=== PATIENT | male | born 1950 | race Caucasian/White ===

== ENCOUNTER → 2017-02-01 | Outpatient (CLI) | payer MEDICARE ==
[~2017-02-01] MED LIST: ASPI81TA85 PO; BACITAB3 PO; DESIOIN3 TOP; FISH1000 PO; GLUC1000 PO; GLUC500T PO; INSUDET SC; INSUH10VL SC; LIPI20TA PO; LISI-542 PO; OS-CTAB PO; PROT1TAB2 PO; REGL10TA6 PO; SUCR1TA PO; TYLE325T5 PO; VITA-130 PO; VITA100T60 PO; [UNRECOGNIZED DRUG - CODE] GT; [UNRECOGNIZED DRUG - CODE] PO; proventil NEB
[2017-02-01 13:06] LABS: ALBUMIN 4.1 GM/DL (3.2-5.2); ALBUMIN/GLOBULIN RATIO 1.21 (1.00-1.93); BILIRUBIN,TOTAL 1.2 MG/DL (0.2-1.0); CALCIUM LEVEL 10.2 MG/DL (8.8-10.2); CREATININE FOR GFR 1.46 MG/DL (0.70-1.30); GLOMERULAR FILTRATION RATE 51.1 (>49); TOTAL PROTEIN 7.5 GM/DL (6.4-8.2)
[2017-02-01 13:23] LABS: POTASSIUM SERUM 6.3 MEQ/L (3.5-5.1)
== END ==
LOC: M SMT 08:24
PROVIDERS: ATTEND Family Medicine
DX: E11.40 Type 2 diabetes mellitus with diabetic neuropathy, unspecified (principal); I10 Essential (primary) hypertension; I63.311 Cerebral infarction due to thrombosis of right middle cerebral artery

== ENCOUNTER → 2017-02-02 | Outpatient (CLI) | payer MEDICARE ==
[~2017-02-02] MED LIST changes: +AMLO10TA2
[2017-02-02 13:46] LABS: CALCIUM LEVEL 9.8 MG/DL (8.8-10.2); CREATININE FOR GFR 1.47 MG/DL (0.70-1.30); GLOMERULAR FILTRATION RATE 50.7 (>49)
[2017-02-02 13:51] LABS: POTASSIUM SERUM 5.8 MEQ/L (3.5-5.1)
== END ==
LOC: M SMT 08:11
PROVIDERS: ATTEND Family Medicine
DX: G72.3 Periodic paralysis (principal)

== ENCOUNTER 2017-02-05 20:50 | Emergency (ER) | payer MEDICARE ==
[~2017-02-05] VITALS: Ht 182.9 cm; Wt 96.2 kg
[~2017-02-05 20:50] MED LIST changes: -AMLO10TA2
[2017-02-05] MEDS ORDERED: AMLO10TA2 (20:58)
[2017-02-05 21:44] LABS: CALCIUM LEVEL 9.7 MG/DL (8.8-10.2); CREATININE FOR GFR 1.34 MG/DL (0.70-1.30); GLOMERULAR FILTRATION RATE 56.4 (>49); POTASSIUM SERUM 4.4 MEQ/L (3.5-5.1)
[2017-02-05] MEDS ORDERED: NS 500 ML IV ONE (22:30)
[2017-02-05 23:11] VITALS: BP 135/70
--- NOTE | 2017-02-06 07:22 | ECGEPIP ---
Stationary ECG Study [facility] - ED Test Date: 2017-02-05 Pat Name: CHELE HOLLINS Department: Room: - Gender: M Coding File Clerk: john : 1950 Requested By: FLAKITA ENGEL Order Number: [id number] Reading MD: Samantha Mcintyre Measurements Intervals [place] Rate: 87 P: 61 [place]: 152 QRS: 13 QRSD: 97 T: 57 QT: 344 QTc: 415 Interpretive Statements SINUS RHYTHM NONSPECIFIC T-WAVE ABNORMALITY DECREASED RATE 11/10/14 Electronically Signed On 02-06-2017 7:22:26 EDT by Samantha Mcintyre
== END 2017-02-05 23:13 | disposition home or self-care (01) ==
LOC: M ED 21:57
DX: E86.0 Dehydration (principal); N17.8 Other acute kidney failure; E87.5 Hyperkalemia

== ENCOUNTER → 2017-02-05 | Outpatient (CLI) | payer MEDICARE ==
[2017-02-05 18:20] LABS: BASO % 0.7 % (0.0-1.0); EOS # 0.2 K/mm3 (0.0-0.50); EOS % 2.1 % (0.0-3.0); LARGE UNSTAINED CELL # 0.2 K/mm3 (0.0-0.4); LARGE UNSTAINED CELL % 3.1 % (0.0-4.0); LYMPH # 2.1 K/mm3 (1.5-4.5); LYMPH % 25.5 % (24.0-44.0); MEAN CORPUSCULAR HEMOGLOBIN 33.3 pg (27.0-33.0); MEAN CORPUSCULAR HGB CONC 33.7 g/dl (32.0-36.5); MEAN CORPUSCULAR VOLUME 98.9 fl (80.0-96.0); MONO # 0.5 K/mm3 (0.0-0.8); MONO % 6.6 % (0.0-5.0); NEUTROPHILS # 4.5 K/mm3 (1.8-7.7); NEUTROPHILS % 62.1 % (36.0-66.0); PLATELET COUNT, AUTOMATED 185 k/mm3 (150-450); RED CELL DISTRIBUTION WIDTH 13.2 % (11.5-14.5); WHITE BLOOD COUNT 7.3 K/mm3 (4.0-10.0)
[2017-02-05 18:39] LABS: CALCIUM LEVEL 11.1 MG/DL (8.8-10.2); CREATININE FOR GFR 1.56 MG/DL (0.70-1.30); GLOMERULAR FILTRATION RATE 47.4 (>49)
[2017-02-05 19:04] LABS: POTASSIUM SERUM 6.4 MEQ/L (3.5-5.1)
== END ==
LOC: M SMT 14:31
PROVIDERS: ATTEND Family Medicine
DX: N17.8 Other acute kidney failure (principal); E87.5 Hyperkalemia

== ENCOUNTER → 2017-02-18 | Outpatient (CLI) | payer MEDICARE ==
[~2017-02-18] MED LIST changes: +AMLO10TA2
[2017-02-18 14:11] LABS: BLOOD UREA NITROGEN 18 MG/DL (7-18); CREATININE FOR GFR 1.09 MG/DL (0.70-1.30); GLOMERULAR FILTRATION RATE > 60.0 (>49); GLUCOSE, FASTING 127 MG/DL (80-110); POTASSIUM SERUM 5.5 MEQ/L (3.5-5.1); SODIUM LEVEL 140 MEQ/L (136-145)
[2017-02-18 14:12] LABS: ANION GAP 4 MEQ/L (8-16); CARBON DIOXIDE LEVEL 28 MEQ/L (21-32); CHLORIDE LEVEL 108 MEQ/L (98-107)
== END ==
LOC: M SMT 09:49
PROVIDERS: ATTEND Family Medicine
DX: E87.5 Hyperkalemia (principal); N17.8 Other acute kidney failure

== ENCOUNTER → 2017-02-24 | Outpatient (CLI) | payer MEDICARE ==
[2017-02-24 13:46] LABS: CORTISOL AM 9.9 UG/DL (4.3-22.4)
== END ==
LOC: M SMT 08:27
PROVIDERS: ATTEND Family Medicine
DX: E87.5 Hyperkalemia (principal)

== ENCOUNTER → 2017-04-02 | Outpatient (CLI) | payer MEDICARE ==
[~2017-04-02] MED LIST changes: +BACITAB PO; -BACITAB3 PO; -VITA-130 PO; +VITA500T PO
== END ==
LOC: M SMT 10:54
PROVIDERS: ATTEND Urology
DX: C61 Malignant neoplasm of prostate (principal)

== ENCOUNTER → 2017-05-20 | Outpatient (CLI) | payer MEDICARE ==
[2017-05-20 13:43] LABS: BASO % 0.9 % (0.0-1.0); EOS # 0.3 K/mm3 (0.0-0.50); EOS % 5.1 % (0.0-3.0); LARGE UNSTAINED CELL # 0.2 K/mm3 (0.0-0.4); LYMPH # 1.7 K/mm3 (1.5-4.5); LYMPH % 29.3 % (24.0-44.0); MEAN CORPUSCULAR HEMOGLOBIN 33.9 pg (27.0-33.0); MEAN CORPUSCULAR HGB CONC 35.1 g/dl (32.0-36.5); MEAN CORPUSCULAR VOLUME 96.5 fl (80.0-96.0); MONO # 0.5 K/mm3 (0.0-0.8); MONO % 7.8 % (0.0-5.0); NEUTROPHILS # 3.1 K/mm3 (1.8-7.7); NEUTROPHILS % 52.8 % (36.0-66.0); PLATELET COUNT, AUTOMATED 201 k/mm3 (150-450); RED CELL DISTRIBUTION WIDTH 12.9 % (11.5-14.5); WHITE BLOOD COUNT 5.8 K/mm3 (4.0-10.0)
[2017-05-20 14:36] LABS: ALBUMIN 4.2 GM/DL (3.2-5.2); ALBUMIN/GLOBULIN RATIO 1.27 (1.00-1.93); ALKALINE PHOSPHATASE 137 U/L (45-117); ALT/SGPT 38 U/L (12-78); ANION GAP 8 MEQ/L (8-16); AST/SGOT 15 U/L (15-37); BILIRUBIN,TOTAL 0.6 MG/DL (0.2-1.0); BLOOD UREA NITROGEN 17 MG/DL (7-18); CALCIUM LEVEL 9.8 MG/DL (8.8-10.2); CARBON DIOXIDE LEVEL 26 MEQ/L (21-32); CHLORIDE LEVEL 105 MEQ/L (98-107); CHOLESTEROL LEVEL 120 MG/DL (<200); CREATININE FOR GFR 1.14 MG/DL (0.70-1.30); GLOMERULAR FILTRATION RATE > 60.0 (>49); GLUCOSE, FASTING 125 MG/DL (80-110); SODIUM LEVEL 139 MEQ/L (136-145); TOTAL PROTEIN 7.5 GM/DL (6.4-8.2); TRIGLYCERIDES LEVEL 75 MG/DL (<150)
[2017-05-20 14:41] LABS: POTASSIUM SERUM 5.3 MEQ/L (3.5-5.1)
== END ==
LOC: M SMT 11:03
PROVIDERS: ATTEND Family Medicine
DX: E11.40 Type 2 diabetes mellitus with diabetic neuropathy, unspecified (principal); I10 Essential (primary) hypertension

== ENCOUNTER → 2017-05-24 | Outpatient (CLI) | payer MEDICARE | LOC: M SMT 15:36 | PROVIDERS: ATTEND Family Medicine | DX: R74.8 Abnormal levels of other serum enzymes (principal) ==

== ENCOUNTER 2019-06-14 20:29 | Emergency (ER) | payer MEDICARE ==
[~2019-06-14] VITALS: Ht 180.3 cm; Wt 104.5 kg
[~2019-06-14 20:29] MED LIST changes: -AMLO10TA2; +AMLO10TA5
[2019-06-14] MEDS ORDERED: DERMABOND TOPICAL SKIN ADHESIVE TOP ONE (21:45)
[2019-06-14 22:34] VITALS: BP 150/78
== END 2019-06-14 22:33 | disposition home or self-care (01) ==
LOC: M ED 20:29
DX: S61.011A Laceration without foreign body of right thumb without damage to nail, initial encounter (principal); W26.8XXA Contact with other sharp object(s), not elsewhere classified, initial encounter; Y92.009 Unspecified place in unspecified non-institutional (private) residence as the place of occurrence of the external cause; E11.9 Type 2 diabetes mellitus without complications; I10 Essential (primary) hypertension; Z79.84 Long term (current) use of oral hypoglycemic drugs; Z88.8 Allergy status to other drugs, medicaments and biological substances

== ENCOUNTER 2020-08-04 10:21 | Inpatient (IN) | payer MEDICARE ==
[~2020-08-04] VITALS: Ht 177.8 cm; Wt 99.5 kg
[2020-08-04] VITALS (8 sets, daily range): BP systolic 114–231; BP diastolic 80–102
[~2020-08-04 10:21] MED LIST changes: -AMLO10TA5; +AMLO1TAB25; -ASPI81TA85 PO; +ASPI81TA86 PO; +VITA-243 PO; -VITA500T PO
[2020-08-04] MEDS ORDERED: vitamin d PO (10:29)
[2020-08-04] MEDS ORDERED: GNP250TA9 PO (10:29)
[2020-08-04] MEDS ORDERED: STROCRY11 XX (10:34)
[2020-08-04] MEDS ORDERED: PROBCAP17 PO (10:34)
[2020-08-04] MEDS ORDERED: [UNRECOGNIZED DRUG - OTHER] PO (10:34)
[2020-08-04] MEDS ORDERED: [UNRECOGNIZED DRUG - OTHER] PO (10:34)
[2020-08-04 11:30] LABS: VENOUS BASE EXCESS -13.9 (-2.0-2.0); VENOUS HCO3 12.1 MEQ/L (23.0-27.0); VENOUS O2 SATURATION 81.6 % (60.0-80.0); VENOUS PARTIAL PRESSURE CO2 30.5 mmHg (38.0-50.0); VENOUS PARTIAL PRESSURE O2 50.2 mmHg (30.0-50.0); VENOUS PH 7.217 UNITS (7.330-7.430); VENOUS STANDARD HCO3 14.1 MEQ/L; VENOUS TOTAL CO2 13.1 MEQ/L (24.0-28.0)
[2020-08-04] MEDS ORDERED: NS 1,000 ML IV ONE ×2 (11:30→12:30)
[2020-08-04] MEDS ORDERED: HumuLIN R (REGULAR) INSULIN (NovoLIN R) **100U/ML** PER UNIT IV ONE (11:30)
--- NOTE | 2020-08-04 11:30 | REP ---
INDICATION: elev glucose COMPARISON: 11/13/2014 TECHNIQUE: Portable AP view of the chest FINDINGS: The mediastinum and cardiac silhouette are stable and within normal limits for portable technique. The lung singer demonstrate chronic changes without acute consolidation, effusion, or pneumothorax. Skeletal structures are intact. IMPRESSION: No acute cardiopulmonary process appreciated. <Electronically signed by Elbert Reddy > 08/04/20 1124
[2020-08-04 11:31] LABS: BASO # 0.1 10^3/uL (0.0-0.2); BASO % 0.5 % (0.0-1.0); EOS % 0.2 % (0.0-3.0); HEMATOCRIT 59.6 % (42.0-52.0); HEMOGLOBIN 18.6 g/dl (13.5-17.5); LYMPH # 1.1 10^3/uL (1.5-5.0); LYMPH % 10.3 % (24.0-44.0); MEAN CORPUSCULAR HEMOGLOBIN 30.7 pg (27.0-33.0); MEAN CORPUSCULAR HGB CONC 31.2 g/dl (32.0-36.5); MEAN CORPUSCULAR VOLUME 98.3 fl (80.0-96.0); MONO # 0.5 10^3/uL (0.0-0.8); MONO % 4.6 % (0.0-5.0); NEUTROPHILS # 9.2 10^3/uL (1.5-8.5); PLATELET COUNT, AUTOMATED 238 10^3/uL (150-450); RED BLOOD COUNT 6.06 10^6/uL (4.30-6.10); WHITE BLOOD COUNT 10.9 10^3/uL (4.0-10.0)
[2020-08-04 11:50] LABS: OSMOLALITY SERUM 371 MOSM/KG (280-301)
[2020-08-04 11:58] LABS: ALBUMIN 3.9 GM/DL (3.2-5.2); ALT/SGPT 49 U/L (12-78); BILIRUBIN,DIRECT 0.3 MG/DL (0.0-0.2); BILIRUBIN,TOTAL 0.7 MG/DL (0.2-1.0); LIPASE 344 U/L (73-393); TOTAL PROTEIN 8.6 GM/DL (6.4-8.2)
[2020-08-04] MEDS ORDERED: INSULIN REGULAR IN 0.9 % NACL 100 UNIT in IV 1 EA IV SCH ×6 (11:58→14:58)
[2020-08-04 11:59] LABS: ACETONE/KETONE > 46.00 MG/DL (<2.81)
[2020-08-04] MEDS ORDERED: INSULIN IV RATE CHANGE DOCUMENTATION ML/HR XX SCH ×3 (12:00→15:00)
[2020-08-04 12:02] LABS: HEMOGLOBIN A1c 10.9 %
[2020-08-04 12:14] LABS: BLOOD UREA NITROGEN 45 MG/DL (7-18); CALCIUM LEVEL 11.1 MG/DL (8.8-10.2); CARBON DIOXIDE LEVEL 16 MEQ/L (21-32); CHLORIDE LEVEL 110 MEQ/L (98-107); CK-MB VALUE MASS 3.9 NG/ML (<3.6); CPK CREATINE PHOSPHOKINASE 218 U/L (39-308); CREATININE FOR GFR 2.32 MG/DL (0.70-1.30); GLOMERULAR FILTRATION RATE 29.7 (>42); MAGNESIUM LEVEL 2.7 MG/DL (1.8-2.4); MB/CK RELATIVE INDEX 1.79 (< OR =4); POTASSIUM SERUM 5.9 MEQ/L (3.5-5.1); SODIUM LEVEL 142 MEQ/L (136-145); TROPONIN I < 0.02 NG/ML (< 0.10)
[2020-08-04 12:15] LABS: GLUCOSE, FASTING 671 MG/DL (70-100)
[2020-08-04] MEDS ORDERED: [UNRECOGNIZED DRUG - OTHER] PO (12:17)
[2020-08-04] MEDS ORDERED: [UNRECOGNIZED DRUG - OTHER] PO (12:17)
[2020-08-04] MEDS ORDERED: SM S160C PO (12:17)
[2020-08-04] MEDS ORDERED: VITA-199 PO (12:17)
[2020-08-04 13:23] LABS: PHOSPHORUS LEVEL 5.4 MG/DL (2.5-4.9)
[2020-08-04] MEDS ORDERED: HumuLIN R (REGULAR) INSULIN (NovoLIN R) **100U/ML** PER UNIT IV STA (13:47)
--- NOTE | 2020-08-04 14:12 | HPEPDOC ---
[facility] Medical History & Physical Date of Admission Aug 04, 2020 Date of Service: Aug 04, 2020 History and Physical CHIEF COMPLAINT: Weakness HISTORY OF PRESENT ILLNESS: 69-year-old male past medical history of jqt-qjkxqdi-yiybjbxkc diabetes, hypertension, presents to the ED because of worsening weakness that has been d eveloping over the past 2 weeks. Patient tells me that he was diagnosed with diabetes 4 years ago and has been managing it with his ketones diet. He has been having increased urinary frequency and increased thirst over the past few weeks however he has not been drinking much and continues to urinate frequently. Patient tells me that he last saw his primary care doctor 2 years ago and does not take any medications and tries to manage his medical problems with diet alone. Patient does not exercise. Patient denies any nausea or vomiting or abdominal pain PAST MEDICAL HISTORY: Glk-sfqnzpr-zxhtqdkje diabetes Hypertension PAST SURGICAL HISTORY: Tonsillectomy Appendectomy SOCIAL HISTORY: Drinks alcohol socially 1-2 times per week Denies tobacco use Denies illicit drug use FAMILY HISTORY: Mother has a history of diabetes and hypertension He is unaware of any major medical problems his father had ALLERGIES: Please see below. REVIEW OF SYSTEMS: 10 point review of systems complete all negative otherwise stated in HPI Constitutional: No sweating or weight loss Eyes: No eye pain or acute blurred vision HENT: No complaints of headache or sore throat Cadiovascular: No Chest pain or palpitations Pulm: No SOB or cough Gastrointestinal: No N/V, no abdominal pain. Genitourinary: No dysuria or hematuria. He does have polyuria per HPI Musculoskeletal: No back pain or joint pain Skin: No rash or jaundice Neurological: weakness per HPI. HOME MEDICATIONS: Please see below. PHYSICAL EXAMINATION: Constitutional: Awake and alert, in no apparent distress. Obese ENT: Sclera are clear. Mucosa is moist. Respiratory: Lungs CTA bilaterally. No respiratory distress. No use of accessory muscles. Cardiovascular: RRR S1 and S2 are normal, no murmur Gastrointestinal: Abdomen is soft, non distended, non tender, BS present. Musculoskeletal: No LE edema. No joint deformities. RUE 5/5, LUE 5/5, BLE 5/5 Neurologic: No focal neurological deficit. Mental Status: A&O x3, normal affect Skin: Warm, dry, venous stasis changes on lower extremities LABORATORY DATA: See below. IMAGING: Chest x-ray: No acute cardiopulmonary changes MICROBIOLOGY: Please see below. ASSESSMENT/PLAN 69-year-old male past medical history of diabetes and hypertension admitted for management of hyperglycemia. Initially with increased anion gap which quickly corrected after subcutaneous insulin and did not require insulin drip. # Diabetic ketoacidosis: Admit to ICU for insulin drip. DKA protocol. IVFs. BMP q2h. A1C 10.9. Diabetic education. q1h accucheck while on insulin drip. K correction per protocol. BMPq2h. # Uncontrolled HTN: not on any home medications. Start on HCTZ, amlodipine. Hydralazine IV PRN SBP>180 # BATSHEVA vs CKD: IVFs. Trend BMP. # Acute pancreatitis: started around 730pm once the patient was admitted and was up in ICU having acute abdominal pain. Initially upon intake patient was abd ominal pain free in the ICU. Relieved with 0.5mg IV dilaudid. Stat CT abdomen. VRAD verbal read showing acute pancreatitis and findings suggestive of gastritis. Findings also consistent with gastritis. Fatty liver. I wonder if he drinks more ETOH than he tells me, I will place him on the CIWA protocol with PRN Ativan. ETOH might have triggered his pancreatitis. Lipid panel ordered. Already NPO and getting IVFs. Pain control, added IV morphine PRN. # DVT prophylaxis: Heparin Critical care time spent in care of this patient 40 A Yousef Hospitalist Vital Signs Vital Signs Date Time Temp Pulse Resp B/P (MAP) Pulse Ox O2 Delivery O2 Flow Rate FiO2 08/04/20 13:30 165/97 (119) 08/04/20 13:22 97 18 99 Room Air 08/04/20 10:22 96.8 Laboratory Data Labs 24H Laboratory Tests 2 08/04/20 10:43: Immature Granulocyte % (Auto) 0.4, Neutrophils (%) (Auto) 84.0H, Lymphocytes (%) (Auto) 10.3L, Monocytes (%) (Auto) 4.6, Eosinophils (%) (Auto) 0.2, Basophils (%) (Auto) 0.5, Neutrophils # (Auto) 9.2H, Lymphocytes # (Auto) 1.1L, Monocytes # (Auto) 0.5, Eosinophils # (Auto) 0.0, Basophils # (Auto) 0.1, Nucleated Red Blood Cells % (auto) 0.0, Osmolality 371H, Total Bilirubin 0.7, Direct Bilirubin 0.3H, Aspartate Amino Transf (AST/SGOT) 22, Alanine Aminotransferase (ALT/SGPT) 49, Alkaline Phosphatase 203H, Total Protein 8.6H, Albumin 3.9, Albumin/Globulin Ratio 0.8, Lipase 344, B-Hydroxybutyrate > 46.00H 08/04/20 10:54: Anion Gap 16, Glomerular Filtration Rate 29.7L, Calcium Level 11.1H, Phosphorus Level 5.4H, Magnesium Level 2.7H, Total Creatine Kinase 218, Creatine Kinase MB 3.9H, Creatine Kinase MB Relative Index 1.79, Troponin I < 0.02 08/04/20 10:56: Blood Gas Bicarbonate Standard 14.1, Venous Blood pH 7.217L, Venous Blood Partial Pressure CO2 30.5L, Venous Blood Partial Pressure O2 50.2H, Venous Blood Total Carbon Dioxide 13.1L, Venous Blood HCO3 12.1L, Venous Blood Oxygen Saturation 81.6H, Venous Blood Base Excess -13.9L, Estimated Mean Plasma Glucose 266H, Hemoglobin A1c 10.9 08/04/20 11:49: Urine Color YELLOW, Urine Appearance CLEAR, Urine pH 5.0, Urine Specific [place] 1.028, Urine Protein NEGATIVE, Urine Glucose (UA) 3+H, Urine Ketones 2+H, Urine Blood NEGATIVE, Urine Nitrite NEGATIVE, Urine Bilirubin NEGATIVE, Urine Urobilinogen 0.2, Urine Leukocyte Esterase NEGATIVE, Urine WBC (Auto) 1, Urine RBC (Auto) 2, Urine Hyaline Casts (Auto) 0, Urine Bacteria (Auto) NEGATIVE, Urin e Squamous Epithelial Cells 0, Urine Sperm (Auto) , Coronavirus (COVID-19)(PCR) NEGATIVE 08/04/20 13:43: Bedside Glucose ([facility], [facility] Panel) 514*H CBC/BMP Laboratory Tests 08/04/20 10:43 08/04/20 10:54 Home Medications Scheduled Ascorbic Acid (Vitamin C) 500 Mg Tab, 500 MG PO DAILY Cholecalciferol (Vitamin D3) (Vitamin D3) 250 Mcg Tablet, 250 MCG PO DAILY Lactobacillus Combo No.11 (Probiotic) 1 Each Cap.sprink, 1 CAP PO DAILY Magnesium Oxide (Magnesium) 250 Mg Tablet, 250 MG PO DAILY [place] ([place]) 160 Mg Capsule, 160 MG PO DAILY [Arginex] , 1 TAB PO DAILY [Strontium Citrate] 250 MG CAP, 750 MG PO DAILY Allergies Coded Allergies: metoprolol (Verified Allergy, Intermediate, INJECTION LEADS TO RASH, 06/14/19) INJECTION LEADS TO RASH A-FIB/CHADSVASC A-FIB History Current/History of A-Fib/PAF?: No SRIKANTHSELLOYD [place] MD Aug 04, 2020 14:12
[2020-08-04 14:38] LABS: CALCIUM LEVEL 9.9 MG/DL (8.8-10.2); CREATININE FOR GFR 1.98 MG/DL (0.70-1.30); GLOMERULAR FILTRATION RATE 35.7 (>42); POTASSIUM SERUM 4.7 MEQ/L (3.5-5.1)
[2020-08-04] MEDS: NS 1,000 ML IV SCH ×2 (15:30→20:30)
[2020-08-04 16:27] LABS: CALCIUM LEVEL 10.3 MG/DL (8.8-10.2); CREATININE FOR GFR 1.98 MG/DL (0.70-1.30); GLOMERULAR FILTRATION RATE 35.7 (>42); PHOSPHORUS LEVEL 2.9 MG/DL (2.5-4.9); POTASSIUM SERUM 4.6 MEQ/L (3.5-5.1)
[2020-08-04] MEDS: INSULIN REGULAR IN 0.9 % NACL 100 UNIT in IV 1 EA IV SCH ×2 (16:30)
[2020-08-04] MEDS ORDERED: LABETALOL 100MG/20ML VIAL IV STA (16:54)
[2020-08-04] MEDS: INSULIN IV RATE CHANGE DOCUMENTATION ML/HR XX SCH ×4 (17:04→21:06)
[2020-08-04] MEDS: PANTOPRAZOLE 40MG VIAL (C9113 PER 1) IV SCH (17:21)
[2020-08-04] MEDS: LEVEMIR (INSULIN DETEMIR) 1 UNITS/0.01ML SC SCH (17:21)
[2020-08-04 17:42] LABS: CALCIUM LEVEL 10.2 MG/DL (8.8-10.2); CREATININE FOR GFR 1.95 MG/DL (0.70-1.30); GLOMERULAR FILTRATION RATE 36.3 (>42); PHOSPHORUS LEVEL 2.4 MG/DL (2.5-4.9); POTASSIUM SERUM 4.4 MEQ/L (3.5-5.1)
[2020-08-04] MEDS ORDERED: hydroCHLOROthiazide 25 MG TAB PO ONE (19:00)
[2020-08-04] MEDS ORDERED: amLODIPine 5 MG TAB PO ONE (19:00)
--- NOTE | 2020-08-04 19:03 | ECGEPIP ---
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
[2020-08-04] MEDS ORDERED: RAMELTEON 8 MG TAB (ROZEREM) PO ONE (19:45)
[2020-08-04] MEDS ORDERED: MORPHINE 2 MG/ML 1ML VIAL (J2270) IV ONE (20:15)
[2020-08-04] MEDS ORDERED: MORPHINE 2 MG/ML 1ML VIAL (J2270) As Ordered ONE (20:15)
[2020-08-04] MEDS ORDERED: MORPHINE 2 MG/ML 1ML VIAL (J2270) IV PRN ×2 (20:30→23:15)
[2020-08-04] MEDS ORDERED: D5/0.9%NACL 1000ML IV ONE (20:30)
[2020-08-04] MEDS ORDERED: HYDROMORPHONE HCL 0.5 MG/ 0.5 ML SYRINGE (J1170 PER 1) IV ONE (20:30)
[2020-08-04] MEDS ORDERED: PANTOPRAZOLE 40MG VIAL (C9113 PER 1) IV ONE (20:45)
[2020-08-04] MEDS ORDERED: THIAMINE 100 MG TAB PO SCH (21:00)
[2020-08-04 21:19] LABS: ALBUMIN 3.3 GM/DL (3.2-5.2); BILIRUBIN,TOTAL 0.7 MG/DL (0.2-1.0); CALCIUM LEVEL 10.2 MG/DL (8.8-10.2); CREATININE FOR GFR 1.85 MG/DL (0.70-1.30); GLOMERULAR FILTRATION RATE 38.6 (>42); MAGNESIUM LEVEL 2.3 MG/DL (1.8-2.4); POTASSIUM SERUM 3.4 MEQ/L (3.5-5.1); TOTAL PROTEIN 7.4 GM/DL (6.4-8.2)
--- NOTE | 2020-08-04 21:36 | REPVR ---
PROCEDURE INFORMATION: Exam: CT Abdomen And Pelvis Without Contrast Exam date and time: 08/04/2020 9:01 PM Age: 69 years old Clinical indication: Abdominal pain; Generalized; Additional info: Acute onset abdominal pain TECHNIQUE: Imaging protocol: Computed tomography of the abdomen and pelvis without contrast. Radiation optimization: All CT scans at this facility use at least one of these dose optimization techniques: automated exposure control; mA and/or kV adjustment per patient size (includes targeted exams where dose is matched to clinical indication); or iterative reconstruction. COMPARISON: CT ABD PELVIS W/O CONTRAST 10/14/2014 8:56 AM (The report from this study was not available for review at the time of this interpretation.) FINDINGS: Lungs: There is mild dependent atelectasis in both lower lobes. Heart: No cardiomegaly or pericardial effusion is noted. There are coronary artery calcifications and mitral annular calcifications. Mediastinal space: There is a small sliding hiatal hernia. There is fluid in the esophagus, which can be seen with gastroesophageal reflux. Diaphragm: Intact. Liver: The liver measures less than 40 Hounsfield units and the attenuation of the liver measures more than 10 Hounsfield units lower compared to the attenuation of the spleen, which is compatible with fatty liver infiltration. Gallbladder and bile ducts: The gallbladder is distended. No calcified gallstones are seen. No gallbladder wall thickening, pericholecystic fluid, or pericholecystic inflammatory changes are identified. No dilation of the bile ducts is noted. No calcified stones are seen in the common bile duct. Pancreas: There is inflammatory fat stranding and a small amount of free fluid around the pancreas, which is compatible with acute pancreatitis. No pseudocyst is identified. No pancreatic mass is seen. No dilation of the main pancreatic duct is noted. Spleen: Unremarkable. No splenomegaly is noted. Adrenal glands: Normal. No adrenal mass is noted. Kidneys and ureters: The kidneys are unremarkable. No renal lesion is identified. No calculi are seen in the kidneys or ureters. There is no hydronephrosis or hydroureter. Stomach and bowel: There is inflammatory fat stranding around the gastric antrum and duodenum. There is colonic diverticulosis without evidence for diverticulitis. There is no evidence for a bowel obstruction, colitis, pneumatosis intestinalis, intussusception, volvulus, or perforated viscus. There is a moderate amount of formed stool in the colon. Appendix: The appendix has been removed. Intraperitoneal space: No free air or abscess. Retroperitoneal space: No retroperitoneal mass or abscess. Vasculature: The abdominal aorta is normal in caliber. There are moderate atherosclerotic calcifications. Lymph nodes: No enlarged lymph nodes. Urinary bladder: The distended urinary bladder is normal in appearance. No stones or masses are seen in the bladder. Reproductive: The prostate gland is enlarged and contains calcifications. The seminal vesicles are unremarkable. Bones/joints: There is no fracture or dislocation. No suspicious osteolytic or osteoblastic lesion. There are degenerative changes involving the lower thoracic spine and lumbar spine. There is severe osteoarthritis of the left hip joint. Soft tissues: There are small bilateral fat containing indirect inguinal hernias. There is mild right gynecomastia. IMPRESSION: 1. Acute pancreatitis. No pancreatic pseudocyst or abscess identified. 2. Inflammatory fat stranding around the gastric antrum and duodenum, which may represent antral gastritis and duodenitis. 3. Colonic diverticulosis without evidence for diverticulitis. 4. Fatty liver. 5. Enlarged prostate. 6. Small bilateral fat containing indirect inguinal hernias. Electronically signed by: Jose Mccurdy On 08/04/2020 21:36:51 PM
[2020-08-04] MEDS: KCL 20MEQ IN D5/0.45NS 1000ML 1,000 ML IV SCH (21:48)
[2020-08-04 22:14] LABS: CHOLESTEROL RISK RATIO 3.804 (<5)
[2020-08-04] MEDS: HEPARIN SOD (PORCINE) 5000UNITS/ML 1ML VIAL/SYRINGE SC SCH (22:34)
[2020-08-04] MEDS: LORazepam 2 MG TAB PO PRN (22:42)
[2020-08-04 23:31] LABS: CREATININE FOR GFR 1.93 MG/DL (0.70-1.30); GLOMERULAR FILTRATION RATE 36.7 (>42); PHOSPHORUS LEVEL 2.1 MG/DL (2.5-4.9); POTASSIUM SERUM 3.6 MEQ/L (3.5-5.1)
[2020-08-05] VITALS (31 sets, daily range): BP systolic 119–187; BP diastolic 74–108
[2020-08-05] MEDS: LORazepam 2 MG TAB PO PRN (00:01)
[2020-08-05] MEDS ORDERED: HYDROMORPHONE HCL 0.5 MG/ 0.5 ML SYRINGE (J1170 PER 1) IV PRN ×2 (00:15)
[2020-08-05] MEDS ORDERED: LORazepam 2 MG/ML VIAL As Ordered ONE ×4 (00:26→20:49)
[2020-08-05] MEDS: LORazepam 2 MG/ML VIAL IV PRN ×4 (00:27→20:50)
[2020-08-05] MEDS: INSULIN IV RATE CHANGE DOCUMENTATION ML/HR XX SCH ×12 (01:07→23:30)
[2020-08-05] MEDS: KCL 20MEQ IN D5/0.45NS 1000ML 1,000 ML IV SCH ×2 (02:56→07:17)
[2020-08-05] MEDS: INSULIN REGULAR IN 0.9 % NACL 100 UNIT in IV 1 EA IV SCH ×2 (03:18)
[2020-08-05 03:50] LABS: CREATININE FOR GFR 2.1 MG/DL (0.70-1.30); GLOMERULAR FILTRATION RATE 33.3 (>42); POTASSIUM SERUM 4.4 MEQ/L (3.5-5.1)
[2020-08-05] MEDS: LEVEMIR (INSULIN DETEMIR) 1 UNITS/0.01ML SC SCH ×2 (04:10→17:16)
[2020-08-05 05:13] LABS: HEMATOCRIT 60.3 % (42.0-52.0); HEMOGLOBIN 19.2 g/dl (13.5-17.5); MEAN CORPUSCULAR HEMOGLOBIN 31.3 pg (27.0-33.0); MEAN CORPUSCULAR HGB CONC 31.8 g/dl (32.0-36.5); MEAN CORPUSCULAR VOLUME 98.2 fl (80.0-96.0); PLATELET COUNT, AUTOMATED 164 10^3/uL (150-450); RED BLOOD COUNT 6.14 10^6/uL (4.30-6.10); WHITE BLOOD COUNT 12.2 10^3/uL (4.0-10.0)
[2020-08-05 05:39] LABS: ACETONE/KETONE 2.45 MG/DL (<2.81); CALCIUM LEVEL 9.6 MG/DL (8.8-10.2); CREATININE FOR GFR 2.2 MG/DL (0.70-1.30); GLOMERULAR FILTRATION RATE 31.6 (>42); MAGNESIUM LEVEL 2.2 MG/DL (1.8-2.4); PHOSPHORUS LEVEL 1.9 MG/DL (2.5-4.9); POTASSIUM SERUM 4.1 MEQ/L (3.5-5.1)
[2020-08-05] MEDS ORDERED: OXAZEPAM 10 MG CAP PO SCH (06:00)
[2020-08-05] MEDS: HEPARIN SOD (PORCINE) 5000UNITS/ML 1ML VIAL/SYRINGE SC SCH ×3 (07:17→21:07)
[2020-08-05] MEDS ORDERED: FOLIC ACID 1 MG TAB PO SCH (09:00)
[2020-08-05] MEDS ORDERED: hydroCHLOROthiazide 12.5 MG CAPSULE PO SCH (09:00)
[2020-08-05] MEDS ORDERED: MULTIVITAMINS/MINERALS THERAP 1 TAB PO SCH (09:00)
[2020-08-05] MEDS ORDERED: amLODIPine 5 MG TAB PO SCH (09:00)
[2020-08-05 09:06] LABS: ABG BASE EXCESS -8.6 (-2.0-2.0); ABG HCO3 15.4 MEQ/L (22.0-26.0); ABG O2 SATURATION 94.6 % (95.0-99.0); ABG PARTIAL PRESSURE CO2 30.1 mmHg (35.0-45.0); ABG PARTIAL PRESSURE O2 72.6 mmHg (75.0-100.0); ABG STANDARD HCO3 17.8 MEQ/L (22.0-26.0); ABG TOTAL CO2 16.3 MEQ/L (23.0-31.0); ABG pH (ARTERIAL) 7.327 UNITS (7.350-7.450)
[2020-08-05] MEDS: THIAMINE 200MG/2ML VIAL (J3411 PER 100MG) IM SCH (09:06)
[2020-08-05] MEDS: PANTOPRAZOLE 40MG VIAL (C9113 PER 1) IV SCH (09:06)
[2020-08-05] MEDS: hydrALAZINE 20MG/ML 1ML VIAL (J0360 PER 20MG) IV SCH ×4 (09:07→23:25)
[2020-08-05 09:26] LABS: SODIUM,RANDOM URINE < 10 MEQ/L
[2020-08-05] MEDS ORDERED: SODIUM CHLORIDE 0.9% 1000ML IV ONE (11:15)
[2020-08-05] MEDS: FOLIC ACID 1 MG in NS 50 ML IV SCH (11:21)
[2020-08-05 12:18] LABS: CALCIUM LEVEL 10.5 MG/DL (8.8-10.2); CREATININE FOR GFR 1.93 MG/DL (0.70-1.30); GLOMERULAR FILTRATION RATE 36.7 (>42); POTASSIUM SERUM 5.7 MEQ/L (3.5-5.1)
[2020-08-05] MEDS: D5W/0.45% SODIUM CHLORIDE 1,000 ML IV SCH (12:55)
[2020-08-05 14:10] LABS: OSMOLALITY URINE 741 MOSM/KG (500-800)
[2020-08-05] MEDS ORDERED: NS 500 ML IV ONE ×2 (14:15→16:00)
--- NOTE | 2020-08-05 15:17 | IPNPDOC ---
Date Seen The patient was seen on 08/05/20. Progress Note SUBJECTIVE: Mr. Martinez was examined at bedside in the ICU this morning. He appears encephalopathic and was obtunded, moaning and writhing in bed. Pt shows pain response. Verbal hx and ROS was not able to be obtained for this reason. Nurse at bedside reports no vomiting or diarrhea. No issues reported from overnight. OBJECTIVE: VITALS: See Below GENERAL: Pt is moaning and writhing in bed. Pt does not appear to be in respiratory distress. Obtunded but arousable to pain. HEENT: Normocephalic atraumatic, EOMI, mucus membranes moist CV: S1S2 were present, RRR. No murmurs, rubs or gallops present. no peripheral edema, JVD not elevated LUNGS: Clear to auscultation in all lung singer. ABDOMEN: Guarding with palpation in RUQ and epigastrum. Normoactive bowel sounds in all 4 quadrants. No masses, no orgamegaly EXTREMITIES: Bilateral UE/LE are cool to touch. No edema noted at this time. Pul ses 3+ in all extremities PSYCH: unable to assess NEURO: unable to assess SKIN: lower extremities appear somewhat mottled ASSESSMENT/PLAN: Mr. Martinez is a 69 y/o with a PMH of non-insulin dependent di abetes mellitus, HTN, right-sided CVA and heavy alcohol use presenting with weakness, urinary frequency and thirst. As per H&P on admission, pt does not take any medications for his diabetes or HTN. Pt was found to have hyperglycemia, metabolic acidosis w/ increased anion gap, high lipase, BATSHEVA and high lactic acid concerning for DKA, pancreatitis, renal failure and alcohol withdrawal. Pt was admitted to ICU. # Acute pancreatitis secondary to heavy alcohol use vs gallstone disease - Family notes patient drinks almost 6-pack/day - Lipase 7981 U/L, WBC 12.2 - CT abdomen showed inflammatory fat stranding concerning for acute pancreatitis. No pancreatic pseudocyst or abscess identified. No gallbladder distention or stones noted. Normal sized bile duct - Continue Maintenance fluids D5/ 1/2NS 75cc /hr - Continue hydromorphone HCl 0.5 mg IV PRN for pain, although caution as patient is obtunded - Lipid panel normal # DKA secondary to uncontrolled/noncompliance DM vs. acute pancreatitis - HbA1c 10.9%. Patient is not on any antidiabetic medications at home - Fasting Glucose 208. POC glucose 260 - Lactic acid improved to 1.2. B-Hydroxybutyrate + on admission - Hyperkalemia 5.7, stopped potassium in fluid, will check BMPs Q6H - Insulin drip decreased to 1, Patient has been bridged with Levemir but due to pancreatitis he is not able to eat. Therefore, we will keep the insulin drip on at this time. Continue with D5/ 1/2 NS. - Continue Levemir 10U BID for now - q1h FSBS while on insulin drip - IV fluid boluses added 1000 +500 NS # Hyperchloremic Metabolic acidosis 2/2 DKA - AB.327/30.1/72.6 - Cholride elevated at 131 - Likely to improve with improvement in fluid status # Oliguric renal failure: Patient has had decreased UOP in past 24 hrs - 1.5 IV Bolus NS given today, 500 cc in 4 hours (6 pm) - Maintenance fluids D5/ 1/2NS: 75cc p/hr with intermittent boluses NS - Creatinine improving with most recent reading 1.93 mg/dL. Unable to determine baseline at this time - UA with cast analysis pending, concern for acute tubular necrosis - Renal Ultrasound pending - Will calculate FENa when urine lytes result # Hypernatremia: Na up to 155, likely 2/2 dehydration - Pt appears euvolemic - Urine osmolality 741 - D5 w/ 0.5% sodium chloride 75 mL/hr - Free water deficit calculated at 6.5L - Will continue with fluid boluses as needed, monitor UOP # Encephalopathy secondary to alcohol withdrawal vs. pancreatitis - Continue CIWA protocol + Lorazepam 2mg IV Q3HP PRN - IV Folic acid and thiamine IM 100 mg, MVI - Ammonia level normal # HTN - IV hydralazine 10 mg Q6H with hold parameters DISPO: pending clinical improvement DVT PROPHYLAXIS: Heparin Sodium 5,000 units Q8H VS, I&O, 24H, Fishbone Vital Signs/I&O Vital Signs Date Time Temp Pulse Resp B/P (MAP) Pulse Ox O2 Delivery O2 Flow Rate FiO2 08/05/20 14:01 126 144/88 (106) 94 Nasal Cannula 4.0 08/05/20 12:00 97.6 28 I&O- Last 24 Hours up to 6 AM 08/05/20 06:00 Intake Total 4781 ml Output Total 505 ml Balance 4276 ml Laboratory Data 24H LABS Laboratory Tests 2 08/04/20 15:01: Lab Scanned Report LAB OTHER 08/04/20 15:31: Bedside Glucose (Misc Panel) 458H 08/04/20 15:36: Anion Gap 17H, Glomerular Filtration Rate 35.7L, Osmolality 361H, Calcium Level 10.3H, Phosphorus Level 2.9# 08/04/20 16:50: Bedside Glucose (Misc Panel) 331H 08/04/20 17:00: Anion Gap 16, Glomerular Filtration Rate 36.3L, Osmolality 359H, Calcium Level 10.2, Phosphorus Level 2.4L 08/04/20 17:09: POC Glucose (Misc Panel) 340H, POC Sodium (Misc Panel) 156H, POC Potassium (Misc Panel) 3.7, POC Chloride (Misc Panel) 125H, POC Total CO2 (Misc Panel) 17.0L, POC Blood Urea Nitrogen (Misc Panel 36H, POC Ionized Calcium (Misc Panel) 5.6H, POC Creatinine (Misc Panel) 1.5H, POC Hematocrit (Misc Panel) 53.0H 08/04/20 18:13: Bedside Glucose (Misc Panel) 308H 08/04/20 19:04: Bedside Glucose (Misc Panel) 235H 08/04/20 20:01: Bedside Glucose (Misc Panel) 153H 08/04/20 20:43: Anion Gap 10, Glomerular Filtration Rate 38.6L, Calcium Level 10.2, Magnesium Level 2.3, Total Bilirubin 0.7, Aspartate Amino Transf (AST/SGOT) 19, Alanine Aminotransferase (ALT/SGPT) 36, Alkaline Phosphatase 155H, Total Protein 7.4, Albumin 3.3, Albumin/Globulin Ratio 0.8, Triglycerides Level 159H, Total Cholesterol 175, LDL Cholesterol 97, Non-HDL Cholesterol (LDL + VLDL) 129, Total HDL Cholesterol 46, Cholesterol/HDL Ratio 3.804, Lipase 81010L 08/04/20 20:48: Bedside Glucose (Misc Panel) 180H 08/04/20 21:57: Bedside Glucose (Misc Panel) 189H 08/04/20 23:04: Anion Gap 9, Glomerular Filtration Rate 36.7L, Calcium Level 10.0, Phosphorus Level 2.1L 08/04/20 23:05: Osmolality 342H 08/04/20 23:11: Bedside Glucose (Misc Panel) 195H 08/05/20 00:04: Bedside Glucose (Misc Panel) 185H 08/05/20 01:04: Bedside Glucose (Misc Panel) 213H 08/05/20 01:58: Bedside Glucose (Misc Panel) 209H 08/05/20 03:07: Anion Gap 8, Glomerular Filtration Rate 33.3L, Lactic Acid Level 2.6*H, Calcium Level 10.0, Phosphorus Level 2.0L 08/05/20 03:11: Bedside Glucose (Misc Panel) 222H 08/05/20 04:04: Bedside Glucose (Misc Panel) 151H 08/05/20 04:41: Nucleated Red Blood Cells % (auto) 0.0, Anion Gap 6L, Glomerular Filtration Rate 31.6L, Osmolality 345H, Calcium Level 9.6, Phosphorus Level 1.9L, Magnesium Level 2.2, Amylase Level 430H, Lipase 7981H, B-Hydroxybutyrate 2.45 08/05/20 04:53: Bedside Glucose (Misc Panel) 227H 08/05/20 06:05: Bedside Glucose (Misc Panel) 290H 08/05/20 07:18: Bedside Glucose (Misc Panel) 237H 08/05/20 07:34: Lactic Acid Followup at 4 Hours 1.2 08/05/20 08:05: Bedside Glucose (Misc Panel) 225H 08/05/20 08:57: Blood Gas Bicarbonate Standard 17.8L, Arterial Blood pH 7.327L, Arterial Blood Partial Pressure CO2 30.1L, Arterial Blood Partial Pressure O2 72.6L, Arterial Blood Total CO2 16.3L, Arterial Blood HCO3 15.4L, Arterial Blood Base Excess - 8.6L, Arterial Blood Oxygen Saturation 94.6L 08/05/20 08:59: Bedside Glucose (Misc Panel) 233H 08/05/20 09:01: Urine Random Osmolality 741, Urine Random Sodium < 10 08/05/20 09:23: Ammonia 28 08/05/20 10:09: Bedside Glucose (Misc Panel) 260H 08/05/20 11:17: Anion Gap 6L, Glomerular Filtration Rate 36.7L, Calcium Level 10.5H CBC/BMP Laboratory Tests 08/04/20 15:36 08/04/20 17:00 08/04/20 20:43 08/04/20 23:04 08/05/20 03:07 08/05/20 04:41 08/05/20 11:17 Microbiology Microbiology 08/04/20 Blood Culture, Received Pending 08/04/20 Blood Culture - Preliminary, Resulted No growth after 24 hours . All specim... GME ATTESTATION GME ATTESTATION My faculty preceptor for this patient encounter was physically present during the encounter and was fully available. All aspects of the patient interview, examination, medical decision making process, and medical care plan development were reviewed and approved by the faculty preceptor. The faculty preceptor is aware and concurs with the plan as stated in the body of this note and will attest to such by his/her cosignature. ATTENDING NOTE Patient was seen and examined by me personally with the students and the residents. Agree with the above assessment and plan. JT RODRIGUEZ MD Aug 05, 2020 15:17 FRANCISCA BRANDON MD Aug 09, 2020 11:10
[2020-08-05] MEDS: MULTIVITAMIN ADULT IV SCH (17:16)
[2020-08-05] MEDS: D5W IV SCH (17:16)
[2020-08-05] MEDS: SODIUM CHLORIDE IV SCH (17:16)
[2020-08-05 18:01] LABS: CALCIUM LEVEL 9.5 MG/DL (8.8-10.2); CREATININE FOR GFR 1.74 MG/DL (0.70-1.30); GLOMERULAR FILTRATION RATE 41.4 (>42); MAGNESIUM LEVEL 1.9 MG/DL (1.8-2.4); POTASSIUM SERUM 4.5 MEQ/L (3.5-5.1)
[2020-08-05] MEDS: LABETALOL 100MG/20ML VIAL IV SCH (18:28)
[2020-08-05] MEDS ORDERED: LR 1,000 ML IV ONE (18:45)
--- NOTE | 2020-08-05 19:41 | ECGEPIP ---
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
[2020-08-05] MEDS ORDERED: LEVEMIR (INSULIN DETEMIR) 1 UNITS/0.01ML SC ONE (21:00)
[2020-08-05 21:08] LABS: ABG BASE EXCESS -8.8 (-2.0-2.0); ABG HCO3 12.6 MEQ/L (22.0-26.0); ABG O2 SATURATION 98.6 % (95.0-99.0); ABG PARTIAL PRESSURE CO2 20.8 mmHg (35.0-45.0); ABG STANDARD HCO3 17.7 MEQ/L (22.0-26.0); ABG TOTAL CO2 13.2 MEQ/L (23.0-31.0)
--- NOTE | 2020-08-05 21:34 | REPVR ---
PROCEDURE INFORMATION: Exam: US Retroperitoneal; Complete; Kidneys and Bladder Exam date and time: 08/05/2020 9:14 PM Age: 69 years old Clinical indication: Abnormal findings; Abnormal lab test; Abnormal function test of other organs/systems; Additional info: Shivam TECHNIQUE: Imaging protocol: Real-time ultrasound of the retroperitoneum with image documentation. Complete exam focused on the kidneys and bladder. COMPARISON: CT ABD PELVIS W/O CONTRAST 08/04/2020 8:54 PM FINDINGS: Right kidney: 12 cm in length. No stones. No hydronephrosis. Left kidney: 12.4 cm in length. No stones. No hydronephrosis. Urinary bladder: Decompressed. Anne catheter in place. IMPRESSION: No acute sonographic findings. Electronically signed by: Chalo Daniels On 08/05/2020 21:34:30 PM
[2020-08-05 21:36] LABS: APPEARANCE, URINE CLOUDY (CLEAR); BACTERIA, URINE AUTO 1+ (NEGATIVE); BILIRUBIN, URINE AUTO NEGATIVE (NEGATIVE); BLOOD, URINE BLOOD 3+ (NEGATIVE); COLOR, URINE YELLOW (YELLOW); GLUCOSE, URINE (UA) AUTO NEGATIVE (NEGATIVE); KETONE, URINE AUTO NEGATIVE (NEGATIVE); LEUKOCYTE ESTERASE, URINE AUTO NEGATIVE (NEGATIVE); MUCUS, URINE SMALL (NEGATIVE); NITRITE, URINE AUTO NEGATIVE (NEGATIVE); PROTEIN, URINE AUTO 1+ mg/dL (NEGATIVE); RBC, URINE AUTO 75 /HPF (0-3); SPECIFIC GRAVITY URINE AUTO 1.018 (1.002-1.035); SQUAMOUS EPITHELIAL CELL UR AU 0 /HPF (0-6); UROBILINOGEN, URINE AUTO 0.2 mg/dL (0.0-2.0); WBC, URINE AUTO 3 /HPF (0-3)
[2020-08-05 23:33] LABS: CALCIUM LEVEL 9.6 MG/DL (8.8-10.2); CREATININE FOR GFR 1.78 MG/DL (0.70-1.30); GLOMERULAR FILTRATION RATE 40.3 (>42); POTASSIUM SERUM 4.4 MEQ/L (3.5-5.1)
[2020-08-06] VITALS (59 sets, daily range): BP systolic 78–143; BP diastolic 44–96
[2020-08-06] MEDS: INSULIN IV RATE CHANGE DOCUMENTATION ML/HR XX SCH ×3 (00:53→02:42)
[2020-08-06] MEDS: D5W/0.45% SODIUM CHLORIDE 1,000 ML IV SCH ×2 (02:05→13:25)
[2020-08-06] MEDS ORDERED: LR 1,000 ML IV ONE (02:15)
[2020-08-06] MEDS ORDERED: LORazepam 2 MG/ML VIAL As Ordered ONE (02:31)
[2020-08-06] MEDS: LORazepam 2 MG/ML VIAL IV PRN (02:34)
[2020-08-06] MEDS: INSULIN REGULAR IN 0.9 % NACL 100 UNIT in IV 1 EA IV SCH ×4 (02:36→09:05)
[2020-08-06] MEDS: LABETALOL 100MG/20ML VIAL IV SCH ×2 (02:43→10:00)
[2020-08-06 02:44] LABS: ABG BASE EXCESS -11.5 (-2.0-2.0); ABG HCO3 12.4 MEQ/L (22.0-26.0); ABG O2 SATURATION 96.4 % (95.0-99.0); ABG PARTIAL PRESSURE CO2 25.6 mmHg (35.0-45.0); ABG PARTIAL PRESSURE O2 84.2 mmHg (75.0-100.0); ABG STANDARD HCO3 15.9 MEQ/L (22.0-26.0); ABG TOTAL CO2 13.2 MEQ/L (23.0-31.0); ABG pH (ARTERIAL) 7.303 UNITS (7.350-7.450)
[2020-08-06 05:00] LABS: HEMATOCRIT 61.8 % (42.0-52.0); HEMOGLOBIN 18.8 g/dl (13.5-17.5); MEAN CORPUSCULAR HGB CONC 30.4 g/dl (32.0-36.5); PLATELET COUNT, AUTOMATED 111 10^3/uL (150-450); RED BLOOD COUNT 6.06 10^6/uL (4.30-6.10); WHITE BLOOD COUNT 16.2 10^3/uL (4.0-10.0)
[2020-08-06] MEDS: HEPARIN SOD (PORCINE) 5000UNITS/ML 1ML VIAL/SYRINGE SC SCH ×3 (05:42→21:33)
[2020-08-06] MEDS: hydrALAZINE 20MG/ML 1ML VIAL (J0360 PER 20MG) IV SCH (05:42)
--- NOTE | 2020-08-06 06:27 | REPVR ---
PROCEDURE INFORMATION: Exam: XR Chest, 1 View Exam date and time: 08/06/2020 4:59 AM Age: 69 years old Clinical indication: Wheezing; Additional info: Adventitious lung sounds TECHNIQUE: Imaging protocol: XR of the chest Views: 1 view. COMPARISON: MD Chest, 1 view 08/04/2020 11:19 AM FINDINGS: Lungs: Bilateral perihilar opacities likely reflect vessel crowding with poor inspiration. Pleural space: Unremarkable. No pleural effusion. No pneumothorax. Heart/Mediastinum: Unremarkable. No cardiomegaly. Bones/joints: Multilevel degenerative disease of the thoracic spine. Degenerative changes in the bilateral shoulders. IMPRESSION: Bilateral perihilar opacities likely reflect vessel crowding with poor inspiration. Electronically signed by: López Delarosa On 08/06/2020 06:27:46 AM
[2020-08-06 06:59] LABS: CALCIUM LEVEL 9.6 MG/DL (8.8-10.2); CREATININE FOR GFR 2.28 MG/DL (0.70-1.30); GLOMERULAR FILTRATION RATE 30.3 (>42); MAGNESIUM LEVEL 2.1 MG/DL (1.8-2.4); POTASSIUM SERUM 5.1 MEQ/L (3.5-5.1)
[2020-08-06 08:03] LABS: ALBUMIN 2.2 GM/DL (3.2-5.2); BILIRUBIN,DIRECT 0.5 MG/DL (0.0-0.2); BILIRUBIN,TOTAL 1.1 MG/DL (0.2-1.0); TOTAL PROTEIN 6.1 GM/DL (6.4-8.2)
[2020-08-06 08:39] LABS: ABG BASE EXCESS -10.9 (-2.0-2.0); ABG HCO3 14.9 MEQ/L (22.0-26.0); ABG O2 SATURATION 94.7 % (95.0-99.0); ABG PARTIAL PRESSURE CO2 34.4 mmHg (35.0-45.0); ABG PARTIAL PRESSURE O2 74.3 mmHg (75.0-100.0); ABG STANDARD HCO3 16.2 MEQ/L (22.0-26.0); ABG TOTAL CO2 15.9 MEQ/L (23.0-31.0); ABG pH (ARTERIAL) 7.254 UNITS (7.350-7.450)
[2020-08-06] MEDS ORDERED: MVI -ADULT INJECTION 10ML VIAL IV SCH (09:00)
[2020-08-06] MEDS ORDERED: LEVEMIR (INSULIN DETEMIR) 1 UNITS/0.01ML SC SCH (09:00)
[2020-08-06] MEDS ORDERED: propofoL 1,000 MG in IV 1 EA IV SCH (09:00)
[2020-08-06] MEDS ORDERED: PROPOFOL 1,000 MG/100 ML VIAL As Ordered ONE (09:18)
[2020-08-06] MEDS ORDERED: MIDAZOLAM INJ 2MG/2ML VIAL (J2250 PER 1MG) As Ordered ONE ×2 (09:19→10:05)
[2020-08-06 09:23] LABS: C REACTIVE PROTEIN QUANTITATIV 22.3 MG/DL (0.00-0.30)
[2020-08-06] MEDS ORDERED: NS 500 ML IV ONE ×4 (09:45→13:45)
[2020-08-06] MEDS ORDERED: MIDAZOLAM INJ 2MG/2ML VIAL (J2250 PER 1MG) IV ONE ×2 (10:00→11:00)
--- NOTE | 2020-08-06 10:06 | REP ---
INDICATION: ETT placement COMPARISON: 08/04/2020, 08/06/2020 TECHNIQUE: Portable AP view of the chest FINDINGS: Endotracheal tube approximately 5 cm above the yaa. Nasogastric tube courses below the left hemidiaphragm. Right perihilar and left lower lobe infiltrates/atelectasis with possible small left pleural effusion represent new findings as compared to prior examination. No pneumothorax. Skeletal structures intact. IMPRESSION: Multifocal infiltrate/atelectasis and possible small left pleural effusion now identified. <Electronically signed by Elbert Reddy > 08/06/20 1002
--- NOTE | 2020-08-06 11:01 | REP ---
INDICATION: CL placement. COMPARISON: Exam same day 9:50 a.m.. TECHNIQUE: SINGLE PORTABLE AP VIEW OF THE CHEST WAS PERFORMED. FINDINGS: There is placement of a right central venous catheter. The tip is in the superior vena cava. There is no pneumothorax. Endotracheal tube nasogastric tube are grossly unchanged. Visualized lung singer, heart mediastinum are unchanged. IMPRESSION: Placement of right central venous catheter with tip in superior vena cava. No pneumothorax. <Electronically signed by Meliton Rodriguez > 08/06/20 0930
[2020-08-06] MEDS ORDERED: ALBUTEROL SULFATE 2.5 MG/0.5 ML INH NEB SOLN NEB PRN (11:15)
[2020-08-06] MEDS: PANTOPRAZOLE 40MG VIAL (C9113 PER 1) IV SCH (11:48)
[2020-08-06] MEDS: THIAMINE 200MG/2ML VIAL (J3411 PER 100MG) IM SCH (11:48)
[2020-08-06] MEDS ORDERED: GLUCOSE 4GM CHEW TABLET PO PRN (12:00)
[2020-08-06] MEDS: HumaLOG INSULIN (NovoLOG) PER UNIT SC SCH ×2 (12:00→18:07)
[2020-08-06] MEDS ORDERED: GLUCAGON INJ 1MG VIAL SC PRN (12:00)
[2020-08-06] MEDS ORDERED: DEXTROSE 50% 50 ML SYRINGE IV PRN (12:00)
[2020-08-06] MEDS ORDERED: THIAMINE 200MG/2ML VIAL (J3411 PER 100MG) IM ONE (12:30)
[2020-08-06 12:44] LABS: ABG PARTIAL PRESSURE CO2 22.8 mmHg (35.0-45.0); ABG PARTIAL PRESSURE O2 62.7 mmHg (75.0-100.0)
[2020-08-06 12:45] LABS: HEMOGLOBIN 17.9 g/dl (13.5-17.5); PLATELET COUNT, AUTOMATED 109 10^3/uL (150-450); WHITE BLOOD COUNT 14.6 10^3/uL (4.0-10.0)
[2020-08-06 12:45] LABS: ABG O2 SATURATION 93.8 % (95.0-99.0); ABG TOTAL CO2 12.7 MEQ/L (23.0-31.0)
[2020-08-06 12:58] LABS: INR 1.06; PARTIAL THROMBOPLASTIN TIME 25.3 SECONDS (24.2-38.5)
--- NOTE | 2020-08-06 13:16 | REPVR ---
PROCEDURE INFORMATION: Exam: CT Head Without Contrast Exam date and time: 08/06/2020 12:55 PM Age: 69 years old Clinical indication: Other: Encephalopathy TECHNIQUE: Imaging protocol: Computed tomography of the head without contrast. Radiation optimization: All CT scans at this facility use at least one of these dose optimization techniques: automated exposure control; mA and/or kV adjustment per patient size (includes targeted exams where dose is matched to clinical indication); or iterative reconstruction. COMPARISON: CT Head without contrast 10/29/2014 3:42 PM FINDINGS: Brain: There is no acute intracranial hemorrhage or mass effect. Mild to moderate diffuse volume loss is within the range of normal for patient age. There are small vessel ischemic changes within the periventricular and subcortical white matter, but the normal sheridan/white matter delineation is maintained. There is right frontoparietal and right occipital encephalomalacia. Cerebral ventricles: No ventriculomegaly. Bones/joints: Unremarkable. No acute fracture. Paranasal sinuses: Visualized sinuses are unremarkable. No fluid levels. Mastoid air cells: Visualized mastoid air cells are well aerated. Soft tissues: Unremarkable. IMPRESSION: No acute intracranial hemorrhage or edema. Electronically signed by: Deborah Serna On 08/06/2020 13:16:00 PM
[2020-08-06 13:22] LABS: ATYPICAL LYMPH 3 % (0-5); CALCIUM LEVEL 9.2 MG/DL (8.8-10.2); CREATININE FOR GFR 3.09 MG/DL (0.70-1.30); GLOMERULAR FILTRATION RATE 21.3 (>42); LYMPHOCYTES 7 % (16-44); METAMYELOCYTES 5 % (0-0); MONOCYTES 4 % (0-5); NEUTROPHILS 38 % (28-66); POTASSIUM SERUM 5.2 MEQ/L (3.5-5.1)
[2020-08-06 13:27] LABS: PLATELET ESTIMATE NORMAL (NORMAL)
--- NOTE | 2020-08-06 13:33 | REP ---
INDICATION: hx pancreatitis + encephalopathy COMPARISON: 08/04/2020 TECHNIQUE: Axial noncontrast images from the lung bases to the pubic symphysis with coronal and sagittal reformations. This CT examination was performed using the following dose reduction techniques: Automated exposure control, adjustment of mA and/or kv according to the patient's size, and use of iterative reconstruction technique. FINDINGS: Lung bases demonstrate moderate left lower lobe consolidation with air bronchograms along with right lower lobe atelectasis and small pleural effusions (left greater than right). Peripancreatic inflammatory stranding extending into the surrounding anterior pararenal space and bilateral pericolic gutters into the pelvis is consistent with acute pancreatitis and appears slightly more pronounced than prior examination. No drainable collection or abscess and no obvious pseudocyst is identified. The liver demonstrates diffuse fatty infiltration and geographic areas of heterogeneity which are nonspecific but raise the possibility of underlying acute on chronic inflammatory change and hepatocellular disease. Gallbladder is moderately distended. Spleen is unremarkable. Bilateral adrenal glands and kidneys are relatively stable and without hydronephrosis. The enteric system is without obstruction or acute inflammatory process. Colonic and sigmoid diverticula noted without acute diverticulitis. A nasogastric tube is identified extending into the stomach. Pelvis demonstrates Anne catheter in collapsed bladder and prostatomegaly along with small fat containing inguinal hernias. Atherosclerotic changes to the aorta noted without aneurysm. Musculoskeletal structures demonstrate age-related changes. IMPRESSION: 1. Lung bases demonstrate new areas of consolidation/atelectasis and small pleural effusions. 2. Peripancreatic inflammatory changes extending into the bilateral pericolic gutters and pelvis increased from prior examination, but without drainable collection/abscess or pseudocyst. 3. Heterogeneous suspected edematous changes to the liver suggests underlying acute on chronic inflammatory change without focal hepatic lesion identified. 4. Further nonacute findings as described above. <Electronically signed by Elbert Reddy > 08/06/20 [id number]
--- NOTE | 2020-08-06 13:35 | ROOPDOC ---
[facility] Report Of Operation Report of Operation Subclavian Central Line Procedure Note INDICATION: Poor peripheral access PROCEDURE WELFARE INVESTIGATOR: Dr. Lesa Pino DO PGY-2 ATTENDING PHYSICIAN: Dr. Nabor Chavez DO [facility] In Attendance: Y Ultrasound Used: N CONSENT: Consent was obtained from patient's Carolina Martinez prior to the procedure. Indications, risks, and benefits were explained at length. PROCEDURE SUMMARY: The [facility] Central Line Insertion Practices form was completed by an independent observer starting with the first handwash prior to starting sterile technique. A time out was performed. My hands were washed immediately prior to the procedure. I wore a surgical cap, mask with protective eyewear, sterile gown and sterile gloves throughout the procedure. The patient was placed in Trendelenburg position. The right chest region was prepped using chlorhexidine scrub and draped in sterile fashion using a full drape. Anesthesia was achieved with 1% lidocaine. The introducer needle was inserted approximately two centimeters lateral to and 1 cm inferior to the normal curvature of the patient's clavicle. Venous blood was withdrawn. The syringe was removed and a guidewire was advanced into the introducer needle. A small incision was made at the skin surface with a scalpel and the introducer needle was exchanged for a dilator over the guidewire. After appropriate dilation was obtained, the dilator was exchanged over the wire for a triple lumen central venous catheter. The wire was removed and the catheter was sutured in place at 18 cm. A sterile sorbaview shield was placed over the catheter at the insertion site. The patient tolerated the procedure without any hemodynamic compromise. At time of procedure completion, all ports aspirated and flushed properly. Post-procedure chest x-ray is pending at this time. Estimated blood loss is 5 mL. LESA PINO D.O. Aug 06, 2020 13:35
[2020-08-06] MEDS: FOLIC ACID 1 MG in NS 50 ML IV SCH (13:38)
[2020-08-06] MEDS: CEFEPIME HCL 2 GM in D5W MINI-BAG PLUS 50 ML IV SCH (13:55)
--- NOTE | 2020-08-06 14:28 | CR ---
CRITICAL CARE CONSULTATION NOTE DATE OF CONSULTATION: 08/06/2020 SUBJECTIVE: I was called to the intensive care unit to evaluate this 69-year-old male with respiratory failure; admitted on 08/04 with weakness progressing over the past 2 weeks associated with polyuria and polydipsia. Initial diagnostic studies suggested acute pancreatitis, elevated blood sugar and elevated beta hydroxybutyrate as well as elevated lactate. He was hydrated, glucose was controlled but his level of consciousness has progressively declined. OBJECTIVE: GENERAL: On my arrival he is tachypneic and obtunded, withdraws from pain. VITAL SIGNS: Temperature 98.6, pulse rate 104, respirations 38, blood pressure 123/87. HEENT: Pupils respond to light. There are copious oral secretions. NECK: Supple without meningismus. Jugular veins are flat. HEART: Sounds regular without appreciable murmur. Monitor showing sinus tachycardia. LUNGS: Breath sounds scattered rhonchi throughout. ABDOMEN: Soft but with some guarding. There is blood stool. No organomegaly. EXTREMITIES: Cold, pulses are diminished. DIAGNOSTIC STUDIES: Sodium 158, potassium 3.8, chloride 131, bicarb 18, BUN 39, creatinine 1.93, glucose 195. Calcium 10, albumin 2.3, lipase 20,754. White cell count 16.2, hemoglobin 18.8, hematocrit 61.8, platelet count 111,000. Arterial blood gases show pH 7.25, pCO2 34, pO2 73. Chest and abdominal imaging was reviewed. ASSESSMENT: The primary problem requiring immediate critical attention is acute respiratory failure. The patient is not protecting his airway and has copious secretions. Will place an endotracheal tube; begin mechanical ventilation, sedation and check and arterial blood gas. Metabolic acidosis: Will recheck serum lactate. I suspect this is the etiology. Pancreatitis: The patient has been hydrated and will continue with hydration. Lower GI bleed: I am suspicious of bowel necrosis. If stability allows repeat abdominal CT scan may be helpful. Fluid volume: Will check CVP, I suspect the patient is volume contracted. Acute kidney injury secondary to hypovolemia. DVT prophylaxis: Will be addressed with subcutaneous Heparin. Glycemic control: Will be addressed at this point with finger stick blood sugars and coverage. The insulin drip will be stopped. Ulcer prophylaxis: Being addressed with Protonix. I have reviewed the case with the attending service and with the ICU staff. The patients condition is very critical. Prognosis is poor. 162 minutes was spent in the provision of bedside critical care and coordination exclusive of any procedure time. MTDD
--- NOTE | 2020-08-06 14:32 | ROOPDOC ---
[facility] Report Of Operation Report of Operation Endotracheal Intubation Procedure Note INDICATION: metabolic encephalopathy PROCEDURE BEAM WORKER: Jt Pollard MD ATTENDING PHYSICIAN: Nabor Chavez DO In Attendance (Y/N) Y CONSENT: Consent was not obtained from the patient prior to the procedure as it was an emergent procedure. PROCEDURE SUMMARY: A time out was performed. My hands were washed immediately prior to the procedure. I wore a surgical cap, mask with protective eyewear throughout the procedure. The patient was placed on a teletypesetter monitor including continuous pulse oximetry. Cricoid pressure was maintained until the time of cuff balloon inflation. Using a glidoscope and a size 8.0 endotracheal tube with stylet, the patient was intubated on the second attempt. The stylet was removed and cuff balloon was inflated. Appropriate endotracheal tube position was confirmed by direct visualization of vocal cord passage, fogging of the tube, CO2 colometric indicator and symmetric breath sounds. The tube was secured at 24 cm at the lips. Post intubation chest x-ray confirmed placement of the tube at 5cm above the yaa. GME ATTESTATION GME ATTESTATION My faculty preceptor for this patient encounter was physically present during the encounter and was fully available. All aspects of the patient interview, examination, medical decision making process, and medical care plan development were reviewed and approved by the faculty preceptor. The faculty preceptor is aware and concurs with the plan as stated in the body of this note and will attest to such by his/her cosignature. JT POLLARD MD Aug 06, 2020 14:32
[2020-08-06] MEDS: metroNIDAZOLE 500 MG in IV 1 EA IV SCH ×2 (14:42→21:16)
--- NOTE | 2020-08-06 15:12 | IPNPDOC ---
Date Seen The patient was seen on 08/06/20. Progress Note SUBJECTIVE: Mr. Martinez was examined at bedside in the ICU this morning. Overnight he was found to have increased oxygen requirement and is now on vapotherm 40L with 100% FiO2. The patient was found to be quite tachypneic and was given one dose of Ativan overnight for agitation. He is more obtunded this morning. The decision was made to intubate him in light of his worsened metabolic encephalopathy and obtundation. OBJECTIVE: VITALS: See Below GENERAL: Pt is unresponsive to verbal stimuli. Pt is tachypneic. Responsive to pain. HEENT: Normocephalic atraumatic, EOMI, PERRL, mucus membranes dry CV: S1S2 normal, RRR. No murmurs, rubs or gallops present. no peripheral edema, JVD not elevated LUNGS: rhoncherous lung singer bilaterally, symmetric chest rise ABDOMEN: Guarding with palpation in RUQ and epigastrum. Normoactive bowel sounds in all 4 quadrants. No masses, no orgamegaly EXTREMITIES: Bilateral UE/LE are cool to touch. No edema noted at this time. Pulses 1+ in all extremities by doppler PSYCH: unable to assess NEURO: unable to assess SKIN: lower extremities appear mottled up to thighs CT HEAD: FINDINGS: Brain: There is no acute intracranial hemorrhage or mass effect. Mild to moderate diffuse volume loss is within the range of normal for patient age. There are small vessel ischemic changes within the periventricular and subcortical white matter, but the normal sheridan/white matter delineation is maintained. There is right frontoparietal and right occipital encephalomalacia. Cerebral ventricles: No ventriculomegaly. Bones/joints: Unremarkable. No acute fracture. Paranasal sinuses: Visualized sinuses are unremarkable. No fluid levels. Mastoid air cells: Visualized mastoid air cells are well aerated. Soft tissues: Unremarkable. IMPRESSION: No acute intracranial hemorrhage or edema. CT ABD/PELVIS WITHOUT CONTRAST: IMPRESSION: 1. Lung bases demonstrate new areas of consolidation/atelectasis and small pleural effusions. 2. Peripancreatic inflammatory changes extending into the bilateral pericolic gutters and pelvis increased from prior examination, but without drainable collection/abscess or pseudocyst. 3. Heterogeneous suspected edematous changes to the liver suggests underlying acute on chronic inflammatory change without focal hepatic lesion identified. 4. Further nonacute findings as described above. ASSESSMENT/PLAN: Mr. Martinez is a 69 y/o with a PMH of non-insulin dependent diabetes mellitus, HTN, right-sided CVA and heavy alcohol use presenting with weakness, urinary frequency and excessive thirst found to have hyperglycemia, metabolic acidosis w/ increased anion gap, high lipase, BATSHEVA and high lactic acid concerning for DKA, pancreatitis, renal failure and alcohol withdrawal. Due to worsening metabolic acidosis and encephalopathy the patient was intubated. # Acute pancreatitis secondary to heavy alcohol use - Family notes patient drinks almost 6-pack/day - Lipase 7981 U/L, WBC increased to 14.6 - Intermittent fluid boluses for total of over 7 L fluid given over the past 24 hours - Repeat CT abdomen today shows peripancreatic inflammatory changes extending all the way to the lateral pericolic gutters and pelvis - Concern for necrotic bowel as OG tube placed and copious bilious drainage noted. - Plan to consult surgery today for recommendations - Continue Maintenance fluids D5/ 1/2NS increased to 100 mL per hour, with intermittent fluid boluses as needed. Last CVP measured at 8 - Lipid panel normal # DKA secondary to uncontrolled/noncompliance DM vs. acute pancreatitis - HbA1c 10.9%. Patient is not on any antidiabetic medications at home - Glucose down to the 100s - Lactic acid increased to 2.7 today. B-Hydroxybutyrate elevated at 6.64 - Hyperkalemia noted at 5.2, stopped potassium in fluid, several labs noted to be hemolyzed - Insulin drip continued at 1 liter per hour, Patient has been bridged with Levemir but due to pancreatitis he is still nothing by mouth. Therefore, we will keep the insulin drip on at this time. Continue with D5/ 1/2 NS. - Continue Levemir 10U BID for now - q1h FSBS while on insulin drip - IV fluid boluses as needed # Hyperchloremic Metabolic acidosis 2/2 DKA - AB.34/22/62 - Cholride elevated at 133 - Likely to improve with improvement in fluid status # Oliguric renal failure: Patient has had decreased UOP in past 24 hrs - 1.5 IV Bolus NS given today, 500 cc in 4 hours (6 pm) - Maintenance fluids D5/ 1/2NS: 100 cc p/hr with intermittent boluses NS - Creatinine worsened today, 3.09. Unable to determine baseline at this time - UA with cast analysis demonstrates Hyaline casts, concern for acute tubular necrosis. UA positive for blood - Renal Ultrasound without concerning findings - FENa demonstrates prerenal etiology # Hypernatremia: Na up to 158, likely secondary to dehydration - Pt appears euvolemic - Urine osmolality 741 - D5 w/ 0.5% sodium chloride 100 mL/hr - Free water deficit calculated at 6.5L - Will continue with fluid boluses as needed, monitor UOP # Encephalopathy secondary to metabolic encephalopathy, versus alcohol withdrawal vs. pancreatitis - Patient is now on Versed drip from intubation - Continue CIWA protocol + Lorazepam 2mg IV Q3HP PRN - IV Folic acid and thiamine IM 100 mg, MVI. Extra dose of thiamine added today - Ammonia level normal # Hypotension - MAP is currently above 65, will add levophed as needed #GI ppx: - Protonix - Patient does have OG tube DISPO: Poor prognosis DVT PROPHYLAXIS: Heparin Sodium 5,000 units Q8H VS, I&O, 24H, Fishbone Vital Signs/I&O Vital Signs Date Time Temp Pulse Resp B/P (MAP) Pulse Ox O2 Delivery O2 Flow Rate FiO2 08/06/20 10:00 117 88/57 08/06/20 06:00 91 08/06/20 04:00 98.6 36 HVNI-Vapotherm 40.0 100 I&O- Last 24 Hours up to 6 AM 08/06/20 06:00 Intake Total 5741.7 ml Output Total 487 ml Balance 5254.7 ml Laboratory Data 24H LABS Laboratory Tests 2 08/05/20 15:12: Bedside Glucose (Misc Panel) 196H 08/05/20 16:09: Bedside Glucose (Misc Panel) 194H 08/05/20 17:23: Bedside Glucose (Misc Panel) 195H, Anion Gap 7L, Glomerular Filtration Rate 41.4L, Calcium Level 9.5, Magnesium Level 1.9 08/05/20 18:26: Bedside Glucose (Misc Panel) 248H 08/05/20 19:32: Bedside Glucose (Misc Panel) 240H 08/05/20 20:33: Bedside Glucose (Misc Panel) 187H 08/05/20 20:57: Blood Gas Bicarbonate Standard 17.7L, Arterial Blood pH 7.400, Arterial Blood Partial Pressure CO2 20.8L, Arterial Blood Partial Pressure O2 121.0H, Arterial Blood Total CO2 13.2L, Arterial Blood HCO3 12.6L, Arterial Blood Base Excess - 8.8L, Arterial Blood Oxygen Saturation 98.6 08/05/20 21:01: Urine Color YELLOW, Urine Appearance CLOUDYH, Urine pH 5.0, Urine Specific [place] 1.018, Urine Protein 1+H, Urine Glucose (Auto)(UA) NEGATIVE, Urine Ketones (Auto) NEGATIVE, Urine Blood 3+H, Urine Nitrite NEGATIVE, Urine Bilirubin NEGATIVE, Urine Urobilinogen 0.2, Urine Leukocyte Esterase (Auto) NEGATIVE, Urine WBC (Auto) 3, Urine RBC (Auto) 75H, Urine Hyaline Casts (Auto) 8, Urine Bacteria (Auto) 1+H, Urine Squamous Epithelial Cells 0, Urine Mucus (Auto) SMALL, Urine Sperm (Auto) , Urine Random Creatinine 141.0 08/05/20 21:42: Bedside Glucose (Misc Panel) 230H 08/05/20 22:39: Bedside Glucose (Misc Panel) 137H 08/05/20 22:54: Anion Gap 4L, Glomerular Filtration Rate 40.3L, Calcium Level 9.6, Magnesium Level 2.0 08/05/20 23:28: Bedside Glucose (Misc Panel) 123H 08/06/20 00:49: Bedside Glucose (Misc Panel) 166H 08/06/20 01:44: Bedside Glucose (Misc Panel) 131H 08/06/20 02:35: Bedside Glucose (Misc Panel) 171H 08/06/20 02:37: Blood Gas Bicarbonate Standard 15.9L, Arterial Blood pH 7.303L, Arterial Blood Partial Pressure CO2 25.6L, Arterial Blood Partial Pressure O2 84.2, Arterial Blood Total CO2 13.2L, Arterial Blood HCO3 12.4L, Arterial Blood Base Excess - 11.5L, Arterial Blood Oxygen Saturation 96.4 08/06/20 04:31: Bedside Glucose (Misc Panel) 154H 08/06/20 04:48: Reticulocyte # (auto) 50.2, Nucleated Red Blood Cells % (auto) 0.0, Percent Reticulocyte Count 0.9, Reticulocyte Hemoglobin Equivalent 35.6 08/06/20 05:34: Bedside Glucose (Misc Panel) 172H 08/06/20 06:24: Anion Gap 4L, Glomerular Filtration Rate 30.3L, Calcium Level 9.6, Magnesium Level 2.1, Total Bilirubin 1.1#H, Direct Bilirubin 0.5H, Aspartate Amino Transf (AST/SGOT) 117H, Alanine Aminotransferase (ALT/SGPT) 68, Alkaline Phosphatase 147H, Lactate Dehydrogenase 584H, C-Reactive Protein, Quantitative 22.30H, Total Protein 6.1L, Albumin 2.2#L, Albumin/Globulin Ratio 0.6 08/06/20 06:35: Bedside Glucose (Misc Panel) 158H 08/06/20 07:31: Bedside Glucose (Misc Panel) 155H 08/06/20 08:04: Erythrocyte Sedimentation Rate 1 08/06/20 08:25: Blood Gas Bicarbonate Standard 16.2L, Arterial Blood pH 7.254L, Arterial Blood Partial Pressure CO2 34.4L, Arterial Blood Partial Pressure O2 74.3L, Arterial Blood Total CO2 15.9L, Arterial Blood HCO3 14.9L, Arterial Blood Base Excess - 10.9L, Arterial Blood Oxygen Saturation 94.7L 08/06/20 09:04: Bedside Glucose (Misc Panel) 104 08/06/20 11:22: Bedside Glucose (Misc Panel) 103 08/06/20 12:20: Prothrombin Time 14.0, Prothromb Time International Ratio 1.06, Activated Partial Thromboplast Time 25.3, Fibrinogen 579H 08/06/20 12:21: Neutrophils (%) (Auto) , Nucleated Red Blood Cells % (auto) 0.0, Neutrophils 38, Band Neutrophils 43H, Lymphocytes (Manual) 7L, Monocytes (Manual) 4, Metamyelocytes 5H, Atypical Lymphocytes 3, Platelet Estimate NORMAL, Anion Gap 7L, Glomerular Filtration Rate 21.3L, Calcium Level 9.2, B-Hydroxybutyrate 6.64H 08/06/20 12:22: Blood Gas Bicarbonate Standard 16.0L, Arterial Blood pH 7.340L, Arterial Blood Partial Pressure CO2 22.8L, Arterial Blood Partial Pressure O2 62.7L, Arterial Blood Total CO2 12.7L, Arterial Blood HCO3 12.0L, Arterial Blood Base Excess - 11.0L, Arterial Blood Oxygen Saturation 93.8L, Lactic Acid Level 2.7*H 08/06/20 12:30: CBC/BMP Laboratory Tests 08/05/20 15:13 08/05/20 17:23 08/05/20 22:54 08/06/20 04:48 08/06/20 06:24 08/06/20 12:21 Microbiology Microbiology 08/06/20 Stool Occult Blood (DANIKA) - Final, Complete 08/04/20 Blood Culture - Preliminary, Resulted No growth after 24 hours . All specim... 08/04/20 Blood Culture - Preliminary, Resulted No Growth after 48 hours. All Specime... GME ATTESTATION GME ATTESTATION My faculty preceptor for this patient encounter was physically present during the encounter and was fully available. All aspects of the patient interview, examination, medical decision making process, and medical care plan development were reviewed and approved by the faculty preceptor. The faculty preceptor is aware and concurs with the plan as stated in the body of this note and will attest to such by his/her cosignature. ATTENDING NOTE Patient was seen and examined by me personally with the students and the residents. Agree with the above assessment and plan. JT RODRIGUEZ MD Aug 06, 2020 15:12 FRANCISCA BRANDON MD Aug 09, 2020 11:15
[2020-08-06] MEDS: SODIUM CHLORIDE IV SCH (18:07)
[2020-08-06] MEDS: MULTIVITAMIN ADULT IV SCH (18:07)
[2020-08-06] MEDS: D5W IV SCH (18:07)
[2020-08-06 18:35] LABS: CALCIUM LEVEL 9.1 MG/DL (8.8-10.2); CREATININE FOR GFR 3.73 MG/DL (0.70-1.30); GLOMERULAR FILTRATION RATE 17.2 (>42); POTASSIUM SERUM 5.5 MEQ/L (3.5-5.1)
[2020-08-06 20:20] LABS: MAGNESIUM LEVEL 2.1 MG/DL (1.8-2.4); PHOSPHORUS LEVEL 3.9 MG/DL (2.5-4.9)
[2020-08-06] MEDS ORDERED: NS 1,000 ML IV ONE (21:00)
[2020-08-06] MEDS ORDERED: HEPARIN SOD (PORCINE) 5000UNITS/ML 1ML VIAL/SYRINGE IV ONE (21:00)
[2020-08-06] MEDS: CHLORHEXIDINE GLUCONATE 0.12 % 15ML UDC (PERIDEX ORAL RINSE) MT SCH (21:16)
[2020-08-06 23:27] LABS: HEMATOCRIT 47.6 % (42.0-52.0); HEMOGLOBIN 14.5 g/dl (13.5-17.5); MEAN CORPUSCULAR HEMOGLOBIN 31.3 pg (27.0-33.0); MEAN CORPUSCULAR HGB CONC 30.5 g/dl (32.0-36.5); MEAN CORPUSCULAR VOLUME 102.6 fl (80.0-96.0); RED BLOOD COUNT 4.64 10^6/uL (4.30-6.10); WHITE BLOOD COUNT 16.7 10^3/uL (4.0-10.0)
[2020-08-06 23:46] LABS: PLATELET COUNT, AUTOMATED 95 10^3/uL (150-450)
[2020-08-07] VITALS (38 sets, daily range): BP systolic 74–149; BP diastolic 37–90; O2SAT 90
[2020-08-07] MEDS: CEFEPIME HCL 2 GM in D5W MINI-BAG PLUS 50 ML IV SCH ×3 (00:14→23:20)
[2020-08-07] MEDS: HumaLOG INSULIN (NovoLOG) PER UNIT SC SCH ×5 (00:15→23:19)
[2020-08-07 00:18] LABS: CALCIUM LEVEL 7.8 MG/DL (8.8-10.2); CREATININE FOR GFR 4.48 MG/DL (0.70-1.30); GLOMERULAR FILTRATION RATE 13.9 (>42); POTASSIUM SERUM 6.2 MEQ/L (3.5-5.1)
[2020-08-07] MEDS ORDERED: HumuLIN R (REGULAR) INSULIN (NovoLIN R) **100U/ML** PER UNIT IV STA ×2 (00:23→04:51)
[2020-08-07] MEDS ORDERED: DEXTROSE 50% 50 ML SYRINGE IV STA ×2 (00:23→04:51)
[2020-08-07] MEDS ORDERED: CALCIUM GLUCONATE 1,000 MG in D5W MINI-BAG PLUS 100 ML IV ONE ×3 (00:30→07:30)
[2020-08-07] MEDS: D5W/0.45% SODIUM CHLORIDE 1,000 ML IV SCH ×3 (01:44→19:40)
[2020-08-07 04:09] LABS: BASO # 0.2 10^3/uL (0.0-0.2); BASO % 0.9 % (0.0-1.0); HEMATOCRIT 45.2 % (42.0-52.0); HEMOGLOBIN 13.5 g/dl (13.5-17.5); LYMPH % 5.9 % (24.0-44.0); MEAN CORPUSCULAR HEMOGLOBIN 30.7 pg (27.0-33.0); MEAN CORPUSCULAR HGB CONC 29.9 g/dl (32.0-36.5); MEAN CORPUSCULAR VOLUME 102.7 fl (80.0-96.0); MONO # 1.2 10^3/uL (0.0-0.8); MONO % 6.6 % (0.0-5.0); NEUTROPHILS # 14.9 10^3/uL (1.5-8.5); NEUTROPHILS % 85.9 % (36.0-66.0); WHITE BLOOD COUNT 17.4 10^3/uL (4.0-10.0)
[2020-08-07 04:13] LABS: PLATELET COUNT, AUTOMATED 96 10^3/uL (150-450)
[2020-08-07 04:45] LABS: CALCIUM LEVEL 7.9 MG/DL (8.8-10.2); CREATININE FOR GFR 4.93 MG/DL (0.70-1.30); GLOMERULAR FILTRATION RATE 12.4 (>42); POTASSIUM SERUM 6.1 MEQ/L (3.5-5.1)
[2020-08-07] MEDS: NOREPINEPHRINE BITARTRATE 8 MG in D5W 492 ML IV SCH ×9 (05:03→17:00)
[2020-08-07] MEDS: metroNIDAZOLE 500 MG in IV 1 EA IV SCH ×3 (05:13→20:24)
[2020-08-07] MEDS: HEPARIN SOD (PORCINE) 5000UNITS/ML 1ML VIAL/SYRINGE SC SCH (05:19)
[2020-08-07 05:43] LABS: ABG BASE EXCESS -15.3 (-2.0-2.0); ABG HCO3 12.1 MEQ/L (22.0-26.0); ABG O2 SATURATION 97.5 % (95.0-99.0); ABG PARTIAL PRESSURE CO2 33.9 mmHg (35.0-45.0); ABG PARTIAL PRESSURE O2 96.1 mmHg (75.0-100.0); ABG TOTAL CO2 13.2 MEQ/L (23.0-31.0)
[2020-08-07 05:48] LABS: ABG pH (ARTERIAL) 7.172 UNITS (7.350-7.450)
[2020-08-07] MEDS: MIDAZOLAM INJ 2MG/2ML VIAL (J2250 PER 1MG) IV PRN ×4 (06:12→22:55)
[2020-08-07 06:40] LABS: ALBUMIN 1.5 GM/DL (3.2-5.2); BILIRUBIN,TOTAL 0.7 MG/DL (0.2-1.0); TOTAL PROTEIN 4.7 GM/DL (6.4-8.2)
[2020-08-07] MEDS ORDERED: SODIUM BICARBONATE 8.4% INJ 50 ML SYRINGE IV STA (07:37)
--- NOTE | 2020-08-07 08:20 | REP ---
INDICATION: ett COMPARISON: 08/06/2020 TECHNIQUE: Portable AP view of the chest FINDINGS: Endotracheal tube 5 cm above the yaa. Nasogastric tube extends below the left hemidiaphragm. Right subclavian catheter with tip in the SVC. The mediastinum and cardiac silhouette are stable and within normal limits for portable technique. Bibasilar opacities (left greater than right) suggest left lower lobe consolidation, bibasilar atelectasis, and small pleural effusions. Findings are relatively unchanged compared to prior examination. No pneumothorax. Skeletal structures intact. Consolidation/atelectasis IMPRESSION: 1. Lines and tubes in satisfactory position. 2. Basilar opacities similar to prior examination <Electronically signed by Elbert Reddy > 08/07/20 [id number]
[2020-08-07 08:40] LABS: FIBRINOGEN 572 MG/DL (221-452); INR 1.22; PROTHROMBIN TIME 15.7 SECONDS (12.5-14.3)
[2020-08-07] MEDS: CHLORHEXIDINE GLUCONATE 0.12 % 15ML UDC (PERIDEX ORAL RINSE) MT SCH ×2 (08:46→20:23)
[2020-08-07] MEDS: PANTOPRAZOLE 40MG VIAL (C9113 PER 1) IV SCH (08:46)
[2020-08-07] MEDS ORDERED: SODIUM CHLORIDE 0.9% 1000ML IV ONE (09:00)
--- NOTE | 2020-08-07 09:39 | CR ---
"NEPHROLOGY CONSULTATION DATE OF CONSULTATION: 08/06/2020 REASON FOR CONSULTATION: Oliguric acute renal failure in this gentleman with severe pancreatitis and multiorgan dysfunction. HISTORY OF PRESENT ILLNESS: Mr. Martinez is a 69-year-old gentleman who was admitted to [facility] on August 04 due to generalized weakness. He was found to have abdominal pain and a CAT scan of abdomen and pelvis did show acute pancreatitis. Initially he was felt to have diabetic ketoacidosis, however after CAT scan a diagnosis of acute pancreatitis was made in addition. He has been treated with intravenous insulin drip and ketoacidosis did improve, however he has developed oliguric acute renal failure. The patient has also received a large amount of IV fluids. He has been now intubated due to altered mentation and worsening overall status. Blood pressure has been low but has not required pressors as yet. A nephrology consultation was requested this afternoon and the patient is seen in the Intensive Care Unit. PAST MEDICAL HISTORY: The patient's past medical history is significant for: 1. Diabetes. 2. Hypertension. 3. Prior history of pancreatitis a few years ago. PAST SURGICAL HISTORY: The patient's past surgical history is significant for: 1. History of tonsillectomy. 2. History of appendectomy. PERSONAL AND SOCIAL HISTORY: The patient apparently drinks alcohol 1-2 times per week. No known history of illicit drug use. FAMILY HISTORY: The patient's family history is noncontributory. According to his records, mother has history of diabetes and hypertension. No known family history of kidney problems. MEDICATIONS: His home medications included: * Vitamin C. * Vitamin D. * Magnesium Oxide. * Jonathan Palisade. * Actinex.| ALLERGIES: There is a reported allergy to Metoprolol. REVIEW OF SYSTEMS: At the present the patient is intubated and unresponsive. I did talk to his . Apparently he has not been feeling well for a few days and was very weak. He was diagnosed with diabetic ketoacidosis on admission and then acute pancreatitis. No other relevant information is available at present. PHYSICAL EXAMINATION: GENERAL APPEARANCE: The patient is intubated and also has an orogastric tube in place. VITAL SIGNS: Temperature is 97.7 degrees Fahrenheit, heart rate about 116 per minute and respiratory rate 40 per minute, blood pressure is 100/73 mm of mercury and oxygen saturation is 91% on the ventilator with 80% FiO2. HEENT: His head is atraumatic. Endotracheal tube or orogastric tubes are in place. NECK: Neck veins are not abnormally distended. HEART: Sounds are tachycardic. LUNGS: Bilateral air entry. ABDOMEN: Distended and tender. The patient does grimace on pressure. Bowel sounds are present. EXTREMITIES: Without any cyanosis or clubbing. He has mottling of skin on his lower extremities. NEUROLOGICALLY: He is unresponsive at present. LABORATORY DATA: Most recent labs today showed sodium 158, potassium 5.2, CO2 18, chloride 133, BUN 52 and creatinine 3.09, glucose 106, potassium 9.2. C- reactive protein is 22.3. Most recent blood gas showed a pH of 7.34, pco2 22.8, pO2 62.7 and bicarbonate 16. WBC is 14.6, hemoglobin 17.9 and hematocrit 56. PROBLEMS: 1. Oliguric acute renal failure in the setting of acute pancreatitis - The patient has received a large amount of IV fluids. I would recommend to continue with IV fluids and try to maintain his systolic blood pressure at least above 100. He has already been intubated due to respiratory failure and is currently on 80% FiO2. We would certainly not want to overload him with fluid. For his acute renal failure, we will start CRRT in view of his hypertension and acute pancreatitis. I discussed with the patient's on the phone and explained to her about his condition, guarded prognosis and urgent need for dialysis. She consented and we will arrange for CRRT at the bedside. The patients was agreeable for dialysis catheter placement. 2. Hypernatremia this is related to acute renal failure and IV fluids in the setting of acute pancreatitis. He is currently receiving IV D5W which should be continued and we will also try to correct his electrolytes with CRRT. 3. Metabolic acidosis His acidosis is related to acute kidney injury. Diabetic ketoacidosis has improved. This will improve with CRRT. 4. Acute pancreatitis The patient is being covered with broad spectrum antibiotics, though no clear evidence of sepsis. His blood pressure is still somewhat low. He is receiving IV fluids and no parenteral feeding at this point. 5. Hyperkalemia he has mild hyperkalemia which will correct with CRRT. No other intervention needed. 6. Hypernatremia - The patient is already receiving hypotonic fluid and is likely to improve with CRRT further. Electrolytes will be repleted every few hours. Thank you for involving me in the care of Mr. Martinez. I will follow him along with you. CARMENCITA"
--- NOTE | 2020-08-07 11:44 | IPNPDOC ---
Date Seen The patient was seen on 08/07/20. Progress Note SUBJECTIVE: Mr. Martinez was examined at bedside in the ICU this morning. Overnight he was started on pressor therapy for hypotension. CRRT was attempted yesterday evening but patient clotted off the machine three times and efforts were stopped. The patient remains mechanically ventilated today and continues to be unresponsive. There was a discussion with the patient's and brother this morning indicating poor prognosis. The family demonstrated understanding but wished to proceed with care for 24 more hours and revisit the patient's code status tomorrow. OBJECTIVE: VITALS: See Below GENERAL: Pt is unresponsive to verbal stimuli. Pt is tachypneic. Responsive to pain. HEENT: Normocephalic atraumatic, EOMI, PERRL, mucus membranes dry, small laceration at the lower lip left-border CV: S1S2 normal, RRR. No murmurs, rubs or gallops present. no peripheral edema, JVD not elevated LUNGS: ventilated breath sounds, symmetric chest rise ABDOMEN: soft. Bowel sounds are not appreciated. Patient grimaces with deep palpation. No masses, no orgamegaly. OG tube in place draining green/black fluid EXTREMITIES: Bilateral UE/LE are cool to touch. No edema noted at this time. Pulses 1+ in all extremities by doppler PSYCH: unable to assess NEURO: unable to assess SKIN: lower extremities appear mottled up to thighs ASSESSMENT/PLAN: Mr. Martinez is a 69 y/o with a PMH of non-insulin dependent diabetes mellitus, HTN, right-sided CVA and heavy alcohol use presenting with weakness, urinary frequency and excessive thirst found to have hyperglycemia, metabolic acidosis w/ increased anion gap, high lipase, BATSHEVA and high lactic acid concerning for DKA, pancreatitis, renal failure and alcohol withdrawal. Due to worsening metabolic acidosis and encephalopathy the patient was intubated. He will now be started on CRRT for renal failure. # Acute pancreatitis - Family notes patient drinks almost 6-pack/day - Lipase 7981 U/L, WBC increased to 14.6 - Intermittent fluid boluses for total of over 7 L fluid given over the past 24 hours - Repeat CT abdomen today shows peripancreatic inflammatory changes extending all the way to the lateral pericolic gutters and pelvis - Concern for necrotic bowel as OG tube placed and copious bilious drainage noted. - Surgery consult in place. Appreciate recommendations - Continue Maintenance fluids D5/ 1/2NS increased to 100 mL per hour, with intermittent fluid boluses as needed. Last CVP measured at 6 - Lipid panel normal # DKA secondary to uncontrolled/noncompliance DM vs. acute pancreatitis - HbA1c 10.9%. Patient is not on any antidiabetic medications at home - s/p insulin drip - Lactic acid increased to 3.2 today - Hyperkalemia noted at 6.1, given calcium gluconate x 3 - Continue SSI for now - IV fluid boluses as needed # Hyperchloremic Metabolic acidosis 2/2 DKA - AB. - Cholride improved to 126 - Likely to improve with improvement in fluid status # Oliguric renal failure: Patient has had decreased UOP in past 24 hrs - Maintenance fluids D5/ 1/2NS: 100 cc p/hr with intermittent boluses NS - Creatinine worsened today, 4.93. Unable to determine baseline at this time - UA with cast analysis demonstrates Hyaline casts, concern for acute tubular necrosis. UA positive for blood - Renal Ultrasound without concerning findings - FENa demonstrates prerenal etiology - Will attempt CRRT today and start heparin drip # Hypernatremia: Na improved to 151 - Urine osmolality 741 - D5 w/ 0.5% sodium chloride 100 mL/hr - Free water deficit calculated at 3.5L - Will continue with fluid boluses as needed, monitor UOP # Encephalopathy secondary to metabolic encephalopathy, versus alcohol withdrawal vs. pancreatitis - Patient is now on Versed PRN for agitation - Continue CIWA protocol + Lorazepam 2mg IV Q3HP PRN - IV Folic acid and thiamine IM 100 mg, MVI. Extra dose of thiamine added today - Ammonia level normal # Hypotension - levophed as needed, titrate to MAP >65 #GI ppx: - Protonix - Patient does have OG tube DISPO: Poor prognosis DVT PROPHYLAXIS: Heparin Sodium 5,000 units Q8H VS, I&O, 24H, Fishbone Vital Signs/I&O Vital Signs Date Time Temp Pulse Resp B/P (MAP) Pulse Ox O2 Delivery O2 Flow Rate FiO2 08/07/20 08:50 99/57 08/07/20 08:00 99.0 113 41 95 Ventilator 100 08/06/20 08:00 40.0 I&O- Last 24 Hours up to 6 AM 08/07/20 06:00 Intake Total 4851.9 ml Output Total 519 ml Balance 4332.9 ml Laboratory Data 24H LABS Laboratory Tests 2 08/06/20 12:16: 08/06/20 12:20: Prothrombin Time 14.0, Prothromb Time International Ratio 1.06, Activated Partial Thromboplast Time 25.3, Fibrinogen 579H 08/06/20 12:21: Neutrophils (%) (Auto) , Nucleated Red Blood Cells % (auto) 0.0, Neutrophils 38, Band Neutrophils 43H, Lymphocytes (Manual) 7L, Monocytes (Manual) 4, Metamyelocytes 5H, Atypical Lymphocytes 3, Platelet Estimate NORMAL, Anion Gap 7L, Glomerular Filtration Rate 21.3L, Calcium Level 9.2, B-Hydroxybutyrate 6.64H 08/06/20 12:22: Blood Gas Bicarbonate Standard 16.0L, Arterial Blood pH 7.340L, Arterial Blood Partial Pressure CO2 22.8L, Arterial Blood Partial Pressure O2 62.7L, Arterial Blood Total CO2 12.7L, Arterial Blood HCO3 12.0L, Arterial Blood Base Excess - 11.0L, Arterial Blood Oxygen Saturation 93.8L, Lactic Acid Level 2.7*H 08/06/20 12:30: 08/06/20 17:50: Whole Blood Ionized Calcium 5.1, Phosphorus Level 3.9#, Magnesium Level 2.1 08/06/20 17:52: Anion Gap 7L, Glomerular Filtration Rate 17.2L, Lactic Acid Followup at 4 Hours 3.2*H, Calcium Level 9.1 08/06/20 17:59: Bedside Glucose (Misc Panel) 143H 08/06/20 23:11: Nucleated Red Blood Cells % (auto) 0.0, Immature Platelet Fraction 7.1, Anion Gap 10, Glomerular Filtration Rate 13.9L, Calcium Level 7.8L 08/06/20 23:52: Bedside Glucose (Misc Panel) 186H 08/07/20 04:01: Nucleated Red Blood Cells % (auto) 0.1H, Anion Gap 7L, Glomerular Filtration Rate 12.4L, Calcium Level 7.9L, Immature Granulocyte % (Auto) 0.7, Neutrophils (%) (Auto) 85.9H, Lymphocytes (%) (Auto) 5.9L, Monocytes (%) (Auto) 6.6H, Eosinophils (%) (Auto) 0.0, Basophils (%) (Auto) 0.9, Neutrophils # (Auto) 14.9H, Lymphocytes # (Auto) 1.0L, Monocytes # (Auto) 1.2H, Eosinophils # (Auto) 0.0, Basophils # (Auto) 0.2, Phosphorus Level 4.0, Magnesium Level 2.0, Total Bilirubin 0.7, Aspartate Amino Transf (AST/SGOT) 81H, Alanine Aminotransferase (ALT/SGPT) 61, Alkaline Phosphatase 125H, Lactate Dehydrogenase 691H, Total Creatine Kinase 107, Total Protein 4.7#L, Albumin 1.5#L, Albumin/Globulin Ratio 0.5, Triglycerides Level 108, Cholesterol Level 63 08/07/20 05:17: Blood Gas Bicarbonate Standard 13.0L, Arterial Blood pH 7.172*L, Arterial Blood Partial Pressure CO2 33.9L, Arterial Blood Partial Pressure O2 96.1, Arterial Blood Total CO2 13.2L, Arterial Blood HCO3 12.1L, Arterial Blood Base Excess - 15.3L, Arterial Blood Oxygen Saturation 97.5 08/07/20 05:26: Bedside Glucose (Misc Panel) 426H 08/07/20 08:09: Prothrombin Time 15.7H, Prothromb Time International Ratio 1.22, Activated Partial Thromboplast Time 33.0, Fibrinogen 572H CBC/BMP Laboratory Tests 08/06/20 12:21 08/06/20 17:52 08/06/20 23:11 08/07/20 04:01 Microbiology Microbiology 08/06/20 Stool Occult Blood (DANIKA) - Final, Complete 08/04/20 Blood Culture - Preliminary, Resulted No Growth after 48 hours. All Specime... 08/04/20 Blood Culture - Preliminary, Resulted No Growth after 48 hours. All Specime... GME ATTESTATION GME ATTESTATION My faculty preceptor for this patient encounter was physically present during the encounter and was fully available. All aspects of the patient interview, examination, medical decision making process, and medical care plan development were reviewed and approved by the faculty preceptor. The faculty preceptor is aware and concurs with the plan as stated in the body of this note and will attest to such by his/her cosignature. ATTENDING NOTE Patient was seen and examined by me personally with the students and the residents. Agree with the above assessment and plan. JT RODRIGUEZ MD Aug 07, 2020 11:44 FRANCISCA BRANDON MD Aug 09, 2020 11:36
[2020-08-07] MEDS ORDERED: SODIUM CHLORIDE 0.9% INJ 10 ML SYR IV PRN (11:45)
[2020-08-07 11:56] LABS: D-DIMER QUANT > 4000 ng/ml (<500)
[2020-08-07 13:06] LABS: CALCIUM LEVEL 8.7 MG/DL (8.8-10.2); CREATININE FOR GFR 5.4 MG/DL (0.70-1.30); GLOMERULAR FILTRATION RATE 11.2 (>42); POTASSIUM SERUM 5.7 MEQ/L (3.5-5.1)
[2020-08-07] MEDS ORDERED: ARGATROBAN 50MG/50ML for non-ESRD patients IV SCH ×2 (14:00)
[2020-08-07] MEDS: ARGATROBAN 250 MG/250ML for non-ESRD patients IV SCH ×2 (14:38)
[2020-08-07] MEDS: MULTIVITAMIN ADULT IV SCH (17:21)
[2020-08-07] MEDS: SODIUM CHLORIDE IV SCH (17:21)
[2020-08-07] MEDS: D5W IV SCH (17:21)
--- NOTE | 2020-08-07 19:28 | ECGEPIP ---
[facility] Test Date: 2020-08-07 Pat Name: CHELE HOLLINS Department: Room: [place] [address] Gender: Male [employer]: : 1950 Requested By: LANIE LIM Order Number: [id number] Reading MD: Kacey Jason Measurements Intervals [place] Rate: 113 P: 64 OK: 137 QRS: 11 QRSD: 90 T: 38 QT: 322 QTc: 443 Interpretive Statements SINUS TACHYCARDIA ABNORMAL RHYTHM ECG SIMILAR TO 08/05/20 Electronically Signed on 08-07-2020 19:28:22 EST by Kacey Jason
--- NOTE | 2020-08-07 19:29 | ECGEPIP ---
[facility] Test Date: 2020-08-07 Pat Name: CHELE HOLLINS Department: Room: [place] [address] Gender: Male [employer]: : 1950 Requested By: LANIE LIM Order Number: [id number] Reading MD: Kacey Jason Measurements Intervals [place] Rate: 110 P: 27 CT: 128 QRS: 7 QRSD: 87 T: 28 QT: 303 QTc: 411 Interpretive Statements SINUS TACHYCARDIA ABNORMAL RHYTHM ECG NO CHANGE COMPARED TO 1:00 SAME DAY Electronically Signed on 08-07-2020 19:29:05 EST by Kacey Jason
[2020-08-07 21:42] LABS: HEMATOCRIT 42.7 % (42.0-52.0); HEMOGLOBIN 13.6 g/dl (13.5-17.5); MEAN CORPUSCULAR HEMOGLOBIN 31.7 pg (27.0-33.0); MEAN CORPUSCULAR HGB CONC 31.9 g/dl (32.0-36.5); MEAN CORPUSCULAR VOLUME 99.5 fl (80.0-96.0); RED BLOOD COUNT 4.29 10^6/uL (4.30-6.10); WHITE BLOOD COUNT 13.2 10^3/uL (4.0-10.0)
[2020-08-07 21:44] LABS: PLATELET COUNT, AUTOMATED 83 10^3/uL (150-450)
[2020-08-07 22:42] LABS: CALCIUM LEVEL 8.1 MG/DL (8.8-10.2); CREATININE FOR GFR 4.43 MG/DL (0.70-1.30); GLOMERULAR FILTRATION RATE 14.1 (>42); MAGNESIUM LEVEL 1.9 MG/DL (1.8-2.4); PHOSPHORUS LEVEL 3.9 MG/DL (2.5-4.9); POTASSIUM SERUM 4.8 MEQ/L (3.5-5.1)
[2020-08-07] MEDS ORDERED: MAG SULF 1GM/100ML (MAG RUN) 1 GM in IV 1 EA IV ONE (23:00)
[2020-08-07] MEDS ORDERED: REFRIGERATOR IV KEYS XX PRN (23:30)
[2020-08-08] VITALS (47 sets, daily range): BP systolic 58–138; BP diastolic 33–69
[2020-08-08] MEDS: MIDAZOLAM INJ 2MG/2ML VIAL (J2250 PER 1MG) IV PRN (00:33)
[2020-08-08] MEDS: MIDAZOLAM HCL 100 MG in D5W 80 ML IV SCH (00:53)
[2020-08-08 03:36] LABS: HEMATOCRIT 42.9 % (42.0-52.0); HEMOGLOBIN 13.5 g/dl (13.5-17.5); MEAN CORPUSCULAR HEMOGLOBIN 31.2 pg (27.0-33.0); MEAN CORPUSCULAR HGB CONC 31.5 g/dl (32.0-36.5); MEAN CORPUSCULAR VOLUME 99.1 fl (80.0-96.0); RED BLOOD COUNT 4.33 10^6/uL (4.30-6.10); WHITE BLOOD COUNT 11.8 10^3/uL (4.0-10.0)
[2020-08-08 03:37] LABS: PLATELET COUNT, AUTOMATED 82 10^3/uL (150-450)
[2020-08-08 04:10] LABS: ALBUMIN 1.4 GM/DL (3.2-5.2); BILIRUBIN,TOTAL 0.8 MG/DL (0.2-1.0); CALCIUM LEVEL 8.4 MG/DL (8.8-10.2); CREATININE FOR GFR 3.88 MG/DL (0.70-1.30); GLOMERULAR FILTRATION RATE 16.4 (>42); MAGNESIUM LEVEL 2.2 MG/DL (1.8-2.4); PHOSPHORUS LEVEL 4.6 MG/DL (2.5-4.9); POTASSIUM SERUM 4.3 MEQ/L (3.5-5.1)
[2020-08-08 04:11] LABS: ATYPICAL LYMPH 1 % (0-5); LYMPHOCYTES 4 % (16-44); MONOCYTES 9 % (0-5); NEUTROPHILS 84 % (28-66); PLATELET ESTIMATE DECREASED (NORMAL)
[2020-08-08] MEDS: NOREPINEPHRINE BITARTRATE 8 MG in D5W 492 ML IV SCH ×16 (04:13→19:00)
[2020-08-08] MEDS: metroNIDAZOLE 500 MG in IV 1 EA IV SCH ×3 (05:18→20:36)
[2020-08-08 06:02] LABS: ABG BASE EXCESS -8.9 (-2.0-2.0); ABG HCO3 15.2 MEQ/L (22.0-26.0); ABG O2 SATURATION 97.1 % (95.0-99.0); ABG PARTIAL PRESSURE CO2 28.4 mmHg (35.0-45.0); ABG PARTIAL PRESSURE O2 83.9 mmHg (75.0-100.0); ABG STANDARD HCO3 17.4 MEQ/L (22.0-26.0); ABG TOTAL CO2 16.1 MEQ/L (23.0-31.0); ABG pH (ARTERIAL) 7.346 UNITS (7.350-7.450)
[2020-08-08] MEDS: HumaLOG INSULIN (NovoLOG) PER UNIT SC SCH ×4 (06:58→23:57)
--- NOTE | 2020-08-08 08:29 | REP ---
INDICATION: ett COMPARISON: 08/07/2020 TECHNIQUE: Portable AP view of the chest FINDINGS: Endotracheal tube 4 cm above the yaa. Nasogastric tube courses below left hemidiaphragm. Right subclavian catheter with tip in the SVC/right atrium. Left lower lobe opacities suggesting consolidation and pleural effusion may be slightly improved. Remainder of lung singer are clear. No pneumothorax. Cardiac silhouette is normal. IMPRESSION: 1. Lines and tubes as above. 2. Left lower lobe opacity suggesting infiltrate and effusion slightly improved. <Electronically signed by Elbert Reddy > 08/08/20 0801
[2020-08-08] MEDS: PANTOPRAZOLE 40MG VIAL (C9113 PER 1) IV SCH (08:39)
[2020-08-08] MEDS: CHLORHEXIDINE GLUCONATE 0.12 % 15ML UDC (PERIDEX ORAL RINSE) MT SCH ×2 (08:39→20:35)
[2020-08-08 08:40] LABS: HEMATOCRIT 41.7 % (42.0-52.0); HEMOGLOBIN 13.2 g/dl (13.5-17.5); MEAN CORPUSCULAR HEMOGLOBIN 31.1 pg (27.0-33.0); MEAN CORPUSCULAR HGB CONC 31.7 g/dl (32.0-36.5); MEAN CORPUSCULAR VOLUME 98.1 fl (80.0-96.0); RED BLOOD COUNT 4.25 10^6/uL (4.30-6.10); WHITE BLOOD COUNT 15.8 10^3/uL (4.0-10.0)
[2020-08-08 08:42] LABS: PLATELET COUNT, AUTOMATED 95 10^3/uL (150-450)
[2020-08-08 10:24] LABS: CALCIUM LEVEL 8.2 MG/DL (8.8-10.2); CREATININE FOR GFR 3.38 MG/DL (0.70-1.30); GLOMERULAR FILTRATION RATE 19.2 (>42); MAGNESIUM LEVEL 2.1 MG/DL (1.8-2.4); PHOSPHORUS LEVEL 4.1 MG/DL (2.5-4.9); POTASSIUM SERUM 3.9 MEQ/L (3.5-5.1)
[2020-08-08] MEDS ORDERED: KCL 20MEQ IN 100ML SWI (KRUN) 20 MEQ in IV 1 EA IV ONE ×2 (10:30)
--- NOTE | 2020-08-08 11:32 | IPNPDOC ---
Date Seen The patient was seen on 08/08/20. Progress Note SUBJECTIVE: Mr. Martinez was examined at bedside in the ICU this morning. He continues on CRRT. He did require pressor support for BPs in the 50s systolic overnight. He is now on a versed drip for sedation. Urine output is still very low to none. I called the patient's family and spoke to his son, and [id number]. I explained the patient's poor prognosis and all of the family's questions were answered. The family has decided to make the patient DNR at this time. OBJECTIVE: VITALS: See Below GENERAL: Pt is unresponsive to verbal stimuli. Does not appear in acute distress HEENT: Normocephalic atraumatic, EOMI, PERRL, mucus membranes dry, small laceration at the lower lip left-border CV: S1S2 normal, RRR. No murmurs, rubs or gallops present. no peripheral edema, JVD not elevated LUNGS: ventilated breath sounds, symmetric chest rise, quite rhoncherous throughout ABDOMEN: soft. Bowel sounds are not appreciated. Patient grimaces with deep palpation. No masses, no orgamegaly. OG tube in place draining green/black fluid EXTREMITIES: Bilateral UE/LE are cool to touch. No edema noted at this time. Pulses absent except for left posterior tibial 1+ by doppler PSYCH: unable to assess NEURO: unable to assess SKIN: lower extremities appear mottled up to thighs ASSESSMENT/PLAN: Mr. Martinez is a 69 y/o with a PMH of non-insulin dependent diabetes mellitus, HTN, right-sided CVA and heavy alcohol use presenting with weakness, urinary frequency and excessive thirst found to have hyperglycemia, metabolic acidosis w/ increased anion gap, high lipase, BATSHEVA and high lactic acid concerning for DKA, pancreatitis, renal failure and alcohol withdrawal. Due to worsening metabolic acidosis and encephalopathy the patient was intubated. He continues on CRRT. # Acute pancreatitis: the patient currently has no bowel sounds. It appears the inflammation from pancreatitis is quite extensive and may represent necrotic bowel - Continue IV fluids D5 100 cc/hr - CT abdomen shows peripancreatic inflammatory changes extending all the way to the lateral pericolic gutters and pelvis - Concern for necrotic bowel as OG tube placed and copious bilious drainage noted. - Surgery consult in place. Appreciate recommendations - Continue Maintenance fluids D5/ 1/2NS increased to 100 mL per hour, with intermittent fluid boluses as needed. Last CVP measured at 6 - Continue IV abx: Cefepime and Flagyl # DKA secondary to uncontrolled/noncompliance DM vs. acute pancreatitis - HbA1c 10.9%. Patient is not on any antidiabetic medications at home - s/p insulin drip - Lactic acid increased to 3.2 today - Hyperkalemia noted at 6.1, given calcium gluconate x 3 - Continue SSI for now - IV fluid boluses as needed # Hyperchloremic Metabolic acidosis 2/2 DKA - AB.36/28.4/83 - Cholride improved to 113 - Likely to improve with CRRT # Oliguric renal failure: Patient has had [id number] UOP - Continue CRRT # Hypernatremia: Na improved to 143 -Continue to monitor # Encephalopathy secondary to metabolic encephalopathy, versus alcohol withdrawal vs. pancreatitis - Continue Versed drip - s/p banana bag - Ammonia level normal # Hypotension - levophed as needed, titrate to MAP >65 #GI ppx: - Protonix - Patient does have OG tube DISPO: Poor prognosis, patient is DNR, at risk for in the next 24-48h DVT PROPHYLAXIS: Argatroban drip VS, I&O, 24H, Fishbone Vital Signs/I&O Vital Signs Date Time Temp Pulse Resp B/P (MAP) Pulse Ox O2 Delivery O2 Flow Rate FiO2 08/08/20 08:42 138/63 08/08/20 07:30 78 36 100 08/08/20 05:00 94 Ventilator 08/08/20 04:30 96.8 08/06/20 08:00 40.0 I&O- Last 24 Hours up to 6 AM 08/08/20 05:59 Intake Total 4946.6 ml Output Total 3264 ml Balance 1682.6 ml Laboratory Data 24H LABS Laboratory Tests 2 08/07/20 12:14: Bedside Glucose (Misc Panel) 336H 08/07/20 12:26: Anion Gap 8, Glomerular Filtration Rate 11.2L, Calcium Level 8.7L, Whole Blood Ionized Calcium 4.8 08/07/20 16:44: Activated Partial Thromboplast Time 93.0H 08/07/20 17:10: Bedside Glucose (Misc Panel) 320H 08/07/20 18:36: Differential Slide Review Report, Peripheral Blood Smear Path Consult PERIPHERAL SMEAR, Activated Partial Thromboplast Time 109.1H 08/07/20 21:18: Nucleated Red Blood Cells % (auto) 0.2H, Anion Gap 11, Glomerular Filtration Rate 14.1L, Calcium Level 8.1L, Whole Blood Ionized Calcium 4.8, Phosphorus Level 3.9, Magnesium Level 1.9 08/07/20 21:56: Activated Partial Thromboplast Time 115.1H 08/07/20 22:38: Bedside Glucose (Misc Panel) 336H 08/08/20 00:55: Activated Partial Thromboplast Time 120.4*H 08/08/20 02:58: Activated Partial Thromboplast Time 153.1*H, Neutrophils (%) (Auto) , Nucleated Red Blood Cells % (auto) 0.2H, Neutrophils 84H, Band Neutrophils 2, Lymphocytes (Manual) 4L, Monocytes (Manual) 9H, Atypical Lymphocytes 1, Platelet Estimate DECREASED, Immature Platelet Fraction 9.6, Anion Gap 9, Glomerular Filtration Rate 16.4L, Calcium Level 8.4L, Whole Blood Ionized Calcium 4.8, Phosphorus Level 4.6, Magnesium Level 2.2, Total Bilirubin 0.8, Aspartate Amino Transf (AST/SGOT) 50H, Alanine Aminotransferase (ALT/SGPT) 53, Alkaline Phosphatase 138H, Lactate Dehydrogenase 781H, Total Creatine Kinase 93, Total Protein 5.0L, Albumin 1.4L, Albumin/Globulin Ratio 0.4, Triglycerides Level 125, Cholesterol Level 79 08/08/20 04:52: Activated Partial Thromboplast Time 98.1H 08/08/20 06:00: Blood Gas Bicarbonate Standard 17.4L, Arterial Blood pH 7.346L, Arterial Blood Partial Pressure CO2 28.4L, Arterial Blood Partial Pressure O2 83.9, Arterial Blood Total CO2 16.1L, Arterial Blood HCO3 15.2L, Arterial Blood Base Excess - 8.9L, Arterial Blood Oxygen Saturation 97.1 08/08/20 06:55: Bedside Glucose (Misc Panel) 242H 08/08/20 08:26: Nucleated Red Blood Cells % (auto) 0.3H, Activated Partial Thromboplast Time 97.9H, Whole Blood Ionized Calcium 4.8 CBC/BMP Laboratory Tests 08/07/20 12:26 08/07/20 21:18 08/08/20 02:58 08/08/20 08:26 Microbiology Microbiology 08/06/20 Stool Occult Blood (DANIKA) - Final, Complete 08/04/20 Blood Culture - Preliminary, Resulted No Growth after 72 hours. All specime... 08/04/20 Blood Culture - Preliminary, Resulted No Growth after 72 hours. All specime... GME ATTESTATION GME ATTESTATION My faculty preceptor for this patient encounter was physically present during the encounter and was fully available. All aspects of the patient interview, examination, medical decision making process, and medical care plan development were reviewed and approved by the faculty preceptor. The faculty preceptor is aware and concurs with the plan as stated in the body of this note and will attest to such by his/her cosignature. ATTENDING NOTE Patient was seen and examined by me personally with the students and the residents. Agree with the above assessment and plan. JT RODRIGUEZ MD Aug 08, 2020 09:11 FRANCISCA BRANDON MD Aug 09, 2020 11:38
[2020-08-08] MEDS: CEFEPIME HCL 2 GM in D5W MINI-BAG PLUS 50 ML IV SCH ×2 (12:40→23:57)
[2020-08-08 15:41] LABS: HEMATOCRIT 40.3 % (42.0-52.0); HEMOGLOBIN 12.8 g/dl (13.5-17.5); MEAN CORPUSCULAR HEMOGLOBIN 31.1 pg (27.0-33.0); MEAN CORPUSCULAR HGB CONC 31.8 g/dl (32.0-36.5); MEAN CORPUSCULAR VOLUME 97.8 fl (80.0-96.0); PLATELET COUNT, AUTOMATED 100 10^3/uL (150-450); RED BLOOD COUNT 4.12 10^6/uL (4.30-6.10); WHITE BLOOD COUNT 17.4 10^3/uL (4.0-10.0)
[2020-08-08 16:00] LABS: CALCIUM LEVEL 8.5 MG/DL (8.8-10.2); CREATININE FOR GFR 3.32 MG/DL (0.70-1.30); GLOMERULAR FILTRATION RATE 19.6 (>42); MAGNESIUM LEVEL 2.1 MG/DL (1.8-2.4); PHOSPHORUS LEVEL 4.9 MG/DL (2.5-4.9); POTASSIUM SERUM 4.5 MEQ/L (3.5-5.1)
[2020-08-08] MEDS: ARGATROBAN 250 MG/250ML for non-ESRD patients IV SCH ×2 (16:57)
[2020-08-08 21:12] LABS: HEMATOCRIT 40.2 % (42.0-52.0); HEMOGLOBIN 12.8 g/dl (13.5-17.5); MEAN CORPUSCULAR HGB CONC 31.8 g/dl (32.0-36.5); MEAN CORPUSCULAR VOLUME 97.3 fl (80.0-96.0); RED BLOOD COUNT 4.13 10^6/uL (4.30-6.10); WHITE BLOOD COUNT 14.5 10^3/uL (4.0-10.0)
[2020-08-08 21:19] LABS: PLATELET COUNT, AUTOMATED 91 10^3/uL (150-450)
[2020-08-08 21:38] LABS: CALCIUM LEVEL 8.4 MG/DL (8.8-10.2); CREATININE FOR GFR 2.94 MG/DL (0.70-1.30); GLOMERULAR FILTRATION RATE 22.6 (>42); MAGNESIUM LEVEL 2.2 MG/DL (1.8-2.4); PHOSPHORUS LEVEL 4.2 MG/DL (2.5-4.9); POTASSIUM SERUM 4.5 MEQ/L (3.5-5.1)
[2020-08-09] VITALS (42 sets, daily range): BP systolic 70–130; BP diastolic 42–82; O2SAT 91
[2020-08-09] MEDS: MIDAZOLAM HCL 100 MG in D5W 80 ML IV SCH (00:13)
[2020-08-09] MEDS: MIDAZOLAM INJ 2MG/2ML VIAL (J2250 PER 1MG) IV PRN ×3 (00:22→19:40)
[2020-08-09 03:05] LABS: HEMATOCRIT 38.1 % (42.0-52.0); HEMOGLOBIN 12.3 g/dl (13.5-17.5); MEAN CORPUSCULAR HEMOGLOBIN 31.3 pg (27.0-33.0); MEAN CORPUSCULAR HGB CONC 32.3 g/dl (32.0-36.5); MEAN CORPUSCULAR VOLUME 96.9 fl (80.0-96.0); RED BLOOD COUNT 3.93 10^6/uL (4.30-6.10); WHITE BLOOD COUNT 17.9 10^3/uL (4.0-10.0)
[2020-08-09 03:10] LABS: PLATELET COUNT, AUTOMATED 95 10^3/uL (150-450)
[2020-08-09 03:26] LABS: LYMPHOCYTES 6 % (16-44); METAMYELOCYTES 1 % (0-0); MONOCYTES 6 % (0-5); NEUTROPHILS 85 % (28-66)
[2020-08-09 03:28] LABS: DOHLE BODIES 1+; PLATELET ESTIMATE DECREASED (NORMAL); TOXIC GRANULATION 1+
[2020-08-09 03:38] LABS: ALBUMIN 1.3 GM/DL (3.2-5.2); BILIRUBIN,TOTAL 0.7 MG/DL (0.2-1.0); CREATININE FOR GFR 2.68 MG/DL (0.70-1.30); GLOMERULAR FILTRATION RATE 25.1 (>42); MAGNESIUM LEVEL 2.3 MG/DL (1.8-2.4); PHOSPHORUS LEVEL 3.5 MG/DL (2.5-4.9); POTASSIUM SERUM 4.5 MEQ/L (3.5-5.1); TOTAL PROTEIN 4.9 GM/DL (6.4-8.2)
[2020-08-09] MEDS ORDERED: CALCIUM GLUCONATE 1,000 MG, VIAL MATE ADAPTER 1 EACH in NS 100 ML IV ONE ×5 (03:45→22:00)
[2020-08-09] MEDS: metroNIDAZOLE 500 MG in IV 1 EA IV SCH ×3 (05:46→20:39)
[2020-08-09 05:59] LABS: ABG BASE EXCESS -8.7 (-2.0-2.0); ABG HCO3 15.7 MEQ/L (22.0-26.0); ABG O2 SATURATION 99.7 % (95.0-99.0); ABG PARTIAL PRESSURE CO2 29.7 mmHg (35.0-45.0); ABG PARTIAL PRESSURE O2 188.5 mmHg (75.0-100.0); ABG STANDARD HCO3 17.6 MEQ/L (22.0-26.0); ABG TOTAL CO2 16.6 MEQ/L (23.0-31.0)
[2020-08-09] MEDS: HumaLOG INSULIN (NovoLOG) PER UNIT SC SCH ×4 (06:21→23:50)
--- NOTE | 2020-08-09 08:10 | REP ---
INDICATION: ett COMPARISON: 08/08/2020 TECHNIQUE: Portable AP view of the chest FINDINGS: Endotracheal tube in satisfactory position 4 cm above the yaa. Nasogastric tube courses below left hemidiaphragm. Right subclavian catheter with tip in the SVC. The mediastinum and cardiac silhouette are stable and within normal limits for portable technique. Mild left basilar atelectasis appears improved from prior examination. Remainder of the bilateral lung singer are relatively clear. IMPRESSION: 1. Lines and tubes in satisfactory position. 2. Improved aeration suggested. <Electronically signed by Elbert Reddy > 08/09/20 0883
[2020-08-09] MEDS: HEPARIN DRIP 25,000 UNITS in IV 1 EA IV SCH ×2 (08:27→16:54)
[2020-08-09] MEDS: PANTOPRAZOLE 40MG VIAL (C9113 PER 1) IV SCH ×2 (08:39→20:39)
[2020-08-09] MEDS: CHLORHEXIDINE GLUCONATE 0.12 % 15ML UDC (PERIDEX ORAL RINSE) MT SCH ×2 (08:40→20:39)
[2020-08-09 09:10] LABS: HEMOGLOBIN 12.7 g/dl (13.5-17.5); MEAN CORPUSCULAR HEMOGLOBIN 31.4 pg (27.0-33.0); MEAN CORPUSCULAR HGB CONC 32.6 g/dl (32.0-36.5); MEAN CORPUSCULAR VOLUME 96.5 fl (80.0-96.0); PLATELET COUNT, AUTOMATED 102 10^3/uL (150-450); RED BLOOD COUNT 4.04 10^6/uL (4.30-6.10)
[2020-08-09 09:38] LABS: CALCIUM LEVEL 8.3 MG/DL (8.8-10.2); CREATININE FOR GFR 2.5 MG/DL (0.70-1.30); GLOMERULAR FILTRATION RATE 27.2 (>42); MAGNESIUM LEVEL 2.4 MG/DL (1.8-2.4); POTASSIUM SERUM 4.2 MEQ/L (3.5-5.1)
[2020-08-09] MEDS: NOREPINEPHRINE BITARTRATE 8 MG in D5W 492 ML IV SCH (10:33)
--- NOTE | 2020-08-09 11:51 | REP ---
INDICATION: CL placement COMPARISON: 08/08/2020 TECHNIQUE: Portable AP view of the chest FINDINGS: Left IJ line with tip in the internal jugular vein. Right subclavian catheter with tip in the SVC. Endotracheal tube approximately 4.5 cm above the yaa. Nasogastric tube extends just beyond the left diaphragmatic silhouette and may warrant advancement. Left lower lobe/retrocardiac consolidation cannot be excluded. No obvious pneumothorax. No obvious effusion. Skeletal structures intact. IMPRESSION: 1. Lines and tubes as described above. 2. No pneumothorax. 3. Left lower lobe/retrocardiac consolidation. <Electronically signed by Elbert Reddy > 08/09/20 1141
--- NOTE | 2020-08-09 12:25 | CCN ---
CRITICAL CARE NOTE DATE: 08/09/2020 03:01:00 pm Mr. Martinez is seen this morning in intensive care unit on bedside. He remains oliguric and hypotensive. He is still intubated; however, his oxygen requirement is down to 80% FiO2. He has been on continuous renal replacement therapy (CRRT), which he has tolerated reasonably well. He is still on Levophed 6 mcg. Patient has been sedated, and he is unresponsive. Yesterday was wanted to start total parenteral nutrition (TPN); however, he did not have any extra line available due to multiple medications. I have discussed this with Dr. Ray, and she is going to place another central line. PHYSICAL EXAMINATION: Temperature 98 degrees Fahrenheit, heart rate 84 per minute, and respiratory rate is down to high 20, while yesterday he was up to 40s. Blood pressure currently 110/70 mm of mercury, and oxygen saturation is 93% on 80% FiO2. His head is atraumatic. Endotracheal and orogastric tubes are in place. Neck veins are difficult to be assessed. Heart sounds are regular, and there is no pericardial friction rub. Lungs have good bilateral air entry. Abdomen is soft and somewhat full. Bowel sounds are not audible. Extremities without any cyanosis or clubbing. Skin is mottled on his thighs. Neurologically, he remains sedated and unresponsive. Today's labs show WBC count 20.0, hemoglobin 12.7, and hematocrit 39.0. Platelets are 202,000. Blood gas today showed a pH of 7.34, pCO2 of 29.7, pO2 of 188.5, and bicarbonate 17.6. Sodium 139, potassium 4.2, CO2 of 19, BUN 40, creatinine 2.5, glucose 269, and calcium 8.3. Phosphorus is 4.0 and magnesium 2.4. PROBLEMS: 1. Oliguric acute renal failure. Patient remains on CRRT due to hypotension and requirement for pressors. He needed to be anticoagulated for CRRT to work due to hypercoagulability. At present I would recommend to continue with intravenous (IV) heparin drip. CRRT is functioning well, and we are able to remove some fluid as tolerated. 2. Acute pancreatitis with shock. Patient remains hypotensive and has required pressors. He is almost 20 liters in positive fluid balance since admission. Will without with CRRT and maintain his blood pressure with pressors. 3. Nutrition. Patient has not been receiving any nutrition, and we are going to start TPN today. I wrote special formula TPN, and a new central line is going to be placed by Dr. Ray. 4. Anemia and thrombocytopenia. His anemia is stable and thrombocytopenia gradually improving. He is now on heparin drip, as his heparin-induced thrombocytopenia (HIT) antibodies came back negative. Overall, patient remains in critical condition with multiorgan failure related to severe acute pancreatitis. At present he is making slow improvement, and we will continue with all aggressive care, though his family has made him DO NOT RESUSCITATE. There was 33 minutes of critical time spent, during which no procedures were performed.
--- NOTE | 2020-08-09 12:53 | IPNPDOC ---
Date Seen The patient was seen on 08/09/20. Progress Note SUBJECTIVE: Mr. Martinez was examined at bedside in the ICU this morning. He continues on CRRT. He is not making any urine. He did require pressors throughout the night to maintain a MAP >65. No other concerns reported from nursing today. OBJECTIVE: VITALS: See Below GENERAL: Pt is unresponsive to verbal stimuli. Does not appear in acute distress HEENT: Normocephalic atraumatic, pupils restricted, nonreactive. mucus membranes dry, small laceration at the lower lip left-border CV: S1S2 normal, RRR. No murmurs, rubs or gallops present. no peripheral edema, JVD not elevated LUNGS: ventilated breath sounds, symmetric chest rise ABDOMEN: soft. Bowel sounds are not appreciated. Patient grimaces with deep palpation. No masses, no orgamegaly. OG tube in place draining green/black fluid EXTREMITIES: Bilateral UE/LE are cool to touch. No edema noted at this time. Pulses absent except for left posterior tibial 1+ by doppler PSYCH: unable to assess NEURO: unable to assess SKIN: lower extremities appear mottled up to thighs ASSESSMENT/PLAN: Mr. Martinez is a 69 y/o with a PMH of non-insulin dependent diabetes mellitus, HTN, right-sided CVA and heavy alcohol use presenting with weakness, urinary frequency and excessive thirst found to have hyperglycemia, metabolic acidosis w/ increased anion gap, high lipase, BATSHEVA and high lactic acid concerning for DKA, pancreatitis, renal failure and alcohol withdrawal. Due to worsening metabolic acidosis and encephalopathy the patient was intubated. He continues on CRRT. # Acute pancreatitis: the patient currently has no bowel sounds - CT abdomen shows peripancreatic inflammatory changes extending all the way to the lateral pericolic gutters and pelvis - Concern for necrotic bowel as OG tube placed and copious bilious drainage noted. - Surgery consult in place. Appreciate recommendations - Continue IV abx: Cefepime and Flagyl - Patient was started on TPN today by nephrology. # DKA secondary to uncontrolled/noncompliance DM vs. acute pancreatitis - HbA1c 10.9%. Patient is not on any antidiabetic medications at home - s/p insulin drip - Electrolytes noted as WNL today - Continue SSI for now - IV fluid boluses as needed # Hyperchloremic Metabolic acidosis 2/2 DKA: improved - AB.34/29/188 today - Likely to improve with CRRT # Oliguric renal failure: Patient has had [id number] UOP - Continue CRRT, argatroban changed to heparin drip # Hypernatremia: Na improved to 143 -Continue to monitor # Encephalopathy secondary to metabolic encephalopathy, versus alcohol withdrawal vs. pancreatitis - Continue Versed drip - s/p banana bag - Ammonia level normal # Hypotension - levophed as needed, titrate to MAP >65 #GI ppx: - Protonix - Patient does have OG tube DISPO: Poor prognosis, patient is DNR, at risk for in the next 24-48h DVT PROPHYLAXIS: heparin drip VS, I&O, 24H, Fishbone Vital Signs/I&O Vital Signs Date Time Temp Pulse Resp B/P (MAP) Pulse Ox O2 Delivery O2 Flow Rate FiO2 08/09/20 07:27 84 27 93 80 08/09/20 07:00 111/78 (89) Ventilator 08/09/20 04:00 96.8 08/06/20 08:00 40.0 I&O- Last 24 Hours up to 6 AM 08/09/20 06:00 Intake Total 1330.85 ml Output Total 1209 ml Balance 121.85 ml Laboratory Data 24H LABS Laboratory Tests 2 08/08/20 15:26: Nucleated Red Blood Cells % (auto) 0.5H, Anion Gap 11, Glomerular Filtration Rate 19.6L, Calcium Level 8.5L, Whole Blood Ionized Calcium 4.7, Phosphorus Level 4.9, Magnesium Level 2.1 08/08/20 18:18: Bedside Glucose (Misc Panel) 168H 08/08/20 21:01: Nucleated Red Blood Cells % (auto) 0.6H, Anion Gap 11, Glomerular Filtration Rate 22.6L, Calcium Level 8.4L, Whole Blood Ionized Calcium 4.7, Phosphorus Level 4.2, Magnesium Level 2.2 08/08/20 23:51: Bedside Glucose (Misc Panel) 198H 08/09/20 02:48: Neutrophils (%) (Auto) , Nucleated Red Blood Cells % (auto) 0.8H, Neutrophils 85H, Band Neutrophils 2, Lymphocytes (Manual) 6L, Monocytes (Manual) 6H, Metamyelocytes 1H, Toxic Granulation 1+, Dohle Bodies 1+, Platelet Estimate DECREASED, Activated Partial Thromboplast Time 73.0H, Anion Gap 11, Glomerular Filtration Rate 25.1L, Calcium Level 8.0L, Whole Blood Ionized Calcium 4.6, Phosphorus Level 3.5, Magnesium Level 2.3, Total Bilirubin 0.7, Aspartate Amino Transf (AST/SGOT) 42H, Alanine Aminotransferase (ALT/SGPT) 49, Alkaline Phosphatase 146H, Lactate Dehydrogenase 742H, Total Creatine Kinase 46, Total Protein 4.9L, Albumin 1.3L, Albumin/Globulin Ratio 0.4, Triglycerides Level 214H, Cholesterol Level 102 08/09/20 05:44: Blood Gas Bicarbonate Standard 17.6L, Arterial Blood pH 7.340L, Arterial Blood Partial Pressure CO2 29.7L, Arterial Blood Partial Pressure O2 188.5H, Arterial Blood Total CO2 16.6L, Arterial Blood HCO3 15.7L, Arterial Blood Base Excess - 8.7L, Arterial Blood Oxygen Saturation 99.7H 08/09/20 06:17: Bedside Glucose (Misc Panel) 263H 08/09/20 08:52: Nucleated Red Blood Cells % (auto) 0.9H, Anion Gap 13, Glomerular Filtration Rate 27.2L, Calcium Level 8.3L, Whole Blood Ionized Calcium 4.6, Phosphorus Level 4.0, Magnesium Level 2.4 08/09/20 12:43: Bedside Glucose (Misc Panel) 87 CBC/BMP Laboratory Tests 08/08/20 15:26 08/08/20 21:01 08/09/20 02:48 08/09/20 08:52 Microbiology Microbiology 08/06/20 Stool Occult Blood (DANIKA) - Final, Complete 08/04/20 Blood Culture - Preliminary, Resulted No Growth after 72 hours. All specime... 08/04/20 Blood Culture - Preliminary, Resulted No Growth after 72 hours. All specime... GME ATTESTATION GME ATTESTATION My faculty preceptor for this patient encounter was physically present during the encounter and was fully available. All aspects of the patient interview, examination, medical decision making process, and medical care plan development were reviewed and approved by the faculty preceptor. The faculty preceptor is aware and concurs with the plan as stated in the body of this note and will attest to such by his/her cosignature. ATTENDING NOTE Patient was seen and examined by me this morning with the residents. He did agree with the above assessment and plan with the following changes as below. This is a 69-year-old gentleman who has a past medical history of alcohol abuse, history of pancreatitis, was admitted to ICU because of severe metabolic acidosis secondary to DKA and lactic acidosis. He was found to be having severe pancreatitis. Also, and was admitted to the ICU. He was initially treated with insulin drip for his DKA and for his pancreatitis conservative management was done. The patient became encephalopathic likely secondary to metabolic causes and eventually became up trended and for yearly protection. He was intubated. Since then. The patient has had multiorgan failure with possible ARDS secondary to severe pancreatitis and renal failure with anuria. He also was severely hypotensive and required a central line to be placed and now is on Levophed which has been going on over the last 48 hours. As he was getting progressively acidotic with AK I decision off CRRT was taken by the television engineering teacher and the patient has been on continuous renal replacement therapy for the last 48 hours. There were some initial concerns of an IT as well which was ruled out and as the patient was clotting on CRRT. The patient was started on initially started on argatroban drip but once the HIT was ruled out. It was switched to heparin as the blood was getting clogged in CRRT machine. Multiple discussions with the family have been done and the patient is currently DNR, but is on a ventilator. The patient has shown minimal improvement over the last 24 hours. Currently the patient continues to be on pressors CRRT and TPN. Will possibly be started as well today. Patient continues to have poor prognosis and the family has been updated about that Disposition unknown at this time JT RODRIGUEZ MD Aug 09, 2020 12:53 FRANCISCA BRANDON MD Aug 09, 2020 13:36
[2020-08-09] MEDS: CEFEPIME HCL 2 GM in D5W MINI-BAG PLUS 50 ML IV SCH (12:54)
[2020-08-09 15:34] LABS: HEMATOCRIT 37.9 % (42.0-52.0); HEMOGLOBIN 12.4 g/dl (13.5-17.5); MEAN CORPUSCULAR HEMOGLOBIN 31.2 pg (27.0-33.0); MEAN CORPUSCULAR HGB CONC 32.7 g/dl (32.0-36.5); MEAN CORPUSCULAR VOLUME 95.5 fl (80.0-96.0); PLATELET COUNT, AUTOMATED 103 10^3/uL (150-450); RED BLOOD COUNT 3.97 10^6/uL (4.30-6.10); WHITE BLOOD COUNT 25.4 10^3/uL (4.0-10.0)
[2020-08-09 15:56] LABS: CALCIUM LEVEL 8.2 MG/DL (8.8-10.2); CREATININE FOR GFR 2.26 MG/DL (0.70-1.30); GLOMERULAR FILTRATION RATE 30.6 (>42); MAGNESIUM LEVEL 2.4 MG/DL (1.8-2.4); PHOSPHORUS LEVEL 3.9 MG/DL (2.5-4.9); POTASSIUM SERUM 4.5 MEQ/L (3.5-5.1)
[2020-08-09] MEDS ORDERED: SODIUM ACETATE IV SCH ×9 (18:00)
[2020-08-09] MEDS ORDERED: [UNRECOGNIZED DRUG - OTHER] IV SCH ×9 (18:00)
[2020-08-09] MEDS ORDERED: SODIUM CHLORIDE IV SCH ×9 (18:00)
[2020-08-09] MEDS ORDERED: FAT EMULSION IV 20% 500 ML IV SCH (18:00)
[2020-08-09 21:15] LABS: HEMATOCRIT 34.3 % (42.0-52.0); HEMOGLOBIN 11.4 g/dl (13.5-17.5); MEAN CORPUSCULAR HEMOGLOBIN 32.3 pg (27.0-33.0); MEAN CORPUSCULAR HGB CONC 33.2 g/dl (32.0-36.5); MEAN CORPUSCULAR VOLUME 97.2 fl (80.0-96.0); PLATELET COUNT, AUTOMATED 101 10^3/uL (150-450); RED BLOOD COUNT 3.53 10^6/uL (4.30-6.10); WHITE BLOOD COUNT 22.9 10^3/uL (4.0-10.0)
[2020-08-09 21:36] LABS: CALCIUM LEVEL 7.5 MG/DL (8.8-10.2); CREATININE FOR GFR 2.1 MG/DL (0.70-1.30); GLOMERULAR FILTRATION RATE 33.3 (>42); MAGNESIUM LEVEL 2.4 MG/DL (1.8-2.4); PHOSPHORUS LEVEL 3.4 MG/DL (2.5-4.9); POTASSIUM SERUM 4.7 MEQ/L (3.5-5.1)
[2020-08-09] MEDS ORDERED: CALCIUM GLUCONATE 1,000 MG in D5W MINI-BAG PLUS 100 ML IV ONE (22:00)
[2020-08-10] VITALS (82 sets, daily range): BP systolic 86–130; BP diastolic 49–66
[2020-08-10] MEDS: CEFEPIME HCL 2 GM in D5W MINI-BAG PLUS 50 ML IV SCH ×2 (00:27→12:18)
[2020-08-10] MEDS: MIDAZOLAM HCL 100 MG in D5W 80 ML IV SCH (00:27)
[2020-08-10] MEDS: HEPARIN DRIP 25,000 UNITS in IV 1 EA IV SCH (03:22)
[2020-08-10 03:34] LABS: HEMATOCRIT 33.7 % (42.0-52.0); HEMOGLOBIN 11.3 g/dl (13.5-17.5); MEAN CORPUSCULAR HEMOGLOBIN 32.4 pg (27.0-33.0); MEAN CORPUSCULAR HGB CONC 33.5 g/dl (32.0-36.5); MEAN CORPUSCULAR VOLUME 96.6 fl (80.0-96.0); PLATELET COUNT, AUTOMATED 104 10^3/uL (150-450); RED BLOOD COUNT 3.49 10^6/uL (4.30-6.10); WHITE BLOOD COUNT 23.1 10^3/uL (4.0-10.0)
[2020-08-10] MEDS ORDERED: CALCIUM GLUCONATE 1,000 MG in D5W MINI-BAG PLUS 100 ML IV ONE ×2 (03:45→10:00)
[2020-08-10 04:52] LABS: CALCIUM LEVEL 7.5 MG/DL (8.8-10.2); CREATININE FOR GFR 2.27 MG/DL (0.70-1.30); GLOMERULAR FILTRATION RATE 30.4 (>42); MAGNESIUM LEVEL 2.7 MG/DL (1.8-2.4); PHOSPHORUS LEVEL 3.3 MG/DL (2.5-4.9); POTASSIUM SERUM 5.2 MEQ/L (3.5-5.1)
[2020-08-10] MEDS: HumaLOG INSULIN (NovoLOG) PER UNIT SC SCH (05:39)
[2020-08-10] MEDS: metroNIDAZOLE 500 MG in IV 1 EA IV SCH ×3 (05:40→20:56)
[2020-08-10 06:02] LABS: ABG BASE EXCESS -8.4 (-2.0-2.0); ABG HCO3 15.5 MEQ/L (22.0-26.0); ABG O2 SATURATION 98.7 % (95.0-99.0); ABG PARTIAL PRESSURE CO2 27.6 mmHg (35.0-45.0); ABG PARTIAL PRESSURE O2 129.6 mmHg (75.0-100.0); ABG STANDARD HCO3 17.7 MEQ/L (22.0-26.0); ABG TOTAL CO2 16.4 MEQ/L (23.0-31.0); ABG pH (ARTERIAL) 7.368 UNITS (7.350-7.450)
[2020-08-10] MEDS: NOREPINEPHRINE BITARTRATE 8 MG in D5W 492 ML IV SCH ×3 (06:28→09:00)
--- NOTE | 2020-08-10 07:20 | REP ---
INDICATION: ett COMPARISON: 08/09/2020 TECHNIQUE: Portable AP view of the chest FINDINGS: Endotracheal tube 3 cm above the yaa. Nasogastric tube courses below the left hemidiaphragm. Right subclavian catheter with tip in the SVC. Left IJ line with tip in the internal jugular vein. Mediastinum and cardiac silhouette are relatively normal. Mild bibasilar atelectasis is suggested. There appears to be improved aeration to the retrocardiac left lower lobe with decreased consolidation. No definite effusion. No pneumothorax. IMPRESSION: 1. Lines and tubes in satisfactory stable position. 2. Minimal basilar atelectasis and decreased left lower lobe/retrocardiac opacity. <Electronically signed by Elbert Reddy > 08/10/20 0733
--- NOTE | 2020-08-10 08:40 | CCN ---
CRITICAL CARE NOTE DATE: 08/10/2020 CRITICAL CARE TIME: One hour and 7 minutes, this excludes all procedures. SUBJECTIVE: This is hospital day #7 for Mr. Martinez. He remains on mechanical ventilation. Mechanical ventilation day #5. The patient does arouse on sedation vacation and bucks the vent. Sedation is required for ventilatory synchrony. TPN was started yesterday. The patient is more hyperglycemia now. Will change to an insulin drip. Reviewed the case at bedside with the nursing staff this morning. Less vasopressor requirements. No arrhythmias overnight. Remains on Levophed of 3 mcg/min. Remains on Cefepime and metronidazole for empiric therapy. OBJECTIVE: VITAL SIGNS: Temperature 98.6, pulse 89, respiratory rate 32, blood pressure 87/49 with a mean arterial pressure of 62. Oxygen saturation is 95% on 0.80 FiO2. The patient remains on CRRT. GENERAL: The patient is sedated on mechanical ventilation. No spontaneous movements currently, but is overbreathing the vent. HEENT: Sclerae clear and anicteric. Pupils are equal and reactive to light. Mucous membranes are moist without lesions. Endotracheal tube is in place. NECK: Supple. No tracheal deviation or mass. LYMPH: No cervical, supraclavicular, or axillary adenopathy. CARDIAC: Regular S1, S2 without audible murmur, rub, or gallop. No elevated JVP. There is significant peripheral edema pitting in the hands and the legs. PULMONARY: Clear to auscultation without rales, rhonchi, or wheezes. No dullness to percussion. No accessory muscle use. ABDOMEN: Soft and nondistended. No active bowel sounds. No hepatosplenomegaly. No masses or hernia. EXTREMITIES: As mentioned above significant pitting edema. Appear to be slightly better perfused today. Yesterday, fairly cyanotic and cool. This morning, some improved color and capillary return. MUSCULOSKELETAL: Muscle tone appears weak. No spontaneous movements and no obvious trauma. NEUROLOGIC: Exam is limited due to sedation, but the patient is overbreathing the vent and pupils are reactive as mentioned above. IMAGING: Chest x-ray shows improved position of the endotracheal tube from yesterday. The left costophrenic angle is also more clear. Arterial blood gas this morning shows a pH of 7.37, pCO2 of 28, and pO2 of 130. He is on volume control with protective ventilation. LABORATORY DATA: White count is up to 23.1, hemoglobin is 11.3, platelet count is 104,000. Sodium is 134, potassium 5.2, chloride 103, bicarb 19, BUN 38, creatinine is up to 2.27, and glucose is 448. IMPRESSION AND PLAN: 1. Pancreatitis with shock. The patient remains severely ill with guarded prognosis. Will address concerns as outlined below. Remains on empiric antibiotics. Fluid balance delicate. He actually appears intravascularly dry, but he has third spacing of fluid with significant dependent edema. 2. Respiratory failure. Ventilating at lung protective ventilation. Tolerating this well so far. 3. Renal failure slightly worse today. Continuing continuous renal replacement therapy (CRRT). Appreciate nephrology management. Electrolyte management per nephrology. 4. Leukocytosis likely a reflection of severe idiopathic pancreatitis. Primary team has not ordered amylase or lipase; therefore, I have added this to morning lab. May need re-CT imaging in the near future if he remains critically ill to rule out abscess. 5. Hyperglycemia. Will change to insulin drip. This will provide better glucose control. 6. Deep vein thrombosis (DVT) prophylaxis on heparin by primary team. Monitoring for gastrointestinal (GI) bleed. Hemoglobin is stable at this point in time. 7. Protonix twice a day. 8. Nutrition. Total parenteral nutrition (TPN). 9. Neurologic prophylaxis. Will order MPO boots. Critical care time as mentioned above. This excludes all procedures. [facility]
[2020-08-10] MEDS: CHLORHEXIDINE GLUCONATE 0.12 % 15ML UDC (PERIDEX ORAL RINSE) MT SCH ×2 (08:52→20:56)
[2020-08-10] MEDS: PANTOPRAZOLE 40MG VIAL (C9113 PER 1) IV SCH ×2 (08:52→20:56)
[2020-08-10 08:58] LABS: HEMATOCRIT 34.5 % (42.0-52.0); HEMOGLOBIN 11.6 g/dl (13.5-17.5); MEAN CORPUSCULAR HEMOGLOBIN 32.9 pg (27.0-33.0); MEAN CORPUSCULAR HGB CONC 33.6 g/dl (32.0-36.5); MEAN CORPUSCULAR VOLUME 97.7 fl (80.0-96.0); PLATELET COUNT, AUTOMATED 112 10^3/uL (150-450); RED BLOOD COUNT 3.53 10^6/uL (4.30-6.10); WHITE BLOOD COUNT 24.4 10^3/uL (4.0-10.0)
[2020-08-10] MEDS: INSULIN REGULAR IN 0.9 % NACL 100 UNIT in IV 1 EA IV SCH ×6 (09:24→23:15)
[2020-08-10 09:30] LABS: CALCIUM LEVEL 7.6 MG/DL (8.8-10.2); CREATININE FOR GFR 2.27 MG/DL (0.70-1.30); GLOMERULAR FILTRATION RATE 30.4 (>42); MAGNESIUM LEVEL 2.7 MG/DL (1.8-2.4); PHOSPHORUS LEVEL 3.6 MG/DL (2.5-4.9)
[2020-08-10 09:47] LABS: ALBUMIN 1.2 GM/DL (3.2-5.2); BILIRUBIN,DIRECT 0.2 MG/DL (0.0-0.2); BILIRUBIN,TOTAL 0.8 MG/DL (0.2-1.0); TOTAL PROTEIN 5.1 GM/DL (6.4-8.2)
[2020-08-10] MEDS: INSULIN IV RATE CHANGE DOCUMENTATION ML/HR XX SCH ×6 (10:20→21:06)
--- NOTE | 2020-08-10 10:24 | IPNPDOC ---
Text Note Date of Service The patient was seen on 08/10/20. NOTE SUBJECTIVE: Patient was seen and examined at bedside this morning in the ICU. He continues on CRRT, heparin drip, and requiring pressors to maintain MAP>65. TPN was initiated yesterday. Pt did have some bleeding in the inline suction of the ET tube overnight while his PTT was supratherapeutic. Heparin drip was held until the PTT dropped back to therapeutic levels. The patient remains sedated and continues to overbreath the vent. OBJECTIVE: VITAL SIGNS: See below GENERAL: sedated, ET tube in place, overbreathing the vent, currently on CRRT, OG tube in place draining green/black fluid HEENT: Normocephalic, atraumatic, PERRLA, EOMI, sclera anicteric, moist mucous membranes NECK: Supple, trachea midline, no lymphadenopathy, no JVD CARDIOVASCULAR: Regular rate and rhythm, normal S1 and S2. No murmurs, rubs, or gallops RESPIRATORY: Clear to auscultation bilaterally with equal air entry bilaterally. No wheezing, rhonchi, or rales. ABDOMEN: Soft, nondistended, bowel sounds absent, no masses or hepatosplenomegaly appreciated : Anne catheter in place with little to no urine output EXTREMITIES: Pitting edema in all four extremities. Cyanosis, somewhat improved from yesterday. Capillary refill remains slow >3sec SKIN: Cool, dry, pale with mottling. NEUROLOGIC: No spontaneous movements. Exam limited due to sedation. PSYCH: unable to assess ASSESSMENT/PLAN: Mr. Martinez is a 69 y/o with a PMH of non-insulin dependent diabetes mellitus, HTN, right-sided CVA and heavy alcohol use presenting with weakness, urinary frequency and excessive thirst found to have hyperglycemia, metabolic acidosis w/ increased anion gap, high lipase, BATSHEVA and high lactic acid concerning for DKA, pancreatitis, renal failure and alcohol withdrawal. Due to worsening metabolic acidosis and encephalopathy the patient was intubated. He continues on CRRT. # Acute pancreatitis with shock - CT abdomen shows peripancreatic inflammatory changes extending all the way to the lateral pericolic gutters and pelvis - Surgery consult in place, appreciate input and recommendations. - Concern for necrotic bowel as OG tube placed and copious bilious drainage noted. - Continues to show evidence of intravascular depletion with hypotension and significant edema, currently no IV fluid as he remains on CRRT. - Patient was started on TPN yesterday by nephrology. - Amylase and lipase levels WNL today. - Continue IV abx coverage with Cefepime and Flagyl day #5 # Poorly controlled diabetes mellitus - Initially presented with DKA secondary to noncompliance/uncontrolled DM vs. acute pancreatitis - HbA1c 10.9%. Patient is not on any antidiabetic medications at home - s/p insulin drip, was switched to SSI for glucose control. - Insulin drip restarted today by intensive care team due to worsening hyperglycemia. # Acute respiratory failure - likely secondary to encephalopathy, pt was unable to protect airway - ET tube in place, tolerating ventilation while overbreathing vent. Daily CXR reviewed. Daily ABG reviewed. - Masonry Teacher consulted, appreciate their input and recommendations. # Oliguric renal failure: Patient has had [id number] UOP - Continue CRRT, heparin drip to avoid clotting the machine. - Additional electrolyte management as indicated. Cr remains stable at 2.27 - Nephrology consulted, appreciate their input and recommendations. # Metabolic acidosis 2/2 DKA vs lactic acidosis: improved - AB.36/27.6/129 today - Expect improvement with CRRT # Encephalopathy secondary to metabolic encephalopathy vs. alcohol withdrawal vs. pancreatitis - Continue Versed drip - s/p banana bag - Ammonia level normal # Hypotension - continues on levophed as needed, titrate to MAP >65 GI PROPHYLAXIS: IV Protonix BID DVT PROPHYLAXIS: Heparin drip full anticoagulation DISPO: Poor prognosis, patient is DNR, at risk for in the next 24-48h ATTENDING NOTE: Patient seen and examined independently. Agree with resident's note. Discussed his plan of care and prognosis with his [place] over the telephone. Agreeable with continuing current management, and if no improvements to proceed with TOWER DIRECTOR. VS,Fishbone, I+O VS, Fishbone, I+O Laboratory Tests 08/09/20 15:08 08/09/20 20:49 08/10/20 02:59 08/10/20 03:23 08/10/20 08:39 Vital Signs Date Time Temp Pulse Resp B/P (MAP) Pulse Ox O2 Delivery O2 Flow Rate FiO2 08/10/20 08:00 98.4 96 36 106/66 (79) 95 Ventilator 70 08/06/20 08:00 40.0 I&O- Last 24 Hours up to 6 AM 08/10/20 06:00 Intake Total 2895.3 ml Output Total 3185 ml Balance -289.7 ml FRANK PINO D.O. Aug 10, 2020 10:24 JOSSELIN ALCANTAR MD Aug 11, 2020 09:40
[2020-08-10 15:06] LABS: HEMATOCRIT 33.8 % (42.0-52.0); HEMOGLOBIN 11.3 g/dl (13.5-17.5); MEAN CORPUSCULAR HEMOGLOBIN 32.4 pg (27.0-33.0); MEAN CORPUSCULAR HGB CONC 33.4 g/dl (32.0-36.5); MEAN CORPUSCULAR VOLUME 96.8 fl (80.0-96.0); PLATELET COUNT, AUTOMATED 103 10^3/uL (150-450); RED BLOOD COUNT 3.49 10^6/uL (4.30-6.10); WHITE BLOOD COUNT 21.1 10^3/uL (4.0-10.0)
[2020-08-10 15:32] LABS: CALCIUM LEVEL 8.1 MG/DL (8.8-10.2); CREATININE FOR GFR 2.16 MG/DL (0.70-1.30); GLOMERULAR FILTRATION RATE 32.2 (>42); MAGNESIUM LEVEL 2.6 MG/DL (1.8-2.4); PHOSPHORUS LEVEL 2.7 MG/DL (2.5-4.9); POTASSIUM SERUM 4.3 MEQ/L (3.5-5.1)
[2020-08-10 16:04] LABS: INR 1.22; PROTHROMBIN TIME 15.7 SECONDS (12.5-14.3)
[2020-08-10] MEDS ORDERED: [UNRECOGNIZED DRUG - OTHER] IV SCH ×6 (18:00)
[2020-08-10] MEDS ORDERED: SODIUM ACETATE IV SCH ×6 (18:00)
[2020-08-10] MEDS ORDERED: SODIUM CHLORIDE IV SCH ×6 (18:00)
[2020-08-10] MEDS ORDERED: FAT EMULSION IV 20% 500 ML IV SCH (18:00)
[2020-08-10] MEDS ORDERED: CALCIUM GLUCONATE 1,000 MG, VIAL MATE ADAPTER 1 EACH in NS 100 ML IV ONE (21:30)
[2020-08-10 21:45] LABS: CALCIUM LEVEL 7.8 MG/DL (8.8-10.2); CREATININE FOR GFR 2.1 MG/DL (0.70-1.30); GLOMERULAR FILTRATION RATE 33.3 (>42); MAGNESIUM LEVEL 2.6 MG/DL (1.8-2.4); PHOSPHORUS LEVEL 3.5 MG/DL (2.5-4.9); POTASSIUM SERUM 3.3 MEQ/L (3.5-5.1)
[2020-08-10] MEDS: KCL 20MEQ IN 100ML SWI (KRUN) 20 MEQ in IV 1 EA IV SCH ×4 (22:19→23:13)
[2020-08-11] VITALS (48 sets, daily range): BP systolic 80–132; BP diastolic 42–65
[2020-08-11] MEDS: MIDAZOLAM HCL 100 MG in D5W 80 ML IV SCH ×2
[2020-08-11] MEDS: CEFEPIME HCL 2 GM in D5W MINI-BAG PLUS 50 ML IV SCH ×2 (00:06→11:45)
[2020-08-11] MEDS: MIDAZOLAM INJ 2MG/2ML VIAL (J2250 PER 1MG) IV PRN ×2 (02:58→12:47)
[2020-08-11 03:19] LABS: HEMATOCRIT 33.7 % (42.0-52.0); HEMOGLOBIN 11.1 g/dl (13.5-17.5); MEAN CORPUSCULAR HEMOGLOBIN 31.8 pg (27.0-33.0); MEAN CORPUSCULAR HGB CONC 32.9 g/dl (32.0-36.5); MEAN CORPUSCULAR VOLUME 96.6 fl (80.0-96.0); PLATELET COUNT, AUTOMATED 108 10^3/uL (150-450); RED BLOOD COUNT 3.49 10^6/uL (4.30-6.10); WHITE BLOOD COUNT 29.4 10^3/uL (4.0-10.0)
[2020-08-11 03:33] LABS: INR 1.25
[2020-08-11 03:39] LABS: PARTIAL THROMBOPLASTIN TIME 68.9 SECONDS (24.2-38.5)
[2020-08-11] MEDS ORDERED: CALCIUM GLUCONATE 1,000 MG, VIAL MATE ADAPTER 1 EACH in NS 100 ML IV ONE (03:45)
[2020-08-11 04:19] LABS: ALBUMIN 1.2 GM/DL (3.2-5.2); CALCIUM LEVEL 7.6 MG/DL (8.8-10.2); CREATININE FOR GFR 1.95 MG/DL (0.70-1.30); GLOMERULAR FILTRATION RATE 36.3 (>42); MAGNESIUM LEVEL 2.5 MG/DL (1.8-2.4); PHOSPHORUS LEVEL 3.5 MG/DL (2.5-4.9)
[2020-08-11] MEDS: metroNIDAZOLE 500 MG in IV 1 EA IV SCH ×3 (05:07→21:11)
[2020-08-11] MEDS: INSULIN REGULAR IN 0.9 % NACL 100 UNIT in IV 1 EA IV SCH ×6 (05:11→23:14)
[2020-08-11] MEDS: HEPARIN DRIP 25,000 UNITS in IV 1 EA IV SCH (05:19)
[2020-08-11 05:55] LABS: ABG BASE EXCESS -4.2 (-2.0-2.0); ABG HCO3 18.4 MEQ/L (22.0-26.0); ABG O2 SATURATION 96.9 % (95.0-99.0); ABG PARTIAL PRESSURE CO2 26.6 mmHg (35.0-45.0); ABG PARTIAL PRESSURE O2 83.2 mmHg (75.0-100.0); ABG TOTAL CO2 19.2 MEQ/L (23.0-31.0); ABG pH (ARTERIAL) 7.457 UNITS (7.350-7.450)
--- NOTE | 2020-08-11 08:22 | REP ---
INDICATION: ett COMPARISON: 08/10/2020 TECHNIQUE: Portable AP view of the chest FINDINGS: Endotracheal tube 3 cm above the yaa. Nasogastric tube courses below left hemidiaphragm. Left IJ line with tip in the internal jugular vein. Right subclavian catheter with tip in the SVC/right atrium. The mediastinum and cardiac silhouette are stable and within normal limits for portable technique. The lung singer demonstrate chronic changes with right basilar and medial left lower lobe/retrocardiac atelectasis. No obvious effusion. No pneumothorax. IMPRESSION: 1. Lines and tubes in satisfactory position. 2. Mild right basilar and left lower lobe/retrocardiac atelectasis suggested. <Electronically signed by Elbert Reddy > 08/11/20 0877
[2020-08-11] MEDS: CHLORHEXIDINE GLUCONATE 0.12 % 15ML UDC (PERIDEX ORAL RINSE) MT SCH ×2 (08:40→21:11)
[2020-08-11] MEDS: PANTOPRAZOLE 40MG VIAL (C9113 PER 1) IV SCH ×2 (08:40→21:11)
[2020-08-11 09:07] LABS: CALCIUM LEVEL 7.8 MG/DL (8.8-10.2); CREATININE FOR GFR 1.94 MG/DL (0.70-1.30); GLOMERULAR FILTRATION RATE 36.5 (>42); MAGNESIUM LEVEL 2.5 MG/DL (1.8-2.4); POTASSIUM SERUM 4.5 MEQ/L (3.5-5.1)
[2020-08-11] MEDS: INSULIN IV RATE CHANGE DOCUMENTATION ML/HR XX SCH ×5 (09:19→18:13)
[2020-08-11] MEDS ORDERED: CALCIUM GLUCONATE 1,000 MG in NS 100 ML IV ONE ×2 (10:00→17:00)
[2020-08-11 11:36] LABS: ABG HCO3 19.2 MEQ/L (22.0-26.0); ABG O2 SATURATION 95.7 % (95.0-99.0); ABG PARTIAL PRESSURE CO2 25.8 mmHg (35.0-45.0); ABG PARTIAL PRESSURE O2 74.1 mmHg (75.0-100.0)
[2020-08-11] MEDS ORDERED: SODIUM CHLORIDE 0.9% INJ 10 ML SYR IV PRN (13:15)
[2020-08-11 15:03] LABS: HEMATOCRIT 31.2 % (42.0-52.0); HEMOGLOBIN 10.4 g/dl (13.5-17.5); MEAN CORPUSCULAR HEMOGLOBIN 32.3 pg (27.0-33.0); MEAN CORPUSCULAR HGB CONC 33.3 g/dl (32.0-36.5); MEAN CORPUSCULAR VOLUME 96.9 fl (80.0-96.0); PLATELET COUNT, AUTOMATED 105 10^3/uL (150-450); RED BLOOD COUNT 3.22 10^6/uL (4.30-6.10)
[2020-08-11 15:15] LABS: WHITE BLOOD COUNT 32.2 10^3/uL (4.0-10.0)
[2020-08-11 15:25] LABS: CALCIUM LEVEL 7.6 MG/DL (8.8-10.2); CREATININE FOR GFR 1.91 MG/DL (0.70-1.30); GLOMERULAR FILTRATION RATE 37.2 (>42); MAGNESIUM LEVEL 0.9 MG/DL (1.8-2.4); PHOSPHORUS LEVEL 3.1 MG/DL (2.5-4.9); POTASSIUM SERUM 3.7 MEQ/L (3.5-5.1)
[2020-08-11] MEDS ORDERED: MAG SULF 1GM/100ML (MAG RUN) 1 GM in IV 1 EA IV SCH (16:00)
[2020-08-11] MEDS: LACRILUBE (AKWA TEARS) OPHTH OINT 3.5 GM OU SCH ×2 (16:33→21:11)
[2020-08-11] MEDS ORDERED: VANCOMYCIN HCL 1,000 MG, VIAL MATE ADAPTER 1 EACH in D5W 250 ML IV ONE (17:00)
--- NOTE | 2020-08-11 17:56 | IPN ---
PROGRESS NOTE DATE: 08/11/2020 03:01:00 pm SUBJECTIVE: The patient was seen and examined at the bedside today morning in the ICU. He remains intubated, not sedated, requiring just intermittent low dose of sedatives. He is still in oliguric renal failure. The patient is on CVVHDF at this time. His FiO2 requirement on the ventilator has decreased to 65%. He is no longer requiring pressors. He continues to be on TPN and IV insulin drip. REVIEW OF SYSTEMS: The patient is unable to provide any review of systems to me at this time. He is tolerating the fluid removal with CVVHDF, however I was told by the nursing staff that his CVVP is running between 8 to 9. OBJECTIVE: VITAL SIGNS: Temperature is 98.2 degrees Fahrenheit, blood pressure 106/57, pulse is 96, respiratory rate of 33, saturating 95% on the vent with 65% FiO2. Intake and Output Urine output recorded as 46 mL only. OGT gastric drainage is 325 mL and so far fluid removal with CVVHDF is 2,689 mL. Weight on the bed scale is 111.1 kg which is almost the same as yesterday. PHYSICAL EXAMINATION: GENERAL APPEARANCE: The patient is intubated, not sedated, laying in bed. Eyes are closed. He has bitemporal wasting. HEAD AND NECK: Mucous membranes are moist. He has an endotracheal tube and orogastric tube. He has a left sided triple lumen catheter in the right subclavian triple lumen catheter. CARDIOVASCULAR: S1, S2, regular rate. EXTREMITIES: 1+ edema of the bilateral lower extremities. RESPIRATORY: Mildly decreased breath sounds at the bases bilaterally, otherwise no active rales or rhonchi. ABDOMEN: Soft, very decreased and diminished bowel sounds. I could not appreciate any tenderness. There is no organomegaly. GENITOURINARY: He has an indwelling Anne catheter and he has a rectal temperature probe. MUSCULOSKELETAL: 1+ edema of the bilateral lower extremities. SOFTWARE SUPPORT REPRESENTATIVE: The patient is responding to painful stimuli only. He does not follow commands and eyes are closed. LAB REVIEW: CBC showed a WBC of 32.2, hemoglobin is 10.4, platelets of 105. BMP showed sodium of 137, potassium 3.7, chloride 106, bicarbonate 23, BUN 39, creatinine is 1.9. Calcium 7.6, phosphorous is 3.1. CURRENT INPATIENT MEDICATIONS: The patient's medications were all reviewed by myself. His Levophed has been weaned off. He continues to be on TPN. He is getting electrolytes according to CVVHDF protocol. He has been started on IV Vancomycin one gram q. 12 hourly and he continues to be on IV Cefepime. No other significant change in the medications. ASSESSMENT AND PLAN: 1. Acute oliguric renal failure - The patient is still dependent on CVVHDF. Continue the CVVHDF and fluid removal parameters are according to the MAP. Since his CVP is low, I would only remove fluid if MAP is more than 80. Otherwise he will be maintained for a MAP between 65-75 and no fluid removal for a MAP of less than 65. 2. Metabolic acidosis it is controlled with CVVHDF now. 3. Protein calorie malnutrition and acute pancreatitis The patient is requiring TPN. Special order TPN was ordered again according to the patient's electrolytes requirements. 4. Acute pancreatitis and shock with persistent leukocytosis - The patient's white cell count got worse. I see that the antibiotic regimen has been changed to a combination of third generation cephalosporin and IV Vancomycin which adequately covers him for gram positive infections as well. 5. Vent dependent respiratory failure the patient's FiO2 requirement on the vent is decreasing now. Vent management is being done by Pulmonary Team. Volume status is optimal. Fluid removal only for a MAP of above 85. Total critical care time spent in the management of this patient today morning in the ICU, excluding all the procedures was 45 minutes.
[2020-08-11] MEDS ORDERED: SODIUM ACETATE IV SCH ×7 (18:00)
[2020-08-11] MEDS ORDERED: KCL 20MEQ IN 100ML SWI (KRUN) 20 MEQ in IV 1 EA IV ONE ×2 (18:00)
[2020-08-11] MEDS ORDERED: [UNRECOGNIZED DRUG - OTHER] IV SCH ×7 (18:00)
[2020-08-11] MEDS ORDERED: FAT EMULSION IV 20% 500 ML IV SCH (18:00)
[2020-08-11] MEDS ORDERED: SODIUM CHLORIDE IV SCH ×7 (18:00)
--- NOTE | 2020-08-11 19:32 | IPNPDOC ---
Text Note Date of Service The patient was seen on 08/11/20. NOTE Subjective: Patient was seen and examined at bedside. He continues on CRRT, heparin drip, and requiring pressors to maintain MAP>65. Still remains on TPN. Some spontaneous movements noted, but not purposeful. Objective: VITAL SIGNS: See below GENERAL: ET tube in place, currently on CRRT, OG tube in place draining green/black fluid HEENT: Normocephalic, atraumatic, PERRLA, EOMI, sclera anicteric, moist mucous membranes NECK: Supple, trachea midline, no lymphadenopathy, no JVD CARDIOVASCULAR: Regular rate and rhythm, normal S1 and S2. No murmurs, rubs, or gallops RESPIRATORY: Clear to auscultation bilaterally with equal air entry bilaterally. No wheezing, rhonchi, or rales. ABDOMEN: Soft, nondistended, bowel sounds absent, no masses or hepatosplenomegaly appreciated : Anne catheter in place with little to no urine output EXTREMITIES: Pitting edema in all four extremities. Cyanosis, somewhat improved from yesterday. right anterior chest central line in place SKIN: Cool, dry, pale with mottling. NEUROLOGIC: No spontaneous movements. Exam limited due to sedation. PSYCH: unable to assess A/P: Mr. Martinez is a 69 y/o with a PMH of non-insulin dependent diabetes mellitus, HTN, right-sided CVA and heavy alcohol use presenting with weakness, urinary frequency and excessive thirst found to have hyperglycemia, metabolic acidosis w/ increased anion gap, high lipase, BATSHEVA and high lactic acid concerning for DKA, pancreatitis, renal failure and alcohol withdrawal. Due to worsening metabolic acidosis and encephalopathy the patient was intubated. He continues on CRRT. # Acute pancreatitis with shock - CT abdomen shows peripancreatic inflammatory changes extending all the way to the lateral pericolic gutters and pelvis - Surgery consult in place - Concern for possible necrotic bowel as OG tube placed and copious bilious drainage noted. - Continues to show evidence of intravascular depletion with hypotension and significant edema, currently no IV fluid as he remains on CRRT. - Patient was started on TPN for nutrition by nephrology. - worsening leukocytosis - vancomycin added to antimicrobial coverage - Continue IV abx coverage with Cefepime and Flagyl day #6 # Poorly controlled diabetes mellitus - Initially presented with DKA secondary to noncompliance/uncontrolled DM vs. acute pancreatitis - HbA1c 10.9%. Patient is not on any antidiabetic medications at home - Insulin drip restarted for worsening hyperglycemia. # Acute respiratory failure - likely secondary to encephalopathy, pt was unable to protect airway - ET tube in place, tolerating ventilation while overbreathing vent. Daily CXR reviewed. Daily ABG reviewed. - Regional Airline Pilot consulted, appreciate their input and recommendations. # Oliguric renal failure: Patient has had [id number] UOP - Continue CRRT, heparin drip to avoid clotting the machine. - Additional electrolyte management as indicated. - Nephrology consulted, appreciate their input and recommendations. # Metabolic acidosis 2/2 DKA vs lactic acidosis: improved - Expect improvement with CRRT # Encephalopathy secondary to metabolic encephalopathy vs. alcohol withdrawal vs. pancreatitis - s/p banana bag - Ammonia level normal # Hypotension - continues on levophed as needed, titrate to MAP >65 GI PROPHYLAXIS: IV Protonix BID DVT PROPHYLAXIS: Heparin infusion - full anticoagulation DISPO: Poor prognosis, patient is DNR, at risk for in the next 24-48h; discussed at length with his Carolina on the phone, agreeable to proceed with plan of care, and VARNISH MAKER if appropriate VS,Fishbone, I+O VS, Fishbone, I+O Laboratory Tests 08/10/20 20:41 08/11/20 03:00 08/11/20 08:33 08/11/20 14:42 Vital Signs Date Time Temp Pulse Resp B/P (MAP) Pulse Ox O2 Delivery O2 Flow Rate FiO2 08/11/20 18:00 100 32 121/59 (79) 90 Ventilator 50 08/11/20 16:00 98.2 08/06/20 08:00 40.0 I&O- Last 24 Hours up to 6 AM 08/11/20 06:00 Intake Total 4310.8 ml Output Total 4624 ml Balance -313.2 ml JOSSELIN ALCANTAR MD Aug 11, 2020 19:32
[2020-08-11] MEDS ORDERED: VANCOMYCIN HCL 1,000 MG, VIAL MATE ADAPTER 1 EACH in D5W 250 ML IV SCH (21:00)
[2020-08-11 21:07] LABS: HEMATOCRIT 31.7 % (42.0-52.0); HEMOGLOBIN 10.5 g/dl (13.5-17.5); MEAN CORPUSCULAR HEMOGLOBIN 31.5 pg (27.0-33.0); MEAN CORPUSCULAR HGB CONC 33.1 g/dl (32.0-36.5); MEAN CORPUSCULAR VOLUME 95.2 fl (80.0-96.0); PLATELET COUNT, AUTOMATED 122 10^3/uL (150-450); RED BLOOD COUNT 3.33 10^6/uL (4.30-6.10)
[2020-08-11 21:10] LABS: WHITE BLOOD COUNT 35.6 10^3/uL (4.0-10.0)
[2020-08-11 21:18] LABS: INR 1.19; PROTHROMBIN TIME 15.4 SECONDS (12.5-14.3)
[2020-08-11 21:19] LABS: PARTIAL THROMBOPLASTIN TIME 52.8 SECONDS (24.2-38.5)
[2020-08-11 21:35] LABS: CALCIUM LEVEL 8.2 MG/DL (8.8-10.2); CREATININE FOR GFR 1.84 MG/DL (0.70-1.30); GLOMERULAR FILTRATION RATE 38.8 (>42); MAGNESIUM LEVEL 2.4 MG/DL (1.8-2.4); PHOSPHORUS LEVEL 2.9 MG/DL (2.5-4.9); POTASSIUM SERUM 3.6 MEQ/L (3.5-5.1)
[2020-08-11] MEDS: HEPARIN SOD (PORCINE) 5000UNITS/ML 1ML VIAL/SYRINGE IV PRN (22:26)
[2020-08-11] MEDS: KCL 20MEQ IN 100ML SWI (KRUN) 20 MEQ in IV 1 EA IV SCH ×4 (22:41→23:54)
[2020-08-12] VITALS (41 sets, daily range): BP systolic 76–122; BP diastolic 48–70; O2SAT 94
[2020-08-12] MEDS: MIDAZOLAM INJ 2MG/2ML VIAL (J2250 PER 1MG) IV PRN ×5 (00:21→22:39)
[2020-08-12] MEDS: CEFEPIME HCL 2 GM in D5W MINI-BAG PLUS 50 ML IV SCH (00:58)
[2020-08-12] MEDS ORDERED: CALCIUM GLUCONATE 1,000 MG, VIAL MATE ADAPTER 1 EACH in NS 100 ML IV ONE (03:30)
[2020-08-12 03:34] LABS: CALCIUM LEVEL 7.6 MG/DL (8.8-10.2); CREATININE FOR GFR 1.76 MG/DL (0.70-1.30); GLOMERULAR FILTRATION RATE 40.8 (>42); MAGNESIUM LEVEL 2.3 MG/DL (1.8-2.4); PHOSPHORUS LEVEL 3.3 MG/DL (2.5-4.9)
[2020-08-12 03:35] LABS: POTASSIUM SERUM 4.7 MEQ/L (3.5-5.1)
[2020-08-12] MEDS: INSULIN IV RATE CHANGE DOCUMENTATION ML/HR XX SCH ×5 (05:00→23:25)
[2020-08-12] MEDS: metroNIDAZOLE 500 MG in IV 1 EA IV SCH (05:12)
[2020-08-12 05:20] LABS: ALBUMIN 1.1 GM/DL (3.2-5.2); CALCIUM LEVEL 8.2 MG/DL (8.8-10.2); CREATININE FOR GFR 1.83 MG/DL (0.70-1.30); PHOSPHORUS LEVEL 3.5 MG/DL (2.5-4.9); POTASSIUM SERUM 4.8 MEQ/L (3.5-5.1)
[2020-08-12 06:01] LABS: ABG HCO3 18.2 MEQ/L (22.0-26.0); ABG O2 SATURATION 98.6 % (95.0-99.0); ABG PARTIAL PRESSURE CO2 24.6 mmHg (35.0-45.0); ABG PARTIAL PRESSURE O2 126.2 mmHg (75.0-100.0); ABG STANDARD HCO3 21.2 MEQ/L (22.0-26.0); ABG pH (ARTERIAL) 7.487 UNITS (7.350-7.450)
[2020-08-12 06:28] LABS: HEMATOCRIT 28.6 % (42.0-52.0); HEMOGLOBIN 9.5 g/dl (13.5-17.5); MEAN CORPUSCULAR HEMOGLOBIN 32.2 pg (27.0-33.0); MEAN CORPUSCULAR HGB CONC 33.2 g/dl (32.0-36.5); MEAN CORPUSCULAR VOLUME 96.9 fl (80.0-96.0); PLATELET COUNT, AUTOMATED 111 10^3/uL (150-450); RED BLOOD COUNT 2.95 10^6/uL (4.30-6.10)
[2020-08-12 06:32] LABS: WHITE BLOOD COUNT 37.5 10^3/uL (4.0-10.0)
--- NOTE | 2020-08-12 07:59 | REP ---
INDICATION: ett COMPARISON: 08/11/2020 TECHNIQUE: Portable AP view of the chest FINDINGS: Endotracheal tube 3.5 cm above the yaa. Nasogastric tube courses below left hemidiaphragm. Right subclavian catheter with tip in the SVC. Left IJ line with tip in the internal jugular vein. Mediastinum and cardiac silhouette are relatively stable. Increasing right lower lobe infiltrate suggesting effusion and airspace disease. No pneumothorax. Left hemithorax is relatively clear although trace left perihilar atelectasis cannot be excluded. IMPRESSION: 1. Lines and tubes in satisfactory stable position. 2. Increasing right lower lobe opacity suggesting effusion and atelectasis/infiltrate along with minimal left infrahilar atelectasis. <Electronically signed by Elbert Reddy > 08/12/20 075
[2020-08-12] MEDS: HEPARIN DRIP 25,000 UNITS in IV 1 EA IV SCH (08:33)
[2020-08-12] MEDS: CHLORHEXIDINE GLUCONATE 0.12 % 15ML UDC (PERIDEX ORAL RINSE) MT SCH ×2 (08:35→21:11)
[2020-08-12] MEDS: PANTOPRAZOLE 40MG VIAL (C9113 PER 1) IV SCH ×2 (08:35→21:11)
[2020-08-12] MEDS: VANCOMYCIN HCL 750 MG, VIAL MATE ADAPTER 1 EACH in D5W 250 ML IV SCH (08:36)
[2020-08-12 08:57] LABS: CALCIUM LEVEL 8.1 MG/DL (8.8-10.2); CREATININE FOR GFR 1.93 MG/DL (0.70-1.30); GLOMERULAR FILTRATION RATE 36.7 (>42); MAGNESIUM LEVEL 2.5 MG/DL (1.8-2.4); PHOSPHORUS LEVEL 2.9 MG/DL (2.5-4.9); POTASSIUM SERUM 3.9 MEQ/L (3.5-5.1)
[2020-08-12] MEDS ORDERED: NS 1,000 ML IV ONE (09:15)
[2020-08-12] MEDS: LACRILUBE (AKWA TEARS) OPHTH OINT 3.5 GM OU SCH ×3 (09:36→21:12)
[2020-08-12] MEDS ORDERED: KCL 20MEQ IN 100ML SWI (KRUN) 20 MEQ in IV 1 EA IV ONE ×4 (10:00→22:15)
[2020-08-12] MEDS ORDERED: VANCOMYCIN HCL 750 MG, VIAL MATE ADAPTER 1 EACH in D5W 250 ML IV SCH (10:00)
[2020-08-12] MEDS ORDERED: CALCIUM GLUCONATE 1,000 MG in D5W MINI-BAG PLUS 100 ML IV ONE (11:00)
[2020-08-12] MEDS ORDERED: SODIUM CHLORIDE 0.9% INJ 10 ML SYR IV PRN (11:00)
[2020-08-12] MEDS ORDERED: ISOVUE-370 76% 100ML VIAL As Ordered ONE (11:27)
[2020-08-12] MEDS: INSULIN REGULAR IN 0.9 % NACL 100 UNIT in IV 1 EA IV SCH ×4 (12:00→21:44)
--- NOTE | 2020-08-12 12:00 | REP ---
INDICATION: Severe Pancreatitis/r/o abscess. COMPARISON: Comparison CT study August 06, 2020 and August 04, 2020.. TECHNIQUE: Helical scanning was acquired and 4 mm axial images are re-formatted. Coronal and sagittal MPR images were generated and reviewed. The contrast enhancement dose is 100 mL of intravenous Isovue 370. FINDINGS: Preliminary digital fish cutting machine operator radiograph demonstrates a normal bowel gas pattern. There is a right femoral vascular catheter noted. An NG tube is visible. A Anne catheter is visible. There is a moderate pattern of bilateral lower lobe atelectatic change. There is a small right pleural effusion evident. A minimal amount of fluid is visible in the left pleural space. There is marked diffuse fatty infiltration of the liver. The NG tube enters the body of the stomach. Gallbladder is mildly distended but appears intact. Pancreatic swelling and diffuse peripancreatic edema persist. No abscess is seen. Today's study, accomplished with intravenous contrast shows heterogeneous areas of decreased or absent contrast enhancement in the pancreatic head and tail suggesting mild areas of pancreatic necrosis. No abscess is seen however. There is peripancreatic edema with some bilateral pericolic gutter fluid or thickening. This is actually decreased from August 06, 2020 study. Today's exam however shows moderate to marked diffuse mural thickening in the descending colon splenic flexure region and to a lesser extent, sigmoid colon consistent with enterocolitis. There is a rectal catheter noted in place. A small quantity of fluid is visible in the pelvic reflections consistent with minimal ascites. Prostate gland is enlarged as before. Small and large bowel loops are otherwise unremarkable. The kidneys enhance symmetrically IMPRESSION: Acute pancreatitis pattern persists with mottled pattern of impaired contrast enhancement in the body and tail of the pancreas consistent with some degree of mild pancreatic necrosis. No abscess is seen. There is minimal ascites. There is moderate mural edema affecting the descending colon consistent with enterocolitis. There is fatty infiltration of the liver and extensive bilateral lower lobe atelectatic change. <Electronically signed by Gio Nguyen > 08/12/20 [id number]
[2020-08-12] MEDS: PIPERACILLIN/TAZOBACTAM SOD 4.5 GM in D5W MINI-BAG PLUS 50 ML IV SCH ×2 (12:01→18:27)
--- NOTE | 2020-08-12 15:48 | IPN ---
NEPHROLOGY PROGRESS NOTE DATE: 08/12/2020 SUBJECTIVE: Patient was seen and examined at the beside today morning in the ICU. Last 24 hour events were noted. Patient is not requiring any pressors. He continues to be on TPN, I.V. insulin drip and heparin. His CVP was 9 today and he was hypotensive with elevated lactic acid level. I.V. normal saline bolus was ordered by the pulmonary team. He is not getting any fluid removal through CVVHD. Actually CVVHDF is on-hold because he is going to have a CT scan now. He continues to be anuric and is OGT remains attached to suctioning. His mental status is very slightly better today as compared with yesterday. He follows few commands. OBJECTIVE: Vital signs: Temperature 97.7 degrees Fahrenheit, blood pressure 105/58, pulse 92, respiratory rate 33, saturating 93% on the vent with 40% FiO2. Intake and output: Urine output recorded as only 19 mL. Gastric drainage is 325 mL. Fluid removal with CVVHD was 3.4 liters yesterday and 1764 mL so far today. Weight on the bed scale is 110 kg. General: Patient is intubated not sedated. He intermittently opens his eyes. Head and neck: Pupils equally round and reactive to light. Mucous membranes are moist. He has an endotracheal tube and oral gastric tube which is attached to suctioning. Neck is supple. He has a left IJ triple lumen catheter and right subclavian triple lumen catheter. Cardiovascular: S1 and S2 regular rate, 2+ edema of the bilateral lower extremities and 1+ edema of the bilateral upper extremities. Respiratory: Mildly decreased breath sounds at the bases otherwise no active rales or rhonchi. Abdomen: Soft, very diminished bowel sounds. I could not appreciate any tenderness. There is no organomegaly. Genitourinary: He has an indwelling Anne catheter. Musculoskeletal: He has 2+ edema of the bilateral lower extremities otherwise no cyanosis or clubbing. EARLY CHILDHOOD ASSOCIATE TEACHER: Patient intermittently opens eyes and as per nursing staff he follows some commands. Dialysis access: He has a right groin double lumen catheter currently heparinized because CCVHDF is on-hold. LABORATORY DATA: CBC showed a WBC of 37.5, hemoglobin 9.5, platelets 111. PTT 96.8 today. ABG done today morning showed pH 7.48, PCO2 25, PO2 126, bicarb 18, O2 sat 98.6%. BMP showed sodium 136, potassium 3.9, chloride 106, bicarb 22, BUN 37, creatinine 1.9. Lactic acid 3.7. Calcium 8.1, phosphorus 2.9, magnesium 2.5. Random vancomycin level today is 17.3. Microbiology, blood cultures repeat done last night are negative so far. RADIOLOGY STUDIES: A CT scan of the abdomen and pelvis was repeated today which showed acute pancreatitis pattern persistent with multiple pattern of impaired contrast enhancement in the body and tail of the pancreas consistent with some degree of mild pancreatic necrosis, no abscesses seen, minimal ascites, mild enterocolitis in the descending colon and bilateral lower lobe atelectasis. CURRENT INPATIENT MEDICATIONS: Patient's medications were all reviewed by me. 1. His I.V. cefepime has been stopped. 2. He continues to be on Flagyl. 3. He has been started on Zosyn. 4. He was given a normal saline bolus today. 5. He continues to be on I.V. vancomycin. 6. He is on insulin drip. No other significant change in the medications today as compared with yesterday. ASSESSMENT AND PLAN: 1. Acute anuric renal failure: Patient is dependent on CVVHDF. Currently it is on-hold because he was going for a CT scan. CVVHDF will be resumed. I have changed the fluid removal parameters because patient is clinically intravascularly depleted. 2. Protein calorie malnutrition: It is secondary to acute pancreatitis and patient has an OGT attached to suctioning. He continues to be dependent on TPN; new special order TPN formula was ordered by me today. 3. Shock secondary to catastrophic acute pancreatitis: Patient's lactic acid is still elevated today. He was given a normal saline bolus. If needed he can get more saline. I would minimally remove fluid during CVVHDF for now. 4. Persistent leukocytosis and pancreatic necrosis: Patient was on cefepime, cefepime has been stopped. He is currently on a combination of vancomycin and Zosyn. Since Zosyn adequately coves anaerobes I have stopped the I.V. Flagyl now. 5. Vent dependent respiratory failure: Patient's FiO2 requirement is only 40%. Volume status is being optimized with dialysis as tolerated by his blood pressure. Vent management is as per the pulmonary service. 6. Insulin dependent diabetes: Patient is getting TPN and for that he needs I.V. insulin. Insulin has also been added to the TPN regimen. Glucose levels are currently controlled. Total critical care time spent in the management of this patient today morning in the ICU excluding all the procedures was 50 minutes. MTDD
[2020-08-12 16:47] LABS: HEMATOCRIT 27.5 % (42.0-52.0); HEMOGLOBIN 9.2 g/dl (13.5-17.5); MEAN CORPUSCULAR HEMOGLOBIN 32.1 pg (27.0-33.0); MEAN CORPUSCULAR HGB CONC 33.5 g/dl (32.0-36.5); MEAN CORPUSCULAR VOLUME 95.8 fl (80.0-96.0); PLATELET COUNT, AUTOMATED 107 10^3/uL (150-450); RED BLOOD COUNT 2.87 10^6/uL (4.30-6.10)
[2020-08-12 16:50] LABS: WHITE BLOOD COUNT 35.4 10^3/uL (4.0-10.0)
[2020-08-12 17:08] LABS: ANISOCYTOSIS 1+; ATYPICAL LYMPH 1 % (0-5); EOSINOPHILS 1 % (0-3); HYPOCHROMASIA 1+; LYMPHOCYTES 12 % (16-44); METAMYELOCYTES 1 % (0-0); MONOCYTES 1 % (0-5); NEUTROPHILS 43 % (28-66)
[2020-08-12 17:09] LABS: PLATELET ESTIMATE DECREASED (NORMAL); TOXIC GRANULATION 1+
[2020-08-12] MEDS ORDERED: FAT EMULSION IV 20% 500 ML IV SCH (18:00)
[2020-08-12] MEDS ORDERED: SODIUM CHLORIDE IV SCH ×9 (18:00)
[2020-08-12] MEDS ORDERED: [UNRECOGNIZED DRUG - OTHER] IV SCH ×9 (18:00)
[2020-08-12] MEDS ORDERED: SODIUM ACETATE IV SCH ×9 (18:00)
[2020-08-12] MEDS: VANCOMYCIN ORAL SOL 250MG/5ML ORAL SYRINGE NG SCH (18:39)
[2020-08-12 19:25] LABS: CALCIUM LEVEL 7.9 MG/DL (8.8-10.2); CREATININE FOR GFR 1.67 MG/DL (0.70-1.30); GLOMERULAR FILTRATION RATE 43.4 (>42); MAGNESIUM LEVEL 2.3 MG/DL (1.8-2.4); PHOSPHORUS LEVEL 3.5 MG/DL (2.5-4.9); POTASSIUM SERUM 3.8 MEQ/L (3.5-5.1)
[2020-08-12] MEDS ORDERED: CALCIUM GLUCONATE 1,000 MG in NS 100 ML IV ONE (22:15)
[2020-08-13] VITALS (25 sets, daily range): BP systolic 94–151; BP diastolic 50–76; O2SAT 95
[2020-08-13] MEDS: MIDAZOLAM INJ 2MG/2ML VIAL (J2250 PER 1MG) IV PRN ×4 (00:08→06:33)
[2020-08-13] MEDS: VANCOMYCIN ORAL SOL 250MG/5ML ORAL SYRINGE NG SCH ×5 (00:09→23:52)
[2020-08-13] MEDS: INSULIN IV RATE CHANGE DOCUMENTATION ML/HR XX SCH (01:11)
[2020-08-13 01:36] LABS: CALCIUM LEVEL 7.8 MG/DL (8.8-10.2); CREATININE FOR GFR 1.71 MG/DL (0.70-1.30); GLOMERULAR FILTRATION RATE 42.2 (>42); MAGNESIUM LEVEL 2.3 MG/DL (1.8-2.4)
[2020-08-13] MEDS ORDERED: CALCIUM GLUCONATE 1,000 MG, VIAL MATE ADAPTER 1 EACH in NS 100 ML IV ONE ×4 (02:00→19:00)
[2020-08-13 02:28] LABS: PHOSPHORUS LEVEL 3.3 MG/DL (2.5-4.9)
[2020-08-13] MEDS: PIPERACILLIN/TAZOBACTAM SOD 4.5 GM in D5W MINI-BAG PLUS 50 ML IV SCH ×3 (03:14→18:25)
[2020-08-13 05:59] LABS: ABG BASE EXCESS -0.7 (-2.0-2.0); ABG HCO3 21.6 MEQ/L (22.0-26.0); ABG O2 SATURATION 98.5 % (95.0-99.0); ABG PARTIAL PRESSURE CO2 27.4 mmHg (35.0-45.0); ABG STANDARD HCO3 23.9 MEQ/L (22.0-26.0); ABG TOTAL CO2 22.5 MEQ/L (23.0-31.0); ABG pH (ARTERIAL) 7.515 UNITS (7.350-7.450)
[2020-08-13] MEDS: INSULIN REGULAR IN 0.9 % NACL 100 UNIT in IV 1 EA IV SCH ×10 (06:15→20:47)
[2020-08-13 06:16] LABS: HEMATOCRIT 25.8 % (42.0-52.0); HEMOGLOBIN 8.5 g/dl (13.5-17.5); MEAN CORPUSCULAR HEMOGLOBIN 31.5 pg (27.0-33.0); MEAN CORPUSCULAR HGB CONC 32.9 g/dl (32.0-36.5); MEAN CORPUSCULAR VOLUME 95.6 fl (80.0-96.0); PLATELET COUNT, AUTOMATED 112 10^3/uL (150-450)
[2020-08-13 06:21] LABS: WHITE BLOOD COUNT 33.2 10^3/uL (4.0-10.0)
[2020-08-13 06:27] LABS: PARTIAL THROMBOPLASTIN TIME 79.7 SECONDS (24.2-38.5)
[2020-08-13 06:36] LABS: INR 1.17; PROTHROMBIN TIME 15.2 SECONDS (12.5-14.3)
[2020-08-13 06:43] LABS: ANISOCYTOSIS 2+; EOSINOPHILS 3 % (0-3); LYMPHOCYTES 4 % (16-44); METAMYELOCYTES 1 % (0-0); MONOCYTES 3 % (0-5); NEUTROPHILS 86 % (28-66); PLATELET ESTIMATE NORMAL (NORMAL)
[2020-08-13 07:16] LABS: ALBUMIN 1.1 GM/DL (3.2-5.2); CALCIUM LEVEL 7.5 MG/DL (8.8-10.2); CREATININE FOR GFR 1.56 MG/DL (0.70-1.30); GLOMERULAR FILTRATION RATE 46.9 (>42); MAGNESIUM LEVEL 2.3 MG/DL (1.8-2.4); PHOSPHORUS LEVEL 3.7 MG/DL (2.5-4.9); POTASSIUM SERUM 3.6 MEQ/L (3.5-5.1)
[2020-08-13] MEDS: HEPARIN DRIP 25,000 UNITS in IV 1 EA IV SCH (07:16)
--- NOTE | 2020-08-13 07:55 | REP ---
INDICATION: ett COMPARISON: None. TECHNIQUE: Portable AP view of the chest FINDINGS: ETT at the yaa. NGT extends below the nasogastric tube. Left IJ line in the jugular vein. Right subclavian catheter in the SVC. The mediastinum and cardiac silhouette are stable and within normal limits for portable technique. The lung singer demonstrate improved aeration and decreased right basilar opacity. No pneumothorax. IMPRESSION: Lines and tubes in satisfactory position. Improved aeration. <Electronically signed by Elbert Reddy > 08/13/20 0750
[2020-08-13] MEDS ORDERED: KCL 20MEQ IN 100ML SWI (KRUN) 20 MEQ in IV 1 EA IV ONE ×4 (08:00→09:00)
[2020-08-13] MEDS: LACRILUBE (AKWA TEARS) OPHTH OINT 3.5 GM OU SCH ×3 (08:24→20:47)
[2020-08-13] MEDS: PANTOPRAZOLE 40MG VIAL (C9113 PER 1) IV SCH ×2 (08:24→20:47)
[2020-08-13] MEDS: VANCOMYCIN HCL 750 MG, VIAL MATE ADAPTER 1 EACH in D5W 250 ML IV SCH ×2 (08:24→20:45)
[2020-08-13] MEDS: CHLORHEXIDINE GLUCONATE 0.12 % 15ML UDC (PERIDEX ORAL RINSE) MT SCH ×2 (08:24→20:47)
--- NOTE | 2020-08-13 10:27 | CCN ---
CRITICAL CARE NOTE DATE: 08/13/2020 CRITICAL CARE TIME: One hour and 18 minutes. This excludes all procedures. SUBJECTIVE: At bedside, patient is slightly more sedated than yesterday. Does respond to painful stimuli such as palpation of the abdomen. No high functioning level of consciousness at this point in time. Blood sugar appears to be less labile now that the infection appears to be better controlled. Yesterday he had a bandemia of 41%. His white count is trending down. His bandemia is down to 3. There was a mention of possible enterocolitis on CT so he was started on p.o. vancomycin. His antibiotics were switched recently to IV vancomycin and IV Zosyn. This was after discussing his case with Nephrology. He remains on mechanical ventilation, less oxygen requirements than before. Yesterday I did administer IV bolus despite being extravascularly volume overloaded. Intravascularly he appeared to be depleted. CVP was on the lower side along with IJ collapse. He responded well to this and does not require any vasopressive therapy at this point in time. He is hyperventilating on mechanical ventilation. However, over the next few days I hope to be able to perform extubation trials. On sedation vacation this morning as mentioned above, he is responsive to painful stimuli. Does not respond to verbal stimuli as of yet. OBJECTIVE: Temperature 97.0, pulse 86, respiratory rate 38, blood pressure 104/55 with a mean arterial pressure of 71, oxygen saturation 95% on 0.40 FiO2. I's and O's: 5,785 in and 3,430 out with a neg positive of 2,355. General: As mentioned above, on mechanical ventilation. Responds to painful stimuli. HEENT: Sclera clear, nonicteric. Pupils equal and reactive to light. Mucous membranes moist without lesions. The neck is supple. No tracheal deviation. Right IJ without surrounding erythema or exudate. Left subclavian without surrounding erythema or exudate. Cardiac: Regular S1 and S2 without audible murmur, rub, or gallop. No elevated JVP. There is significant systemic edema in the legs and arms. I believe this is third spacing of fluid. Pulmonary: Decreased breath sounds on the right. Otherwise clear to auscultation without rales, rhonchi, or wheezes. No dullness to percussion. No accessory muscle use. Abdomen is soft, nontender, nondistended. There is pain to palpation over the epigastric area but not in the lower quadrants. There is no mass or hernia. Extremities: No cyanosis, clubbing, or edema. Much better perfusion than on days prior. Peripheral pulses are palpable. There is significant pitting edema especially of the feet and hands. Neurologic: Patient has MPO boots in place. Less responsive today but most likely because he received a dose of Versed at approximately 6:00 a.m. I have instructed the nurses to provide as little sedation as possible as we are trying to wake him up in order to perform extubation trials and so that he can also participate in physical therapy. LABORATORY DATA: Laboratory evaluation shows white blood cell count of 33.2. This is down from 35 which is down from 37. Yesterday he had a bandemia of 41, now down to 3. Hemoglobin slightly decreased to 8.5. Platelet count of 112. Sodium 140, potassium 3.6, chloride 107, bicarb 25, BUN 32, creatinine 1.57 with a glucose of 123. Calcium measured at 7.5, corrected to 11.4 due to low hypoalbuminemia and protein malnourishment. Arterial blood gas shows a respiratory alkalosis with a pH of 7.52, pCO2 28, PaO2 116. Chest x-ray shows some minimal blunting of the right costophrenic angle, decreased air entry on that side. His endotracheal tube is fairly high at 7 cm. IMPRESSION/PLAN: 1. Pancreatitis with necrosis based on yesterday's CT scan. There is no evidence of abscess. Not surprising with the degree of pancreatitis that he has some necrosis mostly at the head of the pancreas, some at the tail of the pancreas. Enzymes have come down to normal. Will continue n.p.o. diet allowing for recovery. May start feeds in the next couple days. 2. Respiratory failure. Awaiting more neurologic recovery in order to perform extubation trial. 3. Leukocytosis. Patient had enterocolitis on CT scan. Therefore, p.o. vancomycin was initiated. Currently antibiotics were switched to IV vancomycin and Zosyn with good response to the leukocytosis and lactic acidosis. 4. Renal failure. Appreciate Nephrology input. Patient continues to CRRT. Continues to have oliguric renal failure. 5. DVT prophylaxis with heparin drip. This is so he can tolerate the CRRT. 6. Anemia. At this point in time, no evidence of active bleeding. He is up two liters. Therefore, this may be dilutional. However, if the hemoglobin drops below 8, will transfuse. 7. Thrombocytopenia. Platelet count is slightly higher than priors. No evidence of HIT. HIT antibody tested earlier in his hospitalization, and this was negative. 8. Hyperglycemia. Better managed on insulin drip. Also obtaining insulin through the TPN. 9. GI prophylaxis with history of concern for probable GI bleed. No evidence of active GI bleed at this point in time despite being on a heparin drip. Will continue to monitor especially in the face of anemia. 10. TPN with protein malnourishment. May attempt tube feeds in a few days as long as patient continues to have clinical improvement. 11. Neurologic prophylaxis and physical therapy. MPO boots are in place. Move program initiated to help to decrease muscle weakness and critical illness neuropathy. Patient remains critically ill with guarded prognosis. Critical care time as mentioned above excludes all procedures.
[2020-08-13] MEDS ORDERED: SODIUM CHLORIDE 0.9% INJ 10 ML SYR IV PRN (11:45)
[2020-08-13 13:07] LABS: CREATININE FOR GFR 1.55 MG/DL (0.70-1.30); GLOMERULAR FILTRATION RATE 47.3 (>42); MAGNESIUM LEVEL 2.4 MG/DL (1.8-2.4); PHOSPHORUS LEVEL 4.1 MG/DL (2.5-4.9); POTASSIUM SERUM 4.6 MEQ/L (3.5-5.1)
--- NOTE | 2020-08-13 16:19 | RO ---
OPERATIVE NOTE DATE OF PROCEDURE: 08/06/2020 PRE-PROCEDURE DIAGNOSIS: Acute renal failure. POST-PROCEDURE DIAGNOSIS: Acute renal failure. PROCEDURE: Right femoral vein hemodialysis catheter placement. INDICATION FOR PROCEDURE: Acute renal failure and need for dialysis. SURGEON: Troy Watts MD ANESTHESIA: 1% lidocaine DESCRIPTION: Informed consent obtained from patient's over the phone. Patient himself is not able to consent as he is intubated and unresponsive. Patient was admitted with diabetic ketoacidosis and also noticed to have acute pancreatitis. He has oliguric acute renal failure and is in need for urgent dialysis. We have decided for continuous renal replacement therapy (CRRT) on bedside due to hypotension. He needs urgent dialysis catheter placement at the bedside. Right femoral vein area was cleaned and prepped in the usual sterile fashion. Attempt was made to access his femoral vein after using 1% lidocaine. The initial attempt I obtained arterial blood return. Digital pressure was held for 5 minutes and hemostasis secured. After that, on the second attempt I did get venous blood return and advanced the guide wire. This guide wire was small in size. While I was trying to advance the guide wire, I did not have any difficulty. A skin dilator was used after making a small incision at the guide wire site. We tried to advance the catheter over the guide wire after skin dilator was removed and pulled the guide wire out, however the catheter was too long and the guide wire was small so the guide wire had to be removed. Then, I made another attempt and used a bigger guide wire with a bigger needle this time and we obtained venous blood return. The guide wire was advanced again with minimal difficulty and skin dilator was used again. This time, the dialysis catheter advanced over the guide wire without any difficulty and good venous blood return was obtained from both ports. The catheter was flushed with normal saline and sutured in place. There was about 30 mL of blood loss. Patient tolerated the procedure otherwise well. There were no immediate complications.
[2020-08-13] MEDS ORDERED: FAT EMULSION IV 20% 500 ML IV SCH (18:00)
[2020-08-13] MEDS ORDERED: [UNRECOGNIZED DRUG - OTHER] IV SCH ×6 (18:00)
[2020-08-13] MEDS ORDERED: SODIUM CHLORIDE IV SCH ×6 (18:00)
[2020-08-13] MEDS ORDERED: POTASSIUM PHOSPHATE IV SCH ×6 (18:00)
[2020-08-13 18:13] LABS: HEMATOCRIT 25.3 % (42.0-52.0); HEMOGLOBIN 8.3 g/dl (13.5-17.5); MEAN CORPUSCULAR HEMOGLOBIN 31.7 pg (27.0-33.0); MEAN CORPUSCULAR HGB CONC 32.8 g/dl (32.0-36.5); MEAN CORPUSCULAR VOLUME 96.6 fl (80.0-96.0); PLATELET COUNT, AUTOMATED 120 10^3/uL (150-450); RED BLOOD COUNT 2.62 10^6/uL (4.30-6.10)
[2020-08-13 18:21] LABS: WHITE BLOOD COUNT 31.9 10^3/uL (4.0-10.0)
[2020-08-13 18:55] LABS: CREATININE FOR GFR 1.53 MG/DL (0.70-1.30); MAGNESIUM LEVEL 2.4 MG/DL (1.8-2.4); PHOSPHORUS LEVEL 3.5 MG/DL (2.5-4.9); POTASSIUM SERUM 4.3 MEQ/L (3.5-5.1)
[2020-08-13] MEDS: HEPARIN SOD (PORCINE) 5000UNITS/ML 1ML VIAL/SYRINGE IV PRN (20:45)
--- NOTE | 2020-08-13 21:22 | IPN ---
PROGRESS NOTE DATE: 08/13/2020 SUBJECTIVE: The patient was seen and examined at the bedside today morning in the ICU. The patient remains intubated. However his FiO2 requirement on the vent has decreased to 35%. Not much fluid was removed with CVVHD yesterday because his CVP was low. Today morning CVP was reported to be 11. He continues to be on IV insulin and TPN. He is not requiring any pressors at this time. He remains oliguric at this time. No signs of renal recovery. And he has persistent leukocytosis despite being on broad spectrum antibiotics. OBJECTIVE: VITAL SIGNS: Temperature is 97.3 degrees Fahrenheit, blood pressure 131/60, pulse is 89, respiratory rate of 23, saturating 95% on the vent with 35% FiO2 Intake and Output urine output recorded as 126 mL. Ultrafiltration with CVVHD was 2.6 liters yesterday and 412 mL by the time I saw him in the morning. Weight on the bed scale is 113.2 kg. PHYSICAL EXAMINATION: GENERAL APPEARANCE: The patient is intubated, very lightly sedated, laying in bed. HEAD AND NECK: Eyes are closed. Pupils are equally round and reactive to light. Mucous membranes are moist. He has an endotracheal tube and orogastric tube which is attached to suctioning. Neck is supple. He has a left IJ triple lumen catheter and right subclavian triple lumen catheter. CARDIOVASCULAR: S1, S2, regular rate. EXTREMITIES: 1+ edema of the bilateral lower extremities. RESPIRATORY: He is intubated. Chest is clear to auscultation bilaterally. Decreased breath sounds at the bases. ABDOMEN: Soft, very decreased positive bowel all over. I could not appreciate any organomegaly. GENITOURINARY: He has an indwelling Anne catheter. Very small amount of urine in the bag. MUSCULOSKELETAL: 1+ edema of the extremities bilaterally in the lower and upper extremities. ECHO VASCULAR TECH: The patient is intubated, very lightly sedated. He responds to painful stimuli. LAB REVIEW: CBC showed a WBC of 31.9, hemoglobin 8.3, platelets of 120. BMP showed sodium 140, potassium 4.3, chloride 108, bicarbonate 26, BUN 27, creatinine is 1.53. Calcium is 8, phosphorous 3.5, magnesium 2.4. MICROBIOLOGY: Repeat blood cultures drawn on August 11 are negative so far. IMAGING: A chest x-ray was done today morning that showed lines and tubes in satisfactory position, improved aeration. CURRENT INPATIENT MEDICATIONS: The patient's medications were all reviewed by myself. He has been started on oral Vancomycin. He continues to be on IV Vancomycin and IV Zosyn. He continues to be on TPN. ASSESSMENT AND PLAN: 1. Acute oliguric anuric renal failure - The patient is still dependent on CRRT. Continue the CRRT at this time for management of acidosis, electrolytes and daily fluid administration. Fluid removal parameters were changed on the orders today and the plan of care was discussed with the nursing staff. 2. Protein calorie malnutrition - The patient is still dependent on TPN. Special order TPN was ordered today again according to his electrolytes requirements. 3. Acute catastrophic pancreatitis with multiorgan failure - The patient still has pancreatitis on the latest CAT scan. He remains on broad spectrum antibiotics and he has persistent leukocytosis. OGT is still being suctioned at this time. 4. Vent dependent respiratory failure - The patient's FiO2 requirement has decreased to 35% now. Vent management is as per Pulmonary Team. 5. Insulin dependent diabetes - continue IV insulin and he is also getting insulin in the TPN as well. 6. Anemia - hemoglobin level is 8.3 which is low. Transfuse p.r.n. for hemoglobin below 8. Total critical care time spent in the management of this patient today morning in the ICU excluding all the procedures is 40 minutes.
[2020-08-14] VITALS (31 sets, daily range): BP systolic 108–154; BP diastolic 58–79; O2SAT 95–96
[2020-08-14] MEDS: INSULIN IV RATE CHANGE DOCUMENTATION ML/HR XX SCH ×10 (00:38→22:09)
[2020-08-14 00:45] LABS: CALCIUM LEVEL 8.3 MG/DL (8.8-10.2); CREATININE FOR GFR 1.53 MG/DL (0.70-1.30); MAGNESIUM LEVEL 2.2 MG/DL (1.8-2.4); PHOSPHORUS LEVEL 3.5 MG/DL (2.5-4.9)
[2020-08-14] MEDS: HEPARIN DRIP 25,000 UNITS in IV 1 EA IV SCH (01:47)
[2020-08-14] MEDS: PIPERACILLIN/TAZOBACTAM SOD 4.5 GM in D5W MINI-BAG PLUS 50 ML IV SCH ×3 (02:55→18:28)
[2020-08-14 05:40] LABS: ABG BASE EXCESS 0.6 (-2.0-2.0); ABG HCO3 23.5 MEQ/L (22.0-26.0); ABG O2 SATURATION 98.5 % (95.0-99.0); ABG PARTIAL PRESSURE CO2 31.3 mmHg (35.0-45.0); ABG PARTIAL PRESSURE O2 112.4 mmHg (75.0-100.0); ABG TOTAL CO2 24.5 MEQ/L (23.0-31.0); ABG pH (ARTERIAL) 7.494 UNITS (7.350-7.450)
[2020-08-14 05:46] LABS: HEMATOCRIT 24.3 % (42.0-52.0); HEMOGLOBIN 7.9 g/dl (13.5-17.5); MEAN CORPUSCULAR HEMOGLOBIN 31.3 pg (27.0-33.0); MEAN CORPUSCULAR HGB CONC 32.5 g/dl (32.0-36.5); MEAN CORPUSCULAR VOLUME 96.4 fl (80.0-96.0); PLATELET COUNT, AUTOMATED 114 10^3/uL (150-450); RED BLOOD COUNT 2.52 10^6/uL (4.30-6.10); WHITE BLOOD COUNT 27.7 10^3/uL (4.0-10.0)
[2020-08-14 05:56] LABS: INR 1.09; PROTHROMBIN TIME 14.3 SECONDS (12.5-14.3)
[2020-08-14 06:26] LABS: ALBUMIN 1.2 GM/DL (3.2-5.2); CALCIUM LEVEL 7.5 MG/DL (8.8-10.2); CREATININE FOR GFR 1.52 MG/DL (0.70-1.30); EOSINOPHILS 1 % (0-3); GLOMERULAR FILTRATION RATE 48.4 (>42); LYMPHOCYTES 3 % (16-44); METAMYELOCYTES 2 % (0-0); MONOCYTES 1 % (0-5); NEUTROPHILS 90 % (28-66); PHOSPHORUS LEVEL 3.6 MG/DL (2.5-4.9); PLATELET ESTIMATE NORMAL (NORMAL); POTASSIUM SERUM 4.3 MEQ/L (3.5-5.1)
[2020-08-14] MEDS: VANCOMYCIN ORAL SOL 250MG/5ML ORAL SYRINGE NG SCH ×3 (06:30→16:54)
--- NOTE | 2020-08-14 07:53 | REP ---
INDICATION: ett. COMPARISON: Comparison portable chest radiograph August 13, 2020.. TECHNIQUE: Sitting AP portable chest x-ray. FINDINGS: Endotracheal tube is seen in good position at level just above the transverse aorta. NG tube enters the left upper quadrant of the abdomen. A right subclavian central venous line terminates in the expected location of superior vena cava. There appears to be an intravenous cannula in the left internal jugular vein region. Oxygen delivery tubing and monitoring electrodes are seen. There is mild pole bilateral perihilar platelike atelectasis. Hazy opacity is seen in the right base and the right hemidiaphragm is obscured laterally. Effusion versus infiltrate. This is unchanged. No new infiltrate is seen. IMPRESSION: Stable findings from the previous day's radiograph. Hazy opacity persists right base and bilateral perihilar platelike atelectasis is visible. <Electronically signed by Gio Nguyen > 08/14/20 0749
--- NOTE | 2020-08-14 09:21 | CCN ---
CRITICAL CARE NOTE DATE: 08/12/2020 03:01:00 pm Dictated by Howard Lam DO, Internal Medicine Resident PGY-3 in conjunction with attending Jun Ray D.O. of Pulmonary Critical Care Medicine. SUBJECTIVE: Mr. Martinez was seen and examined at bedside this morning. He continues to remain critically ill. He has been off of Levophed now for 24 hours. His pressures have been somewhat stable. There has been no adverse events reported overnight. The patient does remain intubated on mechanical ventilation with improving oxygen with overall guarded prognosis. OBJECTIVE: VITAL SIGNS: Temperature 96.4 with a T-max of 97, pulse 89, respiratory rate 35, blood pressure 88/51 with a mean arterial pressure of 63. Pulse oximetry 92% on ventilator with FiO2 of 60. GENERAL: The patient is arousable. He does follow commands. He remains critically ill. HEENT: Atraumatic, normocephalic. His eyes are nonicteric. Trachea is midline. Pupils are reactive to light. He has endotracheal tube in place. Nasogastric tube in place as well. CARDIOVASCULAR: Normal S1, S2. There is a regular rate and rhythm. No clicks, rubs, or murmurs. PULMONARY: There are somewhat decreased breath sounds in the lower lung singer and some mild scattered rhonchi. No crackles or wheezes. ABDOMEN: The patient's abdomen is soft and nondistended. There are hypoactive bowel sounds. No abdominal bruising. EXTREMITIES: Pulses are not palpable. Pulses with Doppler. He has 2+ pitting edema bilateral lower extremities. NEUROLOGIC: No focal neurological deficits. The patient does follow commands this morning. He remains on a Versed drip. LABORATORY DATA: Hematology: White blood cell 37.5, hemoglobin 9.5, hematocrit 28.6, platelet count 111,000. Chemistries: Sodium 136, potassium 3.9, chloride 106, CO2 of 22, BUN 37, creatinine 1.93, glucose 277. Lactic acid 3.7. Calcium 8.1, phosphorus 2.9, magnesium 2.5. ABG with pH 7.48, pCO2 of 24.6, pO2 of 126. IMAGING: Chest x-ray reviewed and demonstrating improved aeration. There is a right lower lobe opacity, which could be consistent with an infiltrate or atelectatic regions of the lung. ASSESSMENT AND PLAN: Mr. Martinez is a 69-year-old male who presented to [facility] originally with diabetic ketoacidosis (DKA) and found to have severe pancreatitis. He acutely decompensated and developed septic shock. He was intubated with mechanical ventilation and has since been placed on continuous renal replacement therapy (CRRT) due to persistent metabolic acidosis and oliguric renal failure. 1. Acute respiratory failure secondary to septic shock and severe pancreatitis. This morning the patient demonstrated improved oxygenation. His chest x-ray does show improved aeration. There is a right lower lobe opacity, which could be consistent with atelectasis. He is currently on pressure control 26, positive end-expiratory pressure (PEEP) of 18, respiratory rate 22, arterial blood gases (ABG) demonstrate pH of 7.48, pCO2 of 24.6, pO2 of 126. He has a primary respiratory alkalosis. 2. Severe pancreatitis with septic shock. The patient originally presented with pancreatitis and developed septic shock. He currently remains n.p.o. receiving total parenteral nutrition (TPN) for nutrition. Imaging planned to be repeated today and abdominopelvic CT with intravenous (IV) contrast has been ordered. We will follow-up on imaging. 3. Oliguric renal failure. Patient developed oliguric renal failure likely secondary to his severe pancreatitis and septic shock. He has been placed on continuous renal replacement therapy (CRRT). He is being followed by nephrology. Currently not making any urine. We will continue to monitor. 4. Leukocytosis. The patient has had a persistent leukocytosis since yesterday. Currently white blood cell 37.5. He is currently on three antibiotics including Flagyl, Cefepime, and most recently vancomycin. I have ordered a differential that is still pending. Additionally, we will order a CT abdomen with intravenous (IV) contrast to assess for possible abscess formation given his severe pancreatitis. Also his leukocytosis may be secondary to demarginalization given his sepsis. 5. Anemia. The patient's hemoglobin is down to 9.5. On presentation, he did have a fecal occult positive blood. He is also on a heparin drip and we will continue to monitor. 6. Thrombocytopenia likely secondary to sepsis/septic shock. Platelet count currently 111,000. We will continue to monitor. 7. Nutrition. Currently on total parenteral nutrition (TPN) being managed by nephrology. 8. Deep vein thrombosis (DVT) prophylaxis. The patient has been fully anticoagulated on heparin drip. 9. Gastrointestinal (GI) prophylaxis. The patient is currently receiving Protonix b.i.d. Disposition: Overall, the patient has a guarded prognosis. He remains critically ill at this time. CRITICAL CARE TIME: One hour and 15 minutes. ADDENDUM: DATE: 08/12/2020 CRITICAL CARE TIME: One hour and 15 minutes. This excludes all procedures. I, Jun Ray D.O., conducted an independent history and physical at bedside today. Bedside rounding was conducted with the resident. This is a gentleman who continues to have a persistent lactic acidosis worsening leukocytosis; therefore, making his critical illness worse. His respiratory failure continues with slightly less oxygen requirement. He has protein malnourishment, hypoalbuminemia, and hyperglycemia that has been very labile with the use of an insulin drip. Insulin has been added to his TPN by nephrology. Appreciate nephrology's input for his oliguric renal failure. He has anemia and thrombocytopenia, but no indication for transfusion at this point in time. He remains on a heparin drip for DVT prophylaxis and to allow CRRT to continue. Neurologically, he is now following some commands, opens his eyes to verbal stimuli. Overall, worsening leukocytosis and lactic acidosis prompting abdominal imaging to rule out abscess or necrosis, and we will perform this today. Due to the fact that he is more hypotensive with a worsening lactic acidosis, we will bolus 1 liter of fluid. I do believe he is third-spacing his fluid and is intravascularly depleted. Central venous pressure reading for this morning is still pending. Patient remains severely critical ill with high risk of . Addendum dictated: HANS 08/12/2020 0924 Addendum transcribed: [email or web address] 08/12/2020 1501 CARMENCITA
[2020-08-14] MEDS: CHLORHEXIDINE GLUCONATE 0.12 % 15ML UDC (PERIDEX ORAL RINSE) MT SCH (09:52)
[2020-08-14] MEDS: LACRILUBE (AKWA TEARS) OPHTH OINT 3.5 GM OU SCH (09:53)
[2020-08-14] MEDS: VANCOMYCIN HCL 750 MG, VIAL MATE ADAPTER 1 EACH in D5W 250 ML IV SCH ×2 (09:53→21:44)
[2020-08-14] MEDS: PANTOPRAZOLE 40MG VIAL (C9113 PER 1) IV SCH ×2 (09:53→21:43)
[2020-08-14] MEDS ORDERED: HEPARIN SOD (PORCINE) 5000UNITS/ML 1ML VIAL/SYRINGE IV ONE (10:30)
[2020-08-14] MEDS ORDERED: FUROSEMIDE 100MG/10ML VIAL (J1940) IV ONE (10:45)
[2020-08-14] MEDS ORDERED: FUROSEMIDE 100MG/10ML VIAL (J1940) As Ordered ONE (10:59)
[2020-08-14] MEDS ORDERED: SODIUM CHLORIDE 0.9% INJ 10 ML SYR IV PRN (11:15)
[2020-08-14] MEDS: ALBUTEROL SULFATE 2.5 MG/0.5 ML INH NEB SOLN NEB SCH ×4 (12:00→23:47)
[2020-08-14 12:43] LABS: CREATININE FOR GFR 1.61 MG/DL (0.70-1.30); GLOMERULAR FILTRATION RATE 45.3 (>42); MAGNESIUM LEVEL 2.3 MG/DL (1.8-2.4); PHOSPHORUS LEVEL 3.8 MG/DL (2.5-4.9); POTASSIUM SERUM 4.3 MEQ/L (3.5-5.1)
--- NOTE | 2020-08-14 13:58 | CCN ---
CRITICAL CARE NOTE DATE: 08/14/2020 CRITICAL CARE TIME: One hour and 23 minutes. This excludes all procedures. SUBJECTIVE: The patient at bedside is following high level commands, lifting left arm to request. Appears to have a good cough. Does have some increased mucous secretions, but was placed on spontaneous breathing trial this morning of 01/15, RSBI was 83, oxygen saturation remained 98% on 0.35 FiO2. Trial of extubation was performed shortly after approximately 20 minutes after the patient had some difficulty with mucociliary clearance. He had a brief oxygen desaturation into the 80s. This improved with additional oxygen and suctioning. He does have a high risk for re-intubation. He denies any chest discomfort. Denies any shortness of breath, but is coughing up thick secretions. OBJECTIVE: VITAL SIGNS: Temperature is 97.3, pulse is 88, respiratory rate is 23, blood pressure ranging 108 to 148 systolic with mean arterial pressures ranging 75 to 90. As mentioned, oxygen saturation was 98% on 0.35 FiO2. INTAKE/OUTPUT: 2829 in, 2847 out. GENERAL: The patient appears weak, but is able to move extremities against gravity. He does have a cough. Minimal gag reflex. HEENT: Sclerae clear, nonicteric. Pupils equal, reactive to light. Mucous membranes are moist without lesions. Tongue is midline. NECK: Supple. No tracheal deviation or mass. There is a right subclavian without surrounding erythema or exudate. Left IJ without surrounding erythema or exudate. After assessing the patient's need for vascular access, both of these lines are still needed as he is on TPN, heparin drip, insulin drip, amongst other medications that are required. CARDIAC: Regular S1, S2 without audible murmur, rub, or gallop. No elevated JVP. He does have systemic edema, pitting edema in the hands and feet. PULMONARY: Now with diffuse rhonchi, but otherwise no wheeze and no rales. Able to expand chest well. No accessory muscle use. ABDOMEN: Soft, nontender, and nondistended. No hepatosplenomegaly. No masses or hernia. EXTREMITIES: No cyanosis or clubbing, but edema as mentioned above. LABORATORY EVALUATION: White count is down to 27.7 with a bandemia of 3, hemoglobin is 7.9, platelet count of 114,000. Sodium is 136, potassium is 4.3, chloride is 105, bicarb of 27, BUN of 24, creatinine of 1.52 with a glucose of 200. ICAL 4.6. Lipase of 68. Arterial blood gas this morning shows a pH of 7.42, pCO2 of 32, PaO2 of 112. IMAGING: Chest x-ray shows some blunting of the left costophrenic angle. ASSESSMENT: 1. Pancreatitis with necrosis based on chest CT. Enzymes are down. Patient is not exhibiting abdominal pain. Depending on his respiratory status, may start oral intake tomorrow. 2. Respiratory failure. Trial of extubation today. High risk of requiring re-intubation due to inability to perform mucociliary clearance. 3. Leukocytosis most likely secondary to enterocolitis on abdominal CT scan. Patient has had no bowel movements, but as soon as p.o. vancomycin was initiated, the patient had improvement of leukocytosis and blood pressure; may also be secondary to pancreatitis or could also be secondary to pneumonia. He is on intravenous (IV) vancomycin and IV Zosyn in addition to p.o. vancomycin. No evidence of abscess on CT scan as of yet. 4. Renal failure. Appreciate nephrology input now that blood pressure is better. Will defer to nephrology as to when to switch him over to regular hemodialysis rather than continuous renal replacement therapy (CRRT). Continues to have oliguric renal failure. 5. Deep vein thrombosis (DVT) prophylaxis on a heparin drip. He is on a heparin drip so he can tolerate CRRT without clotting the lines as he did previously multiple times. 6. Anemia. Due to the fact that his hemoglobin is down to 7.9, we will transfuse today. We will receive consent from his , Emma Liu, over the phone. She understands the risk of HIV, hepatitis, and transfusion reaction. 7. Thrombocytopenia. No further decline in platelet count. 8. Hyperglycemia. Better managed on insulin drip. Also receiving insulin through total parenteral nutrition (TPN). 9. Gastrointestinal (GI) prophylaxis. Currently on prophylaxis b.i.d., especially in the face of a mild anemia and history of probably GI bleed. 10. Total parenteral nutrition (TPN) with protein malnourishment. As mentioned when the patient has respiratory improvement, we will consider p.o. intake. 11. Neurologic prophylaxis. Patient receiving physical therapy. MPO boots are in place. Will continue to work towards improving muscle conditioning. Patient remains critically ill with guarded prognosis despite the trial of extubation today. He is at high risk for need for re-intubation. Therefore, he will remain in the intensive care unit with close monitoring and frequent suctioning. Family was updated this morning.
--- NOTE | 2020-08-14 14:15 | CCN ---
CRITICAL CARE NOTE DATE: 08/08/2020 03:01:00 pm Mr. Martinez is seen this morning on his bedside in intensive care unit. He remains intubated and is currently on 100% oxygen. He has been on continuous renal replacement therapy (CRRT) due to oliguric acute renal failure in addition to multiorgan failure. Patient has required Levophed on and off due to hypotension. He has been anticoagulated with dabigatran drip pending heparin-induced thrombocytopenia (HIT) antibodies. He is unresponsive at present and his nasogastric tube has a small amount of blood in it. Nursing staff report that he has minimal blood in his liquid stool also. Patient had severe pancreatitis and abdominal distention is marked and nursing staff reports no bowel sounds. His family has decided to make him DO NOT RESUSCITATE but otherwise he has been receiving full support so far. On physical exam, patient is intubated and sedated. He is unresponsive at present. Temperature 96 degrees Fahrenheit, heart rate 85 per minute, and respiratory rate about 40 per minute. Blood pressure 101/49 mmHg and oxygen saturation 94% on 100% FiO2. His head is atraumatic. Endotracheal and orogastric tubes are in place. There is minimal amount of blood in the orogastric tube. Neck veins are not abnormally distended. His heart sounds are irregular in rhythm and without a pericardial friction rub. Lungs have bilateral good air entry. Abdomen is distended and tender. Bowel sounds are not audible. Extremities have no cyanosis or clubbing. His skin is mottled on the lower extremities which has improved compared with yesterday. Neurologically he remains unresponsive. Today's labs showed WBC count 17.4, this morning his WBC count was 15.8, hemoglobin 13.2, and hematocrit 41.7. Platelets 95,000. Sodium 143, potassium 3.9, CO2 19, BUN 49, and creatinine 3.38. Glucose 301. Most recent blood gas this morning showed a pH of 7.34, pCO2 28.4, and pO2 83.9. Bicarbonate is 17.4. His heparin-induced antibodies have also come back normal at 0.089. PROBLEMS: 1. Oliguric acute renal failure. Patient remains on continuous renal replacement therapy (CRRT) and will continue with the same. Patient has multiorgan failure and had severe metabolic acidosis and hyperkalemia. Continuous renal replacement therapy (CRRT) is helping significantly and his orders are being renewed. It does require anticoagulation as without anticoagulation he clotted the system within a few minutes, however since we started anticoagulation continuous renal replacement therapy (CRRT) has been functioning well. Now, his heparin-induced antibodies have just come back normal so I will defer to hospitalist service for considering heparin drip. 2. Acute pancreatitis with shock. Patient has been in shock with severe acute pancreatitis and has required large amount of IV fluids and pressors. At present, we are trying to remove some fluid with continuous renal replacement therapy (CRRT) as tolerated. 3. Nutrition. Currently he is not receiving any nutrition other than IV fluids. Most of his IV fluids have been nonstop. I would consider to start total parenteral nutrition (TPN) in next 24 hours. At present, he does not have any available IV line as he is receiving multiple medications so we will hold off for 24 hours and see if by tomorrow he is able to receive total parenteral nutrition (TPN). 4. DO NOT RESUSCITATE status. His family has decided to make him DO NOT RESUSCITATE which is appropriate. We will continue with all aggressive care as long as he does not have any significant cardiac events. 5. Anemia. His anemia is stable and thrombocytopenia is gradually improving. There is no emergent need for a transfusion at present though he does have some blood in his nasogastric tube. 6. Respiratory failure. This is related to acute pancreatitis causing multiorgan failure. Patient is currently on 100% FiO2. His volume status is decompensated and we will keep trying to remove as much fluid as he could tolerate with continuous renal replacement therapy (CRRT). So far, he is about 15 liters positive fluid balance since admission. 37 minutes of critical care time spent during which no procedures were performed.
--- NOTE | 2020-08-14 14:15 | CCN ---
CRITICAL CARE NOTE DATE: 08/07/2020 03:01:00 pm SUBJECTIVE: Mr. Martinez is seen again this morning in the Intensive Care Unit. I saw him last evening and was started with CRRT due to hypotension, acute renal failure, respiratory failure, acidosis and hyperkalemia. The patient could not tolerate CRRT well due to recent clotting of the system. We tried Heparin and IV fluids, however it failed to keep his blood flowing through the dialyzer. CRRT was then terminated. This morning he remains on the ventilator with further deterioration in his overall condition. He has multiorgan failure with severe acute pancreatitis and respiratory failure and oliguric renal failure. All the providers have discussed with his family about his prognosis and condition has been explained to the family at length. During my visit, his son was present in the room and I discussed with him and explained to him at length. All his questions were answered. In the meantime, the patient remains oliguric and has required up to 100% oxygen on the ventilator. He has also required pressors due to hypotension. There is a concern for disseminated intravascular coagulation at present and some of the labs are still pending. We could not give him further Heparin due to thrombocytopenia and the possibility of HIT antibodies. PHYSICAL EXAMINATION: GENERAL APPEARANCE: The patient remains unresponsive on the ventilator. VITAL SIGNS: Temperature is 99 degrees Fahrenheit, heart rate about 110 per minute and respiratory rate 42 per minute, blood pressure between 86/50 to 100/57 mm of mercury and oxygen saturation is about 95% on the ventilator with 90% oxygen. HEENT: Endotracheal and orogastric tubes are in place. Head is atraumatic. NECK: Supple and JVD not elevated. HEART: Tachycardic and without a pericardial friction rub. LUNGS: Bilateral air entry. ABDOMEN: Distended and bowel sounds are hypoactive. EXTREMITIES: Without any cyanosis or clubbing. SKIN: Mottled but clearly on lower extremities. A right femoral vein hemodialysis catheter is in place. NEUROLOGICALLY: The patient remains unresponsive. LABORATORY DATA: WBC count today 17.4, hemoglobin 13.5 and hematocrit 45.2, platelets 96,000. PT is 15.7, INR 1.22, and a PTT is 33.0. Fibrinogen level 572. D-dimer has just come back at greater than 4,000. His chemistries this morning showed sodium 151, potassium 6.1, CO2 18, BUN 71 and creatinine 4.93. Glucose 392 and calcium 7.9. LDH 691, AST 81, ALT 61 and alkaline phosphatase 125. Total protein 4.7 and albumin 1.5. PROBLEMS: 1. Acute renal failure - The patient remains oliguric and will require CRRT again. I have discussed with all the providers about his condition and need for CRRT therapy which is probably the only option to save his life at this point. Without any dialytic intervention, he is likely to not last for more than 24 hours. The risks and benefits have been reviewed, as he was noticed to have a minimal amount of blood in the stool and also had some cytopenia. I feel that any form of anticoagulation is needed in order to successfully run the CRRT machine which is the only option at this point to try to save his life. Dr. Mojica has ordered his anticoagulation and we will resume CRRT after anticoagulation gets started. 2. Hyperkalemia this is related to acute renal failure and multiorgan failure. This will be corrected with CRRT. He also has metabolic acidosis which is contributing to it and has received some sodium bicarbonate, however that is less likely to help. 3. Hypernatremia this is related to intravascular volume depletion, IV fluids and acute renal failure. This will also improve with CRRT. We will monitor his electrolytes every few hours. 4. Metabolic acidosis related to septic shock and acute renal failure - The patient is hypoperfusing his organs which is causing metabolic acidosis and CRRT will help. 5. Acute pancreatitis causing multiorgan failure - The patient has severe pancreatitis with multiorgan failure. His family understands his condition and poor prognosis which has been explained by all providers. I spoke with his last evening on the phone and have also explained to his son at the bedside in his room. The patient remains a full code at this point. Seventy-two minutes of critical care time spent at the bedside during which no procedures were performed. CARMEN[place]A
[2020-08-14] MEDS ORDERED: CALCIUM GLUCONATE 1,000 MG, VIAL MATE ADAPTER 1 EACH in NS 100 ML IV ONE (15:00)
--- NOTE | 2020-08-14 15:37 | RO ---
OPERATIVE NOTE DATE OF OPERATION: 08/09/2020 ATTENDING: Dr. Jun Ray, pulmonary critical care medicine, in attendance and assisted with moralez portions of the procedure. PROCEDURE: Left internal jugular vein central line placement. INDICATION: Sepsis/septic shock secondary to severe pancreatitis requiring total parenteral nutrition (TPN). PROCEDURE COMB WINDER: Dr. Howard Lam PROCEDURE SUMMARY: My hands were washed immediately prior to the procedure. I wore a surgical cap, mask, protective eyewear, full gown, and surgical gloves throughout the procedure. The patient was placed in the Trendelenburg position. The left neck region was prepped using chlorhexidine scrub and draped in a sterile fashion using a full drape and sterile probe cover employed. The medial and lateral heads of the sternocleidomastoid were identified, as was the carotid pulse. The internal jugular vein was identified using ultrasound. Using real-time out of plane guidance, the introducer needle was inserted into the internal jugular vein under direct ultrasound visualization. Venous blood was withdrawn, the syringe was removed, and a guidewire was advanced into the introducer needle. The guidewire was visualized in the internal jugular vein by ultrasound. A small incision was made at the skin surface with a scalpel. Introducer needle was exchanged for a dilator over the guidewire. After appropriate dilation was obtained, the dilator was exchanged over a wire for a central venous catheter. The wire was removed, and the catheter was sutured in a placed at approximately 15 cm. A sterile SorbaView shield was placed over the catheter at the insertion site. The patient tolerated the procedure without any hemodynamic compromise. At the time of procedure completion, all ports aspirated and flushed properly. Post procedure x-ray demonstrated adequate line placement with no pneumothorax. Jun Reyes, Was at bedside for this procedure and assisted with moralez portions of the procedure such as advancing the needle into the very flat IJ. [facility]
--- NOTE | 2020-08-14 15:58 | CCN ---
CRITICAL CARE NOTE DATE: 08/09/2020 SUBJECTIVE: Mr. Martinez was seen and examined at bedside this morning. He remains critically ill. He is intubated with mechanical ventilation secondary to altered mental status and inability to protect his airway. He has severe pancreatitis. The patient is continued on CRRT due to oliguric renal failure and metabolic acidosis. He had been started on Heparin drip as he had been clotting the dialysis machine. This morning there has been no adverse events reported overnight. However, the patient has made minimal improvement clinically. OBJECTIVE: VITAL SIGNS: Temperature 96.8, pulse 84, respiratory rate 31, blood pressure 96/53, Pulse oximetry 100% on ventilator with pressure control, FiO2 90. GENERAL: The patient is sedated on Versed drip. He does appear critically ill. HEENT: Atraumatic, normocephalic. Eyes non-icteric. Pupils equal, round and reactive to light. He has endotracheal tube in place. CARDIAC: Normal S1, S2, regular rate and rhythm. No clicks, rubs or murmurs appreciated. PULMONARY: The patient has some rhonchi bilaterally. No wheezes or rales. ABDOMEN: Soft, non-distended, hypoactive bowel sounds. EXTREMITIES: The patient has bilateral pitting edema. There are pulses only found by Doppler. Extremities are cold with acrocyanosis. He has right subclavian central line in place. He also has right femoral dialysis catheter in place. NEUROLOGIC: The patient is currently sedated with Versed drip. LABORATORY DATA: Hematology: White blood cell 20.0, hemoglobin 12.7, hematocrit 39.0, platelet count 102. Chemistries: Sodium 139, potassium 4.5, chloride 109, CO2 19, BUN 42, creatinine 2.68, potassium level 275. Calcium 8.0, phosphorus 3.5, magnesium 2.3. AST 42, ALT 49, alkaline phosphatase 146, LDH 742, CK 46, total protein 4.9, albumin 1.3. ABG: pH 7.3, pCO2 29.7, and pO2 188.5. Microbiology: Blood cultures x2 negative. Chest x-ray from 08/09 demonstrating improved aeration and resolution of the left pleural effusion and endotracheal tube approximately 4.5 cm from yaa. ASSESSMENT AND PLAN: Mr. Martinez is a 70-year-old male who had originally presented to [facility] Emergency Department with complaint of weakness, found to have DKA, subsequently developed periumbilical pain and found to have pancreatitis. He then developed altered mental status, subsequently intubated and placed on mechanical ventilation. He has developed oliguric renal failure and has been placed on CRRT. 1. Sepsis/septic shock secondary to severe pancreatitis: The patient currently on small doses of Levophed, currently 1 mcg. He is on CRRT; he is having approximately 140 mL per hour moved based on his mean arterial pressure. Currently the patient is NPO, he is not receiving any nutrition. His LDH continues to rise suggesting severe pancreatitis. 2. Severe pancreatitis: As stated previously the patient had presented with pancreatitis. He had imaging originally which demonstrated pancreatic inflammation. On re-imaging on 08/06 it appeared that his pancreatitis had worsened. Currently continue with supportive care. The patient has received IV fluids both with bolus and maintenance He appears to be third-spacing a significant amount of fluid, he is currently on CRRT for better fluid management 3. Oliguric renal failure: Unfortunately the patient developed oliguric renal failure and subsequently metabolic acidosis. This is one of his most pressing problems. He had been started CRRT, however, had clotted the machine and subsequently started on Argatroban drip due to thought of possible HIT. However, HIT antibodies returned today and were negative, the patient has been started on Heparin drip by the primary team. Currently nephrology is following and their recommendations are appreciated. His metabolic acidosis is resolving with CRRT. At this point in time will continue supportive measures until his severe pancreatitis starts to resolve. 4. Acute hypoxic respiratory failure: This is secondary to altered mental status and inability to protect his airway. He is currently intubated with mechanical ventilation, previously on pressure control, switched to volume control, endotracheal tube advanced 1 cm due to positioning. 5. Thrombocytopenia: Patient's thrombocytopenia likely secondary to sepsis/critical illness. Continue to monitor. 6. DVT prophylaxis: The patient is currently on Heparin drip. 7. GI prophylaxis: The patient is on Protonix, will change to Protonix twice daily. 8. Nutrition: Currently not receiving any nutrition. Will recommend starting TPN, will defer to nephrology for management of TPN while on CRRT. DISPOSITION: The patient remains critically ill. Prognosis is overall guarded. He has made some improvement, will continue with supportive care. ADDENDUM: DATE: 08/09/2020 CRITICAL CARE TIME: One hour and 22 minutes. This excludes all procedures. I personally examined the patient, attended bedside rounds, discussed in detail with Dr. Lam this patient who has pancreatitis, sepsis, respiratory failure, renal failure, and GI bleed. At this point in time, we will consider tube feeds. We will ask nephrology input as they are managing electrolyte balance while the patient is on CRRT. The patient remains hypotensive requiring intermittent Levophed. Will switch to volume controlled to provide protective low-volume ventilation. Addendum dictated: HANS 08/09/2020 0930 Addendum transcribed: [facility] 08/09/2020 1501 MTDD
[2020-08-14] MEDS: INSULIN REGULAR IN 0.9 % NACL 100 UNIT in IV 1 EA IV SCH ×2 (17:39)
[2020-08-14] MEDS ORDERED: [UNRECOGNIZED DRUG - OTHER] IV SCH ×8 (18:00)
[2020-08-14] MEDS ORDERED: FAT EMULSION IV 20% 500 ML IV SCH (18:00)
[2020-08-14] MEDS ORDERED: POTASSIUM PHOSPHATE IV SCH ×8 (18:00)
[2020-08-14] MEDS ORDERED: SODIUM CHLORIDE IV SCH ×8 (18:00)
[2020-08-14 18:14] LABS: HEMATOCRIT 26.2 % (42.0-52.0); HEMOGLOBIN 8.5 g/dl (13.5-17.5); MEAN CORPUSCULAR HEMOGLOBIN 30.9 pg (27.0-33.0); MEAN CORPUSCULAR HGB CONC 32.4 g/dl (32.0-36.5); MEAN CORPUSCULAR VOLUME 95.3 fl (80.0-96.0); PLATELET COUNT, AUTOMATED 125 10^3/uL (150-450); RED BLOOD COUNT 2.75 10^6/uL (4.30-6.10); WHITE BLOOD COUNT 25.5 10^3/uL (4.0-10.0)
[2020-08-14] MEDS ORDERED: CALCIUM GLUCONATE 1,000 MG in NS 100 ML IV ONE (18:15)
[2020-08-14 19:32] LABS: CALCIUM LEVEL 7.7 MG/DL (8.8-10.2); CREATININE FOR GFR 1.53 MG/DL (0.70-1.30); MAGNESIUM LEVEL 2.3 MG/DL (1.8-2.4); POTASSIUM SERUM 4.7 MEQ/L (3.5-5.1)
--- NOTE | 2020-08-14 23:16 | IPN ---
NEPHROLOGY PROGRESS NOTE DATE: 08/14/2020 SUBJECTIVE: The patient was seen and examined at the bedside today morning in the ICU. The patient is clinically better today as compared with yesterday. He was extubated early in the morning. His orogastric tube has also been removed. He was getting one unit of PRBC transfusion when I saw him. He is currently on BIPAP and requiring only 35% FiO2 on the BIPAP. He remains oliguric at this time. No signs of renal recovery. He remains dependent on CVVHDF. Leukocytosis is slightly better today as compared with yesterday. He is still requiring TPN at this time. He is currently not on any pressors. OBJECTIVE: VITAL SIGNS: Temperature is 97.7 degrees Fahrenheit, blood pressure 134/61, pulse is 89, respiratory rate of 26, saturating 97% on the BIPAP. Intake and Output Urine output recorded since overnight is 219 mL. Fluid removal with the CRRT was 2.5 liters yesterday. Weight on the bed scale is not available. PHYSICAL EXAMINATION: GENERAL APPEARANCE: The patient is laying in bed. He was wearing a BIPAP mask when I saw him. HEAD AND NECK: He opens his eyes. Neck is supple. Left IJ triple lumen catheter. Right subclavian triple lumen catheter. CARDIOVASCULAR: S1, S2. EXTREMITIES: 2+ edema of the bilateral lower extremities and 1+ edema of the bilateral upper extremities. RESPIRATORY: Currently BIPAP dependent. Mildly decreased breath sounds at the bases. Otherwise no active rales or rhonchi. Chest is clear to auscultation bilaterally anteriorly. ABDOMEN: Soft, distended and diminished bowel sounds. No organomegaly was noted. GENITOURINARY: He has an indwelling Anne catheter. MUSCULOSKELETAL: He is wearing waffle boots on the lower extremities. HEDGE [employer]D PRINCIPAL: The patient follows few commands today, and he opens his eyes. LAB REVIEW: CBC showed a WBC of 25.5, hemoglobin is 7.9, platelets of 114. BMP done today morning showed sodium of 135, potassium 4.3, chloride 105, bicarbonate 27, BUN 24, creatinine 1.6, calcium 8. ionized calcium 4.5, phosphorous 3.8, magnesium 2.3. Vancomycin level was 13.7 today. IMAGING: Chest x-ray done today morning showed stable findings from previous day's radiograph, a persistent hazy opacity in the right base. CURRENT INPATIENT MEDICATIONS: The patient's medications were all reviewed by myself. He continues to be on IV Vancomycin and Zosyn. He is also on oral Vancomycin. He is not requiring any pressors at this time. He continues to be on TPN, insulin and Heparin drip. ASSESSMENT AND PLAN: 1. Acute oliguric renal failure I am going to give the patient a dose of Lasix 80 mg IV to see if he responds to the diuretic. Continue CVVHDF at this time since I want to remove a little bit more fluid before CVVHDF is stopped. If he remains stable by tomorrow, then the patient will be switched to intermittent hemodialysis. 2. Protein calorie malnutrition the patient's OGT and suctioning has been removed. However he is still dependent on TPN. Special formulation TPN was ordered according to the patient's electrolyte requirements. 3. Acute pancreatitis with multiorgan failure the patient is still dependent on TPN. Leukocytosis is slightly getting better. Empirically he is getting Vancomycin, Zosyn and oral Vancomycin. 4. Status post vent dependent respiratory failure - The patient was successfully extubated today. He is currently on BIPAP. Management is as per Pulmonary Team. 5. Insulin dependent diabetes mellitus - The patient is getting insulin in the TPN and he is also on insulin drip. 6. Anemia - hemoglobin level has dropped. He is getting one unit of PRBC transfusion.
[2020-08-15] VITALS (25 sets, daily range): BP systolic 113–178; BP diastolic 57–88; O2SAT 93
[2020-08-15] MEDS: HEPARIN DRIP 25,000 UNITS in IV 1 EA IV SCH (00:19)
[2020-08-15 00:36] LABS: CALCIUM LEVEL 7.9 MG/DL (8.8-10.2); CREATININE FOR GFR 1.65 MG/DL (0.70-1.30); MAGNESIUM LEVEL 2.3 MG/DL (1.8-2.4); PHOSPHORUS LEVEL 3.8 MG/DL (2.5-4.9); POTASSIUM SERUM 4.5 MEQ/L (3.5-5.1)
[2020-08-15] MEDS ORDERED: CALCIUM GLUCONATE 1,000 MG, VIAL MATE ADAPTER 1 EACH in NS 100 ML IV ONE ×6 (02:00)
[2020-08-15] MEDS: ALBUTEROL SULFATE 2.5 MG/0.5 ML INH NEB SOLN NEB SCH ×6 (04:00→23:49)
[2020-08-15] MEDS: PIPERACILLIN/TAZOBACTAM SOD 4.5 GM in D5W MINI-BAG PLUS 50 ML IV SCH ×2 (04:01→16:02)
[2020-08-15 05:25] LABS: HEMATOCRIT 26.5 % (42.0-52.0); HEMOGLOBIN 8.6 g/dl (13.5-17.5); MEAN CORPUSCULAR HEMOGLOBIN 30.8 pg (27.0-33.0); MEAN CORPUSCULAR HGB CONC 32.5 g/dl (32.0-36.5); PLATELET COUNT, AUTOMATED 120 10^3/uL (150-450); RED BLOOD COUNT 2.79 10^6/uL (4.30-6.10); WHITE BLOOD COUNT 24.7 10^3/uL (4.0-10.0)
[2020-08-15 05:36] LABS: INR 1.13; PROTHROMBIN TIME 14.8 SECONDS (12.5-14.3)
[2020-08-15 05:47] LABS: ALBUMIN 1.3 GM/DL (3.2-5.2); CALCIUM LEVEL 8.3 MG/DL (8.8-10.2); CREATININE FOR GFR 1.67 MG/DL (0.70-1.30); GLOMERULAR FILTRATION RATE 43.4 (>42); MAGNESIUM LEVEL 2.3 MG/DL (1.8-2.4); PHOSPHORUS LEVEL 4.3 MG/DL (2.5-4.9); POTASSIUM SERUM 4.8 MEQ/L (3.5-5.1)
[2020-08-15] MEDS: VANCOMYCIN ORAL SOL 250MG/5ML ORAL SYRINGE NG SCH ×5 (06:00→23:51)
[2020-08-15] MEDS: INSULIN REGULAR IN 0.9 % NACL 100 UNIT in IV 1 EA IV SCH ×2 (06:44)
[2020-08-15] MEDS: INSULIN IV RATE CHANGE DOCUMENTATION ML/HR XX SCH ×6 (06:45→22:08)
[2020-08-15 08:47] LABS: ABG BASE EXCESS -0.6 (-2.0-2.0); ABG HCO3 22.6 MEQ/L (22.0-26.0); ABG O2 SATURATION 96.5 % (95.0-99.0); ABG PARTIAL PRESSURE CO2 31.7 mmHg (35.0-45.0); ABG PARTIAL PRESSURE O2 83.2 mmHg (75.0-100.0); ABG STANDARD HCO3 23.9 MEQ/L (22.0-26.0); ABG TOTAL CO2 23.6 MEQ/L (23.0-31.0); ABG pH (ARTERIAL) 7.471 UNITS (7.350-7.450)
--- NOTE | 2020-08-15 09:25 | REP ---
INDICATION: HYPOXIA COMPARISON: 08/14/2020 TECHNIQUE: Portable AP view of the chest FINDINGS: Examination is limited by technique, underpenetration and poor inspiratory effort. Perihilar and lower lobe infiltrates cannot be excluded. No obvious effusion. No pneumothorax. Mediastinum and cardiac silhouette are within normal limits. Skeletal structures are intact. Nasogastric tube courses below left hemidiaphragm. Left IJ line with tip in the internal jugular vein. IMPRESSION: Limited by technique and poor inspiratory effort. Perihilar and right lower lobe opacity cannot be excluded. <Electronically signed by Elbert Reddy > 08/15/20 0921
[2020-08-15] MEDS: PANTOPRAZOLE 40MG VIAL (C9113 PER 1) IV SCH ×2 (09:49→21:48)
[2020-08-15] MEDS: VANCOMYCIN HCL 750 MG, VIAL MATE ADAPTER 1 EACH in D5W 250 ML IV SCH (09:49)
--- NOTE | 2020-08-15 10:05 | CCN ---
CRITICAL CARE NOTE DATE: 08/15/2020 Dictated by Howard Lam DO, Internal Medicine Resident PGY-3 in conjunction with attending, Jun Ray D.O., of Pulmonary Critical Care Medicine. SUBJECTIVE: Mr. Martinez was seen and examined this morning. He is currently status post extubation yesterday. He has remained on BiPAP overnight. Reports per nursing, the patient had become somewhat agitated with BiPAP on last night and had taken it off. Overall, no adverse events reported. He has remained hemodynamically stable. The patient does have some lower abdominal pain this morning. Per nursing, the patient continues to be overall oliguric; however, did have some urine yesterday. He remains on CRRT per nephrology. At this time, the patient does remain critically ill. OBJECTIVE: VITAL SIGNS: Temperature 96.4 with a T-max of 98.1, pulse 90, respiratory rate 30, blood pressure 123/58, pulse oximetry 97% on BiPAP with an FiO2 of 0.3. BiPAP settings of 12/5. GENERAL: The patient is awake, alert. He does follow commands though at times, he does stare and does appear somewhat confused at times. He does appear critically ill. HEENT: Atraumatic, normocephalic. Eyes nonicteric. His trachea is midline. He has a left internal jugular vein central venous catheter in place. There is a right-sided subclavian central venous catheter in place as well. CARDIOVASCULAR: There is a normal S1, S2. There is a regular rate and rhythm. There are no clicks, rubs, or murmurs. PULMONARY: The patient has improvement in breath sounds. There are no wheezes, rhonchi, or rales. He is slightly tachypneic this morning. ABDOMEN: The patient's abdomen is slightly distended and a little tense. There is some guarding and tenderness to palpation in the lower left and right quadrants. There is no abdominal bruising, masses, or organomegaly. EXTREMITIES: The patient has 1 to 2+ pitting edema bilateral lower extremities. His extremities are warmer from previous examinations. He has significant edema in the left and right hands. He has a right-sided femoral hemodialysis catheter in place. NEUROLOGIC: There are no focal neurological deficits. The patient moves all limbs spontaneously. PSYCHIATRIC: Mood and affect appear appropriate. LABORATORY DATA: Hematology: White blood cell 24.7, hemoglobin 8.6, hematocrit 26.5, platelet count 120,000. Chemistries: Sodium 137, potassium 4.8, chloride 105, CO2 of 26, BUN 22, creatinine 1.67, glucose 226, calcium 8.3, phosphorus 4.3, magnesium 2.3, albumin 1.3, lipase 199. ABG pH 7.41, pO2 of 31.7, pO2 of 83.2. IMAGING: Chest x-ray obtained demonstrating some atelectasis more prominently in the right base, as well as NG tube placement. ASSESSMENT: Mr. Martinez is a 69-year-old male who had originally presented in diabetic ketoacidosis (DKA) with diabetic acute on chronic pancreatitis. Subsequently developed hypotension, respiratory failure, and required intubation. The patient was then placed on continuous renal replacement therapy (CRRT) due to worsening metabolic acidosis and renal failure. Currently, the patient is status post day one extubation. He remains on CRRT and critically ill. He is not requiring any pressors at this time. 1. Severe pancreatitis with moderate pancreatic necrosis. The patient's original presentation was severe pancreatitis. Re-imaging demonstrated pancreatic necrosis. There was no indication of abscess formation. He is continued on empiric antibiotics with vancomycin and Zosyn. He had received Flagyl early on in his hospitalization. Currently, his pancreatitis appears to be resolving. He does not have any other mid epigastric pain currently. 2. Acute respiratory failure currently status post extubation. The patient remains on BiPAP. His abdomen appeared slightly distended possibly secondary to high tidal volumes. His IPAP/EPAP has been changed from 12/5 to 10/5. Will continue to monitor. Arterial blood gases (ABGs) demonstrate good oxygenation, as well as good ventilation. He does remain at risk for mucous plugging giving copious secretions. Will continue Q4H bronchodilator nebulizers. 3. Leukocytosis. The patient has a persistent leukocytosis, although it is coming down. Today white blood cell 24.7. On his CT imaging, he had an enterocolitis. He has been receiving multiple antibiotics. There was concern for possible Clostridium difficile infection. He had been started on oral vancomycin and had been receiving this through the orogastric (OG) tube. The OG tube has been removed. Unfortunately, the patient has been unable to swallow and has not been receiving his oral vancomycin due to this. He will have an nasogastric (NG) tube placed today. The patient will be continued on oral vancomycin for C. diff prophylaxis/ We will continue to trend his leukocytosis. He has remained afebrile and overall vitally stable. 4. Renal failure. The patient has renal failure originally oliguric. He has been on CRRT. He is currently being followed nephrology and their recommendations are appreciated. At this time, he was noted to make about 100 mL of urine the other day. This morning, he had a dark muddy brown colored urine probably likely associated with acute tubular necrosis (ATN). At this time, he remains on CRRT. We will defer to nephrology for the management of whether he will be continued on intermittent dialysis or CRRT for now. He does have a right femoral dialysis catheter in place. 5. Anemia. The patient has anemia. Originally he had fecal occult positive blood. Yesterday hemoglobin 7.9. He was transfused one unit of packed red blood cells. Hemoglobin this morning 8.6 currently stable and we will continue to monitor. 6. Thrombocytopenia. The patient has thrombocytopenia with current platelet count 120,000 is improving, likely secondary to sepsis, and overall critical illness. We will continue to monitor. 7. Hyperglycemia. The patient has been persistently hyperglycemic. Blood glucose today 226. He has been continued on insulin drip. 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 At this point due to his severe pancreatitis, he will be continued on an insulin drip while he is n.p.o. 8. Nutrition. The patient is currently receiving total parenteral nutrition (TPN). Albumin remains low at 1.3. At this point, he does remain n.p.o. We will continue TPN for now. The TPN is being managed by nephrology. 9. Gastrointestinal (GI) prophylaxis. The patient is currently on Protonix 40 mg b.i.d. and we will continue. 10. Deep vein thrombosis (DVT) prophylaxis. The patient is fully anticoagulated with heparin drip due to clogging of the CRRT machine. ADDENDUM: DATE: 08/15/2020 CRITICAL CARE TIME: One hour and 8 minutes. This is an addendum to the note already dictated by Dr. Howard Lam. Jun Reyes D.O., conducted a history and physical, attended bedside rounds. The patient is moving both extremities, less tachycardic. Has elevated tidal volumes over a liter. I decreased the inspiratory pressure on his BiLevel and made adjustments there. He did have some abdominal distention and although I hear bowel sounds, he is having discomfort in his abdomen. He is unable to swallow and he is unable to take the p.o. vancomycin. Therefore, an NG tube was placed despite the risk of him being on heparin and potential epistaxis. The post NG tube film does how gastric and bowel distention. We will continue to monitor his abdominal pain and may need re-imaging; however, white count is coming down. My concern is to try to avoid any further infection. He has three central lines currently. We will try to obtain peripheral lines in order to remove the right subclavian, as there is some trouble with drawing back on the ports. The left IJ is the newest central line. Unfortunately, his dialysis catheter is in the femoral vein, but this looks okay. May switch sites if possible. At this point in time; however, there are no open sites to switch to. Will continue to monitor on BiLevel noninvasive ventilation. He remains critically ill, high risk for re-intubation, and very weak. PT and OT have been ordered. Addendum dictated: HANS 08/15/2020 0920 Addendum transcribed: [email or web address] 08/15/2020 1501 CARMENCITA
--- NOTE | 2020-08-15 10:28 | CCN ---
CRITICAL CARE NOTE DATE: 08/04/2020 03:01:00 pm SUBJECTIVE: Mr. Martinez was seen and examined this morning. He continues to be critically ill. He was started on continuous renal replacement therapy (CRRT) yesterday. There was complications with him clotting with the machine and he was started on an argatroban drip. There has been no further adverse events reported overnight, however the patient has been noted to become fairly hypotensive as soon as starting the CRRT likely secondary to fluid removal. He has been requiring some addition of Levophed 5 mcg intermittently. Otherwise, the patient remains status quo at this point. OBJECTIVE: Vital signs: Temperature 95.9, pulse 78, respiratory rate of 32, blood pressure 85/33, pulse oximetry 97% with an FiO2 of 100 on ventilator pressure control. General: Patient is intubated with mechanical ventilation. He is currently on a Versed drip. He does have pupillary responses. He does appear critically ill. HEENT: Atraumatic, normocephalic. His eyes are nonicteric. Trachea is midline. Endotracheal tube is in place. He has some blood-tinged lips. There is a nasogastric tube in place as well. There is a right subclavian line in place, the site appears clean. Cardiovascular: Patient has a normal S1, S2. There is a regular rate and rhythm. No clicks, rubs, or murmurs appreciated. Pulmonary: Patient has rhonchus breath sounds throughout, somewhat decreased in the bases, more so on the right than on the left. There is no wheezes or rales appreciated. Abdominal: Patient's abdomen is soft, it is nondistended, nontender. There is somewhat hypoactive bowel sounds. There is no periumbilical bruising present. Extremities: Patient's upper extremities are edematous. There is poor pulses in bilateral upper extremities. There is also poor pulses in bilateral lower extremities. The limbs are cold. There is some mottling at the level of the knees. He has some acrocyanosis in the toes. He has a right-sided hemodialysis catheter in place, currently receiving CRRT. Neurologic: No focal neurological deficits, although patient is currently sedated with a Versed drip. Skin: As stated previously, patient has some mottling as well as some acrocyanosis, otherwise no rashes or lesions noted. LABORATORY DATA: Hematology: White blood cells 15.8, hemoglobin 13.2, hematocrit 41.7, platelet count 95. Chemistry: Sodium 143, potassium 3.9, chloride 113, carbon dioxide 19, BUN 49, creatinine 3.38, fasting glucose 301, calcium 8.2, magnesium 2.1, phosphorous 4.1. ABG: pH 7.34, pCO2 28.4, pO2 83.9. ASSESSMENT AND PLAN: Mr. Martinez is a 69-year-old male who had presented to [facility] Emergency Department originally with some weakness and found to be in diabetic ketoacidosis (DKA). After admission, he had developed some midepigastric pain and was found to have developed pancreatitis. After resolution of his diabetic ketoacidosis (DKA), he had developed some altered mental status and had deteriorated to the point of inability to protect his airway and was subsequently intubated and started on mechanical ventilation. Since that time, patient has developed oliguria and has required continuous renal replacement therapy (CRRT). 1. Acute hypoxic respiratory failure. The patient currently has acute hypoxic respiratory failure secondary to altered mental status and inability to protect his airway. At this time, his primary issue is metabolic acidosis. He is compensating with a respiratory rate of approximately 40. He is currently on pressure control. Will continue to monitor at this point in time. 2. Septic shock secondary to severe pancreatitis. Patient has severe pancreatitis. Imaging was repeated the other day which demonstrated worsening of his pancreatitis and some stranding. Lactate dehydrogenase (LDH) continues to rise likely from autodigestion from his leaking of pancreatic enzymes. He is requiring Levophed at a low dose of between 1-5 mcg. This is likely secondary to continuous renal replacement therapy (CRRT) as they are removing fluid. At this point in time, the patient has been started on empiric antibiotics with both cefepime and Flagyl for possible intraabdominal infection. Although there is no clear sign of infection, he does have an elevated white count, no fever, however given his critical illness I do believe that antibiotics are warranted at this time. 3. Severe pancreatitis. The patient has severe pancreatitis thought to be secondary to his history of alcoholism, although imaging does show an enlarged gallbladder. At this time, he is being treated supportively. He has received a significant amount of fluids. Central venous pressure (CVP) this morning was 6. He appears to be third-spacing most of his fluid. At this time, he is continued on continuous renal replacement therapy (CRRT). Regarding his pancreatitis, will provide supportive measures at this time. 4. Oliguric renal failure on continuous renal replacement therapy (CRRT). Unfortunately, the patient has developed oliguric renal failure which is likely secondary to his severe pancreatitis resulting in septic shock. His blood pressure has been fairly stable, however has become somewhat labile after starting continuous renal replacement therapy (CRRT) likely secondary to fluid removal. I believe one of the issues is that as fluid is removed his mean arterial pressure (MAP) will go down and Levophed will be started. When Levophed increases his mean arterial pressure (MAP) more fluid is removed. Anticipate that he will likely be on intermittent doses of Levophed while on continuous renal replacement therapy (CRRT). However, in regard to his renal function, although he is on continuous renal replacement therapy (CRRT), it may recover in time, however overall the patient has a very poor prognosis. 5. Gastrointestinal (GI) bleed. Patient suspected of having a gastrointestinal (GI) bleed. He has fecal occult positive blood. No indication of bloody bowel movement per se, however the patient's stool does have the smell of a gastrointestinal (GI) bleed. However, he has been started on argatroban as he was clotting up the hemodialysis machine. This certainly increases his risk for further bleeding. 6. Thrombocytopenia. Patient has thrombocytopenia that has developed. This is likely due to critical illness possibly in the setting of sepsis, septic shock, possibly also due to antibiotics. However, at this time his platelet count is approximately 95 which is appropriate. Will continue to monitor. Less likely to be heparin-induced thrombocytopenia (HIT) or associated with heparin. 7. Altered mental status. Patient originally developed altered mental status, likely multifactorial to sepsis, septic shock, also possibly hypernatremia. Currently, he is on a Versed drip for sedation. 8. Deep venous thrombosis (DVT) prophylaxis. Patient currently on argotroban drip. 9. Gastrointestinal (GI) prophylaxis. Patient currently on Protonix. Will continue. DISPOSITION: Patient has an overall guarded poor prognosis. He is critically ill. He is in multiorgan failure secondary to severe pancreatitis, sepsis, septic shock. He is currently receiving continuous renal replacement therapy (CRRT) which may provide some correction in his acidemia. However, his prognosis still remains very poor. At this current time, he is FULL CODE. Have spoken to primary team who will reach out to family to inquire about do not resuscitate status as further resuscitation if the patient does deteriorate would likely be futile. My faculty preceptor for this patient encounter was physically present during the encounter and was fully available. All aspects of the patient interview, examination, medical decision making process, and medical care plan development were reviewed and approved by the faculty preceptor. The faculty preceptor is aware and concurs with the plan as stated in the body of this note and will attest to such by his/her co-signature. CARMENCITA
[2020-08-15] MEDS: FUROSEMIDE 100MG/10ML VIAL (J1940) IV SCH ×2 (11:46→18:04)
--- NOTE | 2020-08-15 12:07 | CCN ---
CRITICAL CARE NOTE DATE: 08/04/2020 03:01:00 pm Critical care time is 1 hour and 8 minutes, this excludes all procedures. Mr. Martinez remains mechanically ventilated. There is some ventilatory dyssynchrony. He is on volume protected ventilation with volume control tidal volume 460, respiratory rate of 22, PEEP of 8, FiO2 of 0.70 with an arterial blood gas of 7.45, 27, 83. He remains on cefepime and metronidazole, heparin drip, Protonix, IV twice a day, and total parenteral nutrition (TPN). He has had no arrhythmias overnight. He is now off Levophed for over 12 hours. Continues on continuous renal replacement therapy (CRRT). Attempts to lessen sedation have been made. His last dose of benzodiazepine was at 3 a.m. The nurses are aware of my concern for sedation accumulation in a patient with renal failure. Central venous pressure was 9 at bedside. Temperature is 98.1, pulse is 94, respiratory rate of 32, blood pressure is 104/55 with a mean arterial pressure of 71, oxygen saturation is 96% on 0.70 FiO2. Nursing states occasionally patient will have desaturations that respond to suctioning. GENERAL: Patient is sedated on mechanical ventilation. He does have coughing. Withdraws to noxious stimuli. HEENT: Sclerae clear and anicteric. Mucous membranes are moist without lesions. Pupils are reactive to light. Pupils are symmetric. NECK: Supple. No tracheal deviation or mass. LYMPHATICS: The right subclavian line is in place without surrounding erythema or exudate. Left internal jugular (IJ) without surrounding erythema or exudate. CARDIAC: Tachycardic, S1, S2, without audible murmur, rub, or gallop. No elevated jugular venous pressure (JVP). No peripheral edema. PULMONARY: Clear to auscultation without rales, rhonchi, or wheezes. No dullness to percussion. No accessory muscle use. Initially had paradoxical movement, however I adjusted ventilatory settings at bedside as outlined above and patient was more synchronous with the vent. ABDOMEN: Soft, nontender, nondistended. No hepatosplenomegaly. No masses or hernia. EXTREMITIES: Significant pitting edema bilaterally lower extremities, both hands and feet. There is better perfusion, less discoloration, less mottling. MPO boots are in place. NEUROLOGIC: No seizure activity. No obvious unilateral weakness. Neurologic exam is blunted due to patient's ability to cooperate and residual sedation. LABORATORY EVALUATION: Shows sodium 136, potassium 4.5, chloride 106, bicarbonate of 22, BUN of 39, creatinine of 1.94, patient remains anuric, glucose of 206. White blood cell count of 29.4 which is up, hemoglobin 11.1, and a platelet count of 108. DIAGNOSTIC TESTING: Chest x-ray shows decreased chest expansion but no evidence of mass, lesion, or infiltrate. Endotracheal tube slightly high with central lines in good position. IMPRESSION: 1. Respiratory failure. I have adjusted his ventilatory settings to pressure control. Patient was more synchronous with pressure control. Will continue to titrate oxygen down. 2. Leukocytosis. Worse this morning. Will image abdomen tomorrow to look for a pseudoabscess. Possible need for drainage. However, his amylase and lipase have been down. I have ordered blood cultures this morning to look for alternative source of infection. There is no evidence of pneumonia on chest x-ray. He is on cefepime and metronidazole. We are not covering methicillin-resistant Staphylococcus aureus (MRSA) or fungal at this point in time. Will continue to monitor for fever or other signs of sepsis, however his blood pressure is better and his leukocytosis may simply be reactive. 3. Renal failure. Appreciate nephrology input. May be a little on the dry side, however patient has severe hypoxia. Will defer fluid management to crate icer. 4. Anemia. No indication for transfusion at this point in time and no signs of acute blood loss. 5. Thrombocytopenia. Platelet count up to 108 today. On heparin drip in order to prevent coagulation so patient can be maintained on continuous renal replacement therapy (CRRT). 6. Gastrointestinal (GI) prophylaxis. On Protonix. 7. Deep venous thrombosis (DVT) prophylaxis. On heparin drip. 8. Nutrition. On total parenteral nutrition (TPN). 9. Neurologic prophylaxis. On MPO boots. 10. Ventilator-associated pneumonia (VAP) prophylaxis. On chlorhexidine rinses. Patient's prognosis remains guarded. I am slightly more optimistic with better perfusion. Still requires dialysis, is anuric. Will continue to monitor. Primary team in contact with family and updating them on an at least daily basis.
--- NOTE | 2020-08-15 12:07 | IPN ---
NEPHROLOGY PROGRESS NOTE DATE: 08/06/2020 10:00 a.m. SUBJECTIVE: The patient was seen and examined at the bedside today morning in the ICU. He remains intubated. He was not sedated and he was responsive to painful stimuli. He continues to be on TPN at 75 mL per hour. His FiO2 requirement on the vent has decreased to 70%. He is still requiring Levophed but at 2 mcg only and it is being weaned down. He continues to be on Heparin infusion. He had to be started on insulin drip because of persistent hyperglycemia. He is currently at 7 units an hour. I was told by the nursing staff that his CVP is 8 today morning, and is tolerating fluid removal with CVVHDF. REVIEW OF SYSTEMS: The patient is unable to provide any review of systems because he is intubated and comatose. OBJECTIVE: VITAL SIGNS: Temperature is 98.8 degrees Fahrenheit, blood pressure is 110/56, pulse is 99, respiratory rate of 34, saturating 97% on the vent with 70% FiO2. Intake and output according to [facility] records, net fluid removal was 2.1 liters yesterday and about 1,479 mL by the time I saw him in the morning. Weight on the bed scale is 111.5 kg. Weight is 2 kg below his weight since yesterday. PHYSICAL EXAMINATION: GENERAL APPEARANCE: The patient is intubated, not sedated, laying in the bed. HEAD AND NECK: Pupils are equally round and reactive to light. Mucous membranes are moist. He has an endotracheal tube and orogastric tube. Neck is supple. He has a left IJ triple lumen catheter and a right sided triple lumen catheter. CARDIOVASCULAR: S1, S2, regular rate with slight tachycardia. EXTREMITIES: 1+ edema of the bilateral lower extremities. RESPIRATORY: Chest is clear to auscultation bilaterally. No active rales or rhonchi. ABDOMEN: Soft, positive bowel sounds. I could not appreciate any tenderness because the patient is comatose, and I could not appreciate any ascites or organomegaly. GENITOURINARY: He has an indwelling Anne catheter. Very small amount of urine in the bag is noted. MUSCULOSKELETAL: No clubbing, no cyanosis, 1+ edema of the extremities as mentioned above and 1+ edema of the bilateral upper extremities was noted as well. [employer]: The patient is deeply comatose and responds to painful stimuli only. Dialysis access he has a right femoral double lumen catheter which is being used for CVVHDF. LAB REVIEW: CBC showed a WBC of 21.1, hemoglobin is 11.3, platelets are 103. ETT is 85. Arterial blood gases done today morning showed a pH of 7.36, pco2 of 24, pO2 of 129, bicarbonate of 15, O2 sat is 98.7%. BMP showed sodium 138, potassium 4.3, chloride 108, bicarbonate 24, BUN 43, creatinine is 2.1. Glucose is 389, calcium 8.1, ionized calcium 4.4. Phosphorous is 2.7, magnesium is 2.6. IMAGING: A chest x-ray was done today morning which showed lines and tubes in satisfactory, stable position, minimal basilar atelectasis and decreased left lower lobe retrocardiac opacity. CURRENT INPATIENT MEDICATIONS: The patient's medications were all reviewed by myself. He is getting TPN at 75 mL an hour, fat emulsion at 20 mL an hour, Levophed at 2 mcg, insulin drip at 7 units an hour. He continues to be on Cefepime 2 grams IV q. 12 hourly. He is Heparin drip according to the protocol. He is getting Flagyl 500 mg IV q. 8 hourly. No other significant change in the medications today as compared with yesterday. ASSESSMENT AND PLAN: 1. Acute oliguric renal failure - The patient is dependent on CVVHDF. New orders were written today. Continue fluid removal according to the MAP parameters. 2. Protein calorie malnutrition because of acute pancreatitis - The patient is not able to tolerate anything orally. His NGT is actually attached to suctioning. He is currently on TPN. Special formula TPN was ordered by myself today morning. 3. Acute pancreatitis with shock - The patient is still hypotensive requiring pressors, Levophed at 2 mcg in the morning. However, Levophed is being weaned off slowly. Continue this CVVHDF. Continue empiric antibiotics including Cefepime and IV Flagyl. 4. Metabolic acidosis the patient's bicarbonate level is getting better with CVVHDF. No need of IV bicarbonate administration at this time. 5. Insulin dependent diabetes with hyperglycemia - The patient recently had DKA. His sugar levels are again high and he is getting dextrose in the TPN. He has been restarted on an IV insulin drip and those will be titrated according to the glucose levels. 6. Recent clotting during CVVHDF - The patient is currently getting the Heparin drip. PTT is within the acceptable range and there is no more clotting during dialysis now. 7. Multiple electrolytes abnormalities including hypocalcemia, hypokalemia, and hypophosphatemia. They are all being managed through CVVHDF protocol and addition of electrolytes in the TPN. 8. Vent dependent respiratory failure - The patient is in shock. He is off the sedatives at this time. Vent management is being done by the Pulmonary Team. FiO2 requirement has decreased to 70%. We are slowly trying to remove fluid as tolerated by his blood pressure. 9. The patient overall has a guarded prognosis given shock with multiorgan failure and requiring CVVHDF and pressors. We are cautiously optimistic about the patient's slow recovery from this catastrophic acute pancreatitis and diabetic ketoacidosis. Total critical care time spent in the management of this patient today morning in the ICU excluding all the procedures was 50 minutes. MTDD
[2020-08-15] MEDS ORDERED: VANCOMYCIN INTERMITTENT/PULSE DOSING BY CLINICAL PHARMACIST PER DOSING PROTOCOL XX SCH (12:45)
[2020-08-15 15:04] LABS: HEMATOCRIT 24.3 % (42.0-52.0)
[2020-08-15] MEDS ORDERED: SODIUM CHLORIDE IV SCH ×7 (18:00)
[2020-08-15] MEDS ORDERED: FAT EMULSION IV 20% 500 ML IV SCH (18:00)
[2020-08-15] MEDS ORDERED: SODIUM ACETATE IV SCH ×7 (18:00)
[2020-08-15] MEDS ORDERED: [UNRECOGNIZED DRUG - OTHER] IV SCH ×7 (18:00)
[2020-08-15 21:01] LABS: HEMOGLOBIN 7.9 g/dl (13.5-17.5)
[2020-08-15 21:17] LABS: CLOSTRIDIUM DIFFICILE PCR NEGATIVE (NEGATIVE)
--- NOTE | 2020-08-15 22:42 | IPN ---
PROGRESS NOTE DATE: 08/15/2020 SUBJECTIVE: The patient was seen and examined at the bedside today morning. He continues to be on BIPAP. I see that he got the NG tube placement again which is attached to suctioning now. He continues to be dependent on TPN, and he is still on CRRT and tolerating the fluid removal. He was given a dose of Lasix yesterday. He made some urine with that. Leukocytosis is slowly getting better. He is still on insulin and Heparin drip at this time. REVIEW OF SYSTEMS: The patient is unable to provide any review of systems. OBJECTIVE: VITAL SIGNS: Temperature is 97.4 degrees Fahrenheit, blood pressure 134/66, pulse is 92, respiratory rate of 30, saturating 95% on the BIPAP at 30% FiO2. Intake and output urine output recorded as 247 mL yesterday and only 33 mL in the morning by the time I saw him. Ultrafiltration with hemodialysis is 1.7 liters so far since overnight. Weight on the bed scale is 111.4 kg. PHYSICAL EXAMINATION: GENERAL APPEARANCE: The patient is laying in bed wearing a BIPAP mask. He also has an NG tube which is attached to suctioning. HEAD AND NECK: Eyes are open and is following commands today. There is no jugular venous distention. Left IJ triple lumen catheter, right subclavian triple lumen catheter were also noted. CARDIOVASCULAR: S1, S2, regular rate. EXTREMITIES: 1+ edema of the bilateral lower extremities and 1+ edema on the bilateral upper extremities. RESPIRATORY: Mildly decreased breath sounds at the bases. He is dependent on the BIPAP at this time. No rales or rhonchi were noted. ABDOMEN: Soft, obese, decreased bowel sounds. Mild tenderness to deep palpation in the epigastrium. GENITOURINARY: He has an indwelling Anne catheter. A small amount of urine in the bag was noted. MUSCULOSKELETAL: He is wearing the waffle boots at this time. Edema of the extremities was noted as mentioned above. [employer] LIGHT: The patient is more awake and alert today as compared with yesterday. He follows commands. LAB REVIEW: CBC showed a WBC of 24.7, hemoglobin is 8, platelets are 120. PTT is 35.1. Arterial blood gases done today morning showed a pH of 7.47, pco2 of 31, pO2 of 83, bicarbonate is 22.6, O2 sat is 96.5. BMP showed sodium of 137, potassium 4.8, chloride 105, bicarbonate 26, BUN 22, creatinine is 1.67, calcium 8.3, phosphorous 4.3, magnesium is 2.3, albumin 1.3. Vancomycin level was 14.2 today. IMAGING: A chest x-ray was done today morning which showed poor inspiratory effort. CURRENT INPATIENT MEDICATIONS: The patient's medications were all reviewed by myself. He continues to be TPN. Since CVVHDF is being stopped, Zosyn dose has been changed to 4.5 grams IV q. 12 hourly. Vancomycin has also been changed to 750 mg IV daily. I have started him on Lasix 80 mg IV q. 8 hourly and he continues to be on oral Vancomycin as well. ASSESSMENT AND PLAN: 1. Acute oliguric renal function - The patient is off tenderness pressors. He is on BIPAP at this time. I am going to stop the CVVHDF now, start the patient on Lasix injections as mentioned above. Continue to monitor for renal recovery. If needed, the patient will get intermittent hemodialysis now. 2. Protein calorie malnutrition - The patient has NG tube attached to suctioning. He is still dependent on TPN. Special formulation TPN was ordered again today. 3. Insulin dependent diabetes - The patient is getting insulin drip. He is also receiving insulin through the TPN as well. 4. Acute pancreatitis status post shock with multiorgan failure the patient's leukocytosis is very slowly getting better. He is getting IV antibiotics and oral Vancomycin as well. Continue empiric coverage. He is still not being fed. Actually he has NG tube attached to suctioning. Continue TPN as mentioned above. 5. Anemia - hemoglobin is slowly dropping transfuse p.r.n. if hemoglobin drops below 8.
[2020-08-16] VITALS (21 sets, daily range): BP systolic 109–128; BP diastolic 56–78
[2020-08-16] MEDS: INSULIN REGULAR IN 0.9 % NACL 100 UNIT in IV 1 EA IV SCH ×2 (00:13)
[2020-08-16] MEDS: FUROSEMIDE 100MG/10ML VIAL (J1940) IV SCH ×3 (02:17→19:21)
[2020-08-16] MEDS: PIPERACILLIN/TAZOBACTAM SOD 4.5 GM in D5W MINI-BAG PLUS 50 ML IV SCH ×2 (02:25→14:32)
[2020-08-16] MEDS: INSULIN IV RATE CHANGE DOCUMENTATION ML/HR XX SCH ×2 (03:06→03:56)
[2020-08-16 04:12] LABS: HEMATOCRIT 22.5 % (42.0-52.0); HEMOGLOBIN 7.4 g/dl (13.5-17.5); MEAN CORPUSCULAR HEMOGLOBIN 31.2 pg (27.0-33.0); MEAN CORPUSCULAR HGB CONC 32.9 g/dl (32.0-36.5); MEAN CORPUSCULAR VOLUME 94.9 fl (80.0-96.0); PLATELET COUNT, AUTOMATED 150 10^3/uL (150-450); RED BLOOD COUNT 2.37 10^6/uL (4.30-6.10); WHITE BLOOD COUNT 14.7 10^3/uL (4.0-10.0)
[2020-08-16 04:24] LABS: INR 1.14; PROTHROMBIN TIME 14.9 SECONDS (12.5-14.3)
[2020-08-16 04:25] LABS: PARTIAL THROMBOPLASTIN TIME 33.7 SECONDS (24.2-38.5)
[2020-08-16 04:27] LABS: EOSINOPHILS 1 % (0-3); LYMPHOCYTES 7 % (16-44); METAMYELOCYTES 1 % (0-0); MONOCYTES 2 % (0-5); MYELOCYTES 1 % (0-0); NEUTROPHILS 85 % (28-66); PLATELET ESTIMATE NORMAL (NORMAL)
[2020-08-16 04:56] LABS: ALBUMIN 1.2 GM/DL (3.2-5.2); CALCIUM LEVEL 7.9 MG/DL (8.8-10.2); CREATININE FOR GFR 3.09 MG/DL (0.70-1.30); GLOMERULAR FILTRATION RATE 21.3 (>42); PHOSPHORUS LEVEL 6.3 MG/DL (2.5-4.9); POTASSIUM SERUM 4.2 MEQ/L (3.5-5.1)
[2020-08-16 04:57] LABS: VANCOMYCIN RANDOM 27.1 UG/ML
[2020-08-16] MEDS: ALBUTEROL SULFATE 2.5 MG/0.5 ML INH NEB SOLN NEB SCH ×5 (04:59→19:32)
[2020-08-16] MEDS: VANCOMYCIN ORAL SOL 250MG/5ML ORAL SYRINGE NG SCH ×3 (05:32→19:18)
[2020-08-16] MEDS: PANTOPRAZOLE SODIUM 40 MG in D5W 50 ML IV SCH ×4 (06:35→19:47)
[2020-08-16] MEDS ORDERED: VANCOMYCIN HCL 750 MG, VIAL MATE ADAPTER 1 EACH in D5W 250 ML IV SCH (09:00)
[2020-08-16] MEDS ORDERED: HumaLOG INSULIN (NovoLOG) PER UNIT SC SCH ×3 (10:00→18:00)
[2020-08-16] MEDS: HumaLOG INSULIN (NovoLOG) PER UNIT SC SCH ×4 (10:41→22:22)
--- NOTE | 2020-08-16 10:50 | CCN ---
CRITICAL CARE NOTE DATE: 08/16/2020 Dictated by Howard Lam DO, Internal Medicine Resident PGY-3 in conjunction with attending Ana Cristina Díaz MD of Pulmonary Critical Care Medicine. SUBJECTIVE: Mr. Martinez was seen and examined this morning. He remains on BiPAP. He has been vitally stable. There have been no adverse events reported overnight. The patient had been receiving CRRT; however, this has been discontinued. He is likely to continue on intermittent hemodialysis as needed. The patient was noted to have some episodes of bloody stool yesterday. He had a decrease in his hemoglobin down to 7.9 this morning. Currently receiving transfusions of packed red blood cells. Otherwise, the patient does continue to complain of some lower abdominal pain. OBJECTIVE: VITAL SIGNS: Temperature 98.3, pulse 101, respiratory rate 26, blood pressure 119/56, pulse oximetry 96% on 5 liters nasal cannula. GENERAL: The patient is awake and alert. He is only oriented to place and self. He appears critically ill. He does follow commands, however, is slow to follow them. HEENT: Atraumatic, normocephalic. Eyes are not icteric. Trachea is midline. Pupils are equal and reactive to light. He has some difficulty with tracking. His mucous membranes are pink and moist. He has some poor dentition. He has a nasogastric tube in place. CARDIOVASCULAR: There is a normal S1, S2. There is a regular rhythm with a tachycardic rate. There are no clicks, rubs, or murmurs auscultated. He has a left internal jugular central venous catheter in place. He has a right-sided femoral vein dialysis catheter in place. He had his right subclavian central venous catheter removed yesterday. PULMONARY: The patient has some scattered rhonchi and decreased breath sounds mostly on the right, but otherwise no wheezing or rales. He has symmetric chest expansion and good respiratory effort. ABDOMEN: His abdomen is soft. It is somewhat distended. There are normoactive bowel sounds. There is some abdominal bruising on the right side. There is tenderness with involuntary guarding of the left lower and right lower quadrant of the abdomen. He has a rectal tube in place with stool in the bag that does not appear bloody or melanotic. EXTREMITIES: The patient's extremities have approximately 1+ pitting edema bilaterally. His limbs are warm to the touch. There is resolution of the mottling from previous examination. He does have continued swelling in his upper extremities, particularly in the dorsal aspect of the hands. NEUROLOGIC: There are no focal neurological deficits. The patient does follow commands, although he is slow to follow them. He moves all limbs spontaneously. On my exam, he does not track laterally with his eyes. PSYCHIATRIC: Mood and affect appear appropriate. LABORATORY DATA: Hematology: White blood cell 14.7, hemoglobin 7.4, hematocrit 22.5, platelet count 150,000. Chemistries: Sodium 139, potassium 4.2, chloride 107, carbon dioxide 22, BUN 43, creatinine 3.09, fasting glucose 115, calcium 7.9, phosphorus 6.3, albumin 1.2, lipase 283. C. difficile PCR negative. ASSESSMENT: Mr. Martinez is a 69-year-old male who was originally admitted to [facility] with diabetic ketoacidosis, had subsequently developed some mid epigastric pain and altered mental status, and found to have severe pancreatitis. He subsequently developed acute respiratory failure due to inability to protect his airway from altered mental status and was intubated. He had developed metabolic acidosis secondary to renal failure and was placed on continuous renal replacement therapy (CRRT). Since the patient is currently status post two days of extubation, he has remained off BiPAP currently. He has had a mild improvement currently with gastrointestinal (GI) bleed and receiving blood. Neurologic: The patient's neuro exam is with no focal neurological deficits; however, he does have some difficulty following lateral tracking with his eyes. He also follows commands; however, is slow to do so. His baseline mental status is not known as the patient was altered on presentation. However, the patient's had stated that he had a good normal functional status. The patient is an alcoholic. He was previously receiving thiamine and folic acid, currently on total parenteral nutrition (TPN); however, we will add thiamine, folic acid, and continue to monitor his neuro output; possible secondary to critical illness and we will continue to monitor. Cardiovascular: Currently from a cardiovascular standpoint, the patient is stable. He is fairly tachycardic, which may be secondary to his acute blood loss anemia from his GI bleed. He is currently receiving blood, however. He is in normal sinus rhythm, currently not on any cardiac medications, and not requiring any pressors and blood pressure has been stable since his extubation. He does have a left internal jugular central venous catheter in place, which is working properly. Additionally, he has a right femoral vein dialysis catheter in place. His right subclavian line was removed yesterday as it was not working. Going forward, we will consider removing this left internal jugular (IJ); however, we still need access. We will send the patient for a peripherally inserted central catheter (PICC) line, as he will likely need prolonged access due to his critical illness. Hopefully, his PICC line can be placed today. Additionally, he has had a right femoral dialysis catheter for over a week and a half now. We would like to remove this due to risk of infection. We will send him for a Permacath placement for dialysis. Once the Permacath is placed, we can remove his right femoral hemodialysis catheter. Pulmonary: From a pulmonary standpoint, the patient has been extubated for two days. He was extubated on Wednesday, 08/14, and to BiPAP. He has continued increased secretions and likely mucous plugging. His chest x-ray shows some atelectasis in the right lung. He has been on BiPAP and is improving. We will place the patient on nasal cannula with BiPAP at bedtime and p.r.n. as needed. The patient is currently receiving nebs required every four hours. We will add chest physical therapy (PT) due to his increased secretions. He does remain an aspiration risk and he should have the head of his bed up. The patient's code status had been discussed with the previously, and the patient is to remain DO NOT RESUSCITATE (DNR) with trial intubation. Gastroenterology (GI)/infectious disease (ID): The patient originally presented with severe pancreatitis and sepsis/septic shock. He has had re-imaging on the , which demonstrated worsening of his pancreatitis, as well as some moderate areas of pancreatic necrosis. He no longer has any mid epigastric pain and his pancreatitis appears to be resolving. He continues to be n.p.o. He is receiving total parenteral nutrition (TPN) for nutrition. He is being covered with Zosyn for a possible intraabdominal infection. Vancomycin has been added due to possible pneumonia as well. We will order a procalcitonin and trend to see if there is improvement with antibiotics. The patient has remained afebrile. He did have an elevated white count previously that continues to trend down. He is receiving p.o. vancomycin for Clostridium difficile prophylaxis. Clostridium difficile PCR as of yesterday was negative. He also developed a gastrointestinal (GI) bleed. He was fecal occult positive back during his admission; however, was started on a heparin drip as he was clotting the CRRT machine. He has been taken off of CRRT and therefore, the heparin drip has been discontinued. He had one episode of a large bloody bowel movement yesterday. Hemoglobin is trending down this morning at 7.4. He is receiving a unit of packed red blood cells. We will transfuse p.r.n. to keep his hemoglobin above 8. Currently on a Protonix drip. Renal/endocrine: The patient developed acute kidney injury, metabolic acidosis, and subsequently required hemodialysis. He had been receiving CRRT though it was discontinued yesterday. The plan is to change him over to intermittent dialysis as needed. He has produced some urine. He was given Lasix by nephrology yesterday. His urine does remain muddy brown. At this point in time, continue with Lasix and likely dialyze him tomorrow. He has a right femoral vein dialysis catheter in place that has been there for approximately a week and a half to two weeks. We will have him send to interventional radiology for a Permacath placement for possible longer duration hemodialysis. 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 He was previously on an insulin drip; however, had labile blood sugars. He is receiving long-acting insulin through his TPN. We will continue long-acting insulin. We will discontinue his insulin drip and start him on sliding scale insulin with every six hour coverage. Nutrition: The patient is currently receiving total parenteral nutrition (TPN) and this is being managed by nephrology. He does have a nasogastric tube in place; however, due to his GI bleed, we are currently holding remaining n.p.o. Deep vein thrombosis (DVT) prophylaxis: Patient is currently on TEDs and sequentials. He was on full anticoagulation as of yesterday currently having a GI bleed. We will consider starting heparin b.i.d. tomorrow. CODE STATUS: The patient remains DO NOT RESUSCITATE (DNR) WITH TRIAL INTUBATION. Disposition: The patient's overall prognosis remains guarded. He remains critically ill. Total critical care time spent not including any procedures approx 45 mins IAna Cristina, conducted independent examination of the patient and agree with the above plan as detailed by the resident and discussed during rounds. CARMENCITA
[2020-08-16] MEDS ORDERED: LIDOCAINE 1% MDV 20ML VIAL As Ordered ONE (13:54)
--- NOTE | 2020-08-16 15:33 | CR.PDOC ---
General Date of Consultation: Aug 16, [address] Gomez REASON FOR CONSULTATION/CHIEF COMPLAINT: Cath placement. HISTORY OF PRESENT ILLNESS: The patient is a 69-year-old male with acute kidney injury receiving CRRT with temporary femoral dialysis catheter for the past 2 weeks. Vascular surgery is requested to place PermCath so that the temporary femoral catheter will be able to be removed and the patient can receive dialysis through PermCath. The patient had initially reported to the emergency department 08/04/20 and was admitted with diabetic ketoacidosis, BATSHEVA. The patient developed some abdominal pain and altered mental status and was noted to have severe pancreatitis. He subsequently developed acute respiratory failure and was intubated. He was extubated 2 days ago and is currently on BiPAP. ALLERGIES: Please see below. HOME MEDICATIONS: Please see below. PAST MEDICAL HISTORY: IDDM Anemia Protein calorie malnutrition. Currently on TPN. Acute kidney injury Acute respiratory failure Altered mental status Hypertension PAST SURGICAL HISTORY: Tonsillectomy Appendectomy FAMILY HISTORY: Mother has a history of diabetes and hypertension He is unaware of any major medical problems his father had SOCIAL HISTORY: Nonsmoker REVIEW OF SYSTEMS: The patient is not able to write history and history is taken from the chart. PHYSICAL EXAMINATION: VITAL SIGNS: Please see below. GENERAL APPEARANCE: Ill-appearing HEENT: NGT in place RESPIRATORY: dec BS CARDIOVASCULAR: RRR. LABORATORY DATA: Please see below. ASSESSMENT/PLAN: BATSHEVA, need for dialysis access. The patient has been on CRRT, using a temporary femoral catheter, but since that has been there for almost 2 weeks it was requested to place PermCath so that the patient can have dialysis tomorrow. The patient is not able to sign consent, I did contact the patient's [place]. Discussed the procedure, risks, benefits and alternatives. All questions are answered. Informed consent was obtained over the phone. This was witnessed by the patient's nurse Laila FISHER, who also confirmed consent with the . Informed consent is placed with the chart. The patient is currently NPO, on TPN. Vital Signs/I&O Vital Signs Date Time Temp Pulse Resp B/P (MAP) Pulse Ox O2 Delivery O2 Flow Rate FiO2 08/16/20 08:35 98.3 101 26 119/56 96 08/16/20 08:13 NIPPV (BIPAP/CPAP) 08/16/20 08:00 30 08/16/20 06:00 5.0 I&O- Last 24 Hours up to 6 AM 08/16/20 06:00 Intake Total 2646.0 ml Output Total 1745 ml Balance 901.0 ml Laboratory Data Labs 24H Laboratory Tests 2 08/15/20 15:39: Bedside Glucose (Misc Panel) 99 08/15/20 17:45: Bedside Glucose (Misc Panel) 57L 08/15/20 18:15: Bedside Glucose (Misc Panel) 60L 08/15/20 18:54: Bedside Glucose (Misc Panel) 81L 08/15/20 19:18: Clostridium difficile [id number] PRESUMPTIVE NEGATIVE, Clostridium difficile Toxin (PCR) NEGATIVE 08/15/20 20:35: Bedside Glucose (Misc Panel) 206H 08/15/20 20:51: Activated Partial Thromboplast Time 35.1 08/15/20 22:04: Bedside Glucose (Misc Panel) 225H 08/16/20 00:02: Bedside Glucose (Misc Panel) 210H 08/16/20 02:19: Bedside Glucose (Misc Panel) 140H 08/16/20 03:52: Bedside Glucose (Misc Panel) 88 08/16/20 04:01: Immature Granulocyte % (Auto) , Neutrophils (%) (Auto) , Nucleated Red Blood Cells % (auto) 0.0, Neutrophils 85H, Band Neutrophils 3, Lymphocytes (Manual) 7L, Monocytes (Manual) 2, Eosinophils (Manual) 1, Metamyelocytes 1H, Myelocytes 1H, Red Blood Cell Morphology NORMAL, Platelet Estimate NORMAL, Prothrombin Time 14.9H, Prothromb Time International Ratio 1.14, Activated Partial Thromboplast Time 33.7, Anion Gap 10, Glomerular Filtration Rate 21.3L, Calcium Level 7.9L, Phosphorus Level 6.3#H, Albumin 1.2L, Lipase 283, Random Vancomycin Level 27.1 08/16/20 04:53: Bedside Glucose (Misc Panel) 70L 08/16/20 05:39: Bedside Glucose (Misc Panel) 98 08/16/20 10:08: Bedside Glucose (Misc Panel) 284H 08/16/20 14:27: Bedside Glucose (Misc Panel) 392H CBC/BMP Laboratory Tests 08/15/20 20:51 08/16/20 04:01 Microbiology Microbiology 08/11/20 Blood Culture - Final, Complete NO GROWTH AFTER 5 DAYS 08/11/20 Blood Culture - Final, Complete NO GROWTH AFTER 5 DAYS 08/06/20 Stool Occult Blood (DANIKA) - Final, Complete Allergies Coded Allergies: metoprolol (Verified Allergy, Intermediate, INJECTION LEADS TO RASH, 06/14/19) INJECTION LEADS TO RASH Home Medications Scheduled Ascorbic Acid (Vitamin C) 500 Mg Tab, 500 MG PO DAILY, (Reported) Cholecalciferol (Vitamin D3) (Vitamin D3) 250 Mcg Tablet, 250 MCG PO DAILY, (Reported) Lactobacillus Combo No.11 (Probiotic) 1 Each Cap.sprink, 1 CAP PO DAILY, (Reported) Magnesium Oxide (Magnesium) 250 Mg Tablet, 250 MG PO DAILY, (Reported) Saw Angwin (Saw Angwin) 160 Mg Capsule, 160 MG PO DAILY, (Reported) [Arginex] , 1 TAB PO DAILY, (Reported) [Strontium Citrate] 250 MG CAP, 750 MG PO DAILY, (Reported) Amy Alvares Aug 16, 2020 15:33
[2020-08-16 16:22] LABS: HEMATOCRIT 22.7 % (42.0-52.0); HEMOGLOBIN 7.5 g/dl (13.5-17.5); MEAN CORPUSCULAR HEMOGLOBIN 31.8 pg (27.0-33.0); MEAN CORPUSCULAR VOLUME 96.2 fl (80.0-96.0); PLATELET COUNT, AUTOMATED 156 10^3/uL (150-450); RED BLOOD COUNT 2.36 10^6/uL (4.30-6.10); WHITE BLOOD COUNT 11.8 10^3/uL (4.0-10.0)
[2020-08-16 17:17] LABS: ATYPICAL LYMPH 1 % (0-5); BASOPHILS 2 % (0-1); LYMPHOCYTES 6 % (16-44); METAMYELOCYTES 2 % (0-0); MONOCYTES 4 % (0-5); MYELOCYTES 2 % (0-0); NEUTROPHILS 74 % (28-66)
[2020-08-16 17:18] LABS: PLATELET ESTIMATE NORMAL (NORMAL)
[2020-08-16] MEDS ORDERED: fentaNYL 100 MCG/2 ML INJECTION (J3010) As Ordered ONE (17:30)
[2020-08-16] MEDS ORDERED: MIDAZOLAM INJ 2MG/2ML VIAL (J2250 PER 1MG) As Ordered ONE (17:30)
[2020-08-16] MEDS ORDERED: LIDOCAINE W/EPINEPHRINE 1% 20ML VIAL As Ordered ONE (17:30)
[2020-08-16] MEDS ORDERED: ceFAZolin 1GM VIAL (J0690 PER 500MG) As Ordered ONE (17:31)
[2020-08-16] MEDS ORDERED: FAT EMULSION IV 20% 500 ML IV SCH (18:00)
[2020-08-16] MEDS ORDERED: [UNRECOGNIZED DRUG - OTHER] IV SCH ×8 (18:00)
[2020-08-16] MEDS ORDERED: SODIUM ACETATE IV SCH ×8 (18:00)
[2020-08-16] MEDS ORDERED: SODIUM CHLORIDE IV SCH ×8 (18:00)
--- NOTE | 2020-08-16 18:37 | ROOPDOC ---
[facility] Report Of Operation Report of Operation DATE OF PROCEDURE: 08/16/20 PREPROCEDURE DIAGNOSES: Renal failure requiring access for dialysis POSTPROCEDURE DIAGNOSES: Same. PROCEDURE: 1. Ultrasound-guided access right internal jugular vein 2. Placement of a 23 cm tunneled right IJ PermCath SURGEON: Son Gomez MD ANESTHESIA: Local anesthesia 10 mL lidocaine with epinephrine. Moderate intravenous conscious sedation was supervised by Dr. Gomez. The patient w as independently monitored by registered nurse assigned with the department of radiology using automated blood pressure, EKG, and pulse oximetry. The detailed sedation record is permanently stored in the hospital information system. The following is a brief sedation record: Start time 18:14, stop time 18:28, Versed 0.5 mg IV, no fentanyl was used for this procedure. The patient also received 1 g of Ancef IV because is scheduled IV antibiotics were greater than 2 hours prior to the procedure. INDICATION FOR PROCEDURE: This is a very pleasant 69-year-old gentleman who has been dialyzing with a femoral temporary dialysis catheter and now requires a tunneled catheter for ongoing intermittent dialysis. Risks benefits and alternatives to a jugular PermCath placement were explained to the patient's and she is agreeable to proceed. The patient is currently unable to consent for himself. Informed consent was obtained. INTERPRETATION: The right IJ PermCath is in good position, no kinks in the catheter, with the tip freely mobile at the right atrial SVC junction. There is no pneumothorax. It is okay to use the PermCath for dialysis. REPORT OF OPERATION: The patient was brought to the angiographic suite in stable condition and his right neck and chest were prepped and draped in a sterile fashion. A timeout was performed. Local anesthesia was a miller helper distillery to the right neck and chest. A microneedle was used to access the jugular vein under ultrasound guidance. A wire was passed through this access and the needle was re moved. Small incision was made and a micro-sheath was placed. A Glidewire was advanced through this into the central system under fluoroscopic guidance. 2 serial dilations were then performed over the wire and a peel-away sheath was placed. We then made a small incision on the right chest just distal to the clavicle and a 23 cm PermCath was tunneled from the right chest to the jugular access site. Once the cuff was administered within the subcutaneous tissue, we removed the wire and inner catheter to the sheath and placed the tips of the catheter through the peel-away sheath. The peel-away sheath was removed. Both ports brittany back and flushed easily. They were heparin locked. Appropriate caps were placed. The jugular access site was irrigated and closed with deep and superficial interrupted Monocryl suture and Dermabond was placed at the skin. We then closed the exit site of the chest with interrupted Prolene sutures and 2 additional Prolene sutures were used to Secure the catheter to the chest wall. We place sterile dressings and the patient was then taken back to recovery and then to the ICU in stable condition. He tolerated the procedure and the light sedation well. ESTIMATED BLOOD LOSS: Approximately 2 mL. COMPLICATIONS: None. PLAN: It is okay to resume preprocedure orders per the primary team. Okay to use the catheter for dialysis. If the patient needs long-term dialysis, we recommend a bilateral upper extremity vein mapping and would be happy to see him outpatient to discuss options for fistula creation. We appreciate the opportunity to participate in the care of this patient. SON GOMEZ MD Aug 16, 2020 18:37
[2020-08-16] MEDS ORDERED: ceFAZolin SOD 1 GM in D5W MINI-BAG PLUS 50 ML IV ONE (20:45)
[2020-08-16] MEDS ORDERED: MIDAZOLAM INJ 2MG/2ML VIAL (J2250 PER 1MG) IV ONE (20:45)
--- NOTE | 2020-08-16 22:48 | IPN ---
NEPHROLOGY PROGRESS NOTE DATE: 08/16/2020 SUBJECTIVE: The patient was seen and examined at the bedside today morning in the ICU. He is slowly making some clinical recovery. Today he was on nasal cannula when I saw him in the morning. He was also getting chest physical therapy. The patient is on IV Lasix injections, and he is non oliguric at this time. He still has an NG tube attached to intermittent suctioning. He got a rectal tube placement and he is having diarrhea in the rectal tube. Hemoglobin level has dropped, and he is going to get the RBC transfusion today. Leukocytosis is slowly improving now. OBJECTIVE: VITAL SIGNS: Temperature is 98.2 degrees Fahrenheit, blood pressure 119/67, pulse is 98, respiratory rate of 20, saturating 98% on nasal cannula at 4 liters. Intake and Output urine output recorded yesterday as 445 mL. Urine output so far today since overnight is 1,100 mL. Stool output is 650 mL. Weight on the bed scale is not available. PHYSICAL EXAMINATION: GENERAL APPEARANCE: The patient is awake, slightly drowsy, awaiting nasal cannula, sitting up in the bed. HEAD AND NECK: Pupils are equally round and reactive to light. Mucous membranes are moist. He has an NG tube which is attached to intermittent suctioning. Neck is supple. He has a left IJ triple lumen catheter. Right subclavian catheter has been removed. CARDIOVASCULAR: S1, S2, regular rate. EXTREMITIES: Very trace edema of the bilateral lower extremities. RESPIRATORY: Mildly decreased breath sounds at the bases. Otherwise no active rales or rhonchi. ABDOMEN: Soft, positive bowel sounds, nontender. He has a rectal tube. GENITOURINARY: He has an indwelling Anne catheter. Urine in the bag is light in color. MUSCULOSKELETAL: No clubbing, no cyanosis. Pulses are 2+. Edema of the extremities is getting better. DIE MOUNTER: The patient is awake. He follows commands. Otherwise he is very lethargic. LAB REVIEW: CBC showed a WBC of 11.8, hemoglobin 7.5, platelets of 156. INR is 1.14. BMP showed sodium 139, potassium 4.2, chloride 107, bicarbonate 22, BUN 43, creatinine is 3. Calcium 7.9, phosphorous is 6.3. Random Vancomycin level is 27. CURRENT INPATIENT MEDICATIONS: The patient's medications were all reviewed by myself. He continues to be on IV TPN. Vancomycin dose was decreased to 4.5 grams q. 12 hourly yesterday. Vancomycin level was high so Vancomycin is on hold today. He continues to be on Lasix 80 mg IV q. 8 hourly. ASSESSMENT AND PLAN: 1. Acute renal failure the patient's CVVHDF was stopped yesterday. He was oliguric so he was started on Lasix injections. Currently he is making urine. Electrolytes and acid base status is within the acceptable range. His creatinine remains high. He will get a session of regular hemodialysis at the bedside. Right groin catheter is more than a week old. It will be removed today and the patient will get a tunneled dialysis catheter placement. 2. Protein calorie malnutrition The patient is dependent on TPN. A special formulation TPN was ordered today and without any phosphorous because phosphorous level is high. 3. Anemia secondary to possible slow blood loss through the gut he is going to get one unit of PRBC transfusion today. 4. Persistent leukocytosis and acute pancreatitis - The patient is currently on Zosyn and oral Vancomycin as well and in addition to IV. Leukocytosis is getting better. 5. Diarrhea C-diff toxin done yesterday is negative. Continue oral Vancomycin. Continue TPN, IV fluids.
[2020-08-17] VITALS (25 sets, daily range): BP systolic 114–172; BP diastolic 67–122
[2020-08-17] MEDS: ALBUTEROL SULFATE 2.5 MG/0.5 ML INH NEB SOLN NEB SCH ×6 (00:09→19:23)
[2020-08-17] MEDS: VANCOMYCIN ORAL SOL 250MG/5ML ORAL SYRINGE NG SCH ×5 (00:20→23:35)
[2020-08-17] MEDS: PANTOPRAZOLE SODIUM 40 MG in D5W 50 ML IV SCH ×2 (01:14→05:53)
[2020-08-17] MEDS: FUROSEMIDE 100MG/10ML VIAL (J1940) IV SCH ×3 (02:14→18:26)
[2020-08-17] MEDS: PIPERACILLIN/TAZOBACTAM SOD 4.5 GM in D5W MINI-BAG PLUS 50 ML IV SCH ×2 (02:14→16:02)
[2020-08-17] MEDS: HumaLOG INSULIN (NovoLOG) PER UNIT SC SCH ×6 (02:15→22:07)
[2020-08-17 06:17] LABS: HEMATOCRIT 22.6 % (42.0-52.0); HEMOGLOBIN 7.2 g/dl (13.5-17.5); MEAN CORPUSCULAR HEMOGLOBIN 30.4 pg (27.0-33.0); MEAN CORPUSCULAR HGB CONC 31.9 g/dl (32.0-36.5); MEAN CORPUSCULAR VOLUME 95.4 fl (80.0-96.0); PLATELET COUNT, AUTOMATED 180 10^3/uL (150-450); RED BLOOD COUNT 2.37 10^6/uL (4.30-6.10); WHITE BLOOD COUNT 10.2 10^3/uL (4.0-10.0)
[2020-08-17 06:28] LABS: INR 1.13; PROTHROMBIN TIME 14.8 SECONDS (12.5-14.3)
[2020-08-17 06:40] LABS: ALBUMIN 1.3 GM/DL (3.2-5.2); CALCIUM LEVEL 7.7 MG/DL (8.8-10.2); CREATININE FOR GFR 5.13 MG/DL (0.70-1.30); GLOMERULAR FILTRATION RATE 11.9 (>42); PHOSPHORUS LEVEL 8.2 MG/DL (2.5-4.9); POTASSIUM SERUM 4.3 MEQ/L (3.5-5.1); VANCOMYCIN RANDOM 20.2 UG/ML
[2020-08-17 06:54] LABS: BASOPHILS 2 % (0-1); EOSINOPHILS 5 % (0-3); LYMPHOCYTES 5 % (16-44); METAMYELOCYTES 1 % (0-0); MONOCYTES 6 % (0-5); NEUTROPHILS 79 % (28-66)
[2020-08-17 06:55] LABS: PLATELET ESTIMATE NORMAL (NORMAL)
[2020-08-17 06:56] LABS: ANISOCYTOSIS 1+
[2020-08-17] MEDS ORDERED: SODIUM CHLORIDE 0.9% 1000ML IV PRN (07:45)
[2020-08-17 08:54] LABS: ABG HCO3 19.3 MEQ/L (22.0-26.0); ABG O2 SATURATION 95.7 % (95.0-99.0); ABG PARTIAL PRESSURE CO2 32.1 mmHg (35.0-45.0); ABG PARTIAL PRESSURE O2 81.9 mmHg (75.0-100.0); ABG STANDARD HCO3 20.3 MEQ/L (22.0-26.0); ABG TOTAL CO2 20.2 MEQ/L (23.0-31.0); ABG pH (ARTERIAL) 7.396 UNITS (7.350-7.450)
[2020-08-17] MEDS ORDERED: VANCOMYCIN HCL 1,000 MG, VIAL MATE ADAPTER 1 EACH in D5W 250 ML IV SCH (09:30)
[2020-08-17] MEDS: HEPARIN SOD (PORCINE) 5000UNITS/ML 1ML VIAL/SYRINGE SQ SCH ×2 (10:18→22:07)
[2020-08-17] MEDS: LEVEMIR (INSULIN DETEMIR) 1 UNITS/0.01ML SC SCH (10:19)
[2020-08-17] MEDS: **VANCO AFTER HD** MISC XX SCH (16:00)
[2020-08-17] MEDS ORDERED: SODIUM ACETATE IV SCH ×6 (18:00)
[2020-08-17] MEDS ORDERED: [UNRECOGNIZED DRUG - OTHER] IV SCH ×6 (18:00)
[2020-08-17] MEDS ORDERED: HumaLOG INSULIN (NovoLOG) PER UNIT SC SCH (18:00)
[2020-08-17] MEDS ORDERED: FAT EMULSION IV 20% 500 ML IV SCH (18:00)
[2020-08-17] MEDS ORDERED: SODIUM CHLORIDE IV SCH ×6 (18:00)
--- NOTE | 2020-08-17 21:00 | IPN ---
PROGRESS NOTE DATE: 08/17/2020 SUBJECTIVE: The patient was seen and examined at the bedside today morning in the ICU. He is clinically slightly better today as compared with yesterday. He continues to be dependent on TPN. He still has NG tube attached to suctioning. He is responding to the IV diuretics and making urine now, however his creatinine is still high. His CVVHD was stopped two days ago and today the patient would require a regular bedside hemodialysis. OBJECTIVE: VITAL SIGNS: Temperature is 97.9 degrees Fahrenheit, blood pressure 161/73, pulse is 98, respiratory rate of 25, saturating 97% on nasal cannula at 2 liters. Intake and Output urine output recorded was 1.7 liters yesterday and he had made one liter of urine by the time I saw him in the morning. Weight on the bed scale is 110.1 kg. PHYSICAL EXAMINATION: GENERAL APPEARANCE: The patient is laying in bed, awake, unable to communicate, awaiting nasal cannula. HEAD AND NECK: Eyes are open. Mucous membranes are moist. He has an NT tube attached to suctioning. Neck is supple. He has a left IJ triple lumen catheter and a right IJ tunnel hemodialysis catheter that was placed yesterday. CARDIOVASCULAR: S1, S2, regular rate. EXTREMITIES: Trace to 1+ edema of the bilateral lower extremities. RESPIRATORY: Mildly decreased breath sounds at the bases. Otherwise no active rales or rhonchi. He is currently on nasal cannula only. ABDOMEN: Soft, mildly decreased bowel sounds, mild tenderness to deep palpation in the epigastrium. GENITOURINARY: He has an indwelling Anne catheter. MUSCULOSKELETAL: He has trace to 1+ edema of the bilateral lower extremities and 1+ edema of the bilateral upper extremities. RETAIL BANKER: The patient is awake. He follows commands but unable to communicate at this time. LAB REVIEW: CBC showed a WBC of 10.2, hemoglobin of 7.2, platelets of 180. INR is 1.3. ABG done today morning showed pH of 7.39, pco2 of 32, pO2 of 81, bicarbonate is 19, O2 sat is 95%. BMP done today morning showed sodium 136, potassium 4.3, chloride 105, bicarbonate 21, BUN 71, creatinine is 5.1. Calcium 7.7, phosphorous of 8.2, albumin 1.3, lipase is 606. IMAGING: No new chest x-rays available today. CURRENT INPATIENT MEDICATIONS: The patient's medications were all reviewed by myself. He continues to be on IV TPN. Protonix drip has been stopped. He continues to be on IV Vancomycin. His Lasix dose is 80 mg IV q. 8 hourly. He has been started on insulin Levemir 10 units subcutaneously daily, and he continues to be on oral Vancomycin as well. ASSESSMENT AND PLAN: 1. Acute renal failure - The patient is non oliguric now since he has been given Lasix. Continue current dose of Lasix 80 mg IV q. 8 hourly. He will be dialyzed at the bedside today. Ultrafiltration goal will be around one liter because he is responding well to the diuretics. 2. Protein calorie malnutrition and acute pancreatitis - The patient is currently on TPN. His NG tube is still attached to suctioning. Special formulation TPN was ordered today. 3. Anemia - The patient's hemoglobin dropped again today to 7.2. He will get another unit of PRBC transfusion with dialysis. 4. Insulin dependent diabetes mellitus - The patient has been started on Levemir. I have increased the amount of insulin in the TPN formulation as well. 5. Acute pancreatitis and persistent leukocytosis - The patient continues to be on oral and IV Vancomycin. He also continues to be on IV Zosyn. Duration of antibiotic is as per Pulmonary Critical Care Team.
--- NOTE | 2020-08-17 21:40 | IPNPDOC ---
Text Note Date of Service The patient was seen on 08/17/20. NOTE Subjective: Patient was downgraded today from the critical care team to the hospitalist team. I know Mr Juan as I had admitted him to the ICU on Aug 04 with DKA and subsequently pancreatitis that same night. Unfortunately his hospital stay had been complicated since that time. I saw and examined the patient this morning, he was awake is able to appropriately answer basic questions, albeit understandably slowly. I am endorsed that his clinical condition has been slowly improving. His anasarca has improved. He is now off of continuous dialysis and has gotten a right sided PermCath and will receive his first HD session today. He's been making more urine. He no longer has any abdominal pain but is on an TPA with insulin. Regarding his diabetes he's been taken off of the insulin drip is started on long acting insulin. He denies being in any pain. Nurse reports no acute overnight events. Objective: General: Patient is awake making good eye contact and not distressed. ENT: NG tube intermittent suction. Sclera clear Chest: Regular heart rate no murmur Lungs: some rhonchi b/l, Speaking in slow broken up word but coherent. On 2L o2 NC saturating 96%. No respiratory distress. No use of accessory muscles. Abdomen: Abdomen is nontender, bowel sounds present, soft and doesn't appear distended. Obese. MSK: 2+ lower extremity edema Neuro: no focal deficits Skin: large ecchymosis left arm from IV site. Boarder marked with skin pen. Lines: Left IF. Right chest permacath, rectal tube, foote catheter. Right femoral line had been removed, site clear, no hematoma, bandage in place. Assessment/Plan # Pancreatitis: NPO, NG to low-intermittent suction. On TPN. IV Vancomycin and zosyn. Pain control. # Acute renal failure: R permacath. Nephrology on board. Received first HD post continuous dialysis on 08/17. Urine output improved. On lasix 80q8. # DKA: now off of insulin drip. Transitioned to subq insulin, TPN with insulin, ISS q4h accurchecks. Hypoglycemic precautions. # Anemia: blood PRN hgb<7. Had episode of bloody stool. Received 3uPRBC total. FOBT+. Heparin drip now stopped. # Diarrhea: Rectal tube. GI panel. C diff panel negative however patient high risk and was placed on PO vancomycin # Protein calorie malnutrition: TPN # FAST HUG VS,Fishbone, I+O VS, Fishbone, I+O Laboratory Tests 08/17/20 05:45 Vital Signs Date Time Temp Pulse Resp B/P (MAP) Pulse Ox O2 Delivery O2 Flow Rate FiO2 08/17/20 18:30 97.5 94 25 157/80 Nasal Cannula 2.0 98 08/17/20 16:00 97 I&O- Last 24 Hours up to 6 AM 08/17/20 06:00 Intake Total 3600 ml Output Total 2845 ml Balance 755 ml LLOYD GODOY MD Aug 17, 2020 21:40
[2020-08-17] MEDS: PANTOPRAZOLE 40MG VIAL (C9113 PER 1) IV SCH (22:06)
[2020-08-18] VITALS (18 sets, daily range): BP systolic 131–169; BP diastolic 62–77
[2020-08-18] MEDS: ALBUTEROL SULFATE 2.5 MG/0.5 ML INH NEB SOLN NEB SCH ×7 (00:09→23:03)
[2020-08-18] MEDS: FUROSEMIDE 100MG/10ML VIAL (J1940) IV SCH ×3 (02:08→18:19)
[2020-08-18] MEDS: PIPERACILLIN/TAZOBACTAM SOD 4.5 GM in D5W MINI-BAG PLUS 50 ML IV SCH ×2 (02:08→14:35)
[2020-08-18] MEDS: HumaLOG INSULIN (NovoLOG) PER UNIT SC SCH ×6 (02:08→21:44)
[2020-08-18] MEDS: VANCOMYCIN ORAL SOL 250MG/5ML ORAL SYRINGE NG SCH ×4 (05:32→23:49)
[2020-08-18 05:50] LABS: BASO % 0.4 % (0.0-1.0); EOS # 0.2 10^3/uL (0.0-0.5); EOS % 1.7 % (0.0-3.0); HEMATOCRIT 24.2 % (42.0-52.0); LYMPH # 0.9 10^3/uL (1.5-5.0); MEAN CORPUSCULAR HEMOGLOBIN 30.7 pg (27.0-33.0); MEAN CORPUSCULAR HGB CONC 33.1 g/dl (32.0-36.5); MEAN CORPUSCULAR VOLUME 92.7 fl (80.0-96.0); MONO # 1.1 10^3/uL (0.0-0.8); MONO % 12.8 % (0.0-5.0); NEUTROPHILS # 6.5 10^3/uL (1.5-8.5); NEUTROPHILS % 72.6 % (36.0-66.0); PLATELET COUNT, AUTOMATED 181 10^3/uL (150-450); RED BLOOD COUNT 2.61 10^6/uL (4.30-6.10); WHITE BLOOD COUNT 8.9 10^3/uL (4.0-10.0)
[2020-08-18 06:01] LABS: INR 1.17; PROTHROMBIN TIME 15.2 SECONDS (12.5-14.3)
[2020-08-18 06:12] LABS: CALCIUM LEVEL 7.7 MG/DL (8.8-10.2); CREATININE FOR GFR 4.07 MG/DL (0.70-1.30); GLOMERULAR FILTRATION RATE 15.5 (>42); POTASSIUM SERUM 3.8 MEQ/L (3.5-5.1); VANCOMYCIN RANDOM 25.7 UG/ML
[2020-08-18] MEDS: PANTOPRAZOLE 40MG VIAL (C9113 PER 1) IV SCH ×2 (09:16→21:43)
[2020-08-18] MEDS: LEVEMIR (INSULIN DETEMIR) 1 UNITS/0.01ML SC SCH (09:16)
[2020-08-18] MEDS: HEPARIN SOD (PORCINE) 5000UNITS/ML 1ML VIAL/SYRINGE SQ SCH ×2 (09:17→21:44)
--- NOTE | 2020-08-18 10:58 | IPNPDOC ---
Text Note Date of Service The patient was seen on 08/18/20. NOTE Subjective: Patient was seen and examined this morning at bedside in the ICU. He appears about the same as yesterday. He is able to make good eye contact and respond Megace questions appropriately. Stool output through rectal tube no bloody appearance. Nurse reports no overnight events to me. On TPA. Objective: General: Patient is awake making good eye contact and not distressed. ENT: NG tube intermittent suction. Sclera clear Chest: Regular heart rate no murmur Lungs: some rhonchi b/l, Speaking in slow broken up word but coherent. On 2L o2 NC saturating 96%. No respiratory distress. No use of accessory muscles. Abdomen: Abdomen is nontender, bowel sounds present, soft and doesn't appear distended. Obese. MSK: 2+ lower extremity edema Neuro: no focal deficits Skin: large ecchymosis left arm from IV site. Boarder marked with skin pen. Lines: Left IF. Right chest permacath, rectal tube, foote catheter. Right femoral line had been removed, site clear, no hematoma, bandage in place. Assessment/Plan # Pancreatitis: NPO, NG to low-intermittent suction. On TPN. IV Vancomycin and zosyn. Pain control. # Acute renal failure: R permacath. Nephrology on board. Received first HD post continuous dialysis on 08/17. Urine output improved. On lasix 80q8. # DKA: now off of insulin drip. Transitioned to subq insulin, TPN with insulin, ISS q4h accurchecks. Hypoglycemic precautions. # Anemia: blood PRN hgb<7. Had episode of bloody stool. Received 3uPRBC total. F OBT+. Heparin drip now stopped. # Diarrhea: Rectal tube. GI panel. C diff panel negative however patient high risk and was placed on PO vancomycin # Protein calorie malnutrition: TPN # FAST HUG VS,Fishbone, I+O VS, Fishbone, I+O Laboratory Tests 08/18/20 05:37 Vital Signs Date Time Temp Pulse Resp B/P (MAP) Pulse Ox O2 Delivery O2 Flow Rate FiO2 08/18/20 04:00 2.0 08/18/20 04:00 99.4 103 24 152/67 (95) 97 Nasal Cannula 08/17/20 18:30 98 I&O- Last 24 Hours up to 6 AM 08/18/20 06:00 Intake Total 3080 ml Output Total 3485 ml Balance -405 ml LLOYD GODOY MD Aug 18, 2020 10:58
--- NOTE | 2020-08-18 11:06 | CCN ---
CRITICAL CARE NOTE DATE: 08/18/2020 SUBJECTIVE: The patient was seen and examined this morning during bedside rounds. The patient had a session of hemodialysis yesterday, which he tolerated well. This morning, he appears to be more awake and alert, as well as slightly more conversant. He appeared to have pulled out his NG tube this morning, as he does appear to have some increased strength particularly in his upper extremities. He denies any complaints currently. No abdominal pain. No chest pain or shortness of breath. He does have some coughing still and it is occasionally productive of mucous. His cough does appear stronger as well. He has not had any fevers or chills overnight. OBJECTIVE: VITAL SIGNS: Temperature 99.4, pulse 103, respirations 24, blood pressure 152/67, O2% on 2 liters nasal cannula. INTAKE/OUTPUT: In 3.1 liters, out 2.4 liters. GENERAL: The patient is awake, alert, oriented to person and place. He does follow commands appropriately and is answering questions appropriately, although with short words and phrases. HEENT: Normocephalic, atraumatic. Pupils are reactive to light bilaterally. He has moist mucous membranes. There is poor dentition. His NG tube has been removed. CARDIOVASCULAR: Regular rate and rhythm. Normal S1, S2. Mildly tachycardic. There is no appreciable murmur. There is a left IJ triple lumen in place. He has a right subclavian hemodialysis catheter. PULMONARY: Diminished breath sounds at the bases more on the right than the left. There are no wheezing, rales, or rhonchi noted. ABDOMEN: Soft and appears improved in distention. There are normoactive bowel sounds. He denies any tenderness to palpation this morning. EXTREMITIES: Improvement in the lower extremity edema. He has very trace edema in the lower extremities now and some swelling in his arms still. There is also an area of ecchymosis on his left arm, which is unchanged from yesterday. LABORATORY DATA: WBC 8.9, hemoglobin 8.0, p0lt 181,000. Chemistries: Sodium is 139, potassium is 3.8, chloride is 104, bicarb is 24, BUN 52, creatinine is 4.07, glucose 327. INR is 1.17. ASSESSMENT AND PLAN: Mr. Martinez is a 69-year-old male with a past medical history of diabetes, hypertension, and previous pancreatitis who presented initially with altered mental status and diabetic ketoacidosis (DKA), as well as severe pancreatitis. The patient had acute respiratory failure and required intubation and mechanical ventilation. He also had worsening renal failure and metabolic acidosis and required hemodialysis initially with continuous renal replacement therapy (CRRT) given septic shock. The patient's blood pressure improved and he was weaned off of pressors. His respiratory status and mental status also improved and he was able to be extubated last week initially to BiPAP due to work of breathing. He has since been weaned off of BiPAP and doing well on just nasal cannula oxygen supplementation. 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 His strength and mental status; however, appear to be improving and he is answering questions and following commands appropriately. He does have a previous history of alcohol abuse and was on thiamine and folic acid. He is getting total parenteral nutrition (TPN) currently, as well as additional thiamine and folic acid. - Will continue with PT/OT and will attempt to sit the patient up to the edge of the bed today as he is stronger, particularly in his upper extremities. He is able to move all extremities, although his lower extremities do appear weaker. Cardiovascular: The patient initially had septic shock and was on pressors. His septic shock resolved, however, and he has been off of pressors. The patient currently has a left internal jugular (IJ) triple lumen in place for access, particularly while receiving total parenteral nutrition (TPN). His previous subclavian triple lumen has been removed, as well as his temporary femoral hemodialysis catheter. He has a Permacath now in the right subclavian for hemodialysis access. He is planned for a peripherally inserted central catheter (PICC) line on Wednesday and then with removal of his left internal jugular (IJ) triple lumen. Pulmonary: The patient was initially extubated to BiPAP given increased work of breathing. He has been doing well, however, in the past two days on just nasal cannula oxygen supplementation. He does continue to have some cough, although his cough strength is improving and he does appear to be able to expectorate mucous secretions more easily. - Will continue with nebulized bronchodilators and chest physical therapy (PT) to help with mucous clearance. - The patient is at high risk for aspiration and will continue with head of bed elevation, as well as aspiration precautions. - Will continue to wean down his nasal cannula oxygen supplementation as tolerated. Will attempt to get the patient sitting at the edge of the bed, as this will help with his respiratory status as he likely does have a significant component of atelectasis as well. Gastrointestinal (GI)/infectious disease (ID): The patient initially presented with severe pancreatitis and septic shock. There was also concern for pneumonia on his imaging as well. He has been on broad-spectrum antibiotics, which were adjusted after a CT on 08/12 had shown evidence of pancreatic necrosis, but no appreciable pancreatic abscess amenable for any drainage intervention. He was also started on p.o. vancomycin initially for concern of Clostridium difficile, although the C. difficile PCR was negative it was continued for prophylaxis given his long course of broad-spectrum antibiotics. - Patient's leukocytosis has been improving. He is on Zosyn, as well as intravenous (IV) vancomycin for an intraabdominal infection, as well as for possible pneumonia. His procalcitonin was still elevated, but will repeat procalcitonin tomorrow and continue to deescalate antibiotics depending on his trend. - Will continue with p.o. vancomycin for prophylaxis for C. difficile. - Patient also had a nasogastric (NG) tube placed for concern of some ileus. His NG tube was on low wall intermittent suction with minimal output and he was having bowel movements. The patient had self-discontinued his NG tube this morning and with bedside swallow evaluation, he appeared to do well with the nursing evaluation. We will, therefore, hold off on replacing the NG tube, and we will plan for a more formal speech and swallow evaluation tomorrow. - Patient also with history of lower gastrointestinal (GI) bleed in the setting of anticoagulation. His anticoagulation was discontinued as it was only for his continuous renal replacement therapy (CRRT) and his bloody bowel movements per rectum have improved. He did receive a transfusion yesterday of packed red blood cells (PRBC) and we will continue to monitor his hemoglobin and transfuse as needed. - Patient's lipase yesterday was slightly elevated. We will repeat lipase today. He does not appear to have any abdominal pain today or tenderness with palpation. We will continue to monitor clinically and if needed, consider repeat imaging for evaluation to see if there is any development of a pancreatic abscess that may need potential intervention. Renal/endocrine: Patient with acute renal failure and initially required hemodialysis with continuous renal replacement therapy (CRRT). Given his improvement in blood pressure, the patient was able to have regular hemodialysis yesterday. He does have good urine output with Lasix; however, he did continue to require dialysis given increased BUN and creatinine. - Appreciate renal consult and recommendations. Will continue with hemodialysis as per renal, as well as with Lasix as per nephrology. - Patient is on total parenteral nutrition (TPN) currently for nutritional support. He does have hyperglycemia and he was started on Levemir and his insulin and the TPN were adjusted. His fingerstick glucose appear improved and we will continue with sliding scale coverage every four hours, as well as with the Levemir and adjust accordingly. - If the patient is able to pass a formal speech and swallow evaluation would be able to transition from TPN to oral diet. DVT prophylaxis: Heparin b.i.d. Code status: DO NOT RESUSCITATE (DNR) with trial intubation. Total critical care time spent not including any procedures: Approximately 45 minutes. TAVOD
[2020-08-18 11:26] LABS: MAGNESIUM LEVEL 2.2 MG/DL (1.8-2.4); PHOSPHORUS LEVEL 5.2 MG/DL (2.5-4.9)
[2020-08-18] MEDS ORDERED: SODIUM CHLORIDE IV SCH ×7 (18:00)
[2020-08-18] MEDS ORDERED: SODIUM ACETATE IV SCH ×7 (18:00)
[2020-08-18] MEDS ORDERED: [UNRECOGNIZED DRUG - OTHER] IV SCH ×7 (18:00)
[2020-08-18] MEDS ORDERED: FAT EMULSION IV 20% 500 ML IV SCH (18:00)
--- NOTE | 2020-08-18 20:48 | IPN ---
NEPHROLOGY PROGRESS NOTE DATE: 08/18/2020 SUBJECTIVE: The patient was seen and examined at the bedside today morning in the ICU. The patient is afebrile, hemodynamically stable, not requiring pressors. His NG tube was removed. He is still on TPN. He is currently on nasal cannula when I saw him in the morning. He is responding to IV diuretics and making more than 2 liters of urine a day. He was also dialyzed yesterday at the bedside and one liter of fluid was removed. He tolerated the hemodialysis procedure well. OBJECTIVE: VITAL SIGNS: Temperature is 98.2 degrees Fahrenheit, blood pressure is 138.71, pulse is 102, respiratory rate of 18, saturating 96% on nasal cannula at 2 liters. Intake and Output Urine output recorded as 2.3 liters yesterday. One liter so far today since overnight. Ultrafiltration with hemodialysis was one liter yesterday. Weight on the bed scale is not available. PHYSICAL EXAMINATION: GENERAL APPEARANCE: The patient is awake, nonverbal, follows few commands, eyes are open, wearing nasal cannula. HEAD AND NECK: The patient has bitemporal wasting. Mucous membranes are moist. Neck is supple. There is no jugular venous distention. Left sided triple lumen catheter and right IJ tunneled hemodialysis catheter was noted. CARDIOVASCULAR: S1, S2, regular rate. EXTREMITIES: Trace edema of the bilateral lower extremities. 1+ edema of the bilateral lower extremities. RESPIRATORY: Chest is clear to auscultation bilaterally. He is just awaiting nasal cannula and oxygenating well. ABDOMEN: Soft, mild tenderness and grimaces on deep palpation in the epigastrium. No organomegaly was noted. GENITOURINARY: He has an indwelling Anne catheter. Light yellow colored urine is seen in the bag. There is no hematuria noted. MUSCULOSKELETAL: No clubbing, no cyanosis. LIVE OUT NANNY: The patient is awake, follows commands. Otherwise he is unable to communicate. LAB REVIEW: CBC showed a WBC of 8.9, hemoglobin is 8, platelets are 181. INR is 1.17. BMP showed sodium of 138, potassium 3.8, chloride 104, bicarbonate 24, BUN 52, creatinine is 4. Sugar is 323, calcium is 7.7, phosphorous 5.2, magnesium is 2.2. CURRENT INPATIENT MEDICATIONS: The patient's medications were all reviewed by myself. No significant change in the medications today. He continues to be on IV TPN, IV Vancomycin and IV Zosyn. ASSESSMENT AND PLAN: 1. Acute renal failure - The patient is non oliguric now. Continue current dose of IV Lasix for optimization of volume status, since the patient is getting daily fluids. He was dialyzed yesterday. He is evaluated on a daily basis for need of hemodialysis. 2. N.p.o. status and protein calorie malnutrition - This patient is getting TPN. Special formulation TPN was ordered today. He continued to receive insulin in the TPN as well because of hyperglycemia. 3. Anemia - The patient got one unit of PRBC transfusion with hemodialysis yesterday. 4. Insulin dependent diabetes he is on Levemir and insulin sliding scale. He is also receiving insulin in the TPN fluid. 5. Leukocytosis and acute pancreatitis - The patient continues to be empirically on IV Vancomycin, oral Vancomycin and IV Zosyn. Leukocytosis is slowly improving. His NG tube was removed, but he has not started the feeds yet.
[2020-08-19] VITALS (13 sets, daily range): BP systolic 127–172; BP diastolic 60–90
[2020-08-19] MEDS: PIPERACILLIN/TAZOBACTAM SOD 4.5 GM in D5W MINI-BAG PLUS 50 ML IV SCH ×2 (02:33→14:13)
[2020-08-19] MEDS: HumaLOG INSULIN (NovoLOG) PER UNIT SC SCH ×6 (02:34→21:22)
[2020-08-19] MEDS: FUROSEMIDE 100MG/10ML VIAL (J1940) IV SCH ×3 (02:34→18:26)
[2020-08-19] MEDS: ALBUTEROL SULFATE 2.5 MG/0.5 ML INH NEB SOLN NEB SCH ×6 (04:03→23:12)
[2020-08-19] MEDS: VANCOMYCIN ORAL SOL 250MG/5ML ORAL SYRINGE NG SCH ×4 (05:46→23:49)
[2020-08-19 06:02] LABS: BASO % 0.5 % (0.0-1.0); EOS # 0.1 10^3/uL (0.0-0.5); EOS % 1.5 % (0.0-3.0); HEMATOCRIT 24.3 % (42.0-52.0); HEMOGLOBIN 7.8 g/dl (13.5-17.5); LYMPH # 0.8 10^3/uL (1.5-5.0); LYMPH % 10.3 % (24.0-44.0); MEAN CORPUSCULAR HEMOGLOBIN 30.1 pg (27.0-33.0); MEAN CORPUSCULAR HGB CONC 32.1 g/dl (32.0-36.5); MEAN CORPUSCULAR VOLUME 93.8 fl (80.0-96.0); MONO # 0.9 10^3/uL (0.0-0.8); MONO % 10.8 % (0.0-5.0); NEUTROPHILS # 6.1 10^3/uL (1.5-8.5); NEUTROPHILS % 75.1 % (36.0-66.0); PLATELET COUNT, AUTOMATED 209 10^3/uL (150-450); RED BLOOD COUNT 2.59 10^6/uL (4.30-6.10); WHITE BLOOD COUNT 8.1 10^3/uL (4.0-10.0)
[2020-08-19 06:14] LABS: INR 1.15
[2020-08-19 06:27] LABS: CALCIUM LEVEL 7.9 MG/DL (8.8-10.2); CREATININE FOR GFR 5.66 MG/DL (0.70-1.30); GLOMERULAR FILTRATION RATE 10.6 (>42); POTASSIUM SERUM 3.2 MEQ/L (3.5-5.1)
--- NOTE | 2020-08-19 07:37 | IPNPDOC ---
Text Note Date of Service The patient was seen on 08/19/20. NOTE Subjective: Patient was seen and examined this morning at bedside in the ICU. He appears a little improved vs yesterday, perhaps strength is a little better. He did remember me today and remember our conversation yesterday. He is able to make good eye contact and respond to questions appropriately. Stool output through rectal tube no bloody appearance. Nurse reports no overnight events to me. On TPA. Objective: General: Patient is awake making good eye contact and not distressed. ENT: NG tube intermittent suction. Sclera clear Chest: Regular heart rate no murmur Lungs: some rhonchi b/l, Speaking in slow broken up word but coherent. saturating 95% on room air. No respiratory distress. No use of accessory muscles. Abdomen: Abdomen is nontender, bowel sounds present, soft and doesn't appear distended. Obese. MSK: 2+ lower extremity edema Neuro: no focal deficits Skin: large ecchymosis left arm from IV site. Boarder marked with skin pen, better today. Lines: Left IF. Right chest permacath, rectal tube, foote catheter. Right femoral line had been removed, site clear, no hematoma, bandage in place. Assessment/Plan # Pancreatitis: NPO, NG to low-intermittent suction. On TPN. IV Vancomycin and zosyn. Pain control. No active abdominal pain on exam. # Acute renal failure: R permacath. Nephrology on board. Received first HD post continuous dialysis on 08/17. Urine output improved. On lasix 80q8. # DKA: now off of insulin drip. Transitioned to subq insulin, TPN with insulin, ISS q4h accurchecks. Hypoglycemic precautions. # Anemia: blood PRN hgb<7. Had episode of bloody stool. Received 3uPRBC total. FOBT+. Heparin drip now stopped. # Diarrhea: Rectal tube. GI panel cannot be ordered after 72hrs. C diff negative however patient high risk and was placed on PO vancomycin. On Vanc and Zosyn IV. # Hypokalemia: replace. monitor. # Protein calorie malnutrition: TPN # FAST HUG VS,Fishbone, I+O VS, Fishbone, I+O Laboratory Tests 08/19/20 05:49 Vital Signs Date Time Temp Pulse Resp B/P (MAP) Pulse Ox O2 Delivery O2 Flow Rate FiO2 08/19/20 06:11 95 144/66 (92) 96 Room Air 08/19/20 04:21 99.2 24 08/18/20 15:00 2.0 08/17/20 18:30 98 I&O- Last 24 Hours up to 6 AM 08/19/20 06:00 Intake Total 2590 ml Output Total 3100 ml Balance -510 ml LLOYD GODOY MD Aug 19, 2020 07:37
[2020-08-19] MEDS ORDERED: KCL 10MEQ/100ML SWI (KRUN) 10 MEQ in IV 1 EA IV SCH (08:00)
[2020-08-19] MEDS: PANTOPRAZOLE 40MG VIAL (C9113 PER 1) IV SCH ×2 (08:53→20:56)
[2020-08-19] MEDS: KCL 20MEQ IN 100ML SWI (KRUN) 20 MEQ in IV 1 EA IV SCH ×6 (08:53→11:08)
[2020-08-19] MEDS: HEPARIN SOD (PORCINE) 5000UNITS/ML 1ML VIAL/SYRINGE SQ SCH (08:53)
[2020-08-19] MEDS: LEVEMIR (INSULIN DETEMIR) 1 UNITS/0.01ML SC SCH (08:54)
[2020-08-19] MEDS ORDERED: LIDOCAINE 1% MDV 20ML VIAL As Ordered ONE (09:35)
[2020-08-19 11:08] LABS: HEPATITIS B CORE ANTIBODY IGM NEGATIVE (NEGATIVE); HEPATITIS B SURFACE ANTIBODY NEGATIVE (POSITIVE); HEPATITIS B SURFACE ANTIGEN NEGATIVE (NEGATIVE); HEPATITIS C VIRUS ABY INDEX 0.2 INDEX (<0.8)
--- NOTE | 2020-08-19 11:16 | CCN ---
CRITICAL CARE NOTE DATE: 08/19/2020 SUBJECTIVE: Mr. Martinez was seen and examined this morning. He is currently on room air. There have been no adverse events reported overnight. This morning, the patient does talk. He continues to follow commands. He has improved strength. He denies any abdominal pain. The patient does have what appears to be some bloody stool. Otherwise, he has no new complaints. OBJECTIVE: VITAL SIGNS: Temperature 99.2, pulse 100, respiratory rate 24, blood pressure 151/79, pulse oximetry 96% on room air. GENERAL: The patient is awake, alert, and oriented. He does not appear in any acute distress. He is lying in bed. He does appear weak. HEENT: Atraumatic, normocephalic. His eyes are nonicteric. His trachea is midline. He does not follow with eye tracking; however, he does move his eyes spontaneously. He has a left internal jugular triple lumen catheter in place. He has a right-sided Permacath in place. He has poor dentition. CARDIOVASCULAR: There is a normal S1, S2. Regular rate and rhythm. No clicks, rubs, or murmurs auscultated. PULMONARY: He has decreased breath sounds more so in the bases and some scattered wheezing. No crackles. No rhonchi. ABDOMEN: The patient's abdomen is soft, nondistended, and nontender. No rebound tenderness or guarding. Normoactive bowel sounds. EXTREMITIES: The patient has some trace bilateral pitting edema in the bilateral lower extremities. He has some continued edema in the upper extremities. There is a large area of bruising on the left forearm. NEUROLOGIC: There are no new focal neurological deficits. The patient appears to answer questions appropriately and follow commands appropriately. He is a little delayed in his responses. PSYCHIATRIC: Mood and affect appear appropriate. LABORATORY DATA: Hematology: White blood cell 8.1, hemoglobin 7.8, hematocrit 24.3, platelets 209,000. Chemistries: Sodium 138, potassium 3.2, chloride 104, CO2 of 24, BUN 69, creatinine 5.66, fasting glucose 33, calcium 7.9, procalcitonin 2.01. ASSESSMENT AND PLAN: Mr. Martinez is a 69-year-old male who was originally admitted to [facility] with diabetic ketoacidosis that subsequently developed in altered mental status and found to have pancreatitis. The patient developed severe pancreatitis and worsening mental status and was subsequently intubated due to critical illness. He was placed on pressors and empiric antibiotics. The patient developed renal failure and was placed on continuous renal replacement therapy (CRRT). Since that time, the patient has shown improvement. He is currently extubated on room air. He is requiring hemodialysis intermittently. He has had resolution of his pancreatitis; however, he does currently have a gastrointestinal (GI) bleed with hemoglobin trending down. 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 His mental status overall is improving. He still is a little slow to answer and follow commands; however, he does answer and follow commands appropriately. He is continued on total parenteral nutrition (TPN) with folic acid and thiamine. Plan is to continue to work with physical therapy and occupational therapy. Plan to have patient out of bed to chair today. Cardiac: The patient has remained off pressors and blood pressure has been stable. Heart rate has been under control. He had a right sided Permacath placed over the weekend. Additionally, the patient still has a left internal jugular triple lumen catheter in place. The plan is to have a peripherally inserted central catheter (PICC) line placed today for prolonged intravenous (IV) therapy and have his left internal jugular (IJ) triple lumen removed today. Pulmonary: The patient continues to have improvement currently on room air. Cough remains strong. Will continue nebulized bronchodilators with chest physical therapy (PT). He does remain aspiration risk; therefore, aspiration precautions. Patient is to receive a formal speech and swallow evaluation today with recommended diet. Gastrointestinal (GI): The patient initial presentation was for severe pancreatitis, which led to septic shock. His lipase was elevated over the weekend. He currently denies any abdominal pain. He remains n.p.o. due to aspiration risk and currently continued on total parenteral nutrition (TPN). He is planned to have a speech and swallow evaluation today with recommendations for diet. He does remain on Clostridium difficile prophylaxis due to intravenous (IV) antibiotic therapy. We will continue to try discontinue antibiotics. - Patient does have a lower gastrointestinal (GI) bleed that originated on his presentation. He is currently status post three units during this hospitalization. Hemoglobin this morning 7.8. Will continue to trend and transfuse p.r.n. Renal/Endocrine: The patient had developed renal failure with metabolic acidosis originally on presentation. He was placed on continuous renal replacement therapy (CRRT) and he has since been changed over to intermittent hemodialysis. He has a right-sided Permacath placed. Nephrology is currently following. Patient continues to have good urine output. He is currently on Lasix. We will follow recommendations per nephrology. Nutrition: Currently the patient is continued on total parenteral nutrition (TPN) with added folic acid, multivitamin, and thiamine. The plan is for speech and swallow evaluation today for dietary recommendations. Deep vein thrombosis (DVT) prophylaxis: The patient is currently on heparin b.i.d. Code status: The patient remains DO NOT RESUSCITATE (DNR) WITH TRIAL INTUBATION. Disposition: The patient is showing clinical improvement. Plan to transition to hospital service with downgrade to progressive care unit (PCU) status within 24 to 48 hours. Total critical care time spent not including any procedures approx 45 mins IAna Cristina, conducted independent examination of the patient and agree with the above plan as detailed by the resident and discussed during rounds. CARMENCITA
[2020-08-19] MEDS: **VANCO AFTER HD** MISC XX SCH (16:00)
--- NOTE | 2020-08-19 17:54 | REP ---
PROCEDURE NAME: PICC LINE INSERTION W/SITERITE CLINICAL INFORMATION: Need for prolonged IV access. COMPARISON: None. PROCEDURE DESCRIPTION: The procedure was performed by VICK Malone, under the direct supervision of Dr. Nguyen. The risks and benefits of the procedure were explained to the patient's who is also his healthcare proxy and an informed consent was obtained verbally via the phone. Directly prior to the start of the procedure a formal time-out was completed in the patient's ICU room as this procedure was done at the bedside. The left medial brachial vein was localized using ultrasound guidance. The skin was prepped and draped in sterile fashion. Three mL of 1% lidocaine 10 mg/mL was used as a local anesthetic. Using ultrasound guidance the left medial brachial vein was cannulated, and a 0.018 guidewire was inserted and advanced to the level of SVC using portable x-ray guidance. The needle was removed and a 5.5 Peruvian dilator and peel-away sheath was inserted over the guidewire. A 5.5 Peruvian dual lumen catheter was cut to a length of 40 cm. The dilator was removed and the catheter was inserted over the guidewire with the tip ending at the level of the SVC. The peel-away sheath was removed and the catheter was flushed with heparinized saline as per hospital protocol. The catheter was affixed to the skin and a sterile dressing was applied. The patient tolerated the procedure well and there were no immediate complications. CONCLUSION: PICC line insertion into the left medial brachial vein. No fluoroscopy time was utilized for this procedure. Wire and PICC placement was documented with serial portable chest x-rays. <Electronically signed by Felicia Scott > 08/19/20 [id number] <Electronically signed by Gio Nguyen > 08/19/20 [id number]
[2020-08-19] MEDS ORDERED: FAT EMULSION IV 20% 500 ML IV SCH (18:00)
[2020-08-19] MEDS ORDERED: [UNRECOGNIZED DRUG - OTHER] IV SCH ×8 (18:00)
[2020-08-19] MEDS ORDERED: POTASSIUM CHLORIDE IV SCH ×8 (18:00)
[2020-08-19] MEDS ORDERED: SODIUM CHLORIDE IV SCH ×8 (18:00)
[2020-08-19] MEDS ORDERED: SODIUM CHLORIDE 0.9% INJ 10 ML SYR IV PRN (18:15)
--- NOTE | 2020-08-19 19:02 | REPVR ---
PROCEDURE INFORMATION: Exam: US Left Joint or Other Non-Vascular Extremity Structure, Limited Hip Exam date and time: 08/19/2020 6:49 PM Age: 69 years old Clinical indication: Swelling; Hip; Left; Additional info: Evaluate for possible left hip swelling/hematoma TECHNIQUE: Imaging protocol: US Left Joint or Other Non-Vascular Extremity Structure. Real-time US with image documentation. Limited exam. Exam focused on the hip joint. COMPARISON: No relevant prior studies available. FINDINGS: Soft tissues: No sonographic abnormality is seen in the around the left hip. No soft tissue fluid collection is seen. IMPRESSION: No sonographic abnormality seen around the left hip. Electronically signed by: Jose Mccurdy On 08/19/2020 19:02:31 PM
[2020-08-19] MEDS ORDERED: DARBEPOETIN 100 MCG/0.5 ML *DIALYSIS* SYRINGE (J0882) IV SCH (22:15)
[2020-08-20] VITALS (9 sets, daily range): BP systolic 114–164; BP diastolic 59–75
[2020-08-20] MEDS: HumaLOG INSULIN (NovoLOG) PER UNIT SC SCH ×6 (02:39→21:37)
[2020-08-20] MEDS: PIPERACILLIN/TAZOBACTAM SOD 4.5 GM in D5W MINI-BAG PLUS 50 ML IV SCH ×2 (02:40→15:23)
[2020-08-20] MEDS: FUROSEMIDE 100MG/10ML VIAL (J1940) IV SCH (02:40)
[2020-08-20] MEDS ORDERED: ALTEPLASE 2MG/2ML VIAL IV PRN (03:45)
[2020-08-20] MEDS: ALBUTEROL SULFATE 2.5 MG/0.5 ML INH NEB SOLN NEB SCH ×5 (04:10→19:46)
[2020-08-20] MEDS: ALTEPLASE 2MG/2ML VIAL IV PRN (05:04)
[2020-08-20] MEDS: SODIUM CHLORIDE 0.9% INJ 10 ML SYR IV SCH ×2 (05:06→17:47)
[2020-08-20] MEDS: VANCOMYCIN ORAL SOL 250MG/5ML ORAL SYRINGE NG SCH ×3 (05:07→17:48)
[2020-08-20 06:22] LABS: BASO # 0.1 10^3/uL (0.0-0.2); BASO % 1.1 % (0.0-1.0); EOS # 0.2 10^3/uL (0.0-0.5); EOS % 2.6 % (0.0-3.0); HEMATOCRIT 40.8 % (42.0-52.0); HEMOGLOBIN 13.2 g/dl (13.5-17.5); LYMPH # 0.6 10^3/uL (1.5-5.0); LYMPH % 10.7 % (24.0-44.0); MEAN CORPUSCULAR HEMOGLOBIN 29.9 pg (27.0-33.0); MEAN CORPUSCULAR HGB CONC 32.4 g/dl (32.0-36.5); MEAN CORPUSCULAR VOLUME 92.5 fl (80.0-96.0); MONO # 0.5 10^3/uL (0.0-0.8); MONO % 8.4 % (0.0-5.0); NEUTROPHILS # 4.3 10^3/uL (1.5-8.5); NEUTROPHILS % 75.1 % (36.0-66.0); PLATELET COUNT, AUTOMATED 202 10^3/uL (150-450); RED BLOOD COUNT 4.41 10^6/uL (4.30-6.10); WHITE BLOOD COUNT 5.7 10^3/uL (4.0-10.0)
[2020-08-20 06:30] LABS: CALCIUM LEVEL 8.3 MG/DL (8.8-10.2); CREATININE FOR GFR 6.57 MG/DL (0.70-1.30); GLOMERULAR FILTRATION RATE 8.9 (>42); POTASSIUM SERUM 3.7 MEQ/L (3.5-5.1)
[2020-08-20 06:34] LABS: PERCENT SATURATION 16.4 % (19.7-50.0)
--- NOTE | 2020-08-20 08:07 | IPN ---
PROGRESS NOTE DATE: 08/19/2020 SUBJECTIVE: Patient is seen and examined this morning at the bedside in the intensive care unit. He is out of bed in a fully restraining and supportive sort of chair. There is no acute events reported overnight. He answers simple questions appropriately. He denies abdominal pain. He is still nothing by mouth. He is pending speech and swallow. He is continued on total parenteral nutrition (TPN). Nursing staff reports that the rectal tube output has been bloody. His hemoglobins have been downtrending. Urine output is adequate but renal function does not show improvement. He denies shortness of breath at rest and is continued on room air. PHYSICAL EXAMINATION: Temperature 98.1, pulse 97, respiratory rate 22, blood pressure 133/60, saturating 92-97% on room air. Intake yesterday was 2590, urine output was 2750, stool output was 500, weight in the bed scale today is 107.1, which is decreased from prior, he is net negative 660 mL in the past 24 hours. General: Patient is seen in a restraining sort of chair out of bed, awake, alert, and in no apparent distress. Looks chronically ill and weak. There is a right subclavian dialysis catheter and a left internal jugular central line. Heart: Sounds S1, S2, regular rate and mildly tachycardic. There is 1+ leg edema and some dependent edema as well. Lungs: Show diminished breath sounds at the bases. There is no tachypnea nor crackle. He is on room air. Abdomen: Soft. There are bowel sounds. He has a rectal tube and a Anne catheter as well. Neurologic: He answers simple questions appropriately but requires repeated prompting to answer. Skin: Appears pale and dry, normal temperature. LABORATORY DATA: Sodium 138, potassium 3.2, bicarbonate 24, BUN 69, creatinine 5.6, glucose 303, magnesium 2.2, hemoglobin 7.8, platelet 209, white count 8.1. INPATIENT MEDICATIONS: He continues on TPN. He received three runs of potassium chloride IV. He continues on IV Zosyn and IV vancomycin along with Lasix 80 mg IV every 8 hours. I note that his heparin subcutaneous was discontinued. He continues on Protonix twice a day and oral vancomycin. PROBLEMS: 1. Nonoliguric acute renal failure. Patient's urine output is adequate and he is responding to the IV Lasix. However, labs do not show any improvement in his clearance. He is going to be dialyzed next on 08/20/2020. As he is presently dependent on total parenteral nutrition (TPN) for nutrition he is getting a lot of IV fluids and I will continue IV Lasix at this time and I plan on removing fluid with his hemodialysis treatment. 2. Protein calorie malnutrition and recent severe pancreatitis with critical illness myopathy. He is nothing by mouth. He is pending swallow evaluation. He is continued on total parenteral nutrition and special TPN (total parenteral nutrition) orders are written to increase the amount of potassium that he is receiving. 3. Lower gastrointestinal (GI) bleed. Hemoglobin this morning was down to 7.8. Nursing staff reported that the rectal tube output was streaked with blood. I am ordering another unit of packed red blood cells. Thus far, he will have received four packed red blood cells (PRBCs). His heparin subcutaneous was already held per primary service. When I dialyze him we will use heparin-free dialysis in view of significant anemia and I am also going to start him on Aranesp with his dialysis treatments. We will also get iron studies. 4. Pancreatitis. Managed as per primary/critical care team. He is nothing by mouth. I wrote orders for total parenteral nutrition (TPN). He is on antimicrobials as per primary service. He denies abdominal pain. His white count has normalized. 5. Hypokalemia. It is due to diuretics. He is receiving IV potassium chloride runs and I have written for increased potassium in his special ordered total parenteral nutrition (TPN). 6. Disposition. Nonoliguric renal failure responding to IV Lasix however with no improvement of creatinine clearance on labs. Next hemodialysis treatment will be on 08/20/2020. Will continue to monitor for signs of clinical renal recovery.
[2020-08-20] MEDS ORDERED: SODIUM CHLORIDE 0.9% 1000ML IV PRN (08:30)
[2020-08-20] MEDS: LEVEMIR (INSULIN DETEMIR) 1 UNITS/0.01ML SC SCH (08:46)
[2020-08-20] MEDS: PANTOPRAZOLE 40MG VIAL (C9113 PER 1) IV SCH ×2 (08:46→21:36)
[2020-08-20] MEDS ORDERED: IRON SUCROSE 100MG 5ML VIAL (J1756 PER 1MG) IV SCH (10:30)
[2020-08-20 12:36] LABS: VANCOMYCIN RANDOM 19.5 UG/ML
--- NOTE | 2020-08-20 12:39 | IPNPDOC ---
Date Seen The patient was seen on 08/20/20. Progress Note SUBJECTIVE: patient was seen and examined at bedside. Appears to be alert and oriented x 2-3. Rectal tube in place. Undergoing hemodialysis. Vitals stable. OBJECTIVE PHYSICAL EXAMINATION: VITAL SIGNS: please see below General: NAD, comfortable, still questions appropriately HEENT: PERRLA, EOMI, sclerae clear. NG tube removed. Neck: supple, normal ROM, no JVD Respiratory: Lateral rhonchi in the bases. Coherent speech., no wheeze, no rales, no crackles CVS: RRR, normal S1, S2, no murmurs Abdo: soft, no masses, no hepatosplenomegaly, BS+, no rebound tenderness. Rectal tube in place Extremities: Plus edema Skin: Large bruise in left arm at IV site per pen markings. No extension. MSK: no joint deformities, normal ROM Neuro: no focal neuro deficits, moving all 4 extremities, CN2-12 intact. Strength 5/5 in all 4 extremities. No nystagmus. Psych: calm, cooperative, AAO x 3 Lines: Left IJ. Right chest permacath, rectal tube, foote catheter. LABORATORY DATA, IMAGING STUDIES, MICROBIOLOGY: Please see below. DVT prophylaxis ordered?: TEDs/SCDs Assessment/Plan # Pancreatitis: NPO, NG to low-intermittent suction. On TPN. IV Vancomycin and zosyn. Pain control. No active abdominal pain on exam. #Protein-calorie malnutrition: pending swallow eval. TPN. # Acute renal failure: R permacath. Nephrology on board. Dialyzed on 08/20. Urine output improved. On lasix 80 BID. # DKA: now off of insulin drip. Transitioned to subq insulin, TPN with insulin, ISS q4h accurchecks. Hypoglycemic precautions. # Anemia: Hgb improved to 13.2 s/p tranfusion. No additional blood seen in rectal tube bag. Received 3uPRBC total. FOBT+. Off heparin ggt. IV iron. # Diarrhea: Rectal tube. GI panel cannot be ordered after 72hrs. C diff negative however patient high risk and was placed on PO vancomycin. On Vanc and Zosyn IV. # Hypokalemia: replace. monitor. # FAST HUG DVT ppx: TEDs/SCDs. Heparin if no recurrent GI bleed. VS, I&O, 24H, [place] Vital Signs/I&O Vital Signs Date Time Temp Pulse Resp B/P (MAP) Pulse Ox O2 Delivery O2 Flow Rate FiO2 08/20/20 12:00 98.9 101 18 123/59 (80) 95 Room Air 08/18/20 15:00 2.0 08/17/20 18:30 98 I&O- Last 24 Hours up to 6 AM 08/20/20 06:00 Intake Total 1780 ml Output Total 4100 ml Balance -2320 ml Laboratory Data 24H LABS Laboratory Tests 2 08/19/20 13:33: Bedside Glucose (Misc Panel) 258H 08/19/20 17:48: Bedside Glucose (Misc Panel) 263H 08/19/20 20:55: Bedside Glucose (Misc Panel) 214H 08/20/20 01:42: Bedside Glucose (Misc Panel) 267H 08/20/20 04:40: Bedside Glucose (Misc Panel) 292H 08/20/20 05:31: Immature Granulocyte % (Auto) 2.1, Neutrophils (%) (Auto) 75.1H, Lymphocytes (%) (Auto) 10.7L, Monocytes (%) (Auto) 8.4H, Eosinophils (%) (Auto) 2.6, Basophils (%) (Auto) 1.1H, Neutrophils # (Auto) 4.3, Lymphocytes # (Auto) 0.6L, Monocytes # (Auto) 0.5, Eosinophils # (Auto) 0.2, Basophils # (Auto) 0.1, Nucleated Red Blood Cells % (auto) 0.0, Anion Gap 10, Glomerular Filtration Rate 8.9L, Calcium Level 8.3L, Iron Level 24L, Total Iron Binding Capacity 146L, Transferrin % Saturation 16.4L, Ferritin 763H 08/20/20 10:27: Bedside Glucose (Misc Panel) 195H CBC/BMP Laboratory Tests 08/20/20 05:31 Microbiology Microbiology 08/11/20 Blood Culture - Final, Complete NO GROWTH AFTER 5 DAYS 08/11/20 Blood Culture - Final, Complete NO GROWTH AFTER 5 DAYS QUENTIN BRUNO MD Aug 20, 2020 12:39
[2020-08-20] MEDS: **VANCO AFTER HD** MISC XX SCH (15:22)
[2020-08-20] MEDS ORDERED: FUROSEMIDE 100MG/10ML VIAL (J1940) IV SCH (17:00)
[2020-08-20] MEDS ORDERED: FAT EMULSION IV 20% 500 ML IV SCH (18:00)
[2020-08-20] MEDS ORDERED: [UNRECOGNIZED DRUG - OTHER] IV SCH ×5 (18:00)
[2020-08-20] MEDS ORDERED: SODIUM CHLORIDE IV SCH ×5 (18:00)
[2020-08-20] MEDS ORDERED: POTASSIUM PHOSPHATE IV SCH ×5 (18:00)
--- NOTE | 2020-08-20 20:21 | IPN ---
PROGRESS NOTE DATE: 08/20/2020. SUBJECTIVE: Patient was seen and examined this morning at the bedside in the Intensive Care Unit while he is receiving his second hemodialysis treatment. Nursing staff reports patient failed his swallow evaluation yesterday. He continues on TPN and new orders are written. He continues to respond to I.V. Lasix with excellent urine output, however, laboratory studies do not show any improvement in renal clearance. His hemoglobin is markedly different on today's labs as compared to prior labs and I feel that there is probably some sort of lab error. Patient continues to follow commands and answer simple questions appropriately. Denies abdominal pain and is having no issues with his dialysis treatment. PHYSICAL EXAMINATION: VITAL SIGNS: Temperature 97.9, pulse 104, respiratory rate 18 to 22, blood pressure 123/59, saturating 95 to 97% on room air. INTAKE/OUTPUT: Intake yesterday was 2280. Urine output was 3800. Stool output to rectal tube was 500 cc, net negative 2 liters. Weight in the bed scale today is 108.8 kg. GENERAL: Patient is seen lying in bed in the ICU receiving his hemodialysis treatment, head of the bed is elevated, ill-appearing, but in no acute distress. There is a right subclavian dialysis catheter which is presently in use. HEART: Heart sounds are regular S1, S2. There is mild tachycardia. There is only trace edema in the legs and this is improved from prior. LUNGS: Show symmetric air entry bilaterally. There is no tachypnea or crackle. He is on room air. ABDOMEN: Soft. He has some tenderness in the right upper quadrant and epigastrium. There is a rectal tube and a Anne catheter. The urine in the Anne has gross hematuria. The liquid stool output to the rectal tube shows no bright red blood. NEUROLOGIC: He answers simple questions appropriately, but has delayed response. SKIN: Normal temperature and turgor. LABORATORY DATA: Sodium 141, potassium 3.7, bicarbonate 23, BUN 87, creatinine 6.5. Transferrin saturation 16%. Iron 24. Hemoglobin 13.2, which is very different from his past four prior CBCs, which all showed hemoglobin between 7 and 8. Random vancomycin level 19.5. INPATIENT MEDICATIONS: Patient continues on TPN and I.V. Zosyn and vancomycin. I decreased his Lasix to 40 I.V. b.i.d. He is ordered for five doses of Venofer with dialysis. He continues on oral vancomycin as well. The remainder of his medications are unchanged from prior. PROBLEMS: 1. Nonoliguric acute renal failure: Patient continues to be diuretic responsive, his volume status has improved nicely. His peripheral edema has almost resolved. I am continuing him on Lasix because he is receiving significant I.V. fluids in the form of TPN while he is n.p.o., however, I am going to cut the Lasix down to 40 I.V. b.i.d. now that his volume status has improved. Unfortunately, he still has no improvement in terms of renal clearance on his laboratory studies and continues with dialysis dependence in terms of clearance and he is dialyzed today. We will continue to monitor for signs of renal recovery. 2. Protein calorie malnutrition with recent severe pancreatitis and critical illness myopathy: He failed a swallow evaluation yesterday. He remains n.p.o. He is continued on special formula TPN as he is receiving significant amount of I.V. fluids, he continues on I.V. Lasix, although at a lower dose now that his volume status has improved. 3. Status post lower GI bleed: Hemoglobin today on blood work looks to be a lab error. His last four hemoglobins were all between 7 and 8 and suddenly today hemoglobin is 13. Will see what his repeat hemoglobin is tomorrow. He receives Heparin free dialysis and he is not having any further blood tinge to the rectal tube. He had some mild gross hematuria to the Anne catheter this morning. 4. Anemia related to lower GI bleed: Await repeat CBC on Wednesday. He is receiving Venofer with dialysis for five doses. His transferrin saturation was low at 16%. He will receive Aranesp for goal hemoglobin 10 to 11. 5. Pancreatitis: Managed as per primary and critical care team. He is n.p.o. at present. TPN orders are renewed. Antimicrobials were as per primary service. White count has normalized. He is afebrile. His vancomycin is dosed for renal function and random levels are appropriate.
[2020-08-21] VITALS (7 sets, daily range): BP systolic 120–147; BP diastolic 56–82
[2020-08-21] MEDS: VANCOMYCIN ORAL SOL 250MG/5ML ORAL SYRINGE NG SCH ×5 (00:13→23:41)
[2020-08-21] MEDS: ALBUTEROL SULFATE 2.5 MG/0.5 ML INH NEB SOLN NEB SCH ×7 (00:40→23:57)
[2020-08-21] MEDS: HumaLOG INSULIN (NovoLOG) PER UNIT SC SCH ×6 (02:20→21:16)
[2020-08-21] MEDS: PIPERACILLIN/TAZOBACTAM SOD 4.5 GM in D5W MINI-BAG PLUS 50 ML IV SCH ×2 (02:20→16:18)
[2020-08-21] MEDS: ALTEPLASE 2MG/2ML VIAL IV PRN (03:42)
[2020-08-21] MEDS: SODIUM CHLORIDE 0.9% INJ 10 ML SYR IV SCH ×2 (05:11→17:53)
[2020-08-21 05:30] LABS: HEMATOCRIT 24.7 % (42.0-52.0); MEAN CORPUSCULAR HEMOGLOBIN 30.8 pg (27.0-33.0); MEAN CORPUSCULAR HGB CONC 32.4 g/dl (32.0-36.5); PLATELET COUNT, AUTOMATED 229 10^3/uL (150-450); WHITE BLOOD COUNT 9.3 10^3/uL (4.0-10.0)
[2020-08-21 05:52] LABS: ATYPICAL LYMPH 3 % (0-5); BASOPHILS 1 % (0-1); EOSINOPHILS 2 % (0-3); LYMPHOCYTES 9 % (16-44); MONOCYTES 6 % (0-5); NEUTROPHILS 79 % (28-66); PLATELET ESTIMATE NORMAL (NORMAL)
[2020-08-21 05:53] LABS: ANISOCYTOSIS 1+
[2020-08-21 05:54] LABS: HYPOCHROMASIA 1+
[2020-08-21 05:57] LABS: ALBUMIN 1.4 GM/DL (3.2-5.2); BILIRUBIN,TOTAL 0.7 MG/DL (0.2-1.0); CALCIUM LEVEL 7.8 MG/DL (8.8-10.2); CREATININE FOR GFR 4.94 MG/DL (0.70-1.30); GLOMERULAR FILTRATION RATE 12.4 (>42); POTASSIUM SERUM 3.8 MEQ/L (3.5-5.1); TOTAL PROTEIN 5.8 GM/DL (6.4-8.2)
[2020-08-21] MEDS ORDERED: FUROSEMIDE 40MG/4ML VIAL (J1940) IV SCH (09:00)
[2020-08-21] MEDS: HEPARIN SOD (PORCINE) 5000UNITS/ML 1ML VIAL/SYRINGE SQ SCH ×3 (09:16→21:16)
[2020-08-21] MEDS: PANTOPRAZOLE 40MG VIAL (C9113 PER 1) IV SCH ×2 (09:17→21:15)
[2020-08-21] MEDS: LEVEMIR (INSULIN DETEMIR) 1 UNITS/0.01ML SC SCH (09:17)
[2020-08-21] MEDS ORDERED: OXYMETAZOLINE 0.05% NASAL SPRAY (AFRIN) PRN (14:00)
--- NOTE | 2020-08-21 15:24 | IPNPDOC ---
Date Seen The patient was seen on 08/21/20. Progress Note SUBJECTIVE: Patient seen and examined at bedside. He continues to be somewhat confused, is alert to person and place, however, not time. He denies any chest pain, shortness of breath, fevers, nausea, vomiting. He has continued to have diarrhea and a rectal tube is in place draining green/dark bilious stool. No gross blood is seen. Vital stable overnight. OBJECTIVE PHYSICAL EXAMINATION: VITAL SIGNS: please see below General: NAD, comfortable, still questions appropriately HEENT: PERRLA, EOMI, sclerae clear. NG tube removed. Neck: supple, normal ROM, no JVD Respiratory: Lateral rhonchi in the bases. Coherent speech., no wheeze, no rales, no crackles CVS: RRR, normal S1, S2, no murmurs Abdo: soft, no masses, no hepatosplenomegaly, BS+, no rebound tenderness. Rectal tube in place Extremities: Plus edema Skin: Large bruise in left arm at IV site per pen markings. No extension. MSK: no joint deformities, normal ROM Neuro: no focal neuro deficits, moving all 4 extremities, CN2-12 intact. Strength 5/5 in all 4 extremities. No nystagmus. Psych: calm, cooperative, AAO x 3 Lines: Left IJ. Right chest permacath, rectal tube, foote catheter. LABORATORY DATA, IMAGING STUDIES, MICROBIOLOGY: Please see below. DVT prophylaxis ordered?: SCDs and teds ASSESSMENT AND PLAN: 69-year-old male with a history NIDDM, HTN, was admitted for management of DKA, and later developed acute pancreatitis. He required intubation due to critical illness. He required pressors and IV antibiotics due to septic shock. He required CRRT for renal failure # Pancreatitis: NPO, NG to low-intermittent suction. On TPN. IV Vancomycin and zosyn. Pain control. No active abdominal pain on exam. #Protein-calorie malnutrition: TPN, orders placed by nephrology. Swallow eval completed. Recommend continued NPO with meds, high risk of aspiration. FEES ordered. Will monitor. # Acute renal failure: R permacath. Nephrology on board. Dialyzed on 08/20. Urine output improved. On lasix 80 BID. # DKA: now off of insulin drip. Transitioned to subq insulin, TPN with insulin, ISS q4h accurchecks. Hypoglycemic precautions. # Anemia: Hgb improved to 13.2 to drop on 8.0 on 08/21, however I suspect the disproportionate rise in Hgb is a lab error. No additional blood seen in rectal tube bag. Received 3uPRBC total. FOBT+. Off heparin ggt. IV iron. # Diarrhea: Rectal tube. GI panel cannot be ordered after 72hrs. C diff negative however patient high risk and was placed on PO vancomycin. Zosyn IV. Stopped IV vanco. #Metabolic encephalopathy: day to day small improvements. C/w thiamine, folate in TPN. # Hypokalemia: replace. monitor. # FAST HUG VS, I&O, 24H, [place] Vital Signs/I&O Vital Signs Date Time Temp Pulse Resp B/P (MAP) Pulse Ox O2 Delivery O2 Flow Rate FiO2 08/21/20 04:00 98.0 98 20 125/74 (91) 97 Room Air 08/18/20 15:00 2.0 08/17/20 18:30 98 I&O- Last 24 Hours up to 6 AM 08/21/20 06:00 Intake Total 1750 ml Output Total 3890 ml Balance -2140 ml Laboratory Data 24H LABS Laboratory Tests 2 08/20/20 17:35: Bedside Glucose (Misc Panel) 291H 08/20/20 21:21: Bedside Glucose (Misc Panel) 337H 08/21/20 00:04: Bedside Glucose (Misc Panel) 314H 08/21/20 05:13: Neutrophils (%) (Auto) , Nucleated Red Blood Cells % (auto) 0.0, Neutrophils 79H, Lymphocytes (Manual) 9L, Monocytes (Manual) 6H, Eosinophils (Manual) 2, Basophils (Manual) 1, Atypical Lymphocytes 3, Hypochromasia 1+, Anisocytosis 1+, Platelet Estimate NORMAL, Anion Gap 10, Glomerular Filtration Rate 12.4L, Calcium Level 7.8L, Magnesium Level 2.0, Total Bilirubin 0.7, Aspartate Amino Transf (AST/SGOT) 12, Alanine Aminotransferase (ALT/SGPT) 14, Alkaline Phosphatase 129H, Total Protein 5.8L, Albumin 1.4L, Albumin/Globulin Ratio 0.3 08/21/20 10:10: Bedside Glucose (Misc Panel) 418H 08/21/20 14:12: Bedside Glucose (Misc Panel) 265H CBC/BMP Laboratory Tests 08/21/20 05:13 Microbiology Microbiology 08/11/20 Blood Culture - Final, Complete NO GROWTH AFTER 5 DAYS 08/11/20 Blood Culture - Final, Complete NO GROWTH AFTER 5 DAYS QUENTIN BRUNO MD Aug 21, 2020 15:24
[2020-08-21] MEDS ORDERED: FAT EMULSION IV 20% 500 ML IV SCH (18:00)
[2020-08-21] MEDS ORDERED: SODIUM CHLORIDE 23.4% INJ 200 MEQ, SODIUM ACETATE INJ 40 MEQ, POTASSIUM CHLORIDE INJ 20... IV SCH ×9 (18:00)
[2020-08-21] MEDS ORDERED: SODIUM CHLORIDE 0.9% 1000ML IV PRN (22:00)
[2020-08-21] MEDS ORDERED: LORazepam 2 MG/ML VIAL IV PRN (22:45)
--- NOTE | 2020-08-21 23:35 | IPN ---
INPATIENT PROGRESS NOTE DATE: 08/21/2020 SUBJECTIVE: Patient seen and examined this morning at the bedside in the Intensive Care Unit. He is getting ready to work with physical therapy. He denies any abdominal pain, shortness of breath or chest pain. He has still not passed the swallow evaluation. He continues on TPN. He was dialyzed yesterday without any issues. PHYSICAL EXAMINATION: VITAL SIGNS: Temperature 97.7, pulse 109, respiratory rate 18, blood pressure 139/76, saturating 93 to 95% on room air. INTAKE/OUTPUT: Intake yesterday was 1700. Urine output yesterday was 4000. Weight in the bed scale today is not recorded. GENERAL: Patient is seen sitting at the edge of the bed legs dangling, working with physical therapy, in no apparent distress. Makes eye contact. HEENT: Tongue is dry. Neck is supple. Hemodialysis catheter present in the right subclavian. HEART: Heart sounds are tachycardic. There is no leg edema. S1, S2. Peripheral pulses palpable. LUNGS: Symmetric air entry bilaterally. No tachypnea or crackle. He is on room air. ABDOMEN: Soft. There is no tenderness to palpation. There is a rectal tube with liquid brown stool and a Anne catheter with still some gross hematuria. NEUROLOGIC: He answers simple questions appropriately and is cooperative with physical exam and is working with physical therapy. His speech is somewhat delayed. SKIN: Normal temperature and turgor. LABORATORY DATA: White count 9.3, hemoglobin 8.0, platelets 229,000. Sodium 136, potassium 3.8, bicarbonate 25, BUN 63, glucose 458; repeat glucose 227. INPATIENT MEDICATIONS: He continues on TPN at 75 cc an hour. He continues on Zosyn and oral vancomycin. The remainder of his medications are unchanged as compared to yesterday. PROBLEMS: 1. Nonoliguric acute renal failure: He was diuresed with I.V. Lasix and he responded well. His volume status has significantly improved. I do not appreciate much residual peripheral edema. We will now give him Lasix on an as needed basis and I am stopping the standing order of Lasix. He does continue to receive significant I.V. fluids in the form of TPN, so we will keep a close eye on his volume status. Unfortunately, despite his adequate urine output, the patient still does not have an adequate creatinine clearance and remains dialysis dependent at this time. His next dialysis will be on . We will continue to monitor for signs of renal recovery. 2. Protein calorie malnutrition with recent severe pancreatitis and critical illness myopathy: He is improving daily on a clinical basis and has been working with physical therapy, however, failed his last swallow evaluation and remains n.p.o. and continues on TPN. 3. Status post lower GI bleed: Hemoglobin is 8.0 and I would transfuse him with dialysis tomorrow if his hemoglobin is less than 8. He is also going to receive Aranesp with his next dialysis treatment along with Venofer. He is on proton pump inhibitor therapy as well. 4. Anemia related to lower GI bleed, iron deficiency and renal failure: Continue Aranesp and continue Venofer with dialysis. I will transfuse blood for hemoglobin less than 8. 5. Pancreatitis: Manage as per primary care team, he is n.p.o. at present. We will continue TPN. Insulin is ordered with his TPN as well. Antimicrobial is as per primary service.
[2020-08-22] VITALS: BP 168/84
[2020-08-22] MEDS: PIPERACILLIN/TAZOBACTAM SOD 4.5 GM in D5W MINI-BAG PLUS 50 ML IV SCH ×2 (02:22→17:29)
[2020-08-22] MEDS: HumaLOG INSULIN (NovoLOG) PER UNIT SC SCH ×6 (02:23→21:29)
[2020-08-22 04:00] VITALS: BP 158/93
[2020-08-22] MEDS: ALBUTEROL SULFATE 2.5 MG/0.5 ML INH NEB SOLN NEB SCH ×5 (04:17→20:11)
[2020-08-22] MEDS: SODIUM CHLORIDE 0.9% INJ 10 ML SYR IV SCH ×3 (05:47→18:46)
[2020-08-22] MEDS: VANCOMYCIN ORAL SOL 250MG/5ML ORAL SYRINGE NG SCH ×3 (05:48→17:30)
[2020-08-22 06:21] LABS: HEMATOCRIT 29.1 % (42.0-52.0); HEMOGLOBIN 9.2 g/dl (13.5-17.5); MEAN CORPUSCULAR HEMOGLOBIN 30.2 pg (27.0-33.0); MEAN CORPUSCULAR HGB CONC 31.6 g/dl (32.0-36.5); MEAN CORPUSCULAR VOLUME 95.4 fl (80.0-96.0); PLATELET COUNT, AUTOMATED 235 10^3/uL (150-450); RED BLOOD COUNT 3.05 10^6/uL (4.30-6.10); WHITE BLOOD COUNT 9.7 10^3/uL (4.0-10.0)
[2020-08-22 06:32] LABS: BASOPHILS 1 % (0-1); EOSINOPHILS 1 % (0-3); LYMPHOCYTES 11 % (16-44); MONOCYTES 7 % (0-5); NEUTROPHILS 80 % (28-66); PLATELET ESTIMATE NORMAL (NORMAL)
[2020-08-22 06:33] LABS: ANISOCYTOSIS 1+; HYPOCHROMASIA 1+; POIKILOCYTOSIS 1+
[2020-08-22 06:36] LABS: ALBUMIN 1.5 GM/DL (3.2-5.2); BILIRUBIN,TOTAL 0.7 MG/DL (0.2-1.0); CALCIUM LEVEL 8.6 MG/DL (8.8-10.2); CREATININE FOR GFR 6.1 MG/DL (0.70-1.30); GLOMERULAR FILTRATION RATE 9.7 (>42); POTASSIUM SERUM 3.5 MEQ/L (3.5-5.1); TOTAL PROTEIN 6.5 GM/DL (6.4-8.2)
[2020-08-22 08:00] VITALS: BP 170/98
[2020-08-22] MEDS: PANTOPRAZOLE 40MG VIAL (C9113 PER 1) IV SCH ×2 (09:00→21:29)
[2020-08-22] MEDS: IRON SUCROSE 100MG 5ML VIAL (J1756 PER 1MG) IV SCH (11:51)
[2020-08-22 13:00] VITALS: BP 132/65
[2020-08-22] MEDS: HEPARIN SOD (PORCINE) 5000UNITS/ML 1ML VIAL/SYRINGE SQ SCH ×2 (14:02→21:29)
[2020-08-22] MEDS: LEVEMIR (INSULIN DETEMIR) 1 UNITS/0.01ML SC SCH (14:03)
[2020-08-22] MEDS ORDERED: LIDOCAINE 1% MDV 20ML VIAL As Ordered ONE (15:13)
[2020-08-22 16:40] VITALS: BP 126/79
--- NOTE | 2020-08-22 16:58 | REP ---
PROCEDURE NAME: PICC LINE INSERTION W/SITERITE CLINICAL INFORMATION: poor IV access. COMPARISON: None. PROCEDURE DESCRIPTION: The procedure was performed by VICK Malone, under the direct supervision of Dr. Dr. Nguyen. The risks and benefits of the procedure were explained to the patient and an informed consent was obtained both verbally and written. Directly prior to the start of the procedure a formal time-out was completed in the procedure room. The right medial brachial vein was localized using ultrasound guidance. The skin was prepped and draped in sterile fashion. One mL of 1% lidocaine 10 mg/mL was used as a local anesthetic. Using ultrasound guidance the right medial brachial vein was cannulated, and a 0.018 guidewire was inserted and advanced to the level of SVC using fluoroscopic guidance. The needle was removed and a 5.5 Nepalese dilator and peel-away sheath was inserted over the guidewire. A 5.5 Nepalese dual lumen catheter was cut to a length of 37 cm. The dilator was removed and the catheter was inserted over the guidewire with the tip ending at the level of the proximal subclavian vein with. The peel-away sheath was removed and the catheter was flushed with heparinized saline as per hospital protocol. The catheter was affixed to the skin and a sterile dressing was applied. The patient tolerated the procedure well and there were no immediate complications. CONCLUSION: PICC line insertion into the right medial brachial vein. 1.1 minutes of fluoroscopy time was utilized for this procedure. Some fluoroscopic images are performed with last image hold technology. These images require no additional radiation. <Electronically signed by Felicia Scott > 08/22/20 [id number] <Electronically signed by Gio Nguyen > 08/22/20 [id number]
[2020-08-22] MEDS: SODIUM CHLORIDE NASAL 0.65% SPRAY BTL (OCEAN) SCH ×2 (17:30→21:29)
[2020-08-22] MEDS ORDERED: SODIUM CHLORIDE 0.9% INJ 10 ML SYR IV PRN (17:45)
[2020-08-22] MEDS ORDERED: FAT EMULSION IV 20% 500 ML IV SCH (18:00)
[2020-08-22] MEDS ORDERED: SODIUM CHLORIDE 23.4% INJ 200 MEQ, SODIUM ACETATE INJ 40 MEQ, POTASSIUM CHLORIDE INJ 20... IV SCH ×7 (18:00)
[2020-08-22 20:00] VITALS: BP 105/57
--- NOTE | 2020-08-22 20:45 | IPN ---
PROGRESS NOTE DATE: 08/22/2020 SUBJECTIVE: Patient seen and examined this morning at the bedside in the hemodialysis unit receiving his treatment. He tells me he feels "good." He denies any shortness of breath or abdominal pain. He remains nothing by mouth and continues on total parenteral nutrition (TPN). VITAL SIGNS: Temperature 98.5, pulse 110, respiratory rate 19, blood pressure 126/79, saturating 96% on room air. Intake yesterday was 570. Urine output yesterday was 880. Dialysis today removed 1 liters. Weight in the bed scale today is 103.5 kg. GENERAL: Patient is seen in the hemodialysis unit receiving his treatment. He is awake, alert. He follows simple commands. He is receiving dialysis without any issues. He answers simple questions appropriately. Extraocular muscles are intact. Tongue is dry. Neck is supple. There is a tunneled hemodialysis catheter in the right chest wall that is in use. HEART: Sounds are tachycardic. Heart rate is in the 110s. There is no murmur. There is no significant leg edema. ABDOMEN: Soft. He does not grimace to palpation. There are bowel sounds. There is a Anne catheter with urine. NEUROLOGIC: He has delayed responses. He gives one to two-word responses to simple questions. He follows simple commands. LABORATORY DATA: White count 9.7, hemoglobin 9.2, platelets 235. Sodium 139, potassium 3.5, bicarbonate 23, BUN 76, creatinine 6.1. INPATIENT MEDICATIONS: Patient continues on TPN. He is receiving Aranesp with his hemodialysis treatment. He was started on heparin subcutaneous per primary service yesterday. He is receiving intravenous (IV) iron with his hemodialysis treatment. His remainder of medications is unchanged from prior. PROBLEMS: 1. Nonoliguric acute kidney injury, status post continuous renal replacement therapy (CRRT) and with ongoing hemodialysis dependence. He is no longer on standing diuretic. His daily weighs have significantly down-trended, and he appears fairly euvolemic at present. As he continues to be on TPN and has significant intake (although it does not seem to be recorded by nursing staff), he is receiving TPN at 75 mL an hour, so we will monitor volume status closely, and he will receive diuretic on as-needed basis. He is dialyzed today with 1 liter of fluid removed, and next dialysis will be on Wednesday. We will continue to monitor for signs of renal recovery. 2. Status post lower gastrointestinal (GI) bleed. Hemoglobin is suboptimal but stable in the 8's. He is receiving Aranesp and Venofer with dialysis. He is on proton pump inhibitor therapy as well, and I would transfuse him for hemoglobin less than 8. 3. Pancreatitis. Patient remains nothing by mouth at present. He has to passed the swallow evaluation. Orders are written for TPN with insulin.
--- NOTE | 2020-08-22 21:56 | IPNPDOC ---
Date Seen The patient was seen on 08/22/20. Progress Note SUBJECTIVE: Patient seen and examined at bedside. Mentation improved. Patient removed PICC line overnight, planned for reinsertion. For HD today. Remains NPO. Afebrile overnight. OBJECTIVE PHYSICAL EXAMINATION: VITAL SIGNS: please see below General: NAD, comfortable, still questions appropriately HEENT: PERRLA, EOMI, sclerae clear. NG tube removed. Neck: supple, normal ROM, no JVD Respiratory: Lateral rhonchi in the bases. Coherent speech., no wheeze, no rales, no crackles CVS: RRR, normal S1, S2, no murmurs Abdo: soft, no masses, no hepatosplenomegaly, BS+, no rebound tenderness. Rectal tube in place Extremities: Plus edema Skin: Large bruise in left arm at IV site per pen markings. No extension. MSK: no joint deformities, normal ROM Neuro: no focal neuro deficits, moving all 4 extremities, CN2-12 intact. Strength 5/5 in all 4 extremities. No nystagmus. Psych: calm, cooperative, AAO x 3 Lines: Left IJ. Right chest permacath, rectal tube, foote catheter. LABORATORY DATA, IMAGING STUDIES, MICROBIOLOGY: Please see below. DVT prophylaxis ordered?: SCDs and teds ASSESSMENT AND PLAN: 69-year-old male with a history NIDDM, HTN, was admitted for management of DKA, and later developed acute pancreatitis. He required intubation due to critical illness. He required pressors and IV antibiotics due to septic shock. He required CRRT for renal failure # Pancreatitis: NPO, NG to low-intermittent suction. On TPN. IV Vancomycin and zosyn. Pain control. No active abdominal pain on exam. #Protein-calorie malnutrition: TPN, orders placed by nephrology. Swallow eval completed. Recommend continued NPO with meds, high risk of aspiration. FEES. PICC line reinserted for TPN # Acute renal failure: R permacath. Nephrology on board. s/p CRRT. HD on 08/22/20. Now intermittent HD. Next session 08/24/20 Lasix stopped, to use as needed. # DKA: now off of insulin drip. Transitioned to subq insulin, TPN with insulin, ISS q4h accurchecks. Hypoglycemic precautions. # Anemia: Hgb improved to 13.2 to drop on 8.0 on 08/21, however I suspect the disproportionate rise in Hgb is a lab error. No additional blood seen in rectal tube bag. Received 3uPRBC total. Off heparin ggt. IV iron. # Diarrhea: Rectal tube. GI panel cannot be ordered after 72hrs. C diff negative however patient high risk and was placed on PO vancomycin. Zosyn IV. Stopped IV vanco. Plan to DC rectal tube 08/23/20. #Metabolic encephalopathy: day to day small improvements. C/w thiamine, folate in TPN. # Hypokalemia: replace. monitor. # FAST HUG VS, I&O, 24H, Fishbone Vital Signs/I&O Vital Signs Date Time Temp Pulse Resp B/P (MAP) Pulse Ox O2 Delivery O2 Flow Rate FiO2 08/22/20 20:00 99.0 94 18 105/57 (73) 95 Room Air 08/18/20 15:00 2.0 08/17/20 18:30 98 I&O- Last 24 Hours up to 6 AM 08/22/20 06:00 Intake Total 672.5 ml Output Total 1045 ml Balance -372.5 ml Laboratory Data 24H LABS Laboratory Tests 2 08/22/20 01:26: Bedside Glucose (Misc Panel) 252H 08/22/20 05:37: Neutrophils (%) (Auto) , Nucleated Red Blood Cells % (auto) 0.0, Neutrophils 80H, Lymphocytes (Manual) 11L, Monocytes (Manual) 7H, Eosinophils (Manual) 1, Basophils (Manual) 1, Hypochromasia 1+, Poikilocytosis 1+, Anisocytosis 1+, Platelet Estimate NORMAL, Anion Gap 10, Glomerular Filtration Rate 9.7L, Calcium Level 8.6L, Magnesium Level 2.0, Total Bilirubin 0.7, Aspartate Amino Transf (AST/SGOT) 11, Alanine Aminotransferase (ALT/SGPT) 14, Alkaline Phosphatase 134H, Total Protein 6.5, Albumin 1.5L, Albumin/Globulin Ratio 0.3 08/22/20 05:42: Bedside Glucose (Misc Panel) 307H 08/22/20 13:21: Bedside Glucose (Misc Panel) 207H 08/22/20 17:01: Bedside Glucose (Misc Panel) 181H 08/22/20 19:58: Bedside Glucose (Misc Panel) 242H CBC/BMP Laboratory Tests 08/22/20 05:37 QUENTIN BRUNO MD Aug 22, 2020 21:56
[2020-08-23] VITALS: BP 123/68
[2020-08-23] MEDS: HumaLOG INSULIN (NovoLOG) PER UNIT SC SCH ×6 (02:08→21:11)
[2020-08-23] MEDS: PIPERACILLIN/TAZOBACTAM SOD 4.5 GM in D5W MINI-BAG PLUS 50 ML IV SCH ×2 (02:26→16:03)
[2020-08-23 04:00] VITALS: BP 160/76
[2020-08-23] MEDS: VANCOMYCIN ORAL SOL 250MG/5ML ORAL SYRINGE NG SCH ×4 (05:25→18:21)
[2020-08-23] MEDS: SODIUM CHLORIDE 0.9% INJ 10 ML SYR IV SCH ×4 (05:27→18:22)
[2020-08-23 05:57] LABS: BASO % 0.5 % (0.0-1.0); EOS # 0.2 10^3/uL (0.0-0.5); EOS % 2.1 % (0.0-3.0); HEMATOCRIT 28.5 % (42.0-52.0); HEMOGLOBIN 9.2 g/dl (13.5-17.5); LYMPH # 1.2 10^3/uL (1.5-5.0); LYMPH % 13.6 % (24.0-44.0); MEAN CORPUSCULAR HEMOGLOBIN 30.9 pg (27.0-33.0); MEAN CORPUSCULAR HGB CONC 32.3 g/dl (32.0-36.5); MEAN CORPUSCULAR VOLUME 95.6 fl (80.0-96.0); MONO # 0.7 10^3/uL (0.0-0.8); MONO % 8.2 % (0.0-5.0); NEUTROPHILS # 6.4 10^3/uL (1.5-8.5); NEUTROPHILS % 73.4 % (36.0-66.0); PLATELET COUNT, AUTOMATED 246 10^3/uL (150-450); RED BLOOD COUNT 2.98 10^6/uL (4.30-6.10); WHITE BLOOD COUNT 8.8 10^3/uL (4.0-10.0)
[2020-08-23 06:15] LABS: CREATININE FOR GFR 4.91 MG/DL (0.70-1.30); GLOMERULAR FILTRATION RATE 12.5 (>42); POTASSIUM SERUM 3.6 MEQ/L (3.5-5.1)
[2020-08-23 06:16] LABS: ALBUMIN 1.5 GM/DL (3.2-5.2); BILIRUBIN,TOTAL 0.7 MG/DL (0.2-1.0); CALCIUM LEVEL 8.1 MG/DL (8.8-10.2); MAGNESIUM LEVEL 2.2 MG/DL (1.8-2.4); TOTAL PROTEIN 6.5 GM/DL (6.4-8.2)
[2020-08-23] MEDS: ALBUTEROL SULFATE 2.5 MG/0.5 ML INH NEB SOLN NEB SCH ×6 (07:06→23:35)
[2020-08-23 08:00] VITALS: BP 172/82
[2020-08-23] MEDS: LEVEMIR (INSULIN DETEMIR) 1 UNITS/0.01ML SC SCH (09:43)
[2020-08-23] MEDS: HEPARIN SOD (PORCINE) 5000UNITS/ML 1ML VIAL/SYRINGE SQ SCH ×2 (09:44→21:11)
[2020-08-23] MEDS: PANTOPRAZOLE 40MG VIAL (C9113 PER 1) IV SCH ×2 (09:44→21:08)
[2020-08-23] MEDS: SODIUM CHLORIDE NASAL 0.65% SPRAY BTL (OCEAN) SCH ×3 (09:44→21:12)
[2020-08-23 12:00] VITALS: BP 158/74
[2020-08-23 16:00] VITALS: BP_SYST 150
[2020-08-23] MEDS ORDERED: SODIUM CHLORIDE IV SCH ×9 (18:00)
[2020-08-23] MEDS ORDERED: SODIUM ACETATE IV SCH ×9 (18:00)
[2020-08-23] MEDS ORDERED: FAT EMULSION IV 20% 500 ML IV SCH (18:00)
[2020-08-23] MEDS ORDERED: [UNRECOGNIZED DRUG - OTHER] IV SCH ×9 (18:00)
[2020-08-23 20:00] VITALS: BP 165/85
--- NOTE | 2020-08-23 23:41 | IPNPDOC ---
Date Seen The patient was seen on 08/23/20. Progress Note SUBJECTIVE: Patient seen and examined at bedside. Mentation improved. Patient removed PICC line overnight, planned for reinsertion. For HD today. Remains NPO. Afebrile overnight. OBJECTIVE PHYSICAL EXAMINATION: VITAL SIGNS: please see below General: NAD, comfortable, still questions appropriately HEENT: PERRLA, EOMI, sclerae clear. NG tube removed. Neck: supple, normal ROM, no JVD Respiratory: Lateral rhonchi in the bases. Coherent speech., no wheeze, no rales, no crackles CVS: RRR, normal S1, S2, no murmurs Abdo: soft, no masses, no hepatosplenomegaly, BS+, no rebound tenderness. Rectal tube in place Extremities: Plus edema Skin: Large bruise in left arm at IV site per pen markings. No extension. MSK: no joint deformities, normal ROM Neuro: no focal neuro deficits, moving all 4 extremities, CN2-12 intact. Strength 5/5 in all 4 extremities. No nystagmus. Psych: calm, cooperative, AAO x 3 Lines: Left IJ. Right chest permacath, rectal tube, foote catheter. LABORATORY DATA, IMAGING STUDIES, MICROBIOLOGY: Please see below. DVT prophylaxis ordered?: SCDs and teds ASSESSMENT AND PLAN: 69-year-old male with a history NIDDM, HTN, was admitted for management of DKA, and later developed acute pancreatitis. He required intubation due to critical illness. He required pressors and IV antibiotics due to septic shock. He required CRRT for renal failure # Pancreatitis: NPO, NG to low-intermittent suction. On TPN. IV Vancomycin and zosyn. Pain control. No active abdominal pain on exam. #Protein-calorie malnutrition: TPN, orders placed by nephrology. Swallow eval completed. Recommend continued NPO with meds, high risk of aspiration. FEES. PICC line reinserted for TPN # Acute renal failure: R permacath. Nephrology on board. s/p CRRT. HD on 08/22/20. Now intermittent HD. Next session 08/24/20 Lasix stopped, to use as needed. # DKA: now off of insulin drip. Transitioned to subq insulin, TPN with insulin, ISS q4h accurchecks. Hypoglycemic precautions. # Anemia: Hgb improved to 13.2 to drop on 8.0 on 08/21, however I suspect the disproportionate rise in Hgb is a lab error. No additional blood seen in rectal tube bag. Received 3uPRBC total. Off heparin ggt. IV iron. # Diarrhea: Rectal tube. GI panel cannot be ordered after 72hrs. C diff negative however patient high risk and was placed on PO vancomycin. Zosyn IV. Stopped IV vanco. Plan to DC rectal tube 08/23/20. #Metabolic encephalopathy: day to day small improvements. C/w thiamine, folate in TPN. # Hypokalemia: replace. monitor. # FAST HUG VS, I&O, 24H, Fishbone Vital Signs/I&O Vital Signs Date Time Temp Pulse Resp B/P (MAP) Pulse Ox O2 Delivery O2 Flow Rate FiO2 08/23/20 20:00 99.1 103 18 165/85 (111) 99 Room Air 08/18/20 15:00 2.0 08/17/20 18:30 98 I&O- Last 24 Hours up to 6 AM 08/23/20 06:00 Intake Total 1097.5 ml Output Total 1250 ml Balance -152.5 ml Laboratory Data 24H LABS Laboratory Tests 2 08/23/20 03:55: Bedside Glucose (Misc Panel) 342H 08/23/20 05:29: Immature Granulocyte % (Auto) 2.2, Neutrophils (%) (Auto) 73.4H, Lymphocytes (%) (Auto) 13.6L, Monocytes (%) (Auto) 8.2H, Eosinophils (%) (Auto) 2.1, Basophils (%) (Auto) 0.5, Neutrophils # (Auto) 6.4, Lymphocytes # (Auto) 1.2L, Monocytes # (Auto) 0.7, Eosinophils # (Auto) 0.2, Basophils # (Auto) 0.0, Nucleated Red Blood Cells % (auto) 0.0, Anion Gap 12, Glomerular Filtration Rate 12.5L, Calcium Level 8.1L, Magnesium Level 2.2, Total Bilirubin 0.7, Aspartate Amino Transf (AST/SGOT) 11, Alanine Aminotransferase (ALT/SGPT) 13, Alkaline Phosphatase 149H, Total Protein 6.5, Albumin 1.5L, Albumin/Globulin Ratio 0.3 08/23/20 09:34: Bedside Glucose (Misc Panel) 397H 08/23/20 16:05: Bedside Glucose (Misc Panel) 419H 08/23/20 18:08: Bedside Glucose (Misc Panel) 385H 08/23/20 20:32: Bedside Glucose (Misc Panel) 282H CBC/BMP Laboratory Tests 08/23/20 05:29 QUENTIN BRUNO MD Aug 23, 2020 23:41
[2020-08-24] VITALS: BP 162/69
[2020-08-24] MEDS: VANCOMYCIN ORAL SOL 250MG/5ML ORAL SYRINGE PO SCH ×5 (00:32→23:58)
[2020-08-24] MEDS: HumaLOG INSULIN (NovoLOG) PER UNIT SC SCH ×6 (02:31→22:15)
[2020-08-24] MEDS: PIPERACILLIN/TAZOBACTAM SOD 4.5 GM in D5W MINI-BAG PLUS 50 ML IV SCH ×2 (02:31→15:55)
[2020-08-24] MEDS: ALBUTEROL SULFATE 2.5 MG/0.5 ML INH NEB SOLN NEB SCH ×5 (03:35→20:43)
[2020-08-24 04:00] VITALS: BP_SYST 142; BP_SYST 187; BP_DIAS 81; BP_DIAS 90
[2020-08-24 05:47] LABS: BASO # 0.1 10^3/uL (0.0-0.2); BASO % 0.7 % (0.0-1.0); EOS # 0.2 10^3/uL (0.0-0.5); EOS % 2.7 % (0.0-3.0); HEMATOCRIT 26.4 % (42.0-52.0); HEMOGLOBIN 8.7 g/dl (13.5-17.5); LYMPH # 1.1 10^3/uL (1.5-5.0); LYMPH % 12.9 % (24.0-44.0); MEAN CORPUSCULAR HEMOGLOBIN 31.5 pg (27.0-33.0); MEAN CORPUSCULAR VOLUME 95.7 fl (80.0-96.0); MONO # 0.6 10^3/uL (0.0-0.8); MONO % 7.8 % (0.0-5.0); NEUTROPHILS # 6.2 10^3/uL (1.5-8.5); NEUTROPHILS % 74.8 % (36.0-66.0); PLATELET COUNT, AUTOMATED 245 10^3/uL (150-450); RED BLOOD COUNT 2.76 10^6/uL (4.30-6.10); WHITE BLOOD COUNT 8.2 10^3/uL (4.0-10.0)
[2020-08-24] MEDS: SODIUM CHLORIDE 0.9% INJ 10 ML SYR IV SCH ×4 (06:00→18:00)
[2020-08-24 06:15] LABS: ALBUMIN 1.6 GM/DL (3.2-5.2); BILIRUBIN,TOTAL 0.7 MG/DL (0.2-1.0); CALCIUM LEVEL 8.9 MG/DL (8.8-10.2); CREATININE FOR GFR 6.26 MG/DL (0.70-1.30); GLOMERULAR FILTRATION RATE 9.4 (>42); MAGNESIUM LEVEL 2.2 MG/DL (1.8-2.4); POTASSIUM SERUM 3.5 MEQ/L (3.5-5.1); TOTAL PROTEIN 6.7 GM/DL (6.4-8.2)
[2020-08-24 07:41] VITALS: BP 143/84
[2020-08-24] MEDS: LEVEMIR (INSULIN DETEMIR) 1 UNITS/0.01ML SC SCH (08:56)
[2020-08-24] MEDS: FUROSEMIDE 40MG/4ML VIAL (J1940) IV SCH (08:57)
[2020-08-24] MEDS: PANTOPRAZOLE 40MG VIAL (C9113 PER 1) IV SCH ×2 (08:57→22:16)
[2020-08-24] MEDS: HEPARIN SOD (PORCINE) 5000UNITS/ML 1ML VIAL/SYRINGE SQ SCH ×2 (08:57→22:16)
[2020-08-24] MEDS: SODIUM CHLORIDE NASAL 0.65% SPRAY BTL (OCEAN) SCH ×3 (08:58→22:16)
--- NOTE | 2020-08-24 11:57 | IPN ---
PROGRESS NOTE DATE: 08/23/2020 SUBJECTIVE: Patient is seen and examined this morning at the bedside. He was conversational. He denied any abdominal pain or shortness of breath. He was dialyzed yesterday with 1 liter of fluid removed without any issue. His rectal tube has been discontinued. He remains n.p.o. and is TPN dependent. 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 PHYSICAL EXAMINATION: VITAL SIGNS: Temperature 98.3, pulse 106, respiratory rate 17, blood pressure 158/74, saturating 96% on room air. INTAKE/OUTPUT: Intake yesterday was not fully recorded. Urine output yesterday was 725. Dialysis removed 1 liter. Weight in the bed scale today is 106.3 kg. GENERAL: Patient is seen lying in bed, head of the bed is elevated, chronically ill-appearing, fatigued, but in no distress, comfortable. Answers questions appropriately and is conversational with coherent speech. Make eye contact. HEENT: Tongue is dry. Neck is supple. Jugular veins are not elevated. There is a Permacath in the right chest wall. HEART: Heart sounds are tachycardic S1, S2. There is trace leg edema. LUNGS: Show scattered rhonchus. He is comfortable on room air. There is no accessory muscle use or tachypnea. ABDOMEN: Soft and there is no tenderness to palpation. His rectal tube is discontinued. NEUROLOGIC: He is cooperative with physical exam, moves all four extremities on command, answers simple questions appropriately. PSYCHIATRIC: Calm and cooperative. LABORATORY DATA: White count 8.8, hemoglobin 9.2, platelets 246,000. Sodium 138, potassium 3.6, bicarbonate 23, BUN 58, creatinine 4.9. INPATIENT MEDICATIONS: He is resumed on Lasix 40 I.V. daily. He continues on TPN; I increased the insulin in the TPN to 30 units. The remainder of his medications are unchanged as compared to yesterday. PROBLEMS: 1. Acute nonoliguric renal failure; status post CRRT in the setting of severe pancreatitis: Continues to be dialysis dependent, his next dialysis will be on Wednesday. We are monitoring for signs of renal recovery. His electrolytes are acceptable (with exception of sugar) and his volume status is acceptable as well. He has 1 liter removed with treatment. He also receives Lasix given that he is TPN dependent and has significant I.V. fluid intake because of that. 2. Insulin dependent diabetes mellitus: Sugars are uncontrolled in the 300's and I have increased the insulin in his TPN to 30 units and we can continue to increase, he has every 4 hours fingersticks. 3. Status post lower GI bleed: Hemoglobin is suboptimal, but stable and up to 9.2. He continues on Aranesp and Venofer with hemodialysis. 4. Pancreatitis: Patient remains n.p.o. He is on TPN. Antimicrobials are as per primary team. There is significant protein calorie malnutrition. Most recent albumin was 1.5.
[2020-08-24] MEDS: IRON SUCROSE 100MG 5ML VIAL (J1756 PER 1MG) IV SCH (13:03)
--- NOTE | 2020-08-24 13:58 | IPNPDOC ---
Date Seen The patient was seen on 08/24/20. Progress Note SUBJECTIVE: Patient seen and examined at bedside. Mentation improved. For HD today. Rectal tube fell out and we have let it be DC. Remains NPO, TPN via PICC line. Afebrile overnight. I spoke to the patient's this morning, and updated her as to his progress. She remains optimistic regarding his recovery and wishes for the code status to be changed to full code. OBJECTIVE PHYSICAL EXAMINATION: VITAL SIGNS: please see below General: NAD, comfortable, still questions appropriately HEENT: PERRLA, EOMI, sclerae clear. NG tube removed. Neck: supple, normal ROM, no JVD Respiratory: Lateral rhonchi in the bases. Coherent speech., no wheeze, no rales, no crackles CVS: RRR, normal S1, S2, no murmurs Abdo: soft, no masses, no hepatosplenomegaly, BS+, no rebound tenderness. Rectal tube in place Extremities: Plus edema Skin: Large bruise in left arm at IV site per pen markings. No extension. MSK: no joint deformities, normal ROM Neuro: no focal neuro deficits, moving all 4 extremities, CN2-12 intact. Strength 5/5 in all 4 extremities. No nystagmus. Psych: calm, cooperative, AAO x 3 Lines: Left IJ. Right chest permacath, foote catheter. LABORATORY DATA, IMAGING STUDIES, MICROBIOLOGY: Please see below. DVT prophylaxis ordered?: SCDs and teds ASSESSMENT AND PLAN: 69-year-old male with a history NIDDM, HTN, was admitted for management of DKA, and later developed acute pancreatitis. He required intubation due to critical illness. He required pressors and IV antibiotics due to septic shock. He required CRRT for renal failure # Pancreatitis: NPO, NG to low-intermittent suction. On TPN. IV zosyn, Vanc was DC. Pain control. No active abdominal pain on exam. #Protein-calorie malnutrition: TPN, orders placed by nephrology. Swallow eval completed. Recommend continued NPO with meds, high risk of aspiration. FEES. PICC line reinserted for TPN # Acute renal failure: R permacath. Nephrology on board. s/p CRRT. HD on 08/22/20. Now intermittent HD. Next session 08/24/20 Lasix stopped, to use as needed. # DKA: now off of insulin drip. Transitioned to subq insulin, TPN with insulin, ISS q4h accurchecks. Hypoglycemic precautions. # Anemia: Stable. Received 3uPRBC total. Off heparin ggt. IV iron. # Diarrhea: Rectal tube. GI panel cannot be ordered after 72hrs. C diff negative however patient high risk and was placed on PO vancomycin. Zosyn IV. Stopped IV vanco. #Metabolic encephalopathy: day to day small improvements. C/w thiamine, folate in TPN. # Hypokalemia: replace. monitor. # FAST HUG VS, I&O, 24H, Fishbone Vital Signs/I&O Vital Signs Date Time Temp Pulse Resp B/P (MAP) Pulse Ox O2 Delivery O2 Flow Rate FiO2 08/24/20 07:41 98.9 111 20 143/84 (103) 94 Room Air 08/18/20 15:00 2.0 I&O- Last 24 Hours up to 6 AM 08/24/20 06:00 Intake Total 1200 ml Output Total 725 ml Balance 475 ml Laboratory Data 24H LABS Laboratory Tests 2 08/23/20 16:05: Bedside Glucose (Misc Panel) 419H 08/23/20 18:08: Bedside Glucose (Misc Panel) 385H 08/23/20 20:32: Bedside Glucose (Misc Panel) 282H 08/24/20 02:09: Bedside Glucose (Misc Panel) 319H 08/24/20 05:16: Immature Granulocyte % (Auto) 1.1, Neutrophils (%) (Auto) 74.8H, Lymphocytes (%) (Auto) 12.9L, Monocytes (%) (Auto) 7.8H, Eosinophils (%) (Auto) 2.7, Basophils (%) (Auto) 0.7, Neutrophils # (Auto) 6.2, Lymphocytes # (Auto) 1.1L, Monocytes # (Auto) 0.6, Eosinophils # (Auto) 0.2, Basophils # (Auto) 0.1, Nucleated Red Blood Cells % (auto) 0.0, Anion Gap 10, Glomerular Filtration Rate 9.4L, Calcium Level 8.9, Magnesium Level 2.2, Total Bilirubin 0.7, Aspartate Amino Transf (AST/SGOT) 12, Alanine Aminotransferase (ALT/SGPT) 14, Alkaline Phosphatase 150H, Total Protein 6.7, Albumin 1.6L, Albumin/Globulin Ratio 0.3 08/24/20 05:54: Bedside Glucose (Misc Panel) 297H 08/24/20 10:04: Bedside Glucose (Misc Panel) 295H CBC/BMP Laboratory Tests 08/24/20 05:16 QUENTIN BRUNO MD Aug 24, 2020 13:58
[2020-08-24 15:25] VITALS: BP 130/80
[2020-08-24] MEDS ORDERED: AMINO AC/ELECTROLYTE/DEX/CALC 1,000 ML IV SCH (18:00)
[2020-08-24] MEDS ORDERED: FAT EMULSION IV 20% 500 ML IV SCH (18:00)
[2020-08-24] MEDS: AMINO AC/ELECTROLYTE/DEX/CALC 2,000 ML IV SCH (18:44)
--- NOTE | 2020-08-24 18:53 | IPN ---
PROGRESS NOTE DATE: 08/24/2020 Mr. Martinez is seen this mooring on his bedside in hemodialysis. He is just brought to dialysis room. Nursing staff reports that he pulled his central line, and his total parenteral nutrition (TPN) is currently on hold. Patient denies any dyspnea or chest pain. He is still somewhat confused but is able to answer simple questions. He has mittens on his hands. PHYSICAL EXAMINATION: Temperature 98.8 degrees Fahrenheit, heart rate 110 per minute, respiratory rate 20 per minutes, blood pressure 143/84 mm of mercury, and oxygen saturation 94% on room air. Intake and output records from yesterday show total intake 2200 and output 275. His head is atraumatic. Neck is supple, and jugular venous distention (JVD) not abnormally elevated. He has a hemodialysis catheter in right internal jugular vein. Heart sounds are tachycardic and lungs with slightly diminished breath sounds at bases. Abdomen soft, and bowel sounds are present. Extremities without any cyanosis or clubbing. Neurologically, he is awake and cooperative at present; however, nursing staff reports that he does get quite confused and pulled out his peripherally inserted central catheter (PICC) line. Today's labs show WBC count 8.2, hemoglobin 8.7, and hematocrit 26.4. Platelets 245. sodium 141, potassium 3.5, CO2 of 22, BUN 76, and creatinine 6.26. Glucose 335. PROBLEMS: 1. Acute renal failure. Patient still not recovering from his acute renal failure and remains dialysis dependent. He is going to be dialyzed today. His electrolytes are stable at present, and volume status seems reasonably well compensated. He is not receiving TPN anymore, so we will remove only about 1 liter of fluid as tolerated. 2. Hyperglycemia. His hyperglycemia is slightly better but still persists. This needs to be monitored closely and corrected with insulin coverage. He is currently off TPN, which will also help to improve his hyperglycemia. 3. Anemia. No significant change and no urgent need for transfusion at present. 4. Altered mentation. Patient does get confused at times and pulled out is PICC line. He has also failed swallowing evaluations and remains on TPN. He does not have a PICC line at present. He can probably benefit from peripheral parenteral nutrition PPN.
[2020-08-24 20:00] VITALS: BP 118/71
[2020-08-25] VITALS: BP 141/81
[2020-08-25] MEDS: ALBUTEROL SULFATE 2.5 MG/0.5 ML INH NEB SOLN NEB SCH ×6 (00:19→19:56)
[2020-08-25] MEDS: HumaLOG INSULIN (NovoLOG) PER UNIT SC SCH ×6 (03:23→20:33)
[2020-08-25] MEDS: PIPERACILLIN/TAZOBACTAM SOD 4.5 GM in D5W MINI-BAG PLUS 50 ML IV SCH ×2 (03:23→14:19)
[2020-08-25 04:00] VITALS: BP 151/72
[2020-08-25] MEDS: SODIUM CHLORIDE 0.9% INJ 10 ML SYR IV SCH ×4 (06:00→18:00)
[2020-08-25] MEDS: VANCOMYCIN ORAL SOL 250MG/5ML ORAL SYRINGE PO SCH ×4 (06:12→23:50)
[2020-08-25 06:38] LABS: BASO # 0.1 10^3/uL (0.0-0.2); BASO % 0.7 % (0.0-1.0); EOS # 0.3 10^3/uL (0.0-0.5); EOS % 3.4 % (0.0-3.0); HEMATOCRIT 27.6 % (42.0-52.0); HEMOGLOBIN 8.9 g/dl (13.5-17.5); LYMPH # 1.1 10^3/uL (1.5-5.0); MEAN CORPUSCULAR HEMOGLOBIN 30.7 pg (27.0-33.0); MEAN CORPUSCULAR HGB CONC 32.2 g/dl (32.0-36.5); MEAN CORPUSCULAR VOLUME 95.2 fl (80.0-96.0); MONO # 0.7 10^3/uL (0.0-0.8); MONO % 8.5 % (0.0-5.0); NEUTROPHILS # 5.5 10^3/uL (1.5-8.5); NEUTROPHILS % 71.7 % (36.0-66.0); PLATELET COUNT, AUTOMATED 257 10^3/uL (150-450); WHITE BLOOD COUNT 7.7 10^3/uL (4.0-10.0)
[2020-08-25 07:01] LABS: ALBUMIN 1.6 GM/DL (3.2-5.2); BILIRUBIN,TOTAL 0.9 MG/DL (0.2-1.0); CALCIUM LEVEL 8.8 MG/DL (8.8-10.2); CREATININE FOR GFR 4.7 MG/DL (0.70-1.30); GLOMERULAR FILTRATION RATE 13.1 (>42); MAGNESIUM LEVEL 2.2 MG/DL (1.8-2.4)
[2020-08-25 08:00] VITALS: BP 149/83
[2020-08-25] MEDS: PANTOPRAZOLE 40MG VIAL (C9113 PER 1) IV SCH ×2 (10:27→20:26)
[2020-08-25] MEDS: HEPARIN SOD (PORCINE) 5000UNITS/ML 1ML VIAL/SYRINGE SQ SCH ×2 (10:29→20:26)
[2020-08-25] MEDS: FUROSEMIDE 40MG/4ML VIAL (J1940) IV SCH (10:30)
[2020-08-25] MEDS: LEVEMIR (INSULIN DETEMIR) 1 UNITS/0.01ML SC SCH (10:30)
[2020-08-25] MEDS: SODIUM CHLORIDE NASAL 0.65% SPRAY BTL (OCEAN) SCH ×3 (10:31→20:27)
[2020-08-25 12:00] VITALS: BP 142/87
[2020-08-25 16:00] VITALS: BP 148/98
--- NOTE | 2020-08-25 17:13 | IPNPDOC ---
Date Seen The patient was seen on 08/25/20. Progress Note SUBJECTIVE: Patient seen and examined at bedside. Remains confused, no imrpvoement in mentation. Ham Dunne spoke to the patient's this morning, and updated her as to his progress. She remains optimistic regarding his recovery and wishes for the code status to be changed to full code. OBJECTIVE PHYSICAL EXAMINATION: VITAL SIGNS: please see below General: NAD, comfortable, still questions appropriately HEENT: PERRLA, EOMI, sclerae clear. NG tube removed. Neck: supple, normal ROM, no JVD Respiratory: Lateral rhonchi in the bases. Coherent speech., no wheeze, no rales, no crackles CVS: RRR, normal S1, S2, no murmurs Abdo: soft, no masses, no hepatosplenomegaly, BS+, no rebound tenderness. Extremities: Plus edema Skin: Large bruise in left arm at IV site per pen markings. No extension. MSK: no joint deformities, normal ROM Neuro: no focal neuro deficits, moving all 4 extremities, CN2-12 intact. Strength 5/5 in all 4 extremities. No nystagmus. Psych: calm, cooperative, AAO x 3 LABORATORY DATA, IMAGING STUDIES, MICROBIOLOGY: Please see below. DVT prophylaxis ordered?: SCDs and teds ASSESSMENT AND PLAN: 69-year-old male with a history NIDDM, HTN, was admitted for management of DKA, and later developed acute pancreatitis. He required intubation due to critical illness. He required pressors and IV antibiotics due to septic shock. He required CRRT for renal failure, but transitioned to intermittent HD. Remains NPO, remains on TPN. # Pancreatitis: NPO, NG to low-intermittent suction. On TPN. IV zosyn, Vanc was DC. Pain control. No active abdominal pain on exam. #Fever: denies cough, subjective chills. Turbid urine. CHeck UA. Check CXR. Monitor clinically. #Protein-calorie malnutrition: TPN, orders placed by nephrology. Swallow eval completed. Recommend continued NPO with meds, high risk of aspiration. FEES. Pulled pick line, presently on PPN. PICC for reinsertion on 07/27/20. # Acute renal failure: R permacath. Nephrology on board. s/p CRRT. Intermittent HD. Lasix stopped, to use as needed. # DKA: now off of insulin drip. Transitioned to subq insulin, TPN with insulin, ISS q4h accurchecks. Hypoglycemic precautions. # Anemia: Stable. Received 3uPRBC total. Off heparin ggt. IV iron. # Diarrhea: Rectal tube. GI panel cannot be ordered after 72hrs. C diff negative however patient high risk and was placed on PO vancomycin. Zosyn IV. Stopped IV vanco. #Metabolic encephalopathy: day to day small improvements. C/w thiamine, folate in TPN. # Hypokalemia: replace. monitor. # FAST HUG VS, I&O, 24H, Fishbone Vital Signs/I&O Vital Signs Date Time Temp Pulse Resp B/P (MAP) Pulse Ox O2 Delivery O2 Flow Rate FiO2 08/25/20 16:00 99.6 113 20 148/98 (115) 92 Room Air I&O- Last 24 Hours up to 6 AM 08/25/20 06:00 Intake Total 100 ml Output Total 1650 ml Balance -1550 ml Laboratory Data 24H LABS Laboratory Tests 2 08/24/20 18:15: Bedside Glucose (Misc Panel) 162H 08/24/20 21:24: Bedside Glucose (Misc Panel) 202H 08/25/20 02:08: Bedside Glucose (Misc Panel) 225H 08/25/20 05:59: Immature Granulocyte % (Auto) 1.7, Neutrophils (%) (Auto) 71.7H, Lymphocytes (%) (Auto) 14.0L, Monocytes (%) (Auto) 8.5H, Eosinophils (%) (Auto) 3.4H, Basophils (%) (Auto) 0.7, Neutrophils # (Auto) 5.5, Lymphocytes # (Auto) 1.1L, Monocytes # (Auto) 0.7, Eosinophils # (Auto) 0.3, Basophils # (Auto) 0.1, Nucleated Red Blood Cells % (auto) 0.3H, Anion Gap 8, Glomerular Filtration Rate 13.1L, Calcium Level 8.8, Magnesium Level 2.2, Total Bilirubin 0.9, Aspartate Amino Transf (AST/SGOT) 17, Alanine Aminotransferase (ALT/SGPT) 17, Alkaline Phosphat ase 168H, Total Protein 7.0, Albumin 1.6L, Albumin/Globulin Ratio 0.3 08/25/20 06:05: Bedside Glucose (Misc Panel) 271H 08/25/20 10:18: Bedside Glucose (Misc Panel) 323H 08/25/20 14:05: Bedside Glucose (Misc Panel) 317H CBC/BMP Laboratory Tests 08/25/20 05:59 QUENTIN BRUNO MD Aug 25, 2020 17:13
--- NOTE | 2020-08-25 17:51 | REP ---
INDICATION: fever. COMPARISON: 08/15/2020. TECHNIQUE: SINGLE PORTABLE AP VIEW OF THE CHEST WAS PERFORMED. FINDINGS: There is mild patchy atelectasis or infiltrate in the right lung base. There is mild bibasilar linear fibro atelectatic change. The heart is not enlarged. There is calcification and tortuosity of the thoracic aorta. The mediastinal silhouette is unchanged. A right central venous catheter is seen, with the tip of the double-lumen in the superior vena cava. IMPRESSION: Mild patchy atelectasis or infiltrate right lung base. <Electronically signed by Meliton Rodriguez > 08/25/20 [id number]
[2020-08-25 20:00] VITALS: BP 126/78
--- NOTE | 2020-08-25 20:45 | IPN ---
PROGRESS NOTE DATE: 08/25/2020 SUBJECTIVE: Mr. Martinez is seen this morning on his bedside. He is feeling about the same. He did have low-grade fever and remains n.p.o. due to inability to swallow properly. He is now on peripheral parenteral nutrition. He did have dialysis yesterday, which he tolerated well. PHYSICAL EXAMINATION: VITALS: Temperature 100 degrees Fahrenheit, heart rate 102 per minute, respiratory rate 20 per minute, blood pressure 150/83 mmHg, oxygen saturation 95% on room air. HEENT: Head is atraumatic. His oral hygiene is somewhat poor. Mild dryness of the oral mucosa is noticed. He has a hemodialysis catheter on his right upper chest without any signs of infection. HEART: Heart sounds are tachycardic. LUNGS: Diminished breath sounds. ABDOMEN: Soft and nontender. Bowel sounds are present. EXTREMITIES: Without any cyanosis or clubbing. NEURO: He is awake and moving all limbs. He is able to answer simple questions. LABORATORY DATA: Today's labs show WBC 7.7, hemoglobin 8.9, hematocrit 27.6, platelets 257,000. Sodium 134, potassium 4.0, CO2 26, BUN 47, creatinine 4.7, glucose 286 and calcium 8.8. PROBLEMS: 1. Acute renal failure: Patient remains dialysis dependent. He was dialyzed yesterday and we will reevaluate him tomorrow for further need for dialysis. At present, there is no emergent indication for dialysis today. 2. Anemia: His anemia has been stable and does not need any urgent intervention. 3. Nutrition: Patient has been unable to swallow and remains on parenteral nutrition. He pulled out his PICC line and is not receiving TPN. He should probably get another PICC line placed tomorrow. 4. Altered mentation: His mentation is gradually improving. He is still not able to swallow.
[2020-08-25] MEDS: AMINO AC/ELECTROLYTE/DEX/CALC 2,000 ML IV SCH (20:51)
[2020-08-25] MEDS: FAT EMULSION IV 20% 500 ML IV SCH (20:51)
[2020-08-26] VITALS: BP 144/88
[2020-08-26] MEDS: ALBUTEROL SULFATE 2.5 MG/0.5 ML INH NEB SOLN NEB SCH ×7 (00:35→23:41)
[2020-08-26] MEDS: HumaLOG INSULIN (NovoLOG) PER UNIT SC SCH ×5 (03:24→18:27)
[2020-08-26] MEDS: PIPERACILLIN/TAZOBACTAM SOD 4.5 GM in D5W MINI-BAG PLUS 50 ML IV SCH ×2 (03:24→14:39)
[2020-08-26 04:00] VITALS: BP 153/74
[2020-08-26] MEDS: VANCOMYCIN ORAL SOL 250MG/5ML ORAL SYRINGE PO SCH ×3 (05:08→18:26)
[2020-08-26] MEDS: SODIUM CHLORIDE 0.9% INJ 10 ML SYR IV SCH ×4 (05:12→18:00)
[2020-08-26 07:39] LABS: BASO # 0.1 10^3/uL (0.0-0.2); BASO % 0.7 % (0.0-1.0); EOS # 0.3 10^3/uL (0.0-0.5); EOS % 3.7 % (0.0-3.0); HEMOGLOBIN 8.9 g/dl (13.5-17.5); LYMPH # 0.9 10^3/uL (1.5-5.0); LYMPH % 12.3 % (24.0-44.0); MEAN CORPUSCULAR HEMOGLOBIN 30.3 pg (27.0-33.0); MEAN CORPUSCULAR HGB CONC 31.8 g/dl (32.0-36.5); MEAN CORPUSCULAR VOLUME 95.2 fl (80.0-96.0); MONO # 0.5 10^3/uL (0.0-0.8); MONO % 6.8 % (0.0-5.0); NEUTROPHILS # 5.3 10^3/uL (1.5-8.5); NEUTROPHILS % 74.9 % (36.0-66.0); PLATELET COUNT, AUTOMATED 247 10^3/uL (150-450); RED BLOOD COUNT 2.94 10^6/uL (4.30-6.10); WHITE BLOOD COUNT 7.1 10^3/uL (4.0-10.0)
[2020-08-26 07:55] VITALS: BP 142/82
[2020-08-26 08:20] LABS: ALBUMIN 1.6 GM/DL (3.2-5.2); BILIRUBIN,TOTAL 0.7 MG/DL (0.2-1.0); CALCIUM LEVEL 8.6 MG/DL (8.8-10.2); CREATININE FOR GFR 6.3 MG/DL (0.70-1.30); GLOMERULAR FILTRATION RATE 9.4 (>42); MAGNESIUM LEVEL 2.4 MG/DL (1.8-2.4)
[2020-08-26] MEDS: PANTOPRAZOLE 40MG VIAL (C9113 PER 1) IV SCH ×2 (09:32→20:23)
[2020-08-26] MEDS: FUROSEMIDE 40MG/4ML VIAL (J1940) IV SCH (09:33)
[2020-08-26] MEDS: LEVEMIR (INSULIN DETEMIR) 1 UNITS/0.01ML SC SCH (09:33)
[2020-08-26] MEDS: HEPARIN SOD (PORCINE) 5000UNITS/ML 1ML VIAL/SYRINGE SQ SCH ×2 (09:34→20:21)
[2020-08-26] MEDS: SODIUM CHLORIDE NASAL 0.65% SPRAY BTL (OCEAN) SCH ×3 (09:34→20:27)
[2020-08-26] MEDS: AMINO AC/ELECTROLYTE/DEX/CALC 2,000 ML IV SCH ×2 (09:36→18:29)
[2020-08-26 12:00] VITALS: BP 148/76
[2020-08-26 13:47] LABS: HEMOGLOBIN 9.1 g/dl (13.5-17.5)
[2020-08-26 16:00] VITALS: BP 120/60
[2020-08-26] MEDS: FAT EMULSION IV 20% 500 ML IV SCH (18:28)
[2020-08-26 20:00] VITALS: BP 154/87
--- NOTE | 2020-08-26 20:04 | IPN ---
NEPHROLOGY PROGRESS NOTE DATE: 08/26/2020 SUBJECTIVE: Mr. Martinez is seen this morning at his bedside. Nursing staff reports that he remains n.p.o. He is still receiving parenteral nutrition through a peripheral IV and he is likely to get another PICC line placed today. The patient denies any dyspnea or chest pain. He remains weak and physical therapy has been started. Nursing staff reports that he did stand up with the help of the physical therapist, however became very tachycardic and since then has been in the bed. PHYSICAL EXAMINATION: VITAL SIGNS: Temperature 98.7 degrees Fahrenheit, heart rate 110 per minute, respiratory rate is 20 per minute. Blood pressure 148/76 mm of mercury and oxygen saturation is 98% on room air. HEENT: Head is atraumatic. His oral hygiene is poor. NECK: His neck veins are not abnormally distended. Dialysis catheter in the right internal jugular vein is intact. HEART: Tachycardic. LUNGS: Diminished breath sounds and basilar crackles. ABDOMEN: Soft and nontender and bowel sounds are present. EXTREMITIES: Without any cyanosis or clubbing. NEUROLOGICAL: He is awake and able to move all his limbs. LABORATORY STUDIES: Today's labs show a WBC count of 7.1, hemoglobin 8.9 and hematocrit 28.0, platelets 247. Sodium 136, potassium 4.0, CO2 23, BUN 67 and creatinine 6.3. Calcium 8.6, total protein 7.0 and albumin 1.6. PROBLEMS: 1. Acute renal failure - The patient remains oliguric and has been dialysis dependent. We will plan to dialyze him again tomorrow. His electrolytes are stable and volume is well compensated at present and there is no emergent indication for dialysis today. 2. Anemia no significant change and anemia is stable. He continues to receive Aranesp with hemodialysis. 3. Nutrition - The patient has been on peripheral parenteral nutrition and we will with the same. Once he gets a PICC line placed, then we can start with TPN. 4. General weakness and deconditioning related to complicated hospitalization and the patient will probably require subacute rehab. 5. Pneumonia - The patient is currently on Zosyn by the Hospitalist service. He is also on oral Vancomycin for possible C-diff colitis. 6. Congestive heart failure his volume status is compensated with dialysis and he is also on low dose diuretic but not making much urine. We will continue to manage him with hemodialysis.
--- NOTE | 2020-08-26 20:38 | IPNPDOC ---
Date Seen The patient was seen on 08/26/20. Progress Note SUBJECTIVE: Patient seen and examined at bedside. Remains confused, no improvement in mentation. Per RN, had a blood tinged BM. Repeat CBC ordered. Monitor for additional bleeding. VSS. Remains NPO. OBJECTIVE PHYSICAL EXAMINATION: VITAL SIGNS: please see below General: NAD, comfortable, still questions appropriately HEENT: PERRLA, EOMI, sclerae clear. NG tube removed. Neck: supple, normal ROM, no JVD Respiratory: Lateral rhonchi in the bases. Coherent speech., no wheeze, no rales, no crackles CVS: RRR, normal S1, S2, no murmurs Abdo: soft, no masses, no hepatosplenomegaly, BS+, no rebound tenderness. Extremities: Plus edema Skin: Large bruise in left arm at IV site per pen markings. No extension. MSK: no joint deformities, normal ROM Neuro: no focal neuro deficits, moving all 4 extremities, CN2-12 intact. Strength 5/5 in all 4 extremities. No nystagmus. Psych: calm, cooperative, AAO x 3 LABORATORY DATA, IMAGING STUDIES, MICROBIOLOGY: Please see below. DVT prophylaxis ordered?: SCDs and teds ASSESSMENT AND PLAN: 69-year-old male with a history NIDDM, HTN, was admitted for management of DKA, and later developed acute pancreatitis. He required intubation due to critical illness. He required pressors and IV antibiotics due to septic shock. He required CRRT for renal failure, but transitioned to intermittent HD. Remains NPO, remains on TPN. # Pancreatitis: NPO. NG remove. Pain control. No active abdominal pain on exam. #Fever: denies cough, subjective chills. Turbid urine. CHeck UA. Check CXR. Monitor clinically. #Protein-calorie malnutrition: TPN, orders placed by nephrology. Swallow eval completed. Recommend continued NPO with meds, high risk of aspiration. FEES. PICC for reinsertion on 07/27/20. # Acute renal failure: Remains oliguric. Nephrology on board. s/p CRRT. Intermittent HD. #UA+ yeast: diflucan 150 mg once. # DKA: now off of insulin drip. Transitioned to subq insulin, TPN with insulin, ISS q4h accurchecks. Hypoglycemic precautions. # Anemia: Stable. Received 3uPRBC total. Off heparin ggt. IV iron. # Diarrhea: Rectal tube. GI panel cannot be ordered after 72hrs. C diff negative however patient high risk and was placed on PO vancomycin. Zosyn IV. Stopped IV vanco. #Metabolic encephalopathy: day to day small improvements. C/w thiamine, folate in TPN. # Hypokalemia: replace. monitor. # FAST HUG Dispo: poor prognosis. attempted to speak to , Mrs. Carolina Martinez (tel ([phone], ) regarding the goals, of care but was unable to reach successfully. Mr. Martinez has not made progress with regard to ability to tolerate PO feedings. He remains at high rist for aspiration. While we will resume TPN, I suspect that his next option is a PEG tube. VS, I&O, 24H, Fishbone Vital Signs/I&O Vital Signs Date Time Temp Pulse Resp B/P (MAP) Pulse Ox O2 Delivery O2 Flow Rate FiO2 08/26/20 20:00 98.7 116 19 154/87 (109) 94 Room Air I&O- Last 24 Hours up to 6 AM 08/26/20 06:00 Intake Total 620 ml Output Total 1150 ml Balance -530 ml Laboratory Data 24H LABS Laboratory Tests 2 08/26/20 01:00: Urine Color YELLOW, Urine Appearance CLOUDYH, Urine pH 7.0, Urine Specific [place] 1.012, Urine Protein 2+H, Urine Glucose (UA) 1+H, Urine Ketones NEGATIVE, Urine Blood 3+H, Urine Nitrite NEGATIVE, Urine Bilirubin NEGATIVE, Urine Urobilinogen 0.2, Urine Leukocyte Esterase 3+H, Urine WBC (Auto) TNTCH, Urine RBC (Auto) TNTCH, Urine Hyaline Casts (Auto) 0, Urine Bacteria (Auto) NEGATIVE, Urine Squamous Epithelial Cells 0, Urine Yeast-Like Cells (Auto) LARGEH, Urine Sperm (Auto) 08/26/20 03:15: Bedside Glucose (Misc Panel) 229H 08/26/20 05:07: Bedside Glucose (Misc Panel) 277H 08/26/20 07:29: Immature Granulocyte % (Auto) 1.6, Neutrophils (%) (Auto) 74.9H, Lymphocytes (%) (Auto) 12.3L, Monocytes (%) (Auto) 6.8H, Eosinophils (%) (Auto) 3.7H, Basophils (%) (Auto) 0.7, Neutrophils # (Auto) 5.3, Lymphocytes # (Auto) 0.9L, Monocytes # (Auto) 0.5, Eosinophils # (Auto) 0.3, Basophils # (Auto) 0.1, Nucleated Red Blood Cells % (auto) 0.0, Anion Gap 13, Glomerular Filtration Rate 9.4L, Calcium Level 8.6L, Magnesium Level 2.4, Total Bilirubin 0.7, Aspartate Amino Transf (AST/SGOT) 13, Alanine Aminotransferase (ALT/SGPT) 16, Alkaline Phosphatase 158H, Total Protein 7.0, Albumin 1.6L, Albumin/Globulin Ratio 0.3 08/26/20 10:56: Bedside Glucose (Misc Panel) 390H 08/26/20 13:16: Bedside Glucose (Misc Panel) 350H 08/26/20 17:07: Bedside Glucose (Misc Panel) 262H CBC/BMP Laboratory Tests 08/26/20 07:29 08/26/20 13:34 Microbiology Microbiology 08/26/20 Urine Culture, Received Pending 08/25/20 Blood Culture - Preliminary, Resulted No growth after 24 hours . All specim... QUENTIN BRUNO MD Aug 26, 2020 20:38
[2020-08-26] MEDS ORDERED: FLUCONAZOLE 50MG TABLET PO ONE (20:45)
[2020-08-27] VITALS: BP 154/78
[2020-08-27] MEDS ORDERED: FLUCONAZOLE 200 MG in IV 1 EA IV ONE (00:45)
[2020-08-27] MEDS: HumaLOG INSULIN (NovoLOG) PER UNIT SC SCH ×5 (01:24→22:49)
[2020-08-27] MEDS: VANCOMYCIN ORAL SOL 250MG/5ML ORAL SYRINGE PO SCH ×5 (01:25→22:48)
[2020-08-27] MEDS: PIPERACILLIN/TAZOBACTAM SOD 4.5 GM in D5W MINI-BAG PLUS 50 ML IV SCH ×2 (02:36→16:15)
[2020-08-27 04:00] VITALS: BP 151/82
[2020-08-27 04:29] LABS: BASO # 0.1 10^3/uL (0.0-0.2); BASO % 0.8 % (0.0-1.0); EOS # 0.2 10^3/uL (0.0-0.5); EOS % 3.9 % (0.0-3.0); HEMATOCRIT 27.2 % (42.0-52.0); HEMOGLOBIN 8.7 g/dl (13.5-17.5); LYMPH # 0.8 10^3/uL (1.5-5.0); LYMPH % 13.3 % (24.0-44.0); MEAN CORPUSCULAR HEMOGLOBIN 30.4 pg (27.0-33.0); MEAN CORPUSCULAR VOLUME 95.1 fl (80.0-96.0); MONO # 0.5 10^3/uL (0.0-0.8); MONO % 8.4 % (0.0-5.0); NEUTROPHILS # 4.5 10^3/uL (1.5-8.5); NEUTROPHILS % 71.8 % (36.0-66.0); PLATELET COUNT, AUTOMATED 235 10^3/uL (150-450); RED BLOOD COUNT 2.86 10^6/uL (4.30-6.10); WHITE BLOOD COUNT 6.2 10^3/uL (4.0-10.0)
[2020-08-27 05:09] LABS: ALBUMIN 1.6 GM/DL (3.2-5.2); BILIRUBIN,TOTAL 0.5 MG/DL (0.2-1.0); CALCIUM LEVEL 8.3 MG/DL (8.8-10.2); CREATININE FOR GFR 6.95 MG/DL (0.70-1.30); GLOMERULAR FILTRATION RATE 8.4 (>42); MAGNESIUM LEVEL 2.5 MG/DL (1.8-2.4); POTASSIUM SERUM 4.2 MEQ/L (3.5-5.1)
[2020-08-27] MEDS ORDERED: HumaLOG INSULIN (NovoLOG) PER UNIT SC ONE (06:00)
[2020-08-27 07:28] VITALS: BP 152/82
--- NOTE | 2020-08-27 07:53 | IPNPDOC ---
Text Note Date of Service The patient was seen on 08/27/20. NOTE Subjective: Patient seen and examined at bedside this morning. Patient is confused and mumbling. He is redirectable at times. He is on his way to go to dialysis this morning. Patient has pulled out his PICC line again. He will be inserted one more time but he will require mitts and a sitter. Continues to have intermittent rectal bleed. Remains nothing by mouth on TPN. Objective: General: Patient is awake making good eye contact and not distressed. Confused. ENT: NG removed. Sclera clear Chest: Regular heart rate no murmur no JVD Lungs: some rhonchi b/l, Speaking in slow broken up word intermittently coherent, at times mumbling. sOn room air. No respiratory distress. No use of accessory muscles. Abdomen: Abdomen is nontender, bowel sounds present, soft and doesn't appear distended. Obese. MSK: 2+ lower extremity edema Neuro: no focal deficits Skin: large ecchymosis left arm from IV site. Boarder marked with skin pen, resolving. Lines: Right chest permacath, foote catheter. Assessment/plan: 69-year-old male with a history NIDDM, HTN, was admitted for management of DKA, and later developed acute pancreatitis. He required intubation due to critical illness. He required pressors and IV antibiotics due to septic shock. He required CRRT for renal failure, but transitioned to intermittent HD. Remains NPO, remains on TPN. # Pancreatitis: NPO. NG remove. Pain control. No active abdominal pain on exam. # Fever: denies cough, subjective chills. Turbid urine. UA yeast. Check CXR. Monitor clinically. # Protein-calorie malnutrition: TPN, orders placed by nephrology. Swallow eval failed. Rec continued NPO with meds, high risk of aspiration. PICC for rein sertion on 07/28/20. # Acute renal failure: Remains oliguric. Nephrology on board. s/p CRRT. Interm ittent HD. # UA+ yeast: diflucan 150 mg once. # DKA: now off of insulin drip. Transitioned to subq insulin, TPN with insulin, ISS q4h accurchecks. Hypoglycemic precautions. # Anemia: Stable. Received 4uPRBC total. Off heparin ggt. IV iron. # Diarrhea: GI panel cannot be ordered after 72hrs. C diff negative however patient high risk and was placed on PO vancomycin. # Metabolic encephalopathy: Acutely sick patient, mentation variable day to day. C/w thiamine, folate in TPN. # Hypokalemia: replace. monitor. # FAST HUG Dispo: poor prognosis. , Mrs. Carolina Martinez (tel ([phone], ). Mr. Martinez has not made progress with regard to ability to tolerate PO feedings. He remains at high risk for aspiration. While we will resume TPN, I suspect that his next option is a PEG tube. A Pretty Hospitalist Frederick HUSSEIN, I+O [facility] I+O Laboratory Tests 08/26/20 13:34 08/27/20 04:17 Vital Signs Date Time Temp Pulse Resp B/P (MAP) Pulse Ox O2 Delivery O2 Flow Rate FiO2 08/27/20 07:28 98.8 106 18 152/82 (105) 98 Room Air I&O- Last 24 Hours up to 6 AM 08/27/20 06:00 Intake Total 3025 ml Output Total 1250 ml Balance 1775 ml LLOYD GODOY MD Aug 27, 2020 07:53
[2020-08-27] MEDS: SODIUM CHLORIDE 0.9% INJ 10 ML SYR IV SCH ×3 (08:00→19:53)
[2020-08-27] MEDS ORDERED: AMINO AC/ELECTROLYTE/DEX/CALC 1,000 ML IV SCH (08:00)
[2020-08-27] MEDS: HEPARIN SOD (PORCINE) 5000UNITS/ML 1ML VIAL/SYRINGE SQ SCH ×2 (09:00→19:53)
[2020-08-27] MEDS: SODIUM CHLORIDE NASAL 0.65% SPRAY BTL (OCEAN) SCH ×3 (09:00→21:00)
[2020-08-27] MEDS: PANTOPRAZOLE 40MG VIAL (C9113 PER 1) IV SCH ×2 (09:00→19:53)
[2020-08-27] MEDS: LEVEMIR (INSULIN DETEMIR) 1 UNITS/0.01ML SC SCH (09:00)
[2020-08-27] MEDS: IRON SUCROSE 100MG 5ML VIAL (J1756 PER 1MG) IV SCH (10:06)
[2020-08-27] MEDS ORDERED: SALIVA SUBSTITUTE(MOUTHKOTE) BTL MT PRN (11:15)
[2020-08-27] MEDS: ALBUTEROL SULFATE 2.5 MG/0.5 ML INH NEB SOLN NEB SCH ×3 (11:29→23:39)
[2020-08-27] MEDS ORDERED: LIDOCAINE 1% MDV 20ML VIAL As Ordered ONE (12:38)
[2020-08-27 15:30] VITALS: BP 110/62
[2020-08-27] MEDS ORDERED: SODIUM CHLORIDE 0.9% INJ 10 ML SYR IV PRN (15:45)
[2020-08-27] MEDS: FUROSEMIDE 40MG/4ML VIAL (J1940) IV SCH (16:15)
--- NOTE | 2020-08-27 16:49 | REP ---
INDICATION: Acutely Worsened congnition. COMPARISON: Comparison head CT studies August 06, 2020 and October 29, 2014.. TECHNIQUE: Helical scanning is acquired. 5 mm axial images were reformatted. Coronal MPR images were generated. FINDINGS: On bone window settings there is no bony destructive lesion. Visualized paranasal sinuses are clear. Some vascular calcification is seen in the distal internal carotid arteries. There is mild generalized volume loss. There is a small area of old encephalomalacia in the right occipital lobe somewhat superiorly. There is also a small area of old encephalomalacia in the right posterior frontal lobe. However, there are 2 new areas of low density with blurring of rodriguez-white differentiation in the right frontal lobe and in the right inferior occipital lobe be low the above old change. These are suggestive of acute lesions, most likely ischemia. There is no evidence of intracranial hemorrhage. Rodriguez-white differentiation is unchanged on the left. No extra-axial fluid collection or midline shift is seen. IMPRESSION: Two new low-density areas in the right frontal and right occipital lobe consistent with acute ischemia/infarction. Right middle cerebral artery territory. No evidence of intracranial hemorrhage. No midline shift seen.. <Electronically signed by Gio Nguyen > 08/27/20 [id number]
--- NOTE | 2020-08-27 17:18 | REP ---
PROCEDURE NAME: PICC LINE INSERTION W/SITERITE CLINICAL INFORMATION: TPN. COMPARISON: None. PROCEDURE DESCRIPTION: The procedure was performed by VICK Malone, under the direct supervision of Dr. Nguyen. The risks and benefits of the procedure were explained to the patient's who is also his healthcare proxy and an informed consent was obtained verbally. Directly prior to the start of the procedure a formal time-out was completed in the procedure room. The left basilic vein was localized using ultrasound guidance. The skin was prepped and draped in sterile fashion. One mL of 1% lidocaine 10 mg/mL was used as a local anesthetic. Using ultrasound guidance the left basilic vein was cannulated, and a 0.018 guidewire was inserted and advanced to the level of SVC using fluoroscopic guidance. The needle was removed and a 5.5 [place] dilator and peel-away sheath was inserted over the guidewire. A 5.5 [place] dual lumen catheter was cut to a length of 40 cm. The dilator was removed and the catheter was inserted over the guidewire with the tip ending at the level of the SVC. The peel-away sheath was removed and the catheter was flushed with heparinized saline as per hospital protocol. The catheter was affixed to the skin and a sterile dressing was applied. The patient tolerated the procedure well and there were no immediate complications. CONCLUSION: PICC line insertion into the left basilic vein. 0.1 minutes of fluoroscopy time was utilized for this procedure. Some fluoroscopic images are performed with last image hold technology. These images require no additional radiation. <Electronically signed by Felicia Scott > 08/27/20 1613 <Electronically signed by Gio Nguyen > 08/27/20 1710
[2020-08-27] MEDS ORDERED: POTASSIUM CHLORIDE IV SCH ×5 (18:00)
[2020-08-27] MEDS ORDERED: [UNRECOGNIZED DRUG - OTHER] IV SCH ×5 (18:00)
[2020-08-27] MEDS ORDERED: SODIUM CHLORIDE IV SCH ×5 (18:00)
[2020-08-27] MEDS ORDERED: FAT EMULSION IV 20% 500 ML IV SCH (18:00)
[2020-08-27] MEDS: ASPIRIN 300 MG SUPP PR SCH (19:52)
[2020-08-27 20:00] VITALS: BP 127/59
--- NOTE | 2020-08-27 20:10 | REPVR ---
PROCEDURE INFORMATION: Exam: MR Angiogram Head Without Contrast, Arteries Exam date and time: 08/27/2020 7:12 PM Age: 69 years old Clinical indication: Cognitive deficit; Altered mental status; Patient HX: AMS; Additional info: Stroke TECHNIQUE: Imaging protocol: MR angiogram head without contrast. Exam focused on the arteries. 3D rendering (Not supervised by radiologist): MIP and/or 3D reconstructed images were created by the technologist. COMPARISON: MRA BRAIN W/O CONTRAST 11/07/2014 12:22 PM FINDINGS: FINDINGS: Anterior circulation: Normal flow signal and luminal caliber in the petrous, cavernous and supraclinoid internal carotid arteries. Normal appearance of the anterior cerebral artery branches and middle cerebral artery branches through the MCA trifurcations. No occlusion, high-grade focal stenosis or dissection. No aneurysm. Posterior circulation: Normal distal vertebral arteries, with patent normal caliber basilar artery, and normal superior cerebellar and posterior cerebral arteries. No occlusion, high-grade stenosis or aneurysm. IMPRESSION: Unremarkable MR angiogram of the [place] and intracranial vertebrobasilar system. No intracranial large vessel arterial occlusive or high-grade stenotic lesion. Electronically signed by: Sawyer Hercules On 08/27/2020 20:10:16 PM
--- NOTE | 2020-08-27 20:40 | REPVR ---
PROCEDURE INFORMATION: Exam: MR Head Without Contrast Exam date and time: 08/27/2020 7:12 PM Age: 69 years old Clinical indication: Altered mental status/memory loss; Confusion or disorientation; Patient HX: AMS; Additional info: Stroke TECHNIQUE: Imaging protocol: MR of the head without contrast. COMPARISON: CT Head without contrast 08/27/2020 3:30 PM FINDINGS: Diffusion sequence demonstrates multiple areas of abnormal increased diffusion signal, right occipital, left posterior centrum semiovale, left posterior vertex, and bilateral supra sylvian. Several of these demonstrate decreased ADC map signal suggesting acute infarcts. These lesions also demonstrate abnormal FLAIR signal as expected. The largest area, anterior right supra sylvian demonstrates increased T1 signal and punctate foci of hemosiderin deposition suggesting underlying petechial hemorrhage. Ventricles and cisterns are symmetric. No drainable fluid collection or hemorrhage. No midline shift. Normal vascular flow voids within the intracranial vessels and dural sinuses Mild pattern of increased T2 and flair signal in supratentorial white matter. Imaged paranasal sinuses, mastoid air cells, globes and orbits are unremarkable. IMPRESSION: IMPRESSION: Multifocal intra-axial abnormality suggestive of infarcts which may be embolic or related to septic shock. The largest in the right supra sylvian region demonstrates petechial hemorrhage. Differential diagnosis would include septic emboli Findings were discussed by telephone with Dr. MOSES on 08/27/2020 8:39 PM EST, to expedite further management. Electronically signed by: Sawyer Hercules On 08/27/2020 20:39:58 PM
--- NOTE | 2020-08-27 21:25 | REPVR ---
PROCEDURE INFORMATION: Exam: US Duplex Bilateral Extracranial Arteries Exam date and time: 08/27/2020 8:42 PM Age: 69 years old Clinical indication: Other: Stroke TECHNIQUE: Imaging protocol: Real-time Duplex ultrasound scan of the bilateral carotid and vertebral arteries combining sheridan scale, color Doppler and spectral waveform analysis. Bilateral exam. COMPARISON: CT Head without contrast 08/27/2020 3:30 PM FINDINGS: Right common carotid artery: No occlusion or stenosis. Waveforms are normal. Right internal carotid artery: No occlusion or stenosis. Waveforms are normal. Right ICA/CCA ratio: 0.5. Normal Doppler velocities Right external carotid artery: No stenosis in the origin. Right vertebral artery: Antegrade flow. Normal velocity Left common carotid artery: No occlusion or stenosis. Waveforms are normal. Left internal carotid artery: No occlusion or stenosis. Waveforms are normal. Left ICA/CCA ratio: 0.5. Normal Doppler velocities Left external carotid artery: No stenosis in the origin. Left vertebral artery: . Antegrade flow. Normal velocity IMPRESSION: No carotid arterial stenosis. Mild atherosclerotic plaque, bilateral carotid bulbs REFERENCES: SRU CRITERIA. The degree of internal carotid artery stenosis is based on criteria defined by the Society of Radiologists in Ultrasound (SRU). Normal is no stenosis. Mild is less than 50% stenosis. Moderate is 50-69% stenosis. Severe is greater than 69% stenosis to near occlusion. Near occlusion is a markedly narrowed lumen. Total occlusion is no detectable patent lumen. Electronically signed by: Sawyer Hercules On 08/27/2020 21:24:47 PM
--- NOTE | 2020-08-27 21:37 | IPN ---
PROGRESS NOTE DATE: 08/27/2020 SUBJECTIVE: Mr. Martinez is seen this morning during hemodialysis. He developed sudden change in his mentation during dialysis. He is able to answer questions now; however, he is mostly lethargic and has noticed some doll's eye movement. He did have a couple of episodes of low blood pressure during dialysis. PHYSICAL EXAMINATION: His temperature is 98.8 degrees Fahrenheit, heart rate about 110 per minute and respiratory rate 20 per minute, blood pressure at present 115/62 mmHg; however, earlier it did go down, but improved quickly with normal saline bolus. His oxygen saturation is 96% on room air. His head is atraumatic. Neck is supple and without jugular venous distention (JVD) or thyroid enlargement. Dialysis catheter and right internal jugular vein is intact. Heart sounds are tachycardiac and somewhat irregular. Lung sounds diminished bilaterally. Abdomen is soft and bowel sounds are present. Extremities without any cyanosis or clubbing. LABORATORY DATA: Today's lab show white blood cell count 6.2, hemoglobin 8.7 and hematocrit 27.2, platelets 235. Sodium 138, potassium 4.2, Co2 21, BUN 77 and creatinine 6.95. Calcium is 8.3 and magnesium 2.5. Albumin is 1.6. PROBLEMS: 1. Acute renal failure. The patient remains oliguric and dialysis dependent. He is being dialyzed today. 2. Altered mentation. Probably, he has a new stroke and will defer to hospitalist service to decide about CAT scan or MRI of his head. He did receive heparin at the start of dialysis today, which has been now shut down as the patient is going to have a PICC line placed after dialysis. He had two episodes of low blood pressure, but those were very transient and responded quickly to IV fluid bolus. 3. Anemia. Nursing staff reports the patient had a melena stool yesterday. However, his hematocrit has remained mostly stable. He will need to have a complete blood count (CBC) repeated again tomorrow. 4. Generalized weakness and deconditioning. The patient has been very weak and deconditioned due to complicated prolonged hospitalization. He is still not able to swallow or eat and remains on parenteral nutrition. He is scheduled for a PICC line placement today and I have written his TPN orders.
[2020-08-28] VITALS (10 sets, daily range): BP systolic 125–166; BP diastolic 68–86
[2020-08-28] MEDS: PIPERACILLIN/TAZOBACTAM SOD 4.5 GM in D5W MINI-BAG PLUS 50 ML IV SCH ×2 (02:38→14:28)
[2020-08-28] MEDS: ALBUTEROL SULFATE 2.5 MG/0.5 ML INH NEB SOLN NEB SCH ×2 (03:50→08:00)
[2020-08-28] MEDS: HumaLOG INSULIN (NovoLOG) PER UNIT SC SCH ×2 (05:32→12:12)
[2020-08-28] MEDS: VANCOMYCIN ORAL SOL 250MG/5ML ORAL SYRINGE PO SCH ×2 (05:33→12:18)
[2020-08-28] MEDS: SODIUM CHLORIDE 0.9% INJ 10 ML SYR IV SCH (05:33)
[2020-08-28 06:11] LABS: BASO % 0.5 % (0.0-1.0); EOS # 0.2 10^3/uL (0.0-0.5); EOS % 2.5 % (0.0-3.0); HEMATOCRIT 24.2 % (42.0-52.0); HEMOGLOBIN 7.8 g/dl (13.5-17.5); LYMPH # 0.8 10^3/uL (1.5-5.0); LYMPH % 12.9 % (24.0-44.0); MEAN CORPUSCULAR HEMOGLOBIN 30.8 pg (27.0-33.0); MEAN CORPUSCULAR HGB CONC 32.2 g/dl (32.0-36.5); MEAN CORPUSCULAR VOLUME 95.7 fl (80.0-96.0); MONO # 0.5 10^3/uL (0.0-0.8); MONO % 8.6 % (0.0-5.0); NEUTROPHILS # 4.6 10^3/uL (1.5-8.5); NEUTROPHILS % 73.3 % (36.0-66.0); PLATELET COUNT, AUTOMATED 231 10^3/uL (150-450); RED BLOOD COUNT 2.53 10^6/uL (4.30-6.10); WHITE BLOOD COUNT 6.3 10^3/uL (4.0-10.0)
[2020-08-28 06:34] LABS: ALBUMIN 1.6 GM/DL (3.2-5.2); BILIRUBIN,TOTAL 0.5 MG/DL (0.2-1.0); CALCIUM LEVEL 7.8 MG/DL (8.8-10.2); CREATININE FOR GFR 4.86 MG/DL (0.70-1.30); GLOMERULAR FILTRATION RATE 12.6 (>42); POTASSIUM SERUM 3.8 MEQ/L (3.5-5.1); TOTAL PROTEIN 6.7 GM/DL (6.4-8.2)
--- NOTE | 2020-08-28 07:55 | IPNPDOC ---
Text Note Date of Service The patient was seen on 08/28/20. NOTE Subjective: Patient seen and examined at bedside this morning. More alert this morning and able to answer basic questions appropriately mostly yes/no questions. Remains on TPN. Agrees to trying to work with physical therapy this morning. Last evening patient had an episode of increased somnolence and aphasia and brain scans were suggestive of CVA. Patient was started on aspirin suppositories and stroke workup is pending. This morning patient's somnolence and aphasia seems to have completely resolved and he is more awake. Patient denies being any pain he denies any chest pain or shortness of breath. Objective: General: Patient is awake making good eye contact and not distressed. Less confused than yesterday ENT: NG removed. Sclera clear Chest: Regular heart rate no murmur no JVD Lungs: some rhonchi b/l, Speaking in slow broken up word. On room air. No respiratory distress. No use of accessory muscles. Abdomen: Abdomen is nontender, bowel sounds present, soft and doesn't appear distended. Obese. MSK: 2+ lower extremity edema Neuro: no focal deficits Skin: large ecchymosis left arm from IV site. Boarder marked with skin pen, resolving. Right arm ecchymosis from pullled out PICC, pen marked decreasing. Lines: Right chest permacath, foote catheter. Assessment/plan: 69-year-old male with a history NIDDM, HTN, was admitted for management of DKA, and later developed acute pancreatitis. He required intubation due to critical illness. He required pressors and IV antibiotics due to septic shock. He required CRRT for renal failure, but transitioned to intermittent HD. Remains NPO, remains on TPN. # Pancreatitis: NPO. NG remove. Pain control. No active abdominal pain on exam. on TPN # Fever: denies cough, subjective chills. Turbid urine. UA yeast. Check CXR. Monitor clinically. # Possible CVA: period of aphasia evening 08/27/2020 which resolved sp ontaneously. Discussed with Dr Durán neurology will place patient on asa suppository and statin when tolerating PO. US carotids ok. MRA negative. MRI shows multiple areas of possible old/new infarcts can be embolic vs or related to septic shock. Fu Echo. # Protein-calorie malnutrition: TPN, orders placed by nephrology. Swallow eval failed. Rec NPO with meds, high risk of aspiration. PICC reinserted 07/28/20. # Acute renal failure: Remains oliguric. Nephrology on board. s/p CRRT. Intermittent HD. # UA+ yeast: diflucan 150 mg once. # DKA: now off of insulin drip. Transitioned to subq insulin, TPN with insulin, ISS q4h accurchecks. Hypoglycemic precautions. # Anemia: Received 4uPRBC total. Off heparin ggt. IV iron. pRBC PRN for hgb<8 # Diarrhea: GI panel cannot be ordered after 72hrs. C diff negative however patient high risk and was placed on PO vancomycin. # Metabolic encephalopathy: Acutely sick patient, mentation variable day to day. C/w thiamine, folate in TPN. # Hypokalemia: replace. monitor. # FAST HUG Dispo: guarded prognosis. , Mrs. Carolina Martinez (tel ([phone], ). I had an extensive conversation with the lupus and her son updating them on Nabor's condition. A Pretty Hospitalist Frederick HUSSEIN, I+O [facility] I+O Laboratory Tests 08/28/20 06:00 Vital Signs Date Time Temp Pulse Resp B/P (MAP) Pulse Ox O2 Delivery O2 Flow Rate FiO2 08/28/20 04:00 98.8 110 18 152/80 (104) 95 Room Air I&O- Last 24 Hours up to 6 AM 08/28/20 06:00 Intake Total 1445 ml Output Total 723 ml Balance 722 ml LLOYD GODOY MD Aug 28, 2020 07:55
[2020-08-28] MEDS: FUROSEMIDE 40MG/4ML VIAL (J1940) IV SCH (09:36)
[2020-08-28] MEDS: PANTOPRAZOLE 40MG VIAL (C9113 PER 1) IV SCH (09:36)
[2020-08-28] MEDS: LEVEMIR (INSULIN DETEMIR) 1 UNITS/0.01ML SC SCH (09:37)
[2020-08-28] MEDS: ASPIRIN 300 MG SUPP PR SCH (09:37)
[2020-08-28] MEDS: SODIUM CHLORIDE NASAL 0.65% SPRAY BTL (OCEAN) SCH ×2 (09:38→16:00)
[2020-08-28] MEDS: HEPARIN SOD (PORCINE) 5000UNITS/ML 1ML VIAL/SYRINGE SQ SCH (09:38)
[2020-08-28 11:20] LABS: DRVV SCREEN 42.5 SEC
[2020-08-28] MEDS ORDERED: HEPARIN DRIP 25,000 UNITS in IV 1 EA IV SCH (11:23)
[2020-08-28] MEDS ORDERED: HEPARIN SOD (PORCINE) 5000UNITS/ML 1ML VIAL/SYRINGE IV PRN (11:30)
[2020-08-28] MEDS: ALBUTEROL 90 MCG/ACT 8GM HFA INHALER INH SCH ×2 (15:01→16:26)
[2020-08-28 15:12] LABS: HEMOGLOBIN 8.8 g/dl (13.5-17.5)
[2020-08-28] MEDS ORDERED: HEPARIN SOD (PORCINE) 5000UNITS/ML 1ML VIAL/SYRINGE SQ SCH (16:00)
--- NOTE | 2020-08-28 16:36 | IPN ---
NEPHROLOGY PROGRESS NOTE DATE: 08/28/2020 SUBJECTIVE: Mr. Martinez is seen this morning on his bedside. He has a sitter on the room. Yesterday he had dialysis and developed altered mentation. He then had a brain MRI done after CT scan which did show some new small infarcts. He is able to answer simple questions, but is looking somewhat lethargic. He is still oliguric and has been dialysis dependent. PHYSICAL EXAMINATION: Temperature 98.3 degrees Fahrenheit, heart rate 114 per minute and respiratory rate 20 per minute. Blood pressure 164/82 mmHg and oxygen saturation 95% on room air. Head: Atraumatic. Neck: Supple and without JVD. He has a hemodialysis catheter in the right internal jugular vein. Heart: Sounds are tachycardic. Lungs: Diminished breath sounds. He has bilateral coarse crepitations. Abdomen: Soft and nontender and bowel sounds are present. Extremities: Without any cyanosis or clubbing. Neurologically: He is arousable, but somewhat sleepy. He did answer a couple of questions by saying yes or no. LABORATORY DATA: Today's labs show sodium 133, potassium 3.8, CO2 25, BUN 48, creatinine 4.86, glucose 462, calcium 7.8. C-reactive protein 9.62. WBC count 6.3, hemoglobin 7.8, hematocrit 24.2. I have been just informed during this dictation that he also has tested positive for COVID-19. PROBLEMS/PLAN: 1. Acute renal failure: Patient remains oliguric and dialysis dependent. He was dialyzed yesterday and we will plan to dialyze him again tomorrow. 2. Hyperglycemia: Most likely this is related to TPN. We will increase the insulin in the TPN and also continue with coverage q6h. 3. Nutrition: Patient is unable to swallow and is currently receiving TPN. His TPN orders are being renewed. 4. Anemia and GI bleed: Patient has had melena stools and has a further drop in his hemoglobin. He probably has ongoing GI bleed. I will defer any plans for transfusion to the Hospitalist. 5. Stroke: Patient has a new stroke on his brain MRI from yesterday. He was not able to swallow even prior to this. He remains on TPN and other supportive care.
[2020-08-28] MEDS ORDERED: SODIUM CHLORIDE IV SCH ×8 (18:00)
[2020-08-28] MEDS ORDERED: FAT EMULSION IV 20% 500 ML IV SCH (18:00)
[2020-08-28] MEDS ORDERED: POTASSIUM CHLORIDE IV SCH ×8 (18:00)
[2020-08-28] MEDS ORDERED: [UNRECOGNIZED DRUG - OTHER] IV SCH ×8 (18:00)
--- NOTE | 2020-08-28 21:13 | DS.PDOC ---
Discharge Summary General Date of Admission Aug 04, 2020 at 15:01 Date of Discharge Aug 28 2020 Discharge Summary PROCEDURES PERFORMED DURING STAY: [None]. ADMITTING DIAGNOSES: 1. DKA 2. Pancreatitis DISCHARGE DIAGNOSES: 1. DKA 2. Pancreatitis 3. Acute Renal faliure 4. CVA 5. GI bleeding 6. COVID 19 infection COMPLICATIONS/CHIEF COMPLAINT: Acute Renal Failure / Dka. HISTORY OF PRESENT ILLNESS: From admitting H&P: 69-year-old male past medical history of [id number] diabetes, hypertension, presents to the ED because of worsening weakness that has been developing over the past 2 weeks. Patient tells me that he was diagnosed with diabetes 4 years ago and has been managing it with his ketones diet. He has been having increased urinary frequency and increased thirst over the past few weeks however he has not been drinking much and continues to urinate frequently. Patient tells me that he last saw his primary care doctor 2 years ago and does not take any medications and tries to manage his medical problems with diet alone. Patient does not exercise. Patient denies any nausea or vomiting or abdominal pain HOSPITAL COURSE: 69-year-old male with a history NIDDM, HTN, was admitted for management of DKA, and later developed acute pancreatitis. He required intubation due to critical illness and inability to protect his airway. He required pressors and IV antibiotics due to septic shock during his first week of hospitalization. He also required CRRT for renal failure, but transitioned approximately 2 weeks ago to intermittent HD. Remains NPO, remains on TPN. # Pancreatitis: NPO. NG remove. Pain control. No active abdominal pain on exam. on TPN # Lower GI bleeding: patient had been having small amount of intermittent blood streaked stools but his hgb had been previously stable. However this morning 08/28 his hgb dropped to 7.6 requiring transfusion of 1uPRBC and he continued to have increased rectal bleeding some bright red blood including some large clots. At the same time patient tested positive for COVID and needs to be anticoagulated therapeutically. The active GI bleed takes precedence and will need urgent evaluation by GI, which unfortunately is not available this week. # COVID+: given CVA 08/27 evening, repeat COVID ordered came back positive 08/28. Patient will need therapeutic anticoagulation as he is hypercoagulable however today he also started having increased rectal bleeding in the afternoon including large clots. Anticoagulating him is risky and has been put on hold until patient gets evaluated/scoped by GI. No GI available this week. Will attempt to transfer patient to hospital with GI available given the active lower GI bleed. # CVA: period of aphasia evening 08/27/2020 which resolved spontaneously. Discussed with Dr Durán neurology will place patient on asa suppository and statin when tolerating PO. US carotids ok. MRA negative. MRI shows multiple areas of possible old/new infarcts can be embolic vs or related to septic shock. Echo ordered 08/28 to look for vegetations. Given positive COVID today, it's likely the stroke was 2/2 COVID hypercoagulability state. # Protein-calorie malnutrition: TPN, orders placed by nephrology. Swallow eval failed. Rec NPO with meds, high risk of aspiration. PICC reinserted 07/28/20. # Acute renal failure: Remains oliguric. Nephrology on board. s/p CRRT. Intermittent HD. # Fever: denies cough, subjective chills. Turbid urine. UA yeast. Check CXR. Monitor clinically. # UA+ yeast: diflucan 150 mg once. # DKA: now off of insulin drip. Transitioned to subq insulin, TPN with insulin, ISS q4h accurchecks. # Anemia: Received 5uPRBC total. Off heparin ggt. IV iron. pRBC PRN for hgb<8. # Diarrhea: GI panel cannot be ordered after 72hrs. C diff negative however patient high risk and was placed on PO vancomycin prophylactically. Intermittent rectal bleeding but worse on aug 24 with large clots. # Metabolic encephalopathy: Acutely sick patient, mentation variable day to day. C/w thiamine, folate in TPN. # Transfer to [facility] for GI evluation: on 08/28 discussed case with critical care Dr Huynh at [facility] to transfer Mr argueta there for evluation by GI given his active lower GI bleeding. At the time of transfer patient was hemodynamically stable not requiring pressor support, breathing comfortably on room air saturating >92%. His hgb had improved s/p 1uPBC from 7.8 to 8.8 at 3pm. He continues to have blood in his stools including large clots. Healthcare proxy is , Mrs. Carolina Argueta (tel ([phone], ). DISCHARGE MEDICATIONS: Please see below. ALLERGIES: Please see below. PHYSICAL EXAMINATION ON DISCHARGE: General: Patient is awake making good eye contact and not distressed. Less confused than yesterday ENT: NG removed. Sclera clear Chest: Regular heart rate no murmur no JVD Lungs: some rhonchi b/l, Speaking in slow broken up word. On room air. No respiratory distress. No use of accessory muscles. On room air Abdomen: Abdomen is nontender, bowel sounds present, soft and doesn't appear distended. Obese. Clots of blood in stool. MSK: 2+ lower extremity edema Neuro: no focal deficits Skin: large ecchymosis left arm from IV site. Boarder marked with skin pen, resolving. Right arm ecchymosis from pullled out PICC, pen marked decreasing. Lines: Right chest permacath, Right arm PICC line. foote catheter. LABORATORY DATA: Please see below. IMAGING: Exam: US Duplex Bilateral Extracranial Arteries Exam date and time: 08/27/2020 8:42 PM IMPRESSION: No carotid arterial stenosis. Mild atherosclerotic plaque, bilateral carotid bulbs Exam: MR Angiogram Head Without Contrast, Arteries Exam date and time: 08/27/2020 7:12 PM IMPRESSION: Unremarkable MR angiogram of the [place] and intracranial vertebrobasilar system. No intracranial large vessel arterial occlusive or high-grade stenotic lesion. Exam: MR Head Without Contrast Exam date and time: 08/27/2020 7:12 PM IMPRESSION: Multifocal intra-axial abnormality suggestive of infarcts which may be embolic or related to septic shock. The largest in the right supra sylvian region demonstrates petechial hemorrhage. Differential diagnosis would include septic emboli CT Head without contrast 08/27/20 1517 IMPRESSION: Two new low-density areas in the right frontal and right occipital lobe consistent with acute ischemia/infarction. Right middle cerebral artery territory. No evidence of intracranial hemorrhage. No midline shift seen. Exam: US Left Joint or Other Non-Vascular Extremity Structure, Limited Hip Exam date and time: 08/19/2020 6:49 PM IMPRESSION: No sonographic abnormality seen around the left hip. CT ABD/PEL W/IV CONTRAST ONLY 08/12/20 0915 IMPRESSION: Acute pancreatitis pattern persists with mottled pattern of impaired contrast enhancement in the body and tail of the pancreas consistent with some degree of mild pancreatic necrosis. No abscess is seen. There is minimal ascites. There is moderate mural edema affecting the descending colon consistent with enterocolitis. There is fatty infiltration of the liver and extensive bilateral lower lobe atelectatic change. CT ABD & PELVIS W/O CONTRAST 08/06/20 1152 IMPRESSION: 1. Lung bases demonstrate new areas of consolidation/atelectasis and small pleural effusions. 2. Peripancreatic inflammatory changes extending into the bilateral pericolic gutters and pelvis increased from prior examination, but without drainable collection/abscess or pseudocyst. 3. Heterogeneous suspected edematous changes to the liver suggests underlying acute on chronic inflammatory change without focal hepatic lesion identified. 4. Further nonacute findings as described above. Exam: CT Head Without Contrast Exam date and time: 08/06/2020 12:55 PM IMPRESSION: No acute intracranial hemorrhage or edema. Exam: US Retroperitoneal; Complete; Kidneys and Bladder Exam date and time: 08/05/2020 9:14 PM IMPRESSION: No acute sonographic findings. CT ABD & PELVIS W/O CONTRAST 08/04/202041 IMPRESSION: 1. Acute pancreatitis. No pancreatic pseudocyst or abscess identified. 2. Inflammatory fat stranding around the gastric antrum and duodenum, which may represent antral gastritis and duodenitis. 3. Colonic diverticulosis without evidence for diverticulitis. 4. Fatty liver. 5. Enlarged prostate. 6. Small bilateral fat containing indirect inguinal hernias PROGNOSIS: Guarded ACTIVITY: [As tolerated]. DIET: TPN DISCHARGE PLAN: Transfer to [facility] ICU DISPOSITION: 02 Xfer To Acute Hosp. DISCHARGE CONDITION: [Stable]. TIME SPENT ON DISCHARGE: Greater than 50 minutes. Vital Signs/I&Os Vital Signs Date Time Temp Pulse Resp B/P (MAP) Pulse Ox O2 Delivery O2 Flow Rate FiO2 08/28/20 17:00 97.1 115 17 153/68 (96) 100 Room Air I&O- Last 24 Hours up to 6 AM 08/28/20 06:00 Intake Total 1445 ml Output Total 723 ml Balance 722 ml Laboratory Data Labs 24H Laboratory Tests 2 08/27/20 22:41: Bedside Glucose (Misc Panel) 285H 08/28/20 05:22: Bedside Glucose (Misc Panel) 412H 08/28/20 05:38: Lupus Anticoag DRVVT Screen Ratio 1.0 08/28/20 06:00: Immature Granulocyte % (Auto) 2.2, Neutrophils (%) (Auto) 73.3H, Lymphocytes (%) (Auto) 12.9L, Monocytes (%) (Auto) 8.6H, Eosinophils (%) (Auto) 2.5, Basophils (%) (Auto) 0.5, Neutrophils # (Auto) 4.6, Lymphocytes # (Auto) 0.8L, Monocytes # (Auto) 0.5, Eosinophils # (Auto) 0.2, Basophils # (Auto) 0.0, Nucleated Red Blood Cells % (auto) 0.3H, Erythrocyte Sedimentation Rate 126H, Anion Gap 11, Glomerular Filtration Rate 12.6L, Calcium Level 7.8L, Total Bilirubin 0.5, Aspartate Amino Transf (AST/SGOT) 16, Alanine Aminotransferase (ALT/SGPT) 16, Alkaline Phosphatase 140H, C-Reactive Protein, Quantitative 9.62H, Total Protein 6.7, Albumin 1.6L, Albumin/Globulin Ratio 0.3 08/28/20 09:40: Bedside Glucose (Misc Panel) 380H 08/28/20 09:50: Coronavirus (COVID-19)(PCR) POSITIVEA 08/28/20 12:09: Bedside Glucose (Misc Panel) 449H 08/28/20 12:58: Activated Partial Thromboplast Time 49.6H CBC/BMP Laboratory Tests 08/28/20 06:00 08/28/20 15:01 FSBS Laboratory Tests Test 08/27/20 22:41 08/28/20 05:22 08/28/20 09:40 08/28/20 12:09 Range/Units Bedside Glucose (Misc Panel) 285 412 380 449 83-110 MG/DL Microbiology Microbiology 08/26/20 Urine Culture - Final, Complete Yeast Like Organism 08/25/20 Blood Culture - Preliminary, Resulted No Growth after 72 hours. All specime... Discharge Medications Scheduled Ascorbic Acid (Vitamin C) 500 Mg Tab, 500 MG PO DAILY, (Reported) Cholecalciferol (Vitamin D3) (Vitamin D3) 250 Mcg Tablet, 250 MCG PO DAILY, (Reported) Lactobacillus Combo No.11 (Probiotic) 1 Each Cap.sprink, 1 CAP PO DAILY, (Reported) Magnesium Oxide (Magnesium) 250 Mg Tablet, 250 MG PO DAILY, (Reported) Saw [place] (Saw Allston) 160 Mg Capsule, 160 MG PO DAILY, (Reported) [Arginex] , 1 TAB PO DAILY, (Reported) [Strontium Citrate] 250 MG CAP, 750 MG PO DAILY, (Reported) Allergies Coded Allergies: metoprolol (Verified Allergy, Intermediate, INJECTION LEADS TO RASH, 08/19/20) LLOYD GODOY MD Aug 28, 2020 21:13
--- NOTE | 2020-08-30 13:33 | ECHO ---
DATE OF PROCEDURE: 08/28/2020 Age: 69 Gender: Male Height: 70 inches Weight: 220 pounds Body surface area: 2.18 m2 PATIENT LOCATION: Inpatient PCU, Room 3224. REFERRING PHYSICIAN: Parish Olsen MD. INDICATION: CVA cardiac source of embolic material ? MEASUREMENTS: 2D Measurements: RV 3.1 cm LV 3.7 cm Septum 1.0 cm Posterior wall 1.0 cm Aortic Root 3.2 cm LA 3.2 cm LVEF 75% Doppler Measurements: AV 1.05 m/s LVOT 0.85 m/s MV-E 84, A 128, E/A ratio 0.7 Early mitral deceleration time 165 msec E prime medial 6.8, A prime medial 15.7, E prime lateral 7.2 Average E/E prime ratio 12/PCWP 16.8 mmHg PV Not well visualized RVSP Could not be estimated IVC 1.6 cm COMMENTS: Normal sinus rhythm/sinus tachycardia without intraventricular conduction disturbance. Technically challenging study performed in the supine position. However, diagnostically useful information was still obtained. We attempted M-mode, two-dimensional echocardiography, as well as pulse, continuous wave, color flow, and tissue Doppler studies. The left ventricle appeared to be of normal size with normal wall thickness and hyperkinetic wall motion. Normal appearing left atrial size with grade 1 LV diastolic dysfunction, but current estimated mean left atrial pressure upper limits of normal. Normal appearing right heart chamber sizes and motion, but unable to further estimate pulmonary arterial pressure. Normal IVC size and collapse against an elevated central venous pressure. Normal aortic root diameter. Mild-moderate aortic valvular sclerosis without stenosis and very mild insufficiency. Mild degenerative changes of the mitral valvular apparatus with adequate leaflet excursion and no posterior systolic buckling. No significant mitral insufficiency. The tricuspid valve appeared and functioned normally with trace insufficiency. The study was too technically challenging to rule out possible intracardiac mass. No pericardial effusion. Saline contrast study was performed from the subcostal projections four chamber. There was good opacification of the right heart chambers without evidence of contrast entering the left heart chambers. If a cardiac source of embolic material is seriously suspect, a transesophageal echocardiogram will be necessary. TAVOD
== END 2020-08-28 18:21 | disposition short-term general hospital (02) | DRG 438 ==
LOC: M ED 10:21 → M ED INP 15:01 → ENRESERV 15:12 → M ICU 16:35 → M PCU 08-21 16:45 → M ICU 08-28 11:44
PROVIDERS: ADMIT Family Medicine; ATTEND Family Medicine
PROC: 02HV33Z Insertion of Infusion Device into Superior Vena Cava, Percutaneous Approach (ICD-10-PCS; principal; 2020-08-06)
PROC: 0BH17EZ Insertion of Endotracheal Airway into Trachea, Via Natural or Artificial Opening (ICD-10-PCS; 2020-08-06)
PROC: 06HM33Z Insertion of Infusion Device into Right Femoral Vein, Percutaneous Approach (ICD-10-PCS; 2020-08-07)
PROC: 5A1955Z Respiratory Ventilation, Greater than 96 Consecutive Hours (ICD-10-PCS; 2020-08-07)
PROC: 5A1D90Z Performance of Urinary Filtration, Continuous, Greater than 18 hours Per Day (ICD-10-PCS; 2020-08-07)
PROC: 3E0336Z Introduction of Nutritional Substance into Peripheral Vein, Percutaneous Approach (ICD-10-PCS; 2020-08-09)
PROC: 02HV33Z Insertion of Infusion Device into Superior Vena Cava, Percutaneous Approach (ICD-10-PCS; 2020-08-09)
PROC: 30233N1 Transfusion of Nonautologous Red Blood Cells into Peripheral Vein, Percutaneous Approach (ICD-10-PCS; 2020-08-14)
PROC: 0JH60XZ Insertion of Tunneled Vascular Access Device into Chest Subcutaneous Tissue and Fascia, Open Approach (ICD-10-PCS; 2020-08-16)
PROC: 02HV33Z Insertion of Infusion Device into Superior Vena Cava, Percutaneous Approach (ICD-10-PCS; 2020-08-16)
PROC: 5A1D70Z Performance of Urinary Filtration, Intermittent, Less than 6 Hours Per Day (ICD-10-PCS; 2020-08-17)
PROC: 02HV33Z Insertion of Infusion Device into Superior Vena Cava, Percutaneous Approach (ICD-10-PCS; 2020-08-19)
PROC: 02HV33Z Insertion of Infusion Device into Superior Vena Cava, Percutaneous Approach (ICD-10-PCS; 2020-08-27)
DX: K85.90 Acute pancreatitis without necrosis or infection, unspecified (principal); E11.10 Type 2 diabetes mellitus with ketoacidosis without coma; J96.01 Acute respiratory failure with hypoxia; G93.41 Metabolic encephalopathy; R65.21 Severe sepsis with septic shock; A41.9 Sepsis, unspecified organism; U07.1 COVID-19; I63.59 Cerebral infarction due to unspecified occlusion or stenosis of other cerebral artery; N17.9 Acute kidney failure, unspecified; F10.139 Alcohol abuse with withdrawal, unspecified; E87.0 Hyperosmolality and hypernatremia; K92.2 Gastrointestinal hemorrhage, unspecified; E46 Unspecified protein-calorie malnutrition; G72.81 Critical illness myopathy; R13.10 Dysphagia, unspecified; I10 Essential (primary) hypertension; R19.7 Diarrhea, unspecified; R53.1 Weakness; E87.6 Hypokalemia; R35.0 Frequency of micturition; E11.65 Type 2 diabetes mellitus with hyperglycemia; D64.9 Anemia, unspecified; D69.6 Thrombocytopenia, unspecified; Z91.14 Patient's other noncompliance with medication regimen; Z79.899 Other long term (current) drug therapy; Z86.73 Personal history of transient ischemic attack (TIA), and cerebral infarction without residual deficits; Z20.828 Contact with and (suspected) exposure to other viral communicable diseases